=== PATIENT | male | born 1975 | race Caucasian/White ===

== ENCOUNTER → 2016-11-15 | Outpatient (CLI) | payer OTHER ==
--- NOTE | 2016-11-13 13:37 | DIAGNOSTIC IMAGING REPORT ---
CERVICAL SPINE 3 VIEWS CLINICAL HISTORY: Neck pain. FINDINGS: AP, lateral, and odontoid views of the cervical spine are correlated with MRI of the cervical spine dated 03/12/2016. The skeletal structures are well mineralized. There is no radiographic evidence of fracture or subluxation. The odontoid process and lateral masses appear intact on the open mouth view. The spinolaminar line is preserved. Vertebral body height and alignment are maintained. The spinous processes appear intact. The intervertebral disc spaces are normal. The prevertebral soft tissues are within normal limits. Visualized apical lung parenchyma appears clear. IMPRESSION: Unremarkable 3 view radiographic assessment of the cervical spine. Electronically signed by: John Sanchez M.D. 11/13/2016 1:36 PM Dictated Date/Time: 11/13/2016 1:35 PM
--- NOTE | 2016-11-13 13:38 | DIAGNOSTIC IMAGING REPORT ---
LUMBAR SPINE 2 OR 3 VIEWS CLINICAL HISTORY: Low back pain. Trauma COMPARISON STUDY: No previous studies for comparison. FINDINGS: There is a lumbar dextroscoliosis. There is no pathologic bowel dilatation. There are surgical clips in the right upper quadrant suggesting a prior cholecystectomy. There are no acute fractures or subluxations identified. There are degenerative changes most pronounced the L4-5 and L5-S1 levels. IMPRESSION: Scoliosis and mild degenerative change. No fractures or traumatic subluxations are visualized Electronically signed by: Pedro Casas M.D. 11/13/2016 1:37 PM Dictated Date/Time: 11/13/2016 1:36 PM
[~2016-11-15] MED LIST: CYCL10TA6 PO; DICY10CA12 PO; FLUT0.15; HYZ/50125 PO; KETO10TA PO; LPT40 PO; NRN600 PO; OXYC-164 PO; PRLSR20 PO; TPRSR/25 PO
== END | disposition home or self-care (01) ==
LOC: C.RDSM 15:33
PROVIDERS: ATTEND Orthopaedic Surgery
DX: M54.2 Cervicalgia (principal); M54.5 Low back pain; M41.9 Scoliosis, unspecified

== ENCOUNTER 2016-11-25 08:51 | Emergency (ER) | payer OTHER ==
[~2016-11-25] VITALS: Ht 190.5 cm; Wt 125.0 kg
[~2016-11-25 08:51] MED LIST changes: -DICY10CA12 PO; -KETO10TA PO; -TPRSR/25 PO
[2016-11-25 08:57] VITALS: TEMP 36.5; Ht 190.5 cm; Wt 125.0 kg
[2016-11-25] MEDS ORDERED: DICY10CA12 PO (09:12)
[2016-11-25] MEDS ORDERED: TPRSR/25 PO (09:12)
[2016-11-25] MEDS ORDERED: KETOROLAC TROMETHAMINE 60 MG/2 ML VIAL IM STA (09:47)
--- NOTE | 2016-11-25 10:43 | DIAGNOSTIC IMAGING REPORT ---
CERVICAL SPINE CT CT DOSE: 430.26 mGycm HISTORY: neck pain TECHNIQUE: Multiaxial CT images of the cervical spine were performed and reformatted in the sagittal and coronal plane without the use of contrast. COMPARISON: None. FINDINGS: No fractures. No subluxation. Prevertebral soft tissues and the C1-C2 interval are intact. No pneumothorax. A 1.2 cm right thyroid nodule/cyst. The visualized brain parenchyma is unremarkable. Straightening of the cervical spine. Mild disc space narrowing at C5-C6. No significant central canal narrowing by CT technique. IMPRESSION: No fractures within the cervical spine. A 1.2 cm right thyroid nodule/cyst. Electronically signed by: Cash Menendez M.D. 11/25/2016 10:42 AM Dictated Date/Time: 11/25/2016 10:38 AM
--- NOTE | 2016-11-25 10:48 | DIAGNOSTIC IMAGING REPORT ---
CT LUMBAR SPINE WITHOUT CLINICAL HISTORY: Low back pain. TECHNIQUE: Axial images of the lumbar spine were obtained without IV contrast. Sagittal and coronal reconstructions were viewed. COMPARISON STUDY: MRI of the lumbar spine February 29, 2016 and lumbar spine radiographs November 13, 2016. FINDINGS: Mild rightward curvature of the lumbar spine is noted. There are findings consistent with an L2-L3 laminectomy. The central canal and neural foramen are suboptimally assessed by CT. Mild multilevel disc bulges are noted. There is no evidence of severe central canal stenosis. There is a Schmorl's node along the inferior endplate of L4. There is no acute lumbar spine fracture. Paravertebral soft tissues are unremarkable. IMPRESSION: 1. No acute lumbar spine fracture or subluxation. 2. Status post L2-L3 laminectomy. 3. Mild rightward curvature of the lumbar spine with mild multilevel degenerative disc disease and facet arthrosis. Electronically signed by: Jose Esquivel M.D. 11/25/2016 10:47 AM Dictated Date/Time: 11/25/2016 10:39 AM
--- NOTE | 2016-11-25 10:55 | DIAGNOSTIC IMAGING REPORT ---
CT THORACIC SPINE WITHOUT CT DOSE: 4930.69 mGy.cm CLINICAL HISTORY: Back pain. TECHNIQUE: Axial images of the thoracic spine were obtained without IV contrast. Sagittal and coronal reconstructions were viewed. COMPARISON STUDY: Thoracic spine MRI February 29, 2016. FINDINGS: Alignment of the thoracic spine is anatomic. There is no acute fracture. Several Schmorl's nodes are noted. No suspicious lesions are identified by CT. Central canal and neural foramen are suboptimally assessed by CT but appear patent. Paravertebral soft tissues are unremarkable. Disc spaces are preserved. IMPRESSION: 1. No acute thoracic spine fracture or subluxation. 2. No significant abnormality of the thoracic spine by CT. Electronically signed by: Jose Esquivel M.D. 11/25/2016 10:53 AM Dictated Date/Time: 11/25/2016 10:47 AM
[2016-11-25] MEDS ORDERED: KETO10TA PO (11:45)
--- NOTE | 2016-11-25 11:46 | EMERGENCY ROOM VISIT NOTE ---
History Report prepared by Ryne: Connor Perez Under the Supervision of: Dr. Ivan Terry D.O. First contact with patient: 09:39 Chief Complaint: BACK PAIN Stated Complaint: NECK, BACK, SHOULDER PAIN History of Present Illness The patient is a 41 year old male who presents to the Emergency Room with complaints of constant back pain that worsened yesterday. He reports the pain as an 8/10 in severity. 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 He states he was putting a cable back up on the pole and when he was pulling the cable he started to feel a pain in his neck and both shoulders. 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 The patient states that the pain radiated to his arms and he felt a numbness in his hands. The patient reports the pain improved a little bit since the incident but worsened yesterday when he felt a pop in his lower back while working. He states that the pain feels like it is a grind and a pop. The patient reports he was sent on workers comp to [facility] where he had xrays done of his neck and back. The patient reports that he had no physical therapy or medication administered. He reports that the pain is currently a tenderness in his neck and back, which has somewhat decreased, and a pain shooting down his leg. The patient states that he has never felt pain like this before. Source of History: patient Onset: November 03 Position: back Symptom Intensity: 8/10 Quality: other (pop and grind) Timing: worsening Modifying Factors (Worsening): exertion Associated Symptoms: + neck pain Note: Associated Symptoms include: Shoulder pain, arm pain Review of Systems See HPI for pertinent positives & negatives. A total of 10 systems reviewed and were otherwise negative. Past Medical & Surgical Medical Problems: (1) Bronchitis (2) Heart disease (3) Hypertension (4) Pneumonia (5) Stomach problems Surgical Problems: (1) History of appendectomy (2) History of back surgery (3) History of back surgery (4) History of right knee surgery (5) History of right knee surgery (6) History of shoulder surgery (7) History of shoulder surgery Family History Cancer Gallbladder disease Hypertension No significant family history Social History Smoking Status: Never Smoker Drug Use: none Marital Status: Housing Status: lives with family Occupation Status: employed Current/Historical Medications Scheduled Dicyclomine Hcl (Dicyclomine Hcl), 1 CAP PO BID Hctz/Losartan (Hyzaar 12.5MG/50MG), 1 TAB PO BID Metoprolol Succinate (Metoprolol Succinate ER), 0.5 TAB PO DAILY Omeprazole (Prilosec), 20 MG PO QAM Oxycodone Hcl (Oxycodone Hcl), 10 MG PO TID Scheduled PRN Fluticasone Propionate (Nasal) (Flonase Allergy Relief), 2 SPRAY N/A DAILY PRN for CONGESTION Allergies Coded Allergies: No Known Allergies (Unverified , 11/25/16) Physical Exam Vital Signs Date Time Temp Pulse Resp B/P Pulse Ox O2 Delivery O2 Flow Rate FiO2 11/25/16 10:53 65 16 140/89 95 11/25/16 08:57 36.5 81 18 176/106 96 Room Air Physical Exam CONSTITUTIONAL/VITAL SIGNS: Reviewed / noted above. GENERAL: Non-toxic in appearance. INTEGUMENTARY: Warm, dry, and [place]. HEAD: Normocephalic. EYES: without scleral icterus or trauma. ENT/OROPHARYNX: clear and moist. LYMPHADENOPATHY/NECK: Is supple without lymphadenopathy or meningismus. RESPIRATORY: Lungs clear and equal. CARDIOVASCULAR: Regular rate and rhythm. GI/ABDOMEN: Soft and nontender. No organomegaly or pulsatile mass. No rebound or guarding. Normal bowel sounds. EXTREMITIES: Warm and well perfused. Normal lower extremity reflexes. Normal sensory and motor exam. BACK: No CVA tenderness. NEUROLOGICAL: Intact without focal deficits. PSYCHIATRIC: normal affect. MUSCULOSKELETAL: Normally developed with good muscle tone. Medical Decision & Procedures ER Provider Diagnostic Interpretation: CT results as stated below per my review and radiologist interpretation: CT LUMBAR SPINE WITHOUT CLINICAL HISTORY: Low back pain. TECHNIQUE: Axial images of the lumbar spine were obtained without IV contrast. Sagittal and coronal reconstructions were viewed. COMPARISON STUDY: MRI of the lumbar spine February 29, 2016 and lumbar spine radiographs November 13, 2016. FINDINGS: Mild rightward curvature of the lumbar spine is noted. There are findings consistent with an L2-L3 laminectomy. The central canal and neural foramen are suboptimally assessed by CT. Mild multilevel disc bulges are noted. There is no evidence of severe central canal stenosis. There is a Schmorl's node along the inferior endplate of L4. There is no acute lumbar spine fracture. Paravertebral soft tissues are unremarkable. IMPRESSION: 1. No acute lumbar spine fracture or subluxation. 2. Status post L2-L3 laminectomy. 3. Mild rightward curvature of the lumbar spine with mild multilevel degenerative disc disease and facet arthrosis. Electronically signed by: Jose Esquivel M.D. 11/25/2016 10:47 AM Dictated Date/Time: 11/25/2016 10:[address] DOSE: 430.26 mGycm HISTORY: neck pain TECHNIQUE: Multiaxial CT images of the cervical spine were performed and reformatted in the sagittal and coronal plane without the use of contrast. COMPARISON: None. FINDINGS: No fractures. No subluxation. Prevertebral soft tissues and the C1-C2 interval are intact. No pneumothorax. A 1.2 cm right thyroid nodule/cyst. The visualized brain parenchyma is unremarkable. Straightening of the cervical spine. Mild disc space narrowing at C5-C6. No significant central canal narrowing by CT technique. IMPRESSION: No fractures within the cervical spine. A 1.2 cm right thyroid nodule/cyst. Electronically signed by: Cash Menendez M.D. 11/25/2016 10:42 AM Dictated Date/Time: 11/25/2016 10:[address] THOR[address]IC SP[address] WITHOUT CT DOSE: 4930.69 mGy.cm CLINICAL HISTORY: Back pain. TECHNIQUE: Axial images of the thoracic spine were obtained without IV contrast. Sagittal and coronal reconstructions were viewed. COMPARISON STUDY: Thoracic spine MRI February 29, 2016. FINDINGS: Alignment of the thoracic spine is anatomic. There is no acute fracture. Several Schmorl's nodes are noted. No suspicious lesions are identified by CT. Central canal and neural foramen are suboptimally assessed by CT but appear patent. Paravertebral soft tissues are unremarkable. Disc spaces are preserved. IMPRESSION: 1. No acute thoracic spine fracture or subluxation. 2. No significant abnormality of the thoracic spine by CT. Electronically signed by: Jose Esquivel M.D. 11/25/2016 10:53 AM Dictated Date/Time: 11/25/2016 10:47 AM Medications Administered Medications (Trade) Dose Ordered Sig/Alex Route Start Time Stop Time Status Last Admin Dose Admin Ketorolac Tromethamine (Toradol Inj) 60 mg NOW STAT IM 11/25/16 09:47 11/25/16 09:49 DC 11/25/16 09:47 60 MG ED Course 944: Previous medical records were reviewed. The patient was evaluated in room B05. A complete history and physical examination was performed. 48: Ordered Toradol Injection 60 mg IM. Medical Decision Blood pressure Screening: Patient was found to have an elevated blood pressure and was referred to their primary doctor for recheck and further treatment. Medication Reconciliation: I attest that I have personally reviewed the patient' s current medication list. Differential considered includes cauda equina syndrome, conus medullaris, spinal cord compression syndrome, peripheral nerve compression, fractures or subluxations, intra-abdominal pathology such as abdominal aortic aneurysm or kidney stones, muscle strain, transverse myelitis, spinal cord injury. This is a 41-year-old male who presents to the ED with a chief complaint of neck pain and back pain. The patient states that he injured himself at work on November 03 when he was grabbing a cable and pulling it. Later that day he was lifting a piece of telephone pole and had some pain in his low back and neck. The patient was seen by [facility]. He was not happy with the x- rays that they performed and has an appointment to see [facility] on Wednesday. He came in here for evaluation. His exam was unremarkable. There is a history of laminectomy in the past in the lumbar spine. His neuro and motor exam were normal in the lower extremities. Reflexes were normal. CT scan of the cervical, thoracic and lumbar spine were performed. It was some mild disc space narrowing in the cervical region, mild disc bulging in the lumbar region, thoracic was unremarkable. The patient was treated with Toradol IM. He was discharged on Toradol. He was given 3 days off in order to rest and see the orthopedist on Wednesday. Impression Primary Impression: Neck pain Additional Impression: Back pain Scribe Attestation The scribe's documentation has been prepared under my direction and personally reviewed by me in its entirety. I confirm that the note above accurately reflects all work, treatment, procedures, and medical decision making performed by me. Departure Information Dispostion Home / Self-Care Prescriptions Ketorolac (Toradol) 10 Mg Tab 10 MG PO Q6H Y for Pain, #20 TAB Prov: Mishock,Ivan, D.O. 11/25/16 Referrals Estuardo Kamara M.D.([facility]) (PCP) Forms HOME CARE DOCUMENTATION FORM, IMPORTANT VISIT INFORMATION, Work Instructions Return To Work: 3 days Specific Date: 11/28/16 Patient Instructions My [facility] Additional Instructions Toradol as prescribed for discomfort. Rest for the next 3 days. Talk to the orthopedist about your symptoms on Wednesday as scheduled. Problem Qualifiers
[2016-11-25 12:05] VITALS: BP 138/74; PULSE 70; O2SAT 96
== END 2016-11-25 12:08 | disposition home or self-care (01) ==
LOC: C.EDB 08:52
DX: M54.2 Cervicalgia (principal); M54.5 Low back pain; Y99.0 Civilian activity done for income or pay; X50.0XXD Overexertion from strenuous movement or load, subsequent encounter; I10 Essential (primary) hypertension; Z87.01 Personal history of pneumonia (recurrent); Z80.9 Family history of malignant neoplasm, unspecified; Z82.49 Family history of ischemic heart disease and other diseases of the circulatory system; Z79.899 Other long term (current) drug therapy

== ENCOUNTER → 2016-12-25 | Outpatient (CLI) | payer OTHER ==
[~2016-12-25] MED LIST changes: -CYCL10TA6 PO; +DICY10CA12 PO; +KETO10TA PO; -LPT40 PO; -NRN600 PO; +TPRSR/25 PO
--- NOTE | 2016-12-25 10:17 | DIAGNOSTIC IMAGING REPORT ---
THYROID ULTRASOUND CLINICAL HISTORY: Abnormal imaging of the thyroid. COMPARISON STUDY: CT of the cervical spine November 25, 2016. TECHNIQUE: Sonography of the thyroid gland was performed. FINDINGS: The right thyroid lobe measures 5.7 x 2.1 x 2.2 cm and the left lobe measures 5.9 x 1.9 x 1.8 cm. A 1.6 x 1.6 x 1 cm slightly hypoechoic nodule within hypoechoic rim within the lower pole of the right lobe corresponds to the lesion shown on CT of November 25, 2016. This contains color flow. A few additional tiny subcentimeter nodules are noted and likely reflect colloid cysts. IMPRESSION: 1.6 cm nodule within the lower pole of the right thyroid lobe which corresponds to the lesion shown on CT of November 25, 2016. This does not have suspicious imaging characteristics but is indeterminate and ultrasound-guided fine needle aspiration could be performed. Electronically signed by: Jose Esquivel M.D. 12/25/2016 10:15 AM Dictated Date/Time: 12/25/2016 10:13 AM
== END | disposition home or self-care (01) ==
LOC: C.ULTRBC 09:12
PROVIDERS: ATTEND Orthopaedic Surgery Orthopaedic Surgery of the Spine
DX: R94.6 Abnormal results of thyroid function studies (principal); E04.1 Nontoxic single thyroid nodule

== ENCOUNTER → 2017-09-16 | Day surgery (SDC) | payer OTHER ==
[2017-08-26 09:24] VITALS: Ht 190.5 cm; Wt 130.0 kg
[~2017-09-16] VITALS: Ht 190.5 cm; Wt 130.0 kg
[~2017-09-16] MED LIST changes: +BACL10TA PO; +BUPIVACAINE 0.25% 2.5MG/ML PF 10 ML VIAL ONE; +CARV3.122 PO; -HYZ/50125 PO; -KETO10TA PO; +LIDOCAINE HCL 1% MPF 5 ML VIAL ONE; -OXYC-164 PO; +OXYC-57 PO; -TPRSR/25 PO
--- NOTE | 2017-09-16 14:19 | History & Physical Bridge - SC ---
H&P Re-Evaluation Bridge Note: I have examined the patient, reviewed the History & Physical and in the interval since the performance of the History & Physical I have noted the following changes of clinical significance: No changes noted
--- NOTE | 2017-09-16 14:41 | [facility] Post Operative Brief Note ---
Immediate Operative Summary Operative Date Sep 16, 2017. Pre-Operative Diagnosis Lumbar spondylosis with facet arthropathy L5-S1 Post-Operative Diagnosis Same Procedure(s) Performed Bilateral L5-S1 Medial Branch Blocks Surgeon Dr Larry Ku Disk Sander Surgeon(s) None Estimated Blood Loss 0 Findings Consistent with Post-Op Diagnosis Specimens NA Drains None Anesthesia Type Local Complication(s) none Disposition Disposition:
--- NOTE | 2017-09-16 14:42 | Discharge Instructions ---
Discharge Instructions Date of Service Sep 16, 2017. Visit Reason for Visit: Low Back Pain Discharge Discharge Diagnosis / Problem: low back pain Discharge Goals Goal(s): Decrease discomfort, Improve function Activity Recommendations Activity Limitations: resume your previous activity Anesthesia . Post Anesthesia Instructions: If you have had General Anesthesia or IV Sedation: * Do not drive today. * Resume driving when surgeon permits. * Do not make important decisions or sign legal documents today. * Call surgeon for: 1. Temperature elevations greater than 101 degrees F. 2. Uncontrollable pain. 3. Excessive bleeding. 4. Persistent nausea and vomiting. 5. Medication intolerance (nausea, vomiting or rash). * For nausea and vomiting use only clear liquids such as: tea, soda, bouillon until nausea subsides, then gradually increase diet as tolerated. * If you have any concerns or questions, call your surgeon's office. If physician is unavailable and it is an emergency, call 911 or go to the nearest emergency room. . Diet Recommendations Recommended Home Diet: resume previous diet Procedures Procedures Performed: Bilateral L5-S1 Medial Branch Blocks Pending Studies Studies pending at discharge: no Medical Emergencies . Who to Call and When: Medical Emergencies: If at any time you feel your situation is an emergency, please call 911 immediately. . Non-Emergent Contact Non-Emergency issues call your: Specialist . . "Provider Documentation" section prepared by Larry Ku. .
[2017-09-16 15:05] VITALS: BP 160/107; PULSE 73; TEMP 36.6; O2SAT 96
--- NOTE | 2017-09-16 19:27 | OPERATIVE REPORT ---
DATE OF OPERATION: 09/16/2017 PREOPERATIVE DIAGNOSES: Lumbar spondylosis with facet arthropathy L5-S1. Chronic low back pain. POSTOPERATIVE DIAGNOSES: Same. PROCEDURE: Bilateral L5-S1 medial branch blocks. INDICATIONS: The patient is a 42-year-old white male who has a significant low back pain that originates at the top of the buttocks. He denies any pain that radiates down the leg. He describes that he gets a lot of pain when he is doing twisting and turning in the low back. He presents today for diagnostic studies to confirm that the facet arthropathy is the cause of his pain. PHYSICAL EXAMINATION: Pleasant male seated comfortably. Well-healed lumbar incision. He has point tenderness to palpation of the L5-S1 regions. These get worse with extension, extension rotation. There is no sciatic notch sensitivity. Negative seated straight leg raises. CONSENT: Verbal and written consent was obtained from patient. Risks and benefits were reviewed. Risks include but are not limited to abscess and allergic reaction. The patient wishes to proceed. DESCRIPTION OF PROCEDURE: The patient was taken back to the special procedures room of the [facility]. He was maintained in prone position. Backside was cleansed with Betadine x3 and a dry sterile dressing was applied. Fluoroscope was used to identify the L5 transverse process and the sacral ala on the left. The overlying skin was anesthetized with 1.25 mL of lidocaine 1% with a 25 gauge 1.5-inch needle. A 25 gauge 3.5-inch spinal needle was then directed into the bony target of the L5 transverse process junction with vertebral body and the sacral ala on the left side, contacting bone on each point that was injected then with 1 mL of bupivacaine 0.25% at each side. The right L5 transverse process junction and right sacral ala were then fluoroscopically identified. Overlying skin anesthetized with 1.25 mL of lidocaine 1% with a 25 gauge 1.5-inch needle. A 25 gauge 3.5-inch spinal needle then targeted at each site, L5 transverse process junction on the right and the right sacral ala. After contacting these targets, patient was injected with 1 mL of bupivacaine 0.25% at each site. Injection was well tolerated. DISPOSITION: 1. The patient is taken out into the discharge recovery area where he will be discharged home once discharge criteria have been met. 2. Follow up in the [facility] office in 4 weeks' time. I attest to the content of the Intraoperative Record and any orders documented therein. Any exception s are noted below.
== END | disposition home or self-care (01) ==
LOC: X.SURG 13:34
PROVIDERS: ATTEND Physical Medicine & Rehabilitation
DX: M47.817 Spondylosis without myelopathy or radiculopathy, lumbosacral region (principal); M54.5 Low back pain; Z79.899 Other long term (current) drug therapy

== ENCOUNTER 2017-09-17 05:07 | Day surgery (SDC) | payer OTHER ==
[2017-08-26 09:08] VITALS: Ht 190.5 cm; Wt 130.0 kg
--- NOTE | 2017-09-13 09:28 | History and Physical ---
History & Physical Date Sep 13, 2017. Chief Complaint Left shoulder pain History of Present Illness The patient is a 42 year old male with complaints of left shoulder pain for several months. He has tried conservative therapy for with minimal relief. He would like to proceed with scheduled surgery. Past Medical/Surgical History Medical Problems: (1) Bronchitis (2) Heart disease (3) Hypertension (4) Pneumonia (5) Stomach problems Surgical Problems: (1) History of appendectomy (2) History of back surgery (3) History of back surgery (4) History of right knee surgery (5) History of right knee surgery (6) History of shoulder surgery (7) History of shoulder surgery Additional History Hepatic Disease: No Endocrine Disorder: No Kidney Disease: No Hypertension: Yes Heart Disease: No Bleeding Tendencies: No Infectious Diseases: No Allergies Coded Allergies: No Known Allergies (Unverified , 08/26/17) Home Medications Scheduled Carvedilol (Coreg), 3.125 MG PO BID Dicyclomine Hcl (Dicyclomine Hcl), 1 CAP PO BID Omeprazole (Prilosec), 20 MG PO QAM Scheduled PRN Baclofen (Lioresal), 10 MG PO TID PRN for Muscle Spasms Fluticasone Propionate (Nasal) (Flonase Allergy Relief), 2 SPRAY N/A DAILY PRN for CONGESTION Physical Examination Skin: warm/dry, no rash Eyes: normal inspection, EOMI ENT: normal ENT inspection Head: normocephalic, atraumatic Neck: supple, no adenopathy Respiratory/Chest: lungs clear, normal breath sounds Cardiovascular: regular rate, rhythm, no murmur Abdomen / GI: normal bowel sounds, non tender Extremities: normal inspection, + pertinent finding (Positive impingment sign. decreased ROM and decreased Strength) Neurologic/Psych: no motor/sensory deficits, alert, oriented x 3 Diagnosis Left shoulder impingement syndrome Plan of Treatment Patient is scheduled for a left shoulder subacromial decompression. He has failed conservative therapy and would like to proceed with scheduled surgery. Risks and benefits to surgery were discussed with the patient. He understands these risks and wishes to proceed. All questions were answered to his satisfaction. This is an outpatient procedure and he will go home with self- care for Outpatient PT.
[~2017-09-17] VITALS: Ht 190.5 cm; Wt 130.0 kg
[~2017-09-17 05:07] MED LIST changes: -BUPIVACAINE 0.25% 2.5MG/ML PF 10 ML VIAL ONE; -LIDOCAINE HCL 1% MPF 5 ML VIAL ONE; -OXYC-57 PO
[2017-09-17 05:59] VITALS: BP 142/84; PULSE 65; TEMP 36.7; O2SAT 95
[2017-09-17] MEDS ORDERED: LACTATED RINGER'S 1000ML 1,000 ML IV SCH (06:00)
[2017-09-17] MEDS ORDERED: CEFAZOLIN 3000MG IV PUSH 22.5 ML IV SCH (06:00)
[2017-09-17] MEDS ORDERED: ROPIVACAINE 0.5% 5 MG/ML 30 ML VIAL ONE (06:30)
[2017-09-17] MEDS ORDERED: LIDOCAINE/EPINEPHRINE 1% 20 ML VIAL ONE (06:39)
[2017-09-17] MEDS ORDERED: BUPIVACAINE 0.5 % 5 MG/1 ML MPF 30ML VIAL ONE (06:39)
[2017-09-17] MEDS ORDERED: EpINEphrine HCL INJ 1 MG/ML 1ML SYRINGE ONE ×2 (06:39)
[2017-09-17] MEDS ORDERED: NEOSTIGMINE METHYLSULFATE 5 MG/5 ML SYR ONE (06:48)
[2017-09-17] MEDS ORDERED: LIDOCAINE HCL 2% 2 ML VIAL (20MG/ML) ONE (06:48)
[2017-09-17] MEDS ORDERED: PROPOFOL IV EMULSION 10 MG/ML 20 ML VIAL IV ONE (06:48)
[2017-09-17] MEDS ORDERED: DEXAMETHASONE SOD INJ 4 MG/ML VIAL ONE (06:48)
[2017-09-17] MEDS ORDERED: FENTANYL CITRATE INJ 50 MCG/1 ML 2 ML VIAL ONE (06:48)
[2017-09-17] MEDS ORDERED: GLYCOPYRROLATE INJ 0.2 MG/ML VIAL ONE ×2 (06:48→07:58)
[2017-09-17] MEDS ORDERED: ONDANSETRON INJ 2 MG/ML 2 ML VIAL ONE (06:48)
[2017-09-17] MEDS ORDERED: MIDAZOLAM HCL 1 MG/ML 2ML VIAL ONE (06:48)
[2017-09-17] MEDS ORDERED: ROCURONIUM BROMIDE 10 MG/ML 5 ML VIAL IV ONE (06:49)
[2017-09-17] MEDS ORDERED: SUCCINYLCHOLINE CHLORIDE 20 MG/ML 10 ML VIAL IV ONE (06:49)
[2017-09-17] MEDS ORDERED: ATROPINE SULFATE 0.1 MG/ML 5ML SYR IV PRN (07:15)
[2017-09-17] MEDS ORDERED: EpHEDrine SULFATE INJ 50 MG/ML AMP IV PRN (07:15)
[2017-09-17] MEDS ORDERED: ONDANSETRON INJ 2 MG/ML 2 ML VIAL IV PRN ×2 (07:15→08:15)
[2017-09-17] MEDS ORDERED: HYDROmorphone INJ 1 MG/ML SYR IV PRN (07:15)
[2017-09-17] MEDS ORDERED: FENTANYL CITRATE INJ 50 MCG/1 ML 2 ML VIAL IV PRN (07:15)
--- NOTE | 2017-09-17 08:09 | [facility] Operative Report ---
Operative Report Operative Date Sep 17, 2017. Pre-Operative Diagnosis Left Shoulder Impingement Syndrome Post-Operative Diagnosis Left Shoulder Impingement Syndrome, labral tear, partial thickness subscapularis tear Procedure(s) Performed Left Shoulder: Arthroscopy, Subacromial Decompression and Debridement Surgeon Dr. Wolff Ibm Websphere Commerce Developer Surgeon(s) MISHA Segura Estimated Blood Loss 1 ml Specimens none per surgeon Drains None Anesthesia Type General Regional Complication(s) none Disposition Recovery Room / PACU Indications The patient is a 42-year-old male long-standing left shoulder. He has failed conservative measures including cortisone injection physical therapy and anti- inflammatory medications. He wishes to proceed with arthroscopy. Description of Procedure Risks, benefits and alternatives to surgery including, but not limited to, infection DVT, pain, stiffness, need for revision surgery, failure to relieve all symptoms, damage to blood vessels, damage to nerves, risk of anesthesia were discussed with the patient and they wished to proceed. The patient was identified. Laterality was confirmed and marked. The patient received a preoperative antibiotic as well as an interscalene block. They were transferred to the operating room and placed in the supine position and induced into general endotracheal anesthesia per the anesthesia staff. The patient was then safely transferred to the lateral decubitus position, secured by a beanbag. An axillary roll was placed. All pressure points were well-padded. The limb was placed in 10 pounds of lateral traction and then prepped and draped in the usual standard manner with ChloraPrep. The portal sites were anesthetized with 2% lidocaine with epinephrine. I made a standard posterior viewing portal made through a stab incision and then bluntly entered the glenohumeral joint. Then under spinal needle localization, I establish an anterior superolateral portal. The cartilage of the humeral head was normal. The cartilage of the glenoid was normal. The glenoid labrum had some degenerative tearing of the anterior labrum. This was debrided back to stable base utilizing a shaver. The long head of the biceps tendon was normal. The subscapularis had some minor fraying on the upper insertional border. This is debrided back to stable base using a shaver. The remaining portion of the tendon is normal.. The undersurface of the rotator cuff was intact. I then removed the instrumentation from the joint and entered the subacromial space. I establish a lateral portal under spinal needle localization. There was fairly thickened bursa that was debrided utilizing a shaver. The rotator cuff was normal. I then released the CA ligament with cautery and performed a subacromial decompression, first removing the anterior inferior spur from laterally and then completing with a cutting block technique. Portal sites were closed with nylon. A sterile dressing was applied and a sling placed. All needle and sponge counts were correct at the end of the procedure. The patient was transferred to the PACU in stable condition without apparent complication. I attest to the content of the Intraoperative Record and any orders documented therein. Any exceptions are noted below.
[2017-09-17] MEDS ORDERED: SODIUM CHLORIDE 0.9% 1000ML 1,000 ML IV SCH (08:13)
[2017-09-17] MEDS ORDERED: OXYC-57 PO ×2 (08:14)
[2017-09-17] MEDS ORDERED: OXYCODONE/ACETAMINOPHEN 5-325 TAB PO PRN ×2 (08:15)
--- NOTE | 2017-09-17 08:17 | Discharge Instructions ---
Discharge Instructions Date of Service Sep 17, 2017. Admission Reason for Admission: Left Shoulder Impingement Syndrome Discharge Discharge Diagnosis / Problem: S/P Left shoulder Subacromial decompression Discharge Goals Goal(s): Decrease discomfort, Improve function Activity Recommendations Activity Limitations: per Instructions/Follow-up section . Instructions / Follow-Up Instructions / Follow-Up U DISCHARGE INSTRUCTIONS: SHOULDER ARTHROSCOPY subacromial decompression SELF CARE INSTRUCTIONS AFTER: A. You are allowed to use your arm actively as comfort allows. Recommend NOT doing repetitive overhead activity or heavy lifting. B. You should start Physical Therapy within 1-3 days from your surgery. You will be provided a prescription with specific restrictions, if needed, at time of discharge. C. You can discontinue the sling as comfort allows within one to two days after surgery. A. At 48 hours post-operatively, you may change your dressing. Use band-aids and change daily. You are allowed to shower at this time and get the incision area wet, but DO NOT soak or submerge incision area in water. (No baths, swimming pools, hot tubs) B. Do NOT apply soap or any ointment/lotions directly over incision. C. You may use ice as needed to operative shoulder SPECIAL CARE INSTRUCTIONS: VERY IMPORTANT TO READ AND REVIEW A. There are a few signs you need to watch for after you are home. Call [facility] at [phone] if you experience any of the following: a. Increased severe shoulder pain. Some pain is expected especially when you exercise b. Increased swelling in your shoulder or arm; pain or swelling in either upper extremity. (Note: swelling and stiffness is normal and expected for several weeks post op, depending on type of shoulder surgery you had). c. Any fluid or drainage from the incision; redness of the incision. d. Shortness of breath or chest pain. B. Please call [facility] at [phone] if you have any questions or concerns about your operation or recovery. C. Call your physician if: a. Temperature is greater than 101 degrees (F). b. Pain is not relieved by prescribed pain medications. c. Increase drainage or redness from incision. d. Unanswered questions or concerns. D. Pain Medication: a. You will be prescribed pain medication upon discharge that should last till your first post-operative appointment. b. You may also take Advil or Ibuprofen between medication doses if you do not have any contraindication to taking them. c. You may also take Advil or Ibuprofen in place of your pain medication if the pain is tolerable. d. If you experience nausea and/or skin rash, discontinue this medication and contact our office for an alternative medication. e. Caution- narcotic pain medication can cause constipation. FOLLOW UP VISIT: Please call [facility] at [phone] to schedule a follow up appointment 10-14 days from your surgery date. Current Hospital Diet Patient's current hospital diet: Discharge Diet Recommended Diet: Regular Diet Procedures Procedures Performed: Left Shoulder: Arthroscopy, Subacromial Decompression and Debridement Pending Studies Studies pending at discharge: no Medical Emergencies . Who to Call and When: Medical Emergencies: If at any time you feel your situation is an emergency, please call 911 immediately. . Non-Emergent Contact Non-Emergency issues call your: Surgeon Call Non-Emergent contact if: temperature is above 101.5, your pain is worsening, wound has increased drainage, wound has increased redness . "Provider Documentation" section prepared by Kobi Harding. . [place] Drug Monitoring Program Search Results: patient reviewed within database, no issues identified
--- NOTE | 2017-09-17 08:44 | Anesthesiology Progress Note ---
Anesthesia Post Op Note Date & Time Sep 17, 2017 at 08:44 Vital Signs Pain Intensity: 4 Vital Signs Past 12 Hours Date Time Temp Pulse Resp B/P (MAP) Pulse Ox O2 Delivery O2 Flow Rate FiO2 09/17/17 08:40 67 16 140/99 95 Room Air 09/17/17 08:30 61 16 143/96 97 Oxymask 15 09/17/17 08:20 67 16 147/97 96 Oxymask 15 09/17/17 08:12 36.7 79 16 165/106 93 Oxymask 15 09/17/17 05:59 36.7 65 18 142/84 (103) 95 Room Air Notes Mental Status: alert / awake / arousable, participated in evaluation Pt Amnestic to Procedure: Yes Nausea / Vomiting: adequately controlled Pain: adequately controlled Airway Patency, RR, SpO2: stable & adequate BP & HR: stable & adequate Hydration State: stable & adequate Anesthetic Complications: no major complications apparent Anesthetic Complications: block working appropriately
[2017-09-17 08:55] VITALS: BP 139/93; PULSE 62; TEMP 36.6; O2SAT 95
[2017-09-17 09:25] VITALS: BP 131/70; PULSE 66; TEMP 36.6; O2SAT 95
== END 2017-09-17 10:08 | disposition home or self-care (01) ==
LOC: C.ACU 05:07
PROVIDERS: ATTEND Orthopaedic Surgery
DX: M75.42 Impingement syndrome of left shoulder (principal); I51.9 Heart disease, unspecified; I10 Essential (primary) hypertension; Z79.899 Other long term (current) drug therapy

== ENCOUNTER → 2017-10-08 | Day surgery (SDC) | payer OTHER ==
[2017-10-07 08:20] VITALS: BMI 36.0
[~2017-10-08] VITALS: Ht 190.5 cm; Wt 130.0 kg
[~2017-10-08] MED LIST changes: +ATROPINE SULFATE 0.1 MG/ML 5ML SYR IV PRN; -BACL10TA PO; +BUPIVACAINE 0.5 % 5 MG/1 ML MPF 30ML VIAL ONE; -CARV3.122 PO; +CEFAZOLIN 3000MG IV PUSH 22.5 ML IV SCH; +CRG625 PO; -DICY10CA12 PO; +EpINEphrine HCL INJ 1 MG/ML 1ML SYRINGE ONE; +FENTANYL CITRATE INJ 50 MCG/1 ML 2 ML VIAL IV PRN; +FENTANYL CITRATE INJ 50 MCG/1 ML 2 ML VIAL ONE; +GLYCOPYRROLATE INJ 0.2 MG/ML VIAL ONE; +HYDROCODONE/ACETAMIN 5/325MG TAB PO PRN; +KETOROLAC TROMETHAMINE 30 MG/ML VIAL IV. PRN; +LABETALOL HCL IV 5 MG/ML 20ML IV PRN; +LACTATED RINGER'S 1000ML 1,000 ML IV SCH; +LIDOCAINE HCL 2% 2 ML VIAL (20MG/ML) ONE; +LIDOCAINE/EPINEPHRINE 1% 20 ML VIAL ONE; +MIDAZOLAM HCL 1 MG/ML 2ML VIAL ONE; +NEOSTIGMINE METHYLSULFATE 5 MG/5 ML SYR ONE; +ONDANSETRON INJ 2 MG/ML 2 ML VIAL IV PRN; -PRLSR20 PO; +PROPOFOL IV EMULSION 10 MG/ML 20 ML VIAL IV ONE; +ROCURONIUM BROMIDE 10 MG/ML 5 ML VIAL IV ONE; +ROPIVACAINE 0.5% 5 MG/ML 30 ML VIAL ONE; +SODIUM CHLORIDE 0.9% 1000ML 1,000 ML IV SCH
[2017-10-08 10:50] VITALS: BP 149/104; PULSE 76; TEMP 36.9; O2SAT 94; Ht 190.5 cm; Wt 130.0 kg
--- NOTE | 2017-10-08 11:47 | History and Physical ---
History & Physical Date Oct 08, 2017. Chief Complaint Right shoulder pain History of Present Illness The patient is a 42 year old male with complaints of right shoulder pain that has failed injection, PT and NSAIDs Past Medical/Surgical History Medical Problems: (1) Bronchitis (2) Heart disease (3) Hypertension (4) Pneumonia (5) Stomach problems Surgical Problems: (1) History of appendectomy (2) History of back surgery (3) History of back surgery (4) History of right knee surgery (5) History of right knee surgery (6) History of shoulder surgery (7) History of shoulder surgery Allergies Coded Allergies: No Known Allergies (Unverified , 10/08/17) Home Medications Scheduled Carvedilol (Carvedilol), 1 TAB PO BID Scheduled PRN Fluticasone Propionate (Nasal) (Flonase Allergy Relief), 2 SPRAY N/A DAILY PRN for CONGESTION Physical Examination Skin: warm/dry Eyes: normal inspection ENT: normal ENT inspection Head: normocephalic Neck: supple Respiratory/Chest: lungs clear Cardiovascular: regular rate, rhythm Extremities: + pertinent finding (R shoulder impingement signs, nl ROM, nl strength to RTC) Diagnosis Right shoulder impingement Plan of Treatment Right shoulder arthroscopic decompression r/b/a discussed he wishes to proceed
--- NOTE | 2017-10-08 15:17 | [facility] Operative Report ---
Operative Report Operative Date Oct 08, 2017. Pre-Operative Diagnosis right shoulder impingement Post-Operative Diagnosis same plus labral tear, synovitis Procedure(s) Performed right shoulder arthroscopic subacromial decompression, limited debridement Surgeon Dr. Rene Wolff Tobacco Baler Surgeon(s) Linda Harding PA-C Estimated Blood Loss 1ml Findings As above Specimens no specimen per surgeon Drains None Anesthesia Type General Complication(s) none Disposition Recovery Room / PACU Indications The patient is a 42-year-old male with long-standing pain in the right shoulder. He is failed conservative measures including cortisone injection, physical therapy, anti-inflammatories. He wishes to proceed with arthroscopy. Description of Procedure Risks, benefits and alternatives to surgery including, but not limited to, infection DVT, pain, stiffness, need for revision surgery, failure to relieve all symptoms, damage to blood vessels, damage to nerves, risk of anesthesia were discussed with the patient and they wished to proceed. The patient was identified. Laterality was confirmed and marked. The patient received a preoperative antibiotic as well as an interscalene block. They were transferred to the operating room and placed in the supine position and induced into general endotracheal anesthesia per the anesthesia staff. The patient was then safely transferred to the lateral decubitus position, secured by a beanbag. An axillary roll was placed. All pressure points were well-padded. The limb was placed in 10 pounds of lateral traction and then prepped and draped in the usual standard manner with ChloraPrep. The portal sites were anesthetized with 2% lidocaine with epinephrine. I made a standard posterior viewing portal made through a stab incision and then bluntly entered the glenohumeral joint. Then under spinal needle localization, I establish an anterior superolateral portal. The cartilage of the humeral head was normal. The cartilage of the glenoid was normal. The glenoid labrum had some degenerative tearing of the anterior and superior labrum. This was debrided back to stable base utilizing a shaver. The long head of the biceps tendon was normal. The subscapularis was normal. The undersurface of the rotator cuff was intact. I then removed the instrumentation from the joint and entered the subacromial space. I establish a lateral portal under spinal needle localization. There was fairly thickened bursa that was debrided utilizing a shaver. The rotator cuff was normal. I then released the CA ligament with cautery and performed a subacromial decompression, first removing the anterior inferior spur from laterally and then completing with a cutting block technique. Portal sites were closed with nylon. A sterile dressing was applied and a sling placed. All needle and sponge counts were correct at the end of the procedure. The patient was transferred to the PACU in stable condition without apparent complication. I attest to the content of the Intraoperative Record and any orders documented therein. Any exceptions are noted below.
--- NOTE | 2017-10-08 15:33 | Discharge Instructions ---
Discharge Instructions Date of Service Oct 08, 2017. Visit Reason for Visit: Right Shoulder Impingement Syndrome Discharge Discharge Diagnosis / Problem: S/P Right shoulder SAD Discharge Goals Goal(s): Decrease discomfort, Improve function Activity Recommendations Activity Limitations: per Instructions/Follow-up section Anesthesia . Post Anesthesia Instructions: If you have had General Anesthesia or IV Sedation: * Do not drive today. * Resume driving when surgeon permits. * Do not make important decisions or sign legal documents today. * Call surgeon for: 1. Temperature elevations greater than 101 degrees F. 2. Uncontrollable pain. 3. Excessive bleeding. 4. Persistent nausea and vomiting. 5. Medication intolerance (nausea, vomiting or rash). * For nausea and vomiting use only clear liquids such as: tea, soda, bouillon until nausea subsides, then gradually increase diet as tolerated. * If you have any concerns or questions, call your surgeon's office. If physician is unavailable and it is an emergency, call 911 or go to the nearest emergency room. . Instructions / Follow-Up Instructions / Follow-Up [facility] [place]GE INSTRUCTIONS: SHOULDER ARTHROSCOPY SELF CARE INSTRUCTIONS AFTER: A. You are allowed to use your arm actively as comfort allows. Recommend NOT doing repetitive overhead activity or heavy lifting. B. You should start Physical Therapy within 1-3 days from your surgery. You will be provided a prescription with specific restrictions, if needed, at time of discharge. C. You can discontinue the sling as comfort allows within one to two days after surgery. A. At 48 hours post-operatively, you may change your dressing. Use band-aids and change daily. You are allowed to shower at this time and get the incision area wet, but DO NOT soak or submerge incision area in water. (No baths, swimming pools, hot tubs) B. Do NOT apply soap or any ointment/lotions directly over incision. C. You may use ice as needed to operative shoulder SPECIAL CARE INSTRUCTIONS: VERY IMPORTANT TO READ AND REVIEW A. There are a few signs you need to watch for after you are home. Call [facility] at [phone] if you experience any of the following: a. Increased severe shoulder pain. Some pain is expected especially when you exercise b. Increased swelling in your shoulder or arm; pain or swelling in either upper extremity. (Note: swelling and stiffness is normal and expected for several weeks post op, depending on type of shoulder surgery you had). c. Any fluid or drainage from the incision; redness of the incision. d. Shortness of breath or chest pain. B. Please call [facility] at [phone] if you have any questions or concerns about your operation or recovery. C. Call your physician if: a. Temperature is greater than 101 degrees (F). b. Pain is not relieved by prescribed pain medications. c. Increase drainage or redness from incision. d. Unanswered questions or concerns. D. Pain Medication: a. You may also take Advil or Ibuprofen between medication doses if you do not have any contraindication to taking them. b. You may also take Advil or Ibuprofen in place of your pain medication if the pain is tolerable. c. If you experience nausea and/or skin rash, discontinue this medication and contact our office for an alternative medication. d. Caution- narcotic pain medication can cause constipation. FOLLOW UP VISIT: Please call [facility] at [phone] to schedule a follow up appointment 10-14 days from your surgery date. Diet Recommendations Recommended Home Diet: resume previous diet Procedures Procedures Performed: right shoulder arthroscopic subacromial decompression, limited debridement Pending Studies Studies pending at discharge: no Medical Emergencies . Who to Call and When: Medical Emergencies: If at any time you feel your situation is an emergency, please call 911 immediately. . Non-Emergent Contact Non-Emergency issues call your: Surgeon Call Non-Emergent contact if: temperature is above 101.5, your pain is worsening, wound has increased drainage, wound has increased redness . . "Provider Documentation" section prepared by Kobi Harding. . [place] Drug Monitoring Program Search Results: patient reviewed within database, no issues identified
[2017-10-08 16:10] VITALS: BP 141/84; PULSE 58; TEMP 36.7; O2SAT 94
[2017-10-08 16:40] VITALS: BP 148/85; PULSE 62; TEMP 36.6; O2SAT 93
--- NOTE | 2017-10-08 16:40 | Anesthesiology Progress Note ---
Anesthesia Post Op Note Date & Time Oct 08, 2017 at 16:40 Vital Signs Pain Intensity: 5 Vital Signs Past 12 Hours Date Time Temp Pulse Resp B/P (MAP) Pulse Ox O2 Delivery O2 Flow Rate FiO2 10/08/17 16:10 36.7 58 18 141/84 94 Room Air 10/08/17 16:05 36.4 68 22 145/86 92 Room Air 10/08/17 15:55 57 13 147/88 93 Room Air 10/08/17 15:45 65 22 151/90 97 Oxymask 10 10/08/17 15:35 60 20 148/99 94 Oxymask 10 10/08/17 15:27 36.4 67 23 158/87 91 Oxymask 10 10/08/17 10:50 36.9 76 18 149/104 (119) 94 Room Air Notes Mental Status: alert / awake / arousable, participated in evaluation Pt Amnestic to Procedure: Yes Nausea / Vomiting: adequately controlled Pain: adequately controlled Airway Patency, RR, SpO2: stable & adequate BP & HR: stable & adequate Hydration State: stable & adequate Anesthetic Complications: no major complications apparent
== END | disposition home or self-care (01) ==
LOC: C.ACU 10:27
PROVIDERS: ATTEND Orthopaedic Surgery
DX: M75.41 Impingement syndrome of right shoulder (principal); G47.33 Obstructive sleep apnea (adult) (pediatric); I10 Essential (primary) hypertension; K58.9 Irritable bowel syndrome, unspecified; K76.0 Fatty (change of) liver, not elsewhere classified; Z99.89 Dependence on other enabling machines and devices; Z87.01 Personal history of pneumonia (recurrent)

== ENCOUNTER → 2017-11-11 | Day surgery (SDC) | payer OTHER ==
[2017-10-19 10:38] VITALS: Ht 190.5 cm; Wt 127.3 kg
[~2017-11-11] VITALS: Ht 190.5 cm; Wt 127.3 kg
[~2017-11-11] MED LIST changes: -ATROPINE SULFATE 0.1 MG/ML 5ML SYR IV PRN; +BUPIVACAINE 0.25% 2.5MG/ML PF 10 ML VIAL ONE; -BUPIVACAINE 0.5 % 5 MG/1 ML MPF 30ML VIAL ONE; -CEFAZOLIN 3000MG IV PUSH 22.5 ML IV SCH; -EpINEphrine HCL INJ 1 MG/ML 1ML SYRINGE ONE; -FENTANYL CITRATE INJ 50 MCG/1 ML 2 ML VIAL IV PRN; -FENTANYL CITRATE INJ 50 MCG/1 ML 2 ML VIAL ONE; -GLYCOPYRROLATE INJ 0.2 MG/ML VIAL ONE; -HYDROCODONE/ACETAMIN 5/325MG TAB PO PRN; -KETOROLAC TROMETHAMINE 30 MG/ML VIAL IV. PRN; -LABETALOL HCL IV 5 MG/ML 20ML IV PRN; -LACTATED RINGER'S 1000ML 1,000 ML IV SCH; +LIDOCAINE HCL 1% 20 ML VIAL ONE; -LIDOCAINE HCL 2% 2 ML VIAL (20MG/ML) ONE; -LIDOCAINE/EPINEPHRINE 1% 20 ML VIAL ONE; -MIDAZOLAM HCL 1 MG/ML 2ML VIAL ONE; -NEOSTIGMINE METHYLSULFATE 5 MG/5 ML SYR ONE; -ONDANSETRON INJ 2 MG/ML 2 ML VIAL IV PRN; -PROPOFOL IV EMULSION 10 MG/ML 20 ML VIAL IV ONE; -ROCURONIUM BROMIDE 10 MG/ML 5 ML VIAL IV ONE; -ROPIVACAINE 0.5% 5 MG/ML 30 ML VIAL ONE; -SODIUM CHLORIDE 0.9% 1000ML 1,000 ML IV SCH
--- NOTE | 2017-11-11 14:16 | [facility] Post Operative Brief Note ---
Immediate Operative Summary Operative Date November 11, 2017. Pre-Operative Diagnosis Lumbar spondylosis, lumbar facet arthropathy Post-Operative Diagnosis Same Procedure(s) Performed Bilateral L5-S1 Radio Frequency Denervation Surgeon Dr. Marques Ku Marketing Manager Health Communications Surgeon(s) None Estimated Blood Loss 0 Findings Consistent with Post-Op Diagnosis Specimens NA Drains None Anesthesia Type Local Disposition Disposition:
[2017-11-11 14:18] VITALS: TEMP 37.2
--- NOTE | 2017-11-11 14:18 | Discharge Instructions ---
Discharge Instructions Date of Service November 11, 2017. Visit Reason for Visit: Low Back Pain, Lumbar Spondylosis Discharge Discharge Diagnosis / Problem: low back pain Discharge Goals Goal(s): Decrease discomfort, Improve function Activity Recommendations Activity Limitations: resume your previous activity Anesthesia . Post Anesthesia Instructions: If you have had General Anesthesia or IV Sedation: * Do not drive today. * Resume driving when surgeon permits. * Do not make important decisions or sign legal documents today. * Call surgeon for: 1. Temperature elevations greater than 101 degrees F. 2. Uncontrollable pain. 3. Excessive bleeding. 4. Persistent nausea and vomiting. 5. Medication intolerance (nausea, vomiting or rash). * For nausea and vomiting use only clear liquids such as: tea, soda, bouillon until nausea subsides, then gradually increase diet as tolerated. * If you have any concerns or questions, call your surgeon's office. If physician is unavailable and it is an emergency, call 911 or go to the nearest emergency room. . Diet Recommendations Recommended Home Diet: resume previous diet Procedures Procedures Performed: Bilateral L5-S1 Radio Frequency Denervation Pending Studies Studies pending at discharge: no Medical Emergencies . Who to Call and When: Medical Emergencies: If at any time you feel your situation is an emergency, please call 911 immediately. . Non-Emergent Contact Non-Emergency issues call your: Specialist . . "Provider Documentation" section prepared by Larry Ku. .
[2017-11-11 14:37] VITALS: BP 146/92; PULSE 64; O2SAT 95
--- NOTE | 2017-11-11 16:58 | OPERATIVE REPORT ---
DATE OF OPERATION: 11/11/2017 PREOPERATIVE DIAGNOSES: Chronic low back pain, lumbar facet arthropathy. POSTOPERATIVE DIAGNOSES: Chronic low back pain, lumbar facet arthropathy. PROCEDURE: Bilateral L5-S1 radiofrequency denervation. INDICATIONS: Patient is a 42-year-old male who underwent bilateral L5-S1 medial branch blocks with significant relief on the left side and about 50% improvement on the right side. He presents today for a denervation procedure to provide him with more long-lasting relief of the low back pain. PHYSICAL EXAMINATION: GENERAL: Pleasant male seated comfortably. MUSCULOSKELETAL: Lumbar paraspinal muscles were palpated and noted to be nontender. Mild reproduction of pain with extension, extension rotation, normal lower extremity strength sensation and subjectively decrease in the L5-S1 dermatomes. CONSENT: Verbal and written consent was obtained from the patient. Risks and benefits were reviewed. Risks include but are not limited to abscess and allergic reaction, denervation. He wishes to proceed. PROCEDURE: Patient was taken back to the special procedures room of the [facility] where he was maintained in a prone position. Backside was cleansed with Betadine x3 and a dry sterile dressing was applied. Fluoroscope was used to identify the L5 transverse process on the left and the sacral ala on the left. Overlying skin was anesthetized with 1.25 mL of lidocaine 1% with a 25 gauge 1.5-inch needle and a 22 gauge 10 cm Augustin needle contacted the bony targets at each site. He underwent sensory stimulation at each site to a sensitivity of 0.2 volts. Motor stimulation did not provoke any movement down the leg. He underwent anesthetization with additional 1 mL lidocaine 1% at each site denervation 80 degrees 100 seconds x2 at each site. He did notice some right leg pain at the L4 site on the second set of gupta and this was stopped. The right L5 transverse process and right sacral ala were then fluoroscopically identified. Overlying skin anesthetized with additional 1.25 mL of lidocaine 1%, 25 gauge 1.5-inch needle. A 22 gauge 10 cm [place] needle contacted bone at each site and he underwent denervation 100 seconds, 80 degrees x2 after sensory stimulation to 0.2 volts at each site and motor stimulation did not provoke any leg movements. Denervations were well tolerated. All denervations were then followed by 1 mL of bupivacaine 0.25% injection. DISPOSITION: 1. Patient is taken out into the discharge recovery area where he will be discharged home once discharge criteria are met. 2. Follow up in the [facility] office in 4 weeks' time. I attest to the content of the Intraoperative Record and any orders documented therein. Any exception s are noted below.
== END | disposition home or self-care (01) ==
LOC: X.SURG 12:45
PROVIDERS: ATTEND Physical Medicine & Rehabilitation
DX: M46.96 Unspecified inflammatory spondylopathy, lumbar region (principal); M54.5 Low back pain; G89.29 Other chronic pain; Z79.899 Other long term (current) drug therapy

== ENCOUNTER 2019-12-12 18:46 | Inpatient (IN) ==
[2019-12-12] MEDS ORDERED: MoRPHine SULFATE 10 MG/ML CARP/VIAL IV STA (19:19)
[2019-12-12] MEDS ORDERED: FAMOTIDINE 20MG IV PUSH 20 MG/5 ML SYR IV STA (19:19)
[2019-12-12] MEDS ORDERED: ACETAMINOPHEN 1,000 MG/100 ML VIAL IV STA (19:19)
[2019-12-12] MEDS ORDERED: SODIUM CHLORIDE 0.9% 1000ML 1,000 ML IV ONE (19:19)
[2019-12-12] MEDS ORDERED: PROCHLORPERAZINE 2 ML IV ONE (19:19)
--- NOTE | 2019-12-12 19:28 | Emergency Department Note ---
Impression & Plan Post-ERCP acute pancreatitis, Abdominal pain, epigastric, Transaminitis ED Provider Note NAME: JOSE MANUEL SR AGE: 44 SEX: M ARRIVES VIA: Walk-In INFORMANT: Patient, ED PROVIDER(S): Manny Gómez MD CHIEF COMPLAINT: Abdominal pain PLAN: Disposition: Admit MEDICAL DECISION MAKING: The patient is a pleasant 44-year-old gentleman who presents emerged department for evaluation of worsening abdominal pain in setting of having ERCP for choledo cholithiasis today which was initially identified on endoscopy yesterday for biopsies. He reports nausea and vomiting prior to arrival. He denies any fevers, chills, cough congestion, diarrhea, urinary symptoms. On arrival the patient is uncomfortable no acute distress, afebrile stable vital signs. The patient appears clinically dry. He has generalized abdominal tenderness without guarding or rebound. EKG without overt acute ischemia. Chest x-ray negative for acute process. WBC, H/H and platelets within normal limits. Chemistry without acidosis. Phosphorus 2.2 and otherwise electrolytes unremarkable. Total bilirubin 2.5 increased from 1.3 in 2018. AST and ALT elevated at 544 a nd 394, respectively increased from 2018 as well. Troponin negative/undetectable. Lipase is acutely elevated at 2400 consistent with post ERCP pancreatitis. CT abdomen pelvis was performed and demonstrates evidence of pancreatitis per preliminary stat read report. Case was discussed with Dr. Kaleigh morton, [facility] hospitalist, who will evaluate the patient for admission. Triage Nursing notes reviewed and agree them. Additional history obtained from [facility] records Prior medical records reviewed Vital Signs: reviewed and remarkable for no significant abnormalities Differential diagnosis: Appendicitis, testicular torsion, infections, diverticulitis, UTI, obstruction, mesenteric ischemia, aortic pathology, inflammatory bowel disease, renal colic, PUD, pancreatitis, biliary pathology, hernia, volvulus, constipation, as well as other pathologies. ER treatment provided: See below. Diagnostics interpreted by me: Cardiac Monitoring: An order for continuous cardiac monitoring was placed and demonstrated NSR, 64 bpm, no ectopy. Laboratory studies: See below Imaging studies: Preliminary Findings Only See Final Report For Complete Findings CT ABDOMEN & PELVIS With Contrast: Comparison is made to CT abdomen/pelvis on 01/24/2016. Peripancreatic fluid with enlargement of the pancreatic head, concerning for acute pancreatitis. Fluid tracks along the right retroperitoneum with small amount of fluid in the pelvis. No fluid collection or pseudocyst. Mild dependent atelectasis bilaterally. Hepatic steatosis. Hepatomegaly. Prior cholecystectomy. Mild splenomegaly. No hydronephrosis or obstructing. Appendix is not visualized, but no CT evidence of acute appendicitis. No bowel obstruction. Mildly prominent peripancreatic lymph nodes are nonspecific but maybe reactive. Radiologist: Maru Lim M.D. Study ready at 22:06 and initial results transmitted at 22:34 Consultation(s): Case was discussed with Dr. Saunders, [facility] hospitalist, who will evaluate the patient for admission. HPI: The patient is a pleasant 44-year-old gentleman who presents emerged department for evaluation of worsening abdominal pain in setting of having ERCP for choledocholithiasis today which was initially identified on endoscopy yesterday for biopsies. He reports nausea and vomiting prior to arrival. He denies any fevers, chills, cough congestion, diarrhea, urinary symptoms. ROS: See above HPI for pertinent positives & negatives. A total of 10 systems reviewed and were otherwise negative. PAST MEDICAL HISTORY:See Below PAST SURGICAL HISTORY:See Below FAMILY HISTORY:See Below SOCIAL HISTORY:See Below HOME MEDICATIONS:See Below ALLERGIES:See Below VITALS:See Below PHYSICAL EXAMINATION: GENERAL: Awake, alert, fatigued-appearing, in no distress HENT: Normocephalic, atraumatic. Oropharynx with dry mucous membranes and otherwise unremarkable. EYES: Normal conjunctiva. Sclera non-icteric. NECK: Supple. No nuchal rigidity. FROM. No JVD. RESPIRATORY: Clear to auscultation. CARDIAC: Regular rate, normal rhythm. Extremities warm and well perfused. Pulses equal. ABDOMEN: Soft, non-distended. Generalized abdominal tenderness to palpation. No rebound or guarding. No masses. RECTAL: Deferred. MUSCULOSKELETAL: Chest examination reveals no tenderness. The back is symmetrical on inspection without obvious abnormality. There is no CVA tenderness to palpation. No joint edema. LOWER EXTREMITIES: Calves are equal size bilaterally and non-tender. No edema. No discoloration. NEURO: Normal sensorium. No sensory or motor deficits noted. SKIN: No rash or jaundice noted. Manny Gómez MD Past Med/Surg History Medical History Anxiety Aortic root enlargement F/U DR HEATHER Q6-12 MONTHS Bulging of cervical intervertebral disc ROM WNL Celiac disease Chronic back pain Degenerative disc disease NECK AND LUMBAR Depression Fatty liver Hx of thyroid nodule UNDER OBSERVATION Hyperlipidemia Hypertension Lumbar facet arthropathy Migraine HX Osteoarthritis Sleep apnea MILD-MODERATE APNEA-CAN'T TOLERATE CPAP Surgical History H/O arthroscopy of shoulder R X3 AND L X 3. Left shoulder 04/08/2018. Glidescope #4, grade 1 view (elective). Interscalene block. no issues. History of anesthesia reaction SLOW TO WAKE History of appendectomy History of arthroscopy RIGHT KNEE History of cholecystectomy History of colonoscopy History of esophagogastroduodenoscopy (EGD) History of laminectomy L2-L3 WITH REMOVAL BENIGN TUMOR History of open reduction and internal fixation (ORIF) procedure LEFT ANKLE History of tooth extraction WISDOM TEETH Personal history of prior ablation treatment LUMBAR - OCTOBER 2017 Family History Sister Family history of reaction to anesthesia SLOW TO WAKE UP Sister No problems noted. Social History Preferred Language: Kazakh Communication Ability: Effective Fund Controller Required: No Beliefs That Will Affect Care: None Current Living Situation: Spouse Other Information That Helps Us Care for You: No Feels Safe at Home: Yes Safety Concerns: Feels Safe At This Time Smoking Status: Never smoker Second Hand Exposure: No ; Hx Alcohol Use: No Hx Substance Use: No Allergies Allergies Allergy/AdvReac Type Severity Reaction Status Date / Time No Known Allergies Allergy Verified 12/12/19 19:54 Home Meds Home Medications Medication Instructions Recorded Confirmed Excedrin Migraine 1 tab PO Q6H PRN 05/29/19 12/12/19 carvedilol 12.5 mg PO BID 05/29/19 12/12/19 fluticasone propionate [Flonase 2 spray INTRANASAL DAILY PRN 05/29/19 12/12/19 Allergy Relief] losartan 25 mg PO QAM 05/29/19 12/12/19 methocarbamol 500 mg PO Q8H PRN 05/29/19 12/12/19 naproxen sodium [Aleve] 220 mg PO BID PRN 05/29/19 12/12/19 trazodone 100 - 200 mg PO HS 05/29/19 12/12/19 mirtazapine 45 mg PO HS 12/12/19 12/12/19 Results & Data (ED) Vital Signs Vital Signs - 24 hr 12/12/19 18:47 12/12/19 18:49 12/12/19 19:20 Temperature 36.5 C Temperature Source Oral Pulse Rate 72 64 Respiratory Rate 18 Blood Pressure 158/84 H Blood Pressure [Right Arm] 159/89 H Blood Pressure Mean 108 Blood Pressure Mean [Right Arm] 112 Pulse Oximetry 94 96 Oxygen Delivery Method Room Air Room Air Sepsis Recent Fever Within 48 Hours No Sepsis New/Unexplained Change in Mental Status No Sepsis Action Taken by Nursing No Action Required 12/12/19 20:47 12/12/19 22:00 Temperature Temperature Source Pulse Rate Respiratory Rate 16 Blood Pressure Blood Pressure [Right Arm] 135/86 162/101 H Blood Pressure Mean Blood Pressure Mean [Right Arm] 102 121 Pulse Oximetry 96 Oxygen Delivery Method Room Air Sepsis Recent Fever Within 48 Hours Sepsis New/Unexplained Change in Mental Status Sepsis Action Taken by Nursing Laboratory Data Attestation: I reviewed the patient's lab results. Result diagrams: 12/12/19 20:10 12/12/19 19:38 Lab Results 12/12/19 12/12/19 Range/Units 19:38 20:10 WBC 7.83 (4.8-10.8) K/uL RBC 5.13 (4.7-6.1) M/uL Hgb 16.0 (14.0-18.0) g/dL Hct 45.1 (42-52) % MCV 87.9 (80-100) fL MCH 31.2 (25-34) pg MCHC 35.5 (32-36) g/dL RDW Std Deviation 40.8 (36.4-46.3) fL RDW Coeff of Balwinder 12.7 (11.5-14.5) % Plt Count 185 (130-400) K/uL MPV 11.3 H (7.4-10.4) fL Immature Gran % (Auto) 0.4 % Neut % (Auto) 73.9 % Lymph % (Auto) 17.2 % [place] % (Auto) 7.7 % Eos % (Auto) 0.5 % Baso % (Auto) 0.3 % Immature Gran # (Auto) 0.03 H (0.00-0.02) K/uL Neut # (Auto) 5.79 (1.4-6.5) K/uL Lymph # (Auto) 1.35 (1.2-3.4) K/uL [place] # (Auto) 0.60 H (0.11-0.59) K/uL Eos # (Auto) 0.04 (0-0.5) K/uL Baso # (Auto) 0.02 (0-0.2) K/uL Platelet Estimate Normal (Normal) Sodium 139 (136-145) mmol/L Potassium 3.7 (3.5-5.1) mmol/L Chloride 104 (98-107) mmol/L Carbon Dioxide 28 (21-32) mmol/L Anion Gap 6.0 (3-11) BUN 13 (7-18) mg/dl Creatinine 0.88 (0.6-1.4) mg/dl Est Cr Clr Drug Dosing 163.4 ml/min Est GFR ( Amer) 121.1 Est GFR (Non-Af Amer) 104.5 BUN/Creatinine Ratio 14.9 (10-20) Glucose 130 H (70-99) mg/dl Calcium 8.5 (8.5-10.1) mg/dl Phosphorus 2.2 L (2.5-4.9) mg/dl Magnesium 2.2 (1.8-2.4) mg/dl Total Bilirubin 2.5 H (0.2-1) mg/dl Direct Bilirubin (0-0.2) mg/dl AST 544 H (15-37) U/L ALT 394 H (12-78) U/L Alkaline Phosphatase 88 (45-117) U/L Troponin I < 0.015 (0-0.045) ng/ml Total Protein 7.1 (6.4-8.2) gm/dl Albumin 3.9 (3.4-5.0) gm/dl Globulin 3.2 (2.5-4.0) gm/dl Albumin/Globulin Ratio 1.2 (0.9-2) Lipase 2422 H (73-393) U/L Specimen Hemolysis Administered Medications Lactated Ringer's (Lr) 1,000 mls @ 200 mls/hr IV .Q5H CATARINA Stop: 01/12/20 01:15 Last Admin: 12/13/19 02:05 Dose: 200 mls/hr Documented by: [id number] Discontinued Medications Hydromorphone HCl (Dilaudid) Confirm Administered Dose 0.5 mg .ROUTE .STK-MED ONE Stop: 12/13/19 01:25 Last Admin: 12/13/19 01:26 Dose: 0.5 mg Documented by: [id number] Sodium Chloride (Nss 1000ml) 1,000 mls @ 999 mls/hr IV .Q1H1M ONE Stop: 12/12/19 20:19 Last Infusion: 12/12/19 21:40 Dose: 0 mls/hr Documented by: [id number] Admin: 12/12/19 20:07 Dose: 999 mls/hr Documented by: [id number] Acetaminophen (Ofirmev) 1,000 mg in 100 mls @ 400 mls/hr IV NOW STA Stop: 12/12/19 19:33 Last Infusion: 12/12/19 20:30 Dose: 0 mls/hr Documented by: [id number] Admin: 12/12/19 20:10 Dose: 400 mls/hr Documented by: [id number] Famotidine (Pepcid 20mg Iv Push) 20 mg in 5 mls @ 2.5 mls/min IV NOW STA Stop: 12/12/19 19:20 Last Admin: 12/12/19 20:10 Dose: 2.5 mls/min Documented by: [id number] Prochlorperazine (Compazine) 2 mls @ 1 mls/min IV ONE ONE Stop: 12/12/19 19:20 Last Admin: 12/12/19 20:11 Dose: 1 mls/min Documented by: [id number] Ioversol (Optiray 320 100ml) 90 ml IV ONCE PRN PRN Reason: Interaction Checking Stop: 12/16/19 21:42 Last Admin: 12/12/19 21:43 Dose: 90 ml Documented by: [id number] Ioversol (Optiray 320 125ml) 120 ml IV ONCE PRN PRN Reason: Interaction Checking Stop: 12/16/19 21:49 Last Admin: 12/12/19 21:50 Dose: 120 ml Documented by: [id number] Morphine Sulfate (Morphine Sulfate) 8 mg IV NOW STA Stop: 12/12/19 19:20 Last Admin: 12/12/19 20:11 Dose: 8 mg Documented by: [id number] Blood Pressure Blood Pressure Findings: Elevated blood pressure Blood Pressure Disposition: elevated BP felt to be situational Discharge Plan Visit Data *Final* Discharge Date/Time: 12/13/19 00:45 Chief Complaint: Abdominal Pain Stated Complaint: EXTREME PAIN, WORSENING, POST SURGERY ED Provider: Manny Gómez Discharge Problem: Post-ERCP acute pancreatitis, Abdominal pain, epigastric, Transaminitis Patient Disposition: Admitted As Inpatient Discharge Instructions Interventions: ED Discharge Assessment Last Done: 12/13/19 00:45
[2019-12-12 20:54] LABS: Hematocrit (blood only) 45.1 % (42-52); Mean Corpuscular Hemoglobin 31.2 pg (25-34); Mean Corpuscular Hgb Conc 35.5 g/dL (32-36); Mean Corpuscular Volume 87.9 fL (80-100); Mean Platelet Volume 11.3 fL (7.4-10.4); Platelet Count 185 K/uL (130-400); RDW Coefficient of Variation 12.7 % (11.5-14.5); RDW Standard Deviation 40.8 fL (36.4-46.3); Red Blood Count 5.13 M/uL (4.7-6.1); White Blood Count 7.83 K/uL (4.8-10.8)
[2019-12-12 20:55] LABS: Basophils # (auto) 0.02 K/uL (0-0.2); Basophils % (auto) 0.3 %; Eosinophils # (auto) 0.04 K/uL (0-0.5); Eosinophils % (auto) 0.5 %; Immature Granulocytes # (auto) 0.03 K/uL (0.00-0.02); Immature Granulocytes % (auto) 0.4 %; Lymphocytes # (auto) 1.35 K/uL (1.2-3.4); Lymphocytes % (auto) 17.2 %; Monocytes % (auto) 7.7 %; Neutrophils # (auto) 5.79 K/uL (1.4-6.5); Neutrophils % (auto) 73.9 %; Platelet Estimate Normal (Normal)
[2019-12-12 21:03] LABS: Alanine Aminotransferase 394 U/L (12-78); Albumin Globulin Ratio 1.2 (0.9-2); Albumin Level 3.9 gm/dl (3.4-5.0); Alkaline Phosphatase 88 U/L (45-117); Aspartate Aminotransferase 544 U/L (15-37); BUN Creatinine Ratio 14.9 (10-20); Bilirubin,Total 2.5 mg/dl (0.2-1); Blood Urea Nitrogen 13 mg/dl (7-18); Calcium 8.5 mg/dl (8.5-10.1); Carbon Dioxide 28 mmol/L (21-32); Chloride 104 mmol/L (98-107); Creatinine Clr Calc Pharmacy 163.4 ml/min; Est GFR (African American) 121.1; Est GFR (Non-African American) 104.5; Globulin 3.2 gm/dl (2.5-4.0); Glucose 130 mg/dl (70-99); Lipase 2422 U/L (73-393); Magnesium 2.2 mg/dl (1.8-2.4); Phosphorus 2.2 mg/dl (2.5-4.9); Potassium 3.7 mmol/L (3.5-5.1); Sodium 139 mmol/L (136-145); Total Protein 7.1 gm/dl (6.4-8.2); Troponin I < 0.015 ng/ml (0-0.045)
[2019-12-12] MEDS ORDERED: IOVERSOL 100ml IV PRN (21:43)
[2019-12-12] MEDS ORDERED: OPTIRAY 320 125ml IV PRN (21:50)
[2019-12-13] MEDS ORDERED: ACETAMINOPHEN 325 MG TAB PO PRN (01:16)
[2019-12-13] MEDS ORDERED: FLUTICASONE PROPIONATE NA SPR 16 GM BTL PRN (01:16)
[2019-12-13] MEDS ORDERED: METHOCARBAMOL 500 MG TABLET PO PRN (01:16)
[2019-12-13] MEDS ORDERED: HYDROmorphone INJ 0.5 MG/0.5 ML SYR ONE (01:24)
--- NOTE | 2019-12-13 01:51 | History and Physical Report ---
DATE OF ADMISSION: 12/12/2019 CHIEF COMPLAINT: Abdominal pain. HISTORY OF PRESENT ILLNESS: This is a 44-year-old male with past medical history significant for hyperlipidemia, prediabetes, right thyroid nodule, aortic root enlargement, essential hypertension, fatty liver, celiac disease, chronic pain syndrome, myxopapillary ependymoma, major depression, presents with abdominal pain. The patient had an endoscopic ultrasound yesterday for his fatty liver and biopsies were taken at that time, common CBD stones were found, so he was brought in today for ERCP, status post ERCP and extraction of stones and complete removal was accomplished by biliary sphincterotomy and balloon extraction. The patient says after the procedure, he had abdominal pain, 5/10 in severity and but he was discharged on going home, the pain got progressively worse. He tried to lie down on his back and he rolled over and felt nauseous and vomited. He just had some ice chips and Gatorade after going home, which he vomited, felt cold, and sweaty and as the patient is not getting better, came to the ER and found to have his lipase elevated. His AST, ALT and bilirubin elevated. Currently resting comfortably. Hemodynamically stable. With IV pain medication, pain is improved to 3/10 in severity.Currently no nausea, no chest pain, no shortness of breath, no cough, no headache, no blurred vision, no earache, no runny nose, no sore throat, no dysphagia. No rash. He has alternating bowel movements with constipation and diarrhea. No blood in the stools. No burning micturition. Ambulates. ALLERGIES: No known drug allergies. PAST MEDICAL HISTORY: As mentioned above. PAST SURGICAL HISTORY: Status post endoscopic ultrasound, status post ERCP, multiple EGDs, colonoscopy, bilateral L5, S2, S1 denervation, injection of lumbar spine, laparoscopic cholecystectomy, appendectomy, laminectomy, open reduction internal fixation of left ankle with plates and screws, left shoulder surgery, right shoulder arthroscopy and distal clavicle excision. MEDICATIONS: The patient is on Coreg 12.5 mg p.o. b.i.d., Excedrin 1 tablet p.o. q. 6 hours p.r.n., Flonase 2 sprays intranasal daily p.r.n., losartan 25 mg p.o. a.m., methocarbamol 500 mg p.o. q. 8 hours p.r.n., mirtazapine 45 mg p.o. at bedtime, naproxen 220 mg p.o. b.i.d. p.r.n., trazodone 100 mg p.o. at bedtime. FAMILY HISTORY: Significant for sister has Crohn's disease. Mother has hypertension and thyroid disorder. Father has ulcerative colitis status post colectomy and melanoma. SOCIAL HISTORY: . No smoking, no alcohol, no drug use. REVIEW OF SYMPTOMS: As per HPI. Rest of the review of symptoms negative. PHYSICAL EXAMINATION: GENERAL: The patient is obese, not in acute distress. VITAL SIGNS: Temperature 36.5, pulse 64, respirations 16, blood pressure 162/101, oxygen 96% room air. HEENT: No pallor, no icterus. Pupils equal, round, reactive to light. NECK: No JVD, no neck masses. CARDIOVASCULAR: S1, S2 heard, regular rate and rhythm, no murmur, no gallop. RESPIRATORY SYSTEM: Normal AP diameter. No accessory muscle use. No wheezing, no crackles. ABDOMEN: Soft, bowel sounds sluggish, diffuse tenderness, more in the epigastric and right lower quadrant region, mild guarding. No distention. CENTRAL NERVOUS SYSTEM: Cranial nerves II-XII grossly intact. Nonfocal. EXTREMITIES: No edema, no erythema. LABORATORY DATA: WBC 7.8, hemoglobin 16, hematocrit 45.1, platelets 185. Sodium 139, potassium 3.7, chloride 104, bicarbonate 28, BUN 13, creatinine 0.8, serum glucose 130, calcium 8.5, phosphorus 2.2, magnesium 2.2, total bilirubin 2.5, AST 544, ALT 394, alkaline phosphatase 88, troponin I less than 0.015. Lipase 2422. Chest x-ray shows poor penetration and there were no acute findings. CT abdomen and pelvis preliminary report, peripancreatic fluid with enlargement of the pancreatic head concerning for acute pancreatitis, fluid tracts in the retroperitoneum with small amount of fluid in the pelvis. No fluid collection or pseudocyst. Mild dependent atelectasis bilaterally. Hepatic steatosis, hepatomegaly, prior cholecystectomy, mild splenomegaly. No hydronephrosis or obstructing . appendix is not visualized, but no CT evidence of acute appendicitis, no bowel obstruction. Mildly prominent peripancreatic lymph nodes are nonspecific but may be reactive. ASSESSMENT AND PLAN: This 44-year-old male who was status post ERCP today presents with abdominal pain, found to have pancreatitis. 1. Post-ERCP pancreatitis: Preliminary report also showed some fluid tracts in right upper quadrant abdominal region going to the right pelvis. The patient has some also right lower quadrant abdominal pain too along with epigastric pain and tenderness. The patient is status post appendectomy. The Patient is hemodynamically stable, afebrile and no leukocytosis. We will treat his pancreatitis with IV Ringer Lactate at 200 mL per hour, IV Dilaudid p.r.n., IV Zofran p.r.n., n.p.o. and close monitor in medical floor. Consult GI in a.m. for further recommendations. 2. Elevated bilirubin: The patient has Gilbert syndrome. Follow repeat labs in a.m. 3. History of elevated AST and ALT: Post-procedure ERCP, alkaline phosphatase is okay. We will follow repeat labs in a.m. Consult GI. Avoid any liver toxic agents. 4. Morbid obesity: Needs counseling. 5. Major depression, chronic pain from work related injuries: On Zoloft, trazodone, and Remeron. Follows with Psychiatry. 6. History of moderate aortic dilatation: Stable on CAT scan of 2017 and 2018 and also in echocardiogram in August 2019 are stable. Follows with cardiology. 7. History of hypertension: On losartan and Coreg. 8. History of hyperlipidemia: Currently not taking his Crestor. 9. Deep venous thrombosis prophylaxis, sequential compression devices. DISPOSITION: Admit to medical floor. Expect to discharge home and follow with family doctor. Level 1 full code. MTDD
[2019-12-13] MEDS: LACTATED RINGER'S 1,000 ML IV SCH ×6 (02:05→22:16)
[2019-12-13 05:13] LABS: Basophils # (auto) 0.01 K/uL (0-0.2); Basophils % (auto) 0.1 %; Eosinophils # (auto) 0.05 K/uL (0-0.5); Eosinophils % (auto) 0.6 %; Hematocrit (blood only) 48.4 % (42-52); Hemoglobin 16.6 g/dL (14.0-18.0); Immature Granulocytes # (auto) 0.02 K/uL (0.00-0.02); Immature Granulocytes % (auto) 0.3 %; Lymphocytes # (auto) 1.18 K/uL (1.2-3.4); Lymphocytes % (auto) 15.1 %; Mean Corpuscular Hemoglobin 30.8 pg (25-34); Mean Corpuscular Hgb Conc 34.3 g/dL (32-36); Mean Corpuscular Volume 89.8 fL (80-100); Mean Platelet Volume 10.5 fL (7.4-10.4); Monocytes % (auto) 10.3 %; Neutrophils # (auto) 5.74 K/uL (1.4-6.5); Neutrophils % (auto) 73.6 %; Platelet Count 203 K/uL (130-400); RDW Coefficient of Variation 13.1 % (11.5-14.5); RDW Standard Deviation 42.7 fL (36.4-46.3); Red Blood Count 5.39 M/uL (4.7-6.1)
[2019-12-13] MEDS: HYDROmorphone INJ 0.5 MG/0.5 ML SYR IV PRN ×2 (05:15→08:17)
[2019-12-13 06:14] LABS: Bilirubin Direct 2.3 mg/dl (0-0.2); Est GFR (African American) 118.4; Potassium 4.3 mmol/L (3.5-5.1)
[2019-12-13 06:15] LABS: Albumin Level 3.6 gm/dl (3.4-5.0); BUN Creatinine Ratio 13.9 (10-20); Bilirubin,Total 4.2 mg/dl (0.2-1); Calcium 7.7 mg/dl (8.5-10.1); Creatinine Clr Calc Pharmacy 158.6 ml/min; Est GFR (Non-African American) 102.1; Magnesium 2.1 mg/dl (1.8-2.4); Total Protein 6.6 gm/dl (6.4-8.2)
--- NOTE | 2019-12-13 07:15 | XRay Report ---
SINGLE VIEW CHEST CLINICAL HISTORY: Atypical chest pain. FINDINGS: An AP, portable, upright chest radiograph is compared to study dated 05/15/2018. The examin ation is degraded by portable technique and patient rotation. Apparent widening mediastinum is of christian btful significance. This cannot be corroborated on today's abdominal CT scan. The heart is top normal for projection. There is bibasilar atelectasis. No airspace consolidation or large pleural effusion is identified. No pneumothorax is seen. The bony thorax is grossly intact. IMPRESSION: No acute cardiopulmonary abnormality. ACT 112: Negative or not required by law. Electronically signed by: John Sanchez M.D. 12/13/2019 7:13 AM
--- NOTE | 2019-12-13 07:28 | CT Scan Report ---
CT abd pelvis IV con only CT DOSE: 1706.99 mGy.cm HISTORY: Pain abd pain s/p ERCP TECHNIQUE: Multiaxial CT images of the abdomen and pelvis were performed following the use of intrave nous contrast. A dose lowering technique was utilized adhering to the principles of ALARA. COMPARISON STUDY: 01/24/2016 FINDINGS: Minimal bibasilar atelectasis. Fatty replacement of the liver. Prior cholecystectomy. Mild to moderate peripancreatic infiltrative changes trace amount of fluid in the region of the pancr eatic head and uncinate process. No evidence for drainable abscess or collection. No evidence for dil atation of the biliary or pancreatic ductal systems. Trace amount of fluid within the right paracolic gutter. Nonobstructive bowel pattern. Kidneys enhance uniformly. No evidence for hydronephrosis. Bladder is midline. Trace amount of free fluid within the pelvic cul-de-sac. IMPRESSION: 1. Findings consistent with acute pancreatitis of the pancreatic head and uncinate process. 2. Moderate peripancreatic infiltrative change with trace amount of scattered fluid. 3. No evidence for drainable abscess or collection. ACT 112: Negative or not required by law. The above report was generated using voice recognition software. It may contain grammatical, syntax or spelling errors. Electronically signed by: Isra Briseno M.D. 12/13/2019 7:27 AM
[2019-12-13] MEDS: ONDANSETRON INJ 2 MG/ML 2 ML VIAL IV PRN ×2 (08:17→14:19)
[2019-12-13] MEDS: carvediloL 12.5 MG TAB PO SCH ×2 (08:20→20:40)
[2019-12-13] MEDS ORDERED: LOSARTAN POTASSIUM 25 MG TAB PO SCH (09:00)
--- NOTE | 2019-12-13 09:40 | Gastrointestinal Consultation ---
Date of Consultation December 13, 2019 Assessment & Plan (1) Post-ERCP acute pancreatitis: 44 year old male admitted w/ post ERCP pancreatitis, CT w/ acute pancreatitis of the pancreatic head and uncinate process w/ moderate peripancreatic infiltrative change with trace amount of scattered fluid without evidence of abscess or fluid collection. His LFTs this AM are increased NPO LR 250 mL/hr antiemetics PRN analgesia PRN Trend LFTs, if increase discuss repeat ERCP for decompression/stenting DVT prophylaxis Encouraged OOB w/ ambulation Will follow. Thank you for allowing us to participate in the care of this patient. Please call with any acute changes, questions or concerns. Please see a ddendum below with additional recommendation from my supervising physician. Supervising Physician Co-Signing Physician Notes Attg add: I interviewed and examined pt, reviewed chart and labs. Pt s/p recent ERCP, now with post-ERCP pancreatitis. On exam, PO2 sat is 88-90 on RA. Pt is walking around room, looks mildly uncomfortable. PE shows mild abdominal tenderness. Labs show marked LFT elevation, including increased bili. CT reviewed - inflammation at HOP, no felicita dil, no pneumobilia. Will follow for now - cont hydration, bowel rest, analgesia. Follow up LFT's - if persistently increased, may consider repeat ERCP. Mild decreased RA O2 sat --> suspect due to splinting, consider PE study if persistent. History of Present Illness Reason for Consultation: post-ERCP panc Requesting Physician: Mack Attending Physician: Philip Giron MD History of Present Illness 44-year-old male with past medical history significant for dyslipidemia, prediabetes, HTN, chronic pain, depression, celiac, fatty liver undergoing recent evaluation with EGD/EUS for liver biopsy for abnormal liver serology. On EUS, CBD stone was found and planned for ERCP. Patient underwent ERCP and tolerated procedure for stone extraction but later developed abdominal pain, presented to the ED. Notes persistent pain, nausea and emesis x 1 since ERCP. In the ED he was admitted with acute pancreatitis on CT And significant elevated lipase, transaminases. This AM, persistent symptoms. No vomiting but unchanged nausea, abdominal pain. Is passing gas but no BM. No fever, chills, CP, SOB. Allergies Allergy/AdvReac Type Severity Reaction Status Date / Time No Known Allergies Allergy Verified 12/12/19 19:54 Home Medications Home Medications Medication Instructions Recorded Confirmed Type Excedrin Migraine 1 tab PO Q6H PRN 05/29/19 12/12/19 History carvedilol 12.5 mg PO BID 05/29/19 12/12/19 History fluticasone propionate [Flonase 2 spray INTRANASAL DAILY PRN 05/29/19 12/12/19 History Allergy Relief] losartan 25 mg PO QAM 05/29/19 12/12/19 History methocarbamol 500 mg PO Q8H PRN 05/29/19 12/12/19 History naproxen sodium [Aleve] 220 mg PO BID PRN 05/29/19 12/12/19 History trazodone 100 - 200 mg PO HS 05/29/19 12/12/19 History mirtazapine 45 mg PO HS 12/12/19 12/12/19 History Patient History Medical History Anxiety Aortic root enlargement F/U DR ROMERO Q6-12 MONTHS Bulging of cervical intervertebral disc ROM WNL Celiac disease Chronic back pain Degenerative disc disease NECK AND LUMBAR Depression Fatty liver Hx of thyroid nodule UNDER OBSERVATION Hyperlipidemia Hypertension Lumbar facet arthropathy Migraine HX Osteoarthritis Sleep apnea MILD-MODERATE APNEA-CAN'T TOLERATE CPAP Surgical History H/O arthroscopy of shoulder R X3 AND L X 3. Left shoulder 04/08/2018. Glidescope #4, grade 1 view (elective). Interscalene block. no issues. History of anesthesia reaction SLOW TO WAKE History of appendectomy History of arthroscopy RIGHT KNEE History of cholecystectomy History of colonoscopy History of esophagogastroduodenoscopy (EGD) History of laminectomy L2-L3 WITH REMOVAL BENIGN TUMOR History of open reduction and internal fixation (ORIF) procedure LEFT ANKLE History of tooth extraction WISDOM TEETH Personal history of prior ablation treatment LUMBAR - OCTOBER 2017 Family History Sister Family history of reaction to anesthesia SLOW TO WAKE UP Sister No problems noted. Social History Preferred Language: Yoruba Communication Ability: Effective Punch Finisher Required: No Beliefs That Will Affect Care: None Current Living Situation: Spouse Other Information That Helps Us Care for You: No Feels Safe at Home: Yes Safety Concerns: Feels Safe At This Time Smoking Status: Never smoker Second Hand Exposure: No ; Hx Alcohol Use: No Hx Substance Use: No Review of Systems Constitutional: no fever, no chills and no fatigue Respiratory: no cough and no dyspnea Cardiovascular: no chest pain and no dyspnea Gastrointestinal: + abdominal pain and + nausea; no vomiting, no blood in stools and no melena Physical Exam Constitutional: well developed and well nourished; no acute distress Neck: trachea midline Respiratory: normal respiratory effort; no respiratory distress Cardiovascular: Rate/Rhythm: regular rate and regular rhythm Gastrointestinal (Abdomen): Inspection/Auscultation: abdomen normal to inspection and normal bowel sounds Percussion/Palpation: + abdomen tender and abdomen soft; no guarding and abdomen not rigid Skin: no rashes, warm and dry Results & Data ([facility]) Vital Signs (Past 12 Hours) Vital Signs Temp Resp BP BP BP Pulse Ox 12/13/19 07:36 36.5 C 18 148/95 H 95 12/13/19 01:00 36.5 C 16 154/97 H 93 12/13/19 00:45 143/94 H 12/12/19 22:00 16 162/101 H 96 Laboratory Results 12/13/19 12/13/19 12/12/19 Range/Units 04:59 04:59 20:10 WBC 7.80 7.83 (4.8-10.8) K/uL RBC 5.39 5.13 (4.7-6.1) M/uL Hgb 16.6 16.0 (14.0-18.0) g/dL Hct 48.4 45.1 (42-52) % MCV 89.8 87.9 (80-100) fL MCH 30.8 31.2 (25-34) pg MCHC 34.3 35.5 (32-36) g/dL RDW Std Deviation 42.7 40.8 (36.4-46.3) fL RDW Coeff of Balwinder 13.1 12.7 (11.5-14.5) % Plt Count 203 185 (130-400) K/uL MPV 10.5 H 11.3 H (7.4-10.4) fL Immature Gran % (Auto) 0.3 0.4 % Neut % (Auto) 73.6 73.9 % Lymph % (Auto) 15.1 17.2 % [place] % (Auto) 10.3 7.7 % Eos % (Auto) 0.6 0.5 % Baso % (Auto) 0.1 0.3 % Immature Gran # (Auto) 0.02 0.03 H (0.00-0.02) K/uL Neut # (Auto) 5.74 5.79 (1.4-6.5) K/uL Lymph # (Auto) 1.18 L 1.35 (1.2-3.4) K/uL [place] # (Auto) 0.80 H 0.60 H (0.11-0.59) K/uL Eos # (Auto) 0.05 0.04 (0-0.5) K/uL Baso # (Auto) 0.01 0.02 (0-0.2) K/uL Platelet Estimate Normal (Normal) Sodium 139 (136-145) mmol/L Potassium 4.3 D (3.5-5.1) mmol/L Chloride 105 (98-107) mmol/L Carbon Dioxide 30 (21-32) mmol/L Anion Gap 4.0 (3-11) BUN 13 (7-18) mg/dl Creatinine 0.91 (0.6-1.4) mg/dl Est Cr Clr Drug Dosing 158.6 ml/min Est GFR ( Amer) 118.4 Est GFR (Non-Af Amer) 102.1 BUN/Creatinine Ratio 13.9 (10-20) Glucose 138 H (70-99) mg/dl Calcium 7.7 L (8.5-10.1) mg/dl Phosphorus (2.5-4.9) mg/dl Magnesium 2.1 (1.8-2.4) mg/dl Total Bilirubin 4.2 H D (0.2-1) mg/dl Direct Bilirubin 2.3 H (0-0.2) mg/dl AST 737 H (15-37) U/L ALT 641 H (12-78) U/L Alkaline Phosphatase 98 (45-117) U/L Troponin I (0-0.045) ng/ml Total Protein 6.6 (6.4-8.2) gm/dl Albumin 3.6 (3.4-5.0) gm/dl Globulin (2.5-4.0) gm/dl Albumin/Globulin Ratio (0.9-2) Lipase 69300 H (73-393) U/L Specimen Hemolysis 12/12/19 Range/Units 19:38 WBC (4.8-10.8) K/uL RBC (4.7-6.1) M/uL Hgb (14.0-18.0) g/dL Hct (42-52) % MCV (80-100) fL MCH (25-34) pg MCHC (32-36) g/dL RDW Std Deviation (36.4-46.3) fL RDW Coeff of Balwinder (11.5-14.5) % Plt Count (130-400) K/uL MPV (7.4-10.4) fL Immature Gran % (Auto) % Neut % (Auto) % Lymph % (Auto) % [place] % (Auto) % Eos % (Auto) % Baso % (Auto) % Immature Gran # (Auto) (0.00-0.02) K/uL Neut # (Auto) (1.4-6.5) K/uL Lymph # (Auto) (1.2-3.4) K/uL [place] # (Auto) (0.11-0.59) K/uL Eos # (Auto) (0-0.5) K/uL Baso # (Auto) (0-0.2) K/uL Platelet Estimate (Normal) Sodium 139 (136-145) mmol/L Potassium 3.7 (3.5-5.1) mmol/L Chloride 104 (98-107) mmol/L Carbon Dioxide 28 (21-32) mmol/L Anion Gap 6.0 (3-11) BUN 13 (7-18) mg/dl Creatinine 0.88 (0.6-1.4) mg/dl Est Cr Clr Drug Dosing 163.4 ml/min Est GFR ( Amer) 121.1 Est GFR (Non-Af Amer) 104.5 BUN/Creatinine Ratio 14.9 (10-20) Glucose 130 H (70-99) mg/dl Calcium 8.5 (8.5-10.1) mg/dl Phosphorus 2.2 L (2.5-4.9) mg/dl Magnesium 2.2 (1.8-2.4) mg/dl Total Bilirubin 2.5 H (0.2-1) mg/dl Direct Bilirubin (0-0.2) mg/dl AST 544 H (15-37) U/L ALT 394 H (12-78) U/L Alkaline Phosphatase 88 (45-117) U/L Troponin I < 0.015 (0-0.045) ng/ml Total Protein 7.1 (6.4-8.2) gm/dl Albumin 3.9 (3.4-5.0) gm/dl Globulin 3.2 (2.5-4.0) gm/dl Albumin/Globulin Ratio 1.2 (0.9-2) Lipase 2422 H (73-393) U/L Specimen Hemolysis
[2019-12-13] MEDS ORDERED: HYDROmorphone INJ 1 MG/ML SYRINGE ONE (12:04)
--- NOTE | 2019-12-13 12:14 | XRay Report ---
XR chest 1V portable CLINICAL HISTORY: acute panc, low o2 sat 88 COMPARISON STUDY: Chest radiograph March 13, 2020. FINDINGS: No pneumothorax or pleural effusion is noted. There is no consolidation. Linear left basila r opacity favors atelectasis. Lung volumes are diminished. Cardiac size is accentuated on this hypove ntilatory study. No evidence for pulmonary edema. IMPRESSION: 1. No acute findings. 2. Low lung volumes with suspected left basilar atelectasis. ACT 112: Negative or not required by law. Electronically signed by: Jose Esquivel M.D. 12/13/2019 12:12 PM
[2019-12-13] MEDS: HYDROmorphone INJ 1 MG/ML SYRINGE IV PRN ×2 (15:06→20:47)
--- NOTE | 2019-12-13 15:08 | Hospitalist Progress Note ---
Date of Service December 13, 2019 Assessment & Plan (1) Post-ERCP acute pancreatitis: 44-year-old male with history of hypertension and prediabetes, dyslipidemia, aortic root enlargement, depression, presenting with abdominal pain after an ERCP procedure. Post ERCP pancreatitis Patient recently underwent endoscopic ultrasound/EGD for abnormal liver serologies, subsequently underwent ERCP for cholelithiasis that were discovered, then developed abdominal pain afterwards CT abdomen pelvis: 1. Findings consistent with acute pancreatitis of the pancreatic head and uncinate process. 2. Moderate peripancreatic infiltrative change with trace amount of scattered fluid. 3. No evidence for drainable abscess or collection. Lipase 2422 Total bili 2.5 AST/ALT/alk phos 544/394/88 Today patient still having similar epigastric pain Lipase increased to 19,430 Total bili also increased to 4.2 AST ALT also increasing Discussed with GI Continue vigorous IV fluids, bowel rest, pain control, monitor closely Dilaudid increased to 1 mg IV every 3 hours Hypoxia Patient noted to have saturation of 88% on room air today Denies shortness of breath Chest x-ray: No pulmonary edema, effusion, infiltrates Likely secondary hypoventilation secondary to epigastric pain Continue pain control, incentive spirometry, monitor in telemetry unit Hypertension Continue losartan and Coreg Prediabetes Monitor Morbid obesity Counseling Depression Stable, continue Zoloft, trazodone, Remeron DVT prophylaxis SCDs for now light of recent EUS, ERCP CODE STATUS Full code Disposition pending lives with family at home Admission and Anticipated Discharge Date Admission Date: December 12, 2019 Subjective Follow-up for post ERCP pancreatitis Patient seen at bedside, comfortable, not in distress States pain in the epigastric region is about the same as yesterday, no nausea or vomiting, No chest pain, shortness of breath, palpitations, dizziness Oxygen saturation recorded to be 88% on room air Denies cough, fevers or chills No other symptoms Review of Systems Review of Systems: All systems reviewed & are unremarkable except as noted in HPI & below Physical Exam Physical Exam: General- oriented x 3, not in distress, speaks in sentences with no effort or accessory muscle use Head- atraumatic Eyes- PERRL, EOMI, anicteric ENT- oropharynx clear Neck- supple, no JVD, no adenopathy, no thyromegaly; carotids +2/2, no bruits appreciated Lungs- clear to auscultation bilaterally, no rales/wheezes Heart- normal rate, regular rhythm; no murmur, no gallop, no rub appreciated Abdomen- normal bowel sounds, nondistended, soft, epigastric tenderness, no masses or hepatosplenomegaly Extremities- no pretibial edema, no calf tenderness; peripheral pulses intact Neuro- alert, oriented x 3; CN 2-12 grossly intact; motor 5/5 bilaterally;sensation 100% on all extremities; no other gross focal neurologic deficits Skin- warm & dry Results & Data Results & Data ([facility]) Vital Signs (Past 12 Hours) Vital Signs Temp Pulse Pulse Resp BP Pulse Ox 12/13/19 13:08 95 H 12/13/19 11:49 36.4 C L 95 H 16 123/79 91 12/13/19 07:36 36.5 C 18 148/95 H 95 Laboratory Results Laboratory Results - last 24 hr 12/12/19 12/12/19 12/13/19 19:38 20:10 04:59 WBC 7.83 7.80 RBC 5.13 5.39 Hgb 16.0 16.6 Hct 45.1 48.4 MCV 87.9 89.8 MCH 31.2 30.8 MCHC 35.5 34.3 RDW Std Deviation 40.8 42.7 RDW Coeff of Balwinder 12.7 13.1 Plt Count 185 203 MPV 11.3 H 10.5 H Immature Gran % (Auto) 0.4 0.3 Neut % (Auto) 73.9 73.6 Lymph % (Auto) 17.2 15.1 [place] % (Auto) 7.7 10.3 Eos % (Auto) 0.5 0.6 Baso % (Auto) 0.3 0.1 Immature Gran # (Auto) 0.03 H 0.02 Neut # (Auto) 5.79 5.74 Lymph # (Auto) 1.35 1.18 L [place] # (Auto) 0.60 H 0.80 H Eos # (Auto) 0.04 0.05 Baso # (Auto) 0.02 0.01 Platelet Estimate Normal Sodium 139 Potassium 3.7 Chloride 104 Carbon Dioxide 28 Anion Gap 6.0 BUN 13 Creatinine 0.88 Est Cr Clr Drug Dosing 163.4 Est GFR ( Amer) 121.1 Est GFR (Non-Af Amer) 104.5 BUN/Creatinine Ratio 14.9 Glucose 130 H Calcium 8.5 Phosphorus 2.2 L Magnesium 2.2 Total Bilirubin 2.5 H Direct Bilirubin AST 544 H ALT 394 H Alkaline Phosphatase 88 Troponin I < 0.015 Total Protein 7.1 Albumin 3.9 Globulin 3.2 Albumin/Globulin Ratio 1.2 Lipase 2422 H Specimen Hemolysis 12/13/19 04:59 WBC RBC Hgb Hct MCV MCH MCHC RDW Std Deviation RDW Coeff of Balwinder Plt Count MPV Immature Gran % (Auto) Neut % (Auto) Lymph % (Auto) [place] % (Auto) Eos % (Auto) Baso % (Auto) Immature Gran # (Auto) Neut # (Auto) Lymph # (Auto) [place] # (Auto) Eos # (Auto) Baso # (Auto) Platelet Estimate Sodium 139 Potassium 4.3 D Chloride 105 Carbon Dioxide 30 Anion Gap 4.0 BUN 13 Creatinine 0.91 Est Cr Clr Drug Dosing 158.6 Est GFR ( Amer) 118.4 Est GFR (Non-Af Amer) 102.1 BUN/Creatinine Ratio 13.9 Glucose 138 H Calcium 7.7 L Phosphorus Magnesium 2.1 Total Bilirubin 4.2 H D Direct Bilirubin 2.3 H AST 737 H ALT 641 H Alkaline Phosphatase 98 Troponin I Total Protein 6.6 Albumin 3.6 Globulin Albumin/Globulin Ratio Lipase 97266 H Specimen Hemolysis
--- NOTE | 2019-12-13 15:20 | Electrocardiogram Report ---
Test Reason : Blood Pressure : / mmHG Vent. Rate : 063 BPM Atrial Rate : 063 BPM P-R Int : 196 ms QRS Dur : 100 ms QT Int : 422 ms P-R-T Axes : 017 022 048 degrees QTc Int : 431 ms Normal sinus rhythm Incomplete right bundle branch block When compared with ECG of 24-JAN-2016 19:09, No significant change was found Confirmed by Cristian Lea ([id number]) on 12/13/2019 3:20:12 PM Referred By: REFERRED SELF Confirmed By:Lalito Lea
[2019-12-13] MEDS ORDERED: TRAZODONE HCL 100 MG TAB PO SCH (21:00)
[2019-12-13] MEDS ORDERED: MIRTAZAPINE TAB 15 MG TAB PO SCH (21:00)
[2019-12-13] MEDS ORDERED: METOCLOPRAMIDE HCL INJ 5 MG/ML 2 ML VIAL IV SCH (21:00)
[2019-12-13] MEDS ORDERED: SODIUM CHLORIDE 0.9% 1000ML 1,000 ML IV ONE (23:37)
[2019-12-13] MEDS ORDERED: NALOXONE HCL 0.4 MG/1 ML VIAL/CARP IV STA (23:38)
[2019-12-13] MEDS ORDERED: NALOXONE HCL 0.4 MG/1 ML VIAL/CARP ONE (23:43)
--- NOTE | 2019-12-13 23:50 | Communication Note ---
Date of Service: December 13, 2019 Made aware by RN of around 11:35 PM of patient decreased responsiveness. SBP 60 to 70s as per RN. Coreg, trazodone, Remeron, Reglan, hydromorphone given altogether about the same time around 8:40 PM on review of medication administration record. RN requested to carry out stat IVF bolus and Narcan orders entered. Code tarsha subsequently called by floor. Upon arrival at bedside, patient mentation better after IVF bolus and Narcan administration but not yet at baseline as per RN. SBP 80s. Patient complaining of chest pain, S OB. " Some abdominal pain." Unable to qualify symptoms due to lethargy at time of exam. O2 sats 90s on 10 L PPE : Obese, lethargic, uncomfortable, some abdominal breathing Decreased breath sounds Some abdominal distention, epigastric tenderness Minimal LE swelling, no LE tenderness CXR as per my interpretation atelectasis EKG as per my interpretation rate 85, rate 85, NSR, normal axis, T wave abnormalities lateral leads serum crea 2.4 from normal baseline troponin 0.036 Serum calcium 5.9 AP Encephalopathy Multifactorial : Opioid Rx and home medications Hypotension, hypovolemia, ARF rule out cardiac dysfunction Hypoxemic respiratory failure rule out pulmonary embolism Worsening abdominal pain Rule out complications of pancreatitis Hypocalcemia secondary to pancreatitis PCU transfer Decrease PRN Dilaudid dose (hold for SBP less than 100/confusion) Hold parameters for sedation/confusion for home neuropsychotropic meds Baseline UA, monitor creatinine response to IVF follow renal function, Nephrology consult if without improvement appropriate to hold home BP meds for now Follow troponin, TTE RE hypotension Supplemental O2, baseline ABG, IV heparin until PE ruled out (VQ scan given kidney dysfunction, LE Dopplers) CT abdomen pelvis RE worsening abdominal pain once hemodynamically stable Replace electrolytes Dr. Clark (GI specialist [employer] consultant) updated of developments. Okay with IV heparin until PE ruled out. ADDENDUM : Made aware by TEARER of muddy urine on Mixon catheter insertion. UA WBC esterase, nitrite positive IV Cefepime for complicated UTI.
[2019-12-13] MEDS ORDERED: OXYCODONE HCL IR 5 MG TAB (IMMEDIATE RELEASE) PO PRN (23:53)
[2019-12-14 00:29] LABS: Basophils # (auto) 0.02 K/uL (0-0.2); Basophils % (auto) 0.1 %; Eosinophils # (auto) 0.02 K/uL (0-0.5); Eosinophils % (auto) 0.1 %; Hematocrit (blood only) 49.4 % (42-52); Hemoglobin 16.1 g/dL (14.0-18.0); Immature Granulocytes # (auto) 0.06 K/uL (0.00-0.02); Immature Granulocytes % (auto) 0.4 %; Lymphocytes % (auto) 10.4 %; Mean Corpuscular Hemoglobin 30.4 pg (25-34); Mean Corpuscular Hgb Conc 32.6 g/dL (32-36); Mean Corpuscular Volume 93.4 fL (80-100); Mean Platelet Volume 11.2 fL (7.4-10.4); Monocytes # (auto) 1.51 K/uL (0.11-0.59); Monocytes % (auto) 9.2 %; Neutrophils % (auto) 79.8 %; Platelet Count 231 K/uL (130-400); RDW Coefficient of Variation 13.6 % (11.5-14.5); RDW Standard Deviation 46.2 fL (36.4-46.3); Red Blood Count 5.29 M/uL (4.7-6.1); White Blood Count 16.41 K/uL (4.8-10.8)
[2019-12-14 00:32] LABS: Base Excess ABG -3.4 mEq/L (-9-1.8); HCO3 ABG 23 mmol/L (19-24); Oxygen Saturation ABG 96.3 % (90-95); PCO2 ABG 46 mmHg (35-46); PO2 ABG 87 mmHg (80-95); pH ABG 7.32 (7.35-7.45)
[2019-12-14 00:33] LABS: Allen Test Pos (Pos)
[2019-12-14 00:39] LABS: Partial Thromboplastin Ratio 0.9; Partial Thromboplastin Time 25.3 Seconds (21.0-31.0)
[2019-12-14] MEDS ORDERED: SODIUM CHLORIDE 0.9% 1000ML 1,000 ML IV ONE (00:41)
[2019-12-14 01:00] LABS: Albumin Globulin Ratio 1.1 (0.9-2); Albumin Level 3.1 gm/dl (3.4-5.0); Calcium 5.9 mg/dl (8.5-10.1); Creatinine Clr Calc Pharmacy 60.1 ml/min; Est GFR (African American) 36.7; Est GFR (Non-African American) 31.6; Globulin 2.9 gm/dl (2.5-4.0); Magnesium 1.6 mg/dl (1.8-2.4); Potassium 4.4 mmol/L (3.5-5.1); Thyroid Stimulating Hormone 0.936 uIu/ml (0.300-4.500); Troponin I 0.036 ng/ml (0-0.045)
[2019-12-14 01:27] LABS: INR 1.1 (0.9-1.1)
[2019-12-14] MEDS ORDERED: NORMOSOL-R 1,000 ML IV ONE (01:49)
[2019-12-14] MEDS ORDERED: MAGNESIUM SULFATE / D5W 1 GM/100 ML BAG IV ONE (01:49)
[2019-12-14] MEDS ORDERED: SODIUM CHLORIDE 0.9% IV STA ×2 (01:49→10:44)
[2019-12-14] MEDS ORDERED: CALCIUM GLUCONATE IV STA ×2 (01:49→10:44)
[2019-12-14] MEDS: HYDROmorphone INJ 0.5 MG/0.5 ML SYR IV PRN ×2 (02:43→07:46)
[2019-12-14] MEDS: LACTATED RINGER'S 1,000 ML IV SCH ×5 (02:44→14:39)
[2019-12-14] MEDS ORDERED: Heparin IV Standard *NO* Bolus STA (03:14)
[2019-12-14] MEDS ORDERED: HEPARIN SODIUM/DEXTROSE 25,000 UNITS/500 ML BAG IV SCH (03:15)
[2019-12-14] MEDS ORDERED: HEPARIN 25000 UNIT/500 ML D5W IV ONE (03:27)
[2019-12-14] MEDS ORDERED: Heparin IV Standard *NO* Bolus IV STA (03:38)
[2019-12-14 05:15] LABS: Appearance Urine Turbid (Clear); Blood Urine Trace (Negative); Color Urine Orange; Epithelial Cell Urine Auto >30 /lpf (0-5); Glucose Urine UA 1+ (Negative); Ketones Urine Negative (Negative); Leukocyte Esterase Urine 1+ (Negative); Nitrite Urine Positive (Negative); Protein Urine 3+ (Negative); RBC Urine Automated 0-4 /hpf (0-4); Specific Gravity Urine 1.034 (1.000-1.030); Urobilinogen Urine Negative (Negative)
[2019-12-14 05:18] LABS: Bilirubin Urine 3+ (Negative)
[2019-12-14 05:20] LABS: Ictotest Urine Positive (Negative)
[2019-12-14 05:29] LABS: Bacteria Urine Automated 1+ (Negative)
[2019-12-14] MEDS ORDERED: CEFEPIME 2,000 MG/20 ML VIAL IV STA (05:38)
[2019-12-14 05:45] LABS: Basophils # (auto) 0.01 K/uL (0-0.2); Basophils % (auto) 0.1 %; Eosinophils # (auto) 0.02 K/uL (0-0.5); Eosinophils % (auto) 0.1 %; Hematocrit (blood only) 47.5 % (42-52); Hemoglobin 15.4 g/dL (14.0-18.0); Immature Granulocytes # (auto) 0.08 K/uL (0.00-0.02); Immature Granulocytes % (auto) 0.5 %; Lymphocytes # (auto) 1.53 K/uL (1.2-3.4); Lymphocytes % (auto) 9.3 %; Mean Corpuscular Hemoglobin 30.6 pg (25-34); Mean Corpuscular Hgb Conc 32.4 g/dL (32-36); Mean Corpuscular Volume 94.2 fL (80-100); Mean Platelet Volume 10.9 fL (7.4-10.4); Monocytes # (auto) 1.32 K/uL (0.11-0.59); Monocytes % (auto) 8.1 %; Neutrophils # (auto) 13.43 K/uL (1.4-6.5); Neutrophils % (auto) 81.9 %; Platelet Count 202 K/uL (130-400); RDW Coefficient of Variation 13.7 % (11.5-14.5); RDW Standard Deviation 47.3 fL (36.4-46.3); Red Blood Count 5.04 M/uL (4.7-6.1); White Blood Count 16.39 K/uL (4.8-10.8)
[2019-12-14] MEDS ORDERED: CEFEPIME CONSULT ACTIVE PRN (05:45)
[2019-12-14] MEDS ORDERED: HEPARIN SOD 5,000 UNIT/0.5 ML VIAL SQ SCH (06:00)
[2019-12-14 06:11] LABS: Albumin Level 2.9 gm/dl (3.4-5.0); BUN Creatinine Ratio 9.9 (10-20); Calcium 6.1 mg/dl (8.5-10.1); Creatinine Clr Calc Pharmacy 54.9 ml/min; Est GFR (African American) 32.8; Est GFR (Non-African American) 28.3; Magnesium 1.9 mg/dl (1.8-2.4)
[2019-12-14 06:19] LABS: Albumin Globulin Ratio 0.9 (0.9-2); Bilirubin,Total 2.5 mg/dl (0.2-1); Globulin 3.1 gm/dl (2.5-4.0); Troponin I 0.13 ng/ml (0-0.045)
[2019-12-14] MEDS ORDERED: CALCIUM GLUCONATE 10% 3,000 MG in SODIUM CHLORIDE 0.9% 50 ML IV STA (06:24)
--- NOTE | 2019-12-14 06:46 | CT Scan Report ---
CT OF THE ABDOMEN AND PELVIS WITHOUT CONTRAST CLINICAL HISTORY: Worsening abdominal pain. COMPARISON STUDY: CT of the abdomen and pelvis December 12, 2019. TECHNIQUE: Axial images of the abdomen and pelvis were obtained without IV contrast. Images were revi ewed in the axial, sagittal, and coronal planes. Automated exposure control was utilized for the rosendo dy. A dose lowering technique was utilized adhering to the principles of ALARA. FINDINGS: Imaged portions of the lower chest demonstrate interval development atelectasis. Evaluation of the abdomen and pelvis is suboptimal on this unenhanced examination. No pneumatosis, free air or portal venous gas is present. There is marked fatty infiltration of the liver. There is no biliary du ctal dilatation status post cholecystectomy. The spleen, adrenal glands and kidneys are unremarkable on this unenhanced exam. There is no hydronephrosis. Moderate peripancreatic fluid and infiltration e xtending into the bilateral anterior pararenal spaces/retroperitoneum including the pelvis is noted. The amount of fluid has increased since exam of December 12, 2019. No peripancreatic fluid collection is present. Pancreatic necrosis is difficult to assess for on this unenhanced examination. There is no e vidence for a bowel obstruction. Full balloon is present within the bladder which is collapsed. No adriana wel wall thickening is identified. No suspicious osseous lesions are present. Prominent upper abdomin al lymph nodes remain unchanged. IMPRESSION: 1. Moderate peripancreatic fluid and infiltration extending into the retroperitoneum, increased since prior CT of December 12, 2019. This is consistent with acute pancreatitis. No peripancreatic fluid colle ction. 2. No biliary ductal dilatation status post cholecystectomy. 3. Marked fatty infiltration of the liver. 4. Bibasilar atelectasis within the lower lungs. Trace right pleural fluid. ACT 112: Negative or not required by law. Electronically signed by: Jose Esquivel M.D. 12/14/2019 6:45 AM
--- NOTE | 2019-12-14 07:10 | Ultrasound Report ---
BILATERAL LOWER EXTREMITY VENOUS DOPPLER CLINICAL HISTORY: PE garcia COMPARISON STUDY: No previous studies for comparison. TECHNIQUE: Sonography of the deep venous system of the bilateral lower extremities was performed. Co mpression and augmentation were evaluated. FINDINGS: The bilateral common femoral, superficial femoral and popliteal veins were compressible. A ugmentation was normal. Flow was shown within the deep calf vessels. IMPRESSION: No evidence of deep venous thrombus within the bilateral lower extremities. ACT 112: Negative or not required by law. Electronically signed by: Jose Esquivel M.D. 12/14/2019 7:09 AM
--- NOTE | 2019-12-14 07:19 | XRay Report ---
SINGLE VIEW CHEST CLINICAL HISTORY: Dyspnea. FINDINGS: An AP, portable, upright chest radiograph is compared to study performed earlier the same d ay 12/13/2019. The examination is degraded by portable technique and patient rotation. The heart is mi ldly enlarged. The pulmonary vasculature is noncongested. Atelectasis is noted at both lung bases. Th ere is no airspace consolidation typical for pneumonia or large pleural effusion identified. No pneum othorax is seen. The skeletal structures are osteopenic. The bony thorax is grossly intact. IMPRESSION: Bibasilar atelectasis with no acute cardiopulmonary abnormality. ACT 112: Negative or not required by law. Electronically signed by: John Sanchez M.D. 12/14/2019 7:18 AM
[2019-12-14] MEDS ORDERED: PERFLUTREN LIPID MICROSPHERE (DEFINITY) IV ONE (08:02)
[2019-12-14] MEDS ORDERED: PIPERACILL/TAZOBAC CONSULT ACTIVE PRN (08:55)
--- NOTE | 2019-12-14 08:58 | Hospitalist Progress Note ---
Date of Service December 14, 2019 Assessment & Plan (1) Post-ERCP acute pancreatitis: 44-year-old male with history of hypertension and prediabetes, dyslipidemia, aortic root enlargement, depression, presenting with abdominal pain after an ERCP procedure. Post ERCP pancreatitis Patient recently underwent endoscopic ultrasound/EGD for abnormal liver serologies, subsequently underwent ERCP for cholelithiasis that were discovered, then developed abdominal pain afterwards CT abdomen pelvis: 1. Findings consistent with acute pancreatitis of the pancreatic head and uncinate process. 2. Moderate peripancreatic infiltrative change with trace amount of scattered fluid. 3. No evidence for drainable abscess or collection. Lipase 2422 Total bili 2.5 AST/ALT/alk phos 544/394/88 Still having epigastric pain LFTs improving Management of hypotension, hypoxia, acute renal failure, hypercalcemia per below Discussed with GI Continue vigorous IV fluids, bowel rest, pain control, monitor closely We will decrease Dilaudid in light of acute renal failure and hypoxia Hypotension Likely multifactorial, from Dilaudid?, Dehydration Continue IV fluids Management of possible sepsis noted below Lethargy Likely secondary to hypercapnic respiratory failure, in the setting of Dilaudid use with acute renal failure Resolved Will reduce Dilaudid dose Patient apparently has been diagnosed with obstructive sleep apnea in the past, not able to tolerate BiPAP mask Declines trial of BiPAP mask again while admitted Monitor closely Acute renal failure Possible prerenal etiology in the setting of acute renal failure, possible contrast-induced nephropathy [employer] Worker consulted, discussed with Dr. Whitten Hypocalcemia in the setting of pancreatitis Patient has received total of 7 g of IV calcium gluconate Repeat ionized calcium ordered Discussed with Dr. Whitten Rule out UTI versus cholangitis Positive leukocytosis Urine culture ending Blood cultures pending Cover with IV Zosyn Hypoxia Patient noted to be hypoxic overnight in the setting of unresponsiveness and hypotension Chest x-ray: Positive atelectasis Likely secondary hypoventilation secondary to epigastric pain, rule out PE Bilateral lower extremity Doppler ultrasound negative for PE VQ scan pending Only on heparin drip, DC once VQ scan is negative Continue pain control, incentive spirometry, monitor in telemetry unit Hypertension Hypotensive overnight, hold losartan and Coreg Prediabetes Monitor Morbid obesity Counseling Depression Stable, continue Zoloft, trazodone, Remeron DVT prophylaxis On heparin drip CODE STATUS Full code Disposition pending lives with family at home Admission and Anticipated Discharge Date Admission Date: December 12, 2019 Subjective Follow-up for post ERCP acute pancreatitis Events of overnight noted In summary, patient was found to be unresponsive, hypotensive systolic 60s Narcan IV fluids with improvement of mental status and blood pressure Found to be in acute renal failure, with hypocalcemia Repeat CT abdomen pelvis showing fluid in the peripancreatic region Chest x-ray showing atelectasis Transfer to PCU Patient seen resting in bed, sleeping but easily awakened On 6 L of oxygen via nasal cannula, blood pressure normal Denies shortness of breath, chest pain, nausea, dizziness, headache Abdominal pain still about the same as yesterday, feels pressure around his abdomen No other symptoms Review of Systems Review of Systems: All systems reviewed & are unremarkable except as noted in HPI & below Physical Exam Physical Exam: General- oriented x 3, not in distress, speaks in sentences with no effort or accessory muscle use Eyes- anicteric Neck- no JVD Lungs- clear breath sounds bilaterally, no rales/wheezes Heart- normal rate, regular rhythm; no murmurs Abdomen- normal bowel sounds, mildly distended, soft, nontender Extremities- no pretibial edema, no calf tenderness Neuro- alert, oriented x 3; no gross focal neurologic deficits Skin- warm & dry Results & Data Results & Data ([facility]) Vital Signs (Past 12 Hours) Vital Signs Temp Pulse Pulse Resp BP Pulse Ox 12/14/19 07:38 36.4 C L 91 H 20 133/76 92 12/14/19 04:46 36.7 C 79 16 116/70 94 12/14/19 01:49 36.8 C 91 H 22 124/89 92 12/14/19 01:11 82 12/13/19 23:22 36.4 C L 60 20 81/52 L 93 Laboratory Results Laboratory Results - last 24 hr 12/13/19 12/13/19 12/13/19 23:39 23:54 23:54 WBC 16.41 H RBC 5.29 Hgb 16.1 Hct 49.4 MCV 93.4 MCH 30.4 MCHC 32.6 RDW Std Deviation 46.2 RDW Coeff of Balwinder 13.6 Plt Count 231 MPV 11.2 H Immature Gran % (Auto) 0.4 Neut % (Auto) 79.8 Lymph % (Auto) 10.4 Lamar % (Auto) 9.2 Eos % (Auto) 0.1 Baso % (Auto) 0.1 Immature Gran # (Auto) 0.06 H Neut # (Auto) 13.10 H Lymph # (Auto) 1.70 Lamar # (Auto) 1.51 H Eos # (Auto) 0.02 Baso # (Auto) 0.02 PT INR APTT PTT Ratio ABG pH ABG pCO2 ABG pO2 ABG HCO3 ABG O2 Saturation ABG Base Excess Osiel Test Barometric Pressure Oxygen Given Sodium 138 Potassium 4.4 Chloride 102 Carbon Dioxide 27 Anion Gap 9.0 BUN 22 H D Creatinine 2.40 H D Est Cr Clr Drug Dosing 60.1 Est GFR ( Amer) 36.7 Est GFR (Non-Af Amer) 31.6 BUN/Creatinine Ratio 9.0 L Glucose 116 H POC Glucose 141 H Lactate Calcium 5.9 L* D Magnesium 1.6 L Total Bilirubin 3.0 H AST 230 H ALT 421 H Alkaline Phosphatase 96 Ammonia Total Creatine Kinase Troponin I 0.036 Total Protein 6.0 L Albumin 3.1 L Globulin 2.9 Albumin/Globulin Ratio 1.1 TSH 0.936 Urine Color Urine Appearance Urine pH Ur Specific [place] Urine Protein Urine Glucose (UA) Urine Ketones Urine Blood Urine Nitrite Urine Bilirubin Urine Urobilinogen Ur Leukocyte Esterase Urine WBC (Auto) Urine RBC (Auto) U Hyaline Cast (Auto) U Epithel Cells (Auto) Urine Bacteria (Auto) Ur Renal Epithelial Cell Granular Casts Urine Yeast 12/13/19 12/13/19 12/14/19 23:54 23:54 00:20 WBC RBC Hgb Hct MCV MCH MCHC RDW Std Deviation RDW Coeff of Balwinder Plt Count MPV Immature Gran % (Auto) Neut % (Auto) Lymph % (Auto) Lamar % (Auto) Eos % (Auto) Baso % (Auto) Immature Gran # (Auto) Neut # (Auto) Lymph # (Auto) Lamar # (Auto) Eos # (Auto) Baso # (Auto) PT 12.0 INR 1.1 APTT 25.3 PTT Ratio 0.9 ABG pH ABG pCO2 ABG pO2 ABG HCO3 ABG O2 Saturation ABG Base Excess [place]iel Test Barometric Pressure Oxygen Given Sodium Potassium Chloride Carbon Dioxide Anion Gap BUN Creatinine Est Cr Clr Drug Dosing Est GFR ( Amer) Est GFR (Non-Af Amer) BUN/Creatinine Ratio Glucose POC Glucose Lactate 1.3 Calcium Magnesium Total Bilirubin AST ALT Alkaline Phosphatase Ammonia Total Creatine Kinase Troponin I Total Protein Albumin Globulin Albumin/Globulin Ratio TSH Urine Color Urine Appearance Urine pH Ur Specific [place] Urine Protein Urine Glucose (UA) Urine Ketones Urine Blood Urine Nitrite Urine Bilirubin Urine Urobilinogen Ur Leukocyte Esterase Urine WBC (Auto) Urine RBC (Auto) U Hyaline Cast (Auto) U Epithel Cells (Auto) Urine Bacteria (Auto) Ur Renal Epithelial Cell Granular Casts Urine Yeast 12/14/19 12/14/19 12/14/19 00:20 04:18 05:27 WBC 16.39 H RBC 5.04 Hgb 15.4 Hct 47.5 MCV 94.2 MCH 30.6 MCHC 32.4 RDW Std Deviation 47.3 H RDW Coeff of Balwinder 13.7 Plt Count 202 MPV 10.9 H Immature Gran % (Auto) 0.5 Neut % (Auto) 81.9 Lymph % (Auto) 9.3 Lamar % (Auto) 8.1 Eos % (Auto) 0.1 Baso % (Auto) 0.1 Immature Gran # (Auto) 0.08 H Neut # (Auto) 13.43 H Lymph # (Auto) 1.53 Lamar # (Auto) 1.32 H Eos # (Auto) 0.02 Baso # (Auto) 0.01 PT INR APTT PTT Ratio ABG pH 7.32 L ABG pCO2 46 ABG pO2 87 ABG HCO3 23 ABG O2 Saturation 96.3 H ABG Base Excess -3.4 Osiel Test Pos Barometric Pressure 735.6 Oxygen Given 10L O2 Sodium Potassium Chloride Carbon Dioxide Anion Gap BUN Creatinine Est Cr Clr Drug Dosing Est GFR ( Amer) Est GFR (Non-Af Amer) BUN/Creatinine Ratio Glucose POC Glucose Lactate Calcium Magnesium Total Bilirubin AST ALT Alkaline Phosphatase Ammonia Total Creatine Kinase Troponin I Total Protein Albumin Globulin Albumin/Globulin Ratio TSH Urine Color [place] Urine Appearance Turbid A Urine pH 5.0 Ur Specific [place] 1.034 H Urine Protein 3+ H Urine Glucose (UA) 1+ H Urine Ketones Negative Urine Blood Trace H Urine Nitrite Positive A Urine Bilirubin 3+ H Urine Urobilinogen Negative Ur Leukocyte Esterase 1+ H Urine WBC (Auto) 10-30 H Urine RBC (Auto) 0-4 U Hyaline Cast (Auto) 10-30 H U Epithel Cells (Auto) >30 H Urine Bacteria (Auto) 1+ H Ur Renal Epithelial Cell Not Reportable Granular Casts 5-10 H Urine Yeast Not Reportable 12/14/19 12/14/19 12/14/19 05:27 05:27 07:09 WBC RBC Hgb Hct MCV MCH MCHC RDW Std Deviation RDW Coeff of Balwinder Plt Count MPV Immature Gran % (Auto) Neut % (Auto) Lymph % (Auto) Lamar % (Auto) Eos % (Auto) Baso % (Auto) Immature Gran # (Auto) Neut # (Auto) Lymph # (Auto) Lamar # (Auto) Eos # (Auto) Baso # (Auto) PT INR APTT PTT Ratio ABG pH ABG pCO2 ABG pO2 ABG HCO3 ABG O2 Saturation ABG Base Excess Osiel Test Barometric Pressure Oxygen Given Sodium 138 Potassium 4.0 Chloride 103 Carbon Dioxide 27 Anion Gap 8.0 BUN 26 H Creatinine 2.63 H Est Cr Clr Drug Dosing 54.9 Est GFR ( Amer) 32.8 Est GFR (Non-Af Amer) 28.3 BUN/Creatinine Ratio 9.9 L Glucose 130 H POC Glucose Lactate Calcium 6.1 L Magnesium 1.9 Total Bilirubin 2.5 H AST 164 H ALT 351 H Alkaline Phosphatase 93 Ammonia 30.1 Total Creatine Kinase 210 Troponin I 0.130 H* Total Protein 6.0 L Albumin 2.9 L Globulin 3.1 Albumin/Globulin Ratio 0.9 TSH Urine Color Urine Appearance Urine pH Ur Specific [place] Urine Protein Urine Glucose (UA) Urine Ketones Urine Blood Urine Nitrite Urine Bilirubin Urine Urobilinogen Ur Leukocyte Esterase Urine WBC (Auto) Urine RBC (Auto) U Hyaline Cast (Auto) U Epithel Cells (Auto) Urine Bacteria (Auto) Ur Renal Epithelial Cell Granular Casts Urine Yeast
[2019-12-14] MEDS ORDERED: carvediloL 3.125 MG TAB PO SCH (09:00)
[2019-12-14] MEDS ORDERED: PIPERACILLIN/TAZOBACTAM 4.5 GM in DEXTROSE 5% 100 ML IV ONE (09:00)
--- NOTE | 2019-12-14 09:15 | Gastroenterology Progress Note ---
Date of Service December 14, 2019 Assessment & Plan (1) Post-ERCP acute pancreatitis: 44 year old male admitted w/ post ERCP pancreatitis, CT w/ acute pancreatitis of the pancreatic head and uncinate process w/ moderate peripancreatic infiltrative change with trace amount of scattered fluid without evidence of abscess or fluid collection. His LFTs this AM are increased Overnight became hypotensive, hypoxic. WBC rising, started on broad spectrum ABX with biliary coverage. LFTs downtrending, [employer] bumped NPO but ok for ice chips and sips LR 150 mL/hr antiemetics PRN analgesia PRN Continue to Trend LFTs DVT prophylaxis Encouraged OOB w/ ambulation Continue broad spectrum ABX Nephrology consultation Renal US ordered Urine NA ordered Consider a perfusion scan Will follow. Thank you for allowing us to participate in the care of this patient. Please call with any acute changes, questions or concerns. Please see addendum below with additional recommendation from my supervising physician. Admission and Anticipated Discharge Date Admission Date: December 12, 2019 Supervising Physician Co-Signing Physician Notes Attg add: I interviewed and examined pt, reviewed chart and labs. Events o/n noted - episode of unexplained hypotension and subsequent ICU transfer; Confusion thought to be related to med use; Increase creat with low urine NA wi th vigorous uop throughout today; decreased O2 sat wit imaging showing bibaslilar atelectasis and w/u neg PE. On my interviewe, he reports continued pressure and pain in his abdomen, little flatus, and poor PO. On exam, he appears mildly short of breath on supplemental O2, but appears comfortable and is sitting in chair/walking around room. His abdomen is mildly distended and tympanic. Labs show marked hypocalcemia, improved LFTs. A/P: Pancreatits - Diet as tolerated. Biliary obstruction likely post sphincterotomy edema, blood clot -- appears resolved, cont to follow LFT's. Cnsider empiric 3-5 days of abx to cover possibility of cholangitis. Renal failure - ATN, related to HTN vs post renal, due to narcs and anticholinergics -- appears resolving, cont to follow Hypoxia - Presumably due to atelectasis from splinting. Encourage IS, DVT prophy. Subjective Transferred to tele overnight Started on IV heparin concerned about a PO as persistently hypoxic. Also noted to be hypotensive WBC trending up Repeat CTAP without acute changes Started on ABX with biliary coverage [employer] bumped Passing gas but no BM Review of Systems Constitutional: no fever, no chills and no fatigue Respiratory: + dyspnea Cardiovascular: no chest pain Gastrointestinal: + abdominal pain and + bloating; no blood in stools and no melena Genitourinary: + difficulty urinating (catherter placed) Physical Exam Constitutional: + acute distress (appears uncomfortable), + ill appearing and + obese Neck: trachea midline Respiratory: + labored breathing; does not use accessory muscles Auscultation: no crackles and no wheezes Cardiovascular: Rate/Rhythm: regular rate and regular rhythm Gastrointestinal (Abdomen): Inspection/Auscultation: + abdomen distended and normal bowel sounds Percussion/Palpation: + abdomen tender and abdomen soft; no guarding and abdomen not rigid Skin: no rashes, warm and dry Results & Data ([facility]) Vital Signs (Past 12 Hours) Vital Signs Temp Pulse Pulse Resp BP Pulse Ox 12/14/19 07:38 36.4 C L 91 H 20 133/76 92 12/14/19 04:46 36.7 C 79 16 116/70 94 12/14/19 01:49 36.8 C 91 H 22 124/89 92 12/14/19 01:11 82 12/13/19 23:22 36.4 C L 60 20 81/52 L 93 Laboratory Results 12/14/19 12/14/19 12/14/19 Range/Units 08:55 07:09 05:27 WBC (4.8-10.8) K/uL RBC (4.7-6.1) M/uL Hgb (14.0-18.0) g/dL Hct (42-52) % MCV (80-100) fL MCH (25-34) pg MCHC (32-36) g/dL RDW Std Deviation (36.4-46.3) fL RDW Coeff of Balwinder (11.5-14.5) % Plt Count (130-400) K/uL MPV (7.4-10.4) fL Immature Gran % (Auto) % Neut % (Auto) % Lymph % (Auto) % Chambers % (Auto) % Eos % (Auto) % Baso % (Auto) % Immature Gran # (Auto) (0.00-0.02) K/uL Neut # (Auto) (1.4-6.5) K/uL Lymph # (Auto) (1.2-3.4) K/uL Chambers # (Auto) (0.11-0.59) K/uL Eos # (Auto) (0-0.5) K/uL Baso # (Auto) (0-0.2) K/uL PT (9.0-12.0) Seconds INR (0.9-1.1) APTT (21.0-31.0) Seconds PTT Ratio ABG pH (7.35-7.45) ABG pCO2 (35-46) mmHg ABG pO2 (80-95) mmHg ABG HCO3 (19-24) mmol/L ABG O2 Saturation (90-95) % ABG Base Excess (-9-1.8) mEq/L Osiel Test (Pos) Barometric Pressure mm/Hg Oxygen Given Sodium (136-145) mmol/L Potassium (3.5-5.1) mmol/L Chloride (98-107) mmol/L Carbon Dioxide (21-32) mmol/L Anion Gap (3-11) BUN (7-18) mg/dl Creatinine (0.6-1.4) mg/dl Est Cr Clr Drug Dosing ml/min Est GFR ( Amer) Est GFR (Non-Af Amer) BUN/Creatinine Ratio (10-20) Glucose (70-99) mg/dl POC Glucose (70-99) mg/dl Lactate (0.4-2.0) mmol/L Calcium (8.5-10.1) mg/dl Magnesium (1.8-2.4) mg/dl Total Bilirubin (0.2-1) mg/dl AST (15-37) U/L ALT (12-78) U/L Alkaline Phosphatase (45-117) U/L Ammonia 30.1 (11-32) umol/L Total Creatine Kinase (39-308) U/L Troponin I (0-0.045) ng/ml Total Protein (6.4-8.2) gm/dl Albumin (3.4-5.0) gm/dl Globulin (2.5-4.0) gm/dl Albumin/Globulin Ratio (0.9-2) TSH (0.300-4.500) uIu/ml Urine Color Urine Appearance (Clear) Urine pH (4.5-7.5) Ur Specific [place] (1.000-1.030) Urine Protein (Negative) Urine Glucose (UA) (Negative) Urine Ketones (Negative) Urine Blood (Negative) Urine Nitrite (Negative) Urine Bilirubin (Negative) Urine Urobilinogen (Negative) Ur Leukocyte Esterase (Negative) Urine WBC (Auto) (0-5) /hpf Urine RBC (Auto) (0-4) /hpf U Hyaline Cast (Auto) (0-5) /lpf U Epithel Cells (Auto) (0-5) /lpf Urine Bacteria (Auto) (Negative) Ur Renal Epithelial Cell Granular Casts (0) /lpf Urine Yeast Nasal Screen MRSA (PCR) Pending 12/14/19 12/14/19 12/14/19 Range/Units 05:27 05:27 04:18 WBC 16.39 H (4.8-10.8) K/uL RBC 5.04 (4.7-6.1) M/uL Hgb 15.4 (14.0-18.0) g/dL Hct 47.5 (42-52) % MCV 94.2 (80-100) fL MCH 30.6 (25-34) pg MCHC 32.4 (32-36) g/dL RDW Std Deviation 47.3 H (36.4-46.3) fL RDW Coeff of Balwinder 13.7 (11.5-14.5) % Plt Count 202 (130-400) K/uL MPV 10.9 H (7.4-10.4) fL Immature Gran % (Auto) 0.5 % Neut % (Auto) 81.9 % Lymph % (Auto) 9.3 % Chambers % (Auto) 8.1 % Eos % (Auto) 0.1 % Baso % (Auto) 0.1 % Immature Gran # (Auto) 0.08 H (0.00-0.02) K/uL Neut # (Auto) 13.43 H (1.4-6.5) K/uL Lymph # (Auto) 1.53 (1.2-3.4) K/uL Chambers # (Auto) 1.32 H (0.11-0.59) K/uL Eos # (Auto) 0.02 (0-0.5) K/uL Baso # (Auto) 0.01 (0-0.2) K/uL PT (9.0-12.0) Seconds INR (0.9-1.1) APTT (21.0-31.0) Seconds PTT Ratio ABG pH (7.35-7.45) ABG pCO2 (35-46) mmHg ABG pO2 (80-95) mmHg ABG HCO3 (19-24) mmol/L ABG O2 Saturation (90-95) % ABG Base Excess (-9-1.8) mEq/L Osiel Test (Pos) Barometric Pressure mm/Hg Oxygen Given Sodium 138 (136-145) mmol/L Potassium 4.0 (3.5-5.1) mmol/L Chloride 103 (98-107) mmol/L Carbon Dioxide 27 (21-32) mmol/L Anion Gap 8.0 (3-11) BUN 26 H (7-18) mg/dl Creatinine 2.63 H (0.6-1.4) mg/dl Est Cr Clr Drug Dosing 54.9 ml/min Est GFR ( Amer) 32.8 Est GFR (Non-Af Amer) 28.3 BUN/Creatinine Ratio 9.9 L (10-20) Glucose 130 H (70-99) mg/dl POC Glucose (70-99) mg/dl Lactate (0.4-2.0) mmol/L Calcium 6.1 L (8.5-10.1) mg/dl Magnesium 1.9 (1.8-2.4) mg/dl Total Bilirubin 2.5 H (0.2-1) mg/dl AST 164 H (15-37) U/L ALT 351 H (12-78) U/L Alkaline Phosphatase 93 (45-117) U/L Ammonia (11-32) umol/L Total Creatine Kinase 210 (39-308) U/L Troponin I 0.130 H* (0-0.045) ng/ml Total Protein 6.0 L (6.4-8.2) gm/dl Albumin 2.9 L (3.4-5.0) gm/dl Globulin 3.1 (2.5-4.0) gm/dl Albumin/Globulin Ratio 0.9 (0.9-2) TSH (0.300-4.500) uIu/ml Urine Color Odum Urine Appearance Turbid A (Clear) Urine pH 5.0 (4.5-7.5) Ur Specific [place] 1.034 H (1.000-1.030) Urine Protein 3+ H (Negative) Urine Glucose (UA) 1+ H (Negative) Urine Ketones Negative (Negative) Urine Blood Trace H (Negative) Urine Nitrite Positive A (Negative) Urine Bilirubin 3+ H (Negative) Urine Urobilinogen Negative (Negative) Ur Leukocyte Esterase 1+ H (Negative) Urine WBC (Auto) 10-30 H (0-5) /hpf Urine RBC (Auto) 0-4 (0-4) /hpf U Hyaline Cast (Auto) 10-30 H (0-5) /lpf U Epithel Cells (Auto) >30 H (0-5) /lpf Urine Bacteria (Auto) 1+ H (Negative) Ur Renal Epithelial Cell Not Reportable Granular Casts 5-10 H (0) /lpf Urine Yeast Not Reportable Nasal Screen MRSA (PCR) 12/14/19 12/14/19 12/13/19 Range/Units 00:20 00:20 23:54 WBC (4.8-10.8) K/uL RBC (4.7-6.1) M/uL Hgb (14.0-18.0) g/dL Hct (42-52) % MCV (80-100) fL MCH (25-34) pg MCHC (32-36) g/dL RDW Std Deviation (36.4-46.3) fL RDW Coeff of Balwinder (11.5-14.5) % Plt Count (130-400) K/uL MPV (7.4-10.4) fL Immature Gran % (Auto) % Neut % (Auto) % Lymph % (Auto) % Chambers % (Auto) % Eos % (Auto) % Baso % (Auto) % Immature Gran # (Auto) (0.00-0.02) K/uL Neut # (Auto) (1.4-6.5) K/uL Lymph # (Auto) (1.2-3.4) K/uL Chambers # (Auto) (0.11-0.59) K/uL Eos # (Auto) (0-0.5) K/uL Baso # (Auto) (0-0.2) K/uL PT 12.0 (9.0-12.0) Seconds INR 1.1 (0.9-1.1) APTT (21.0-31.0) Seconds PTT Ratio ABG pH 7.32 L (7.35-7.45) ABG pCO2 46 (35-46) mmHg ABG pO2 87 (80-95) mmHg ABG HCO3 23 (19-24) mmol/L ABG O2 Saturation 96.3 H (90-95) % ABG Base Excess -3.4 (-9-1.8) mEq/L Osiel Test Pos (Pos) Barometric Pressure 735.6 mm/Hg Oxygen Given 10L O2 Sodium (136-145) mmol/L Potassium (3.5-5.1) mmol/L Chloride (98-107) mmol/L Carbon Dioxide (21-32) mmol/L Anion Gap (3-11) BUN (7-18) mg/dl Creatinine (0.6-1.4) mg/dl Est Cr Clr Drug Dosing ml/min Est GFR ( Amer) Est GFR (Non-Af Amer) BUN/Creatinine Ratio (10-20) Glucose (70-99) mg/dl POC Glucose (70-99) mg/dl Lactate 1.3 (0.4-2.0) mmol/L Calcium (8.5-10.1) mg/dl Magnesium (1.8-2.4) mg/dl Total Bilirubin (0.2-1) mg/dl AST (15-37) U/L ALT (12-78) U/L Alkaline Phosphatase (45-117) U/L Ammonia (11-32) umol/L Total Creatine Kinase (39-308) U/L Troponin I (0-0.045) ng/ml Total Protein (6.4-8.2) gm/dl Albumin (3.4-5.0) gm/dl Globulin (2.5-4.0) gm/dl Albumin/Globulin Ratio (0.9-2) TSH (0.300-4.500) uIu/ml Urine Color Urine Appearance (Clear) Urine pH (4.5-7.5) Ur Specific [place] (1.000-1.030) Urine Protein (Negative) Urine Glucose (UA) (Negative) Urine Ketones (Negative) Urine Blood (Negative) Urine Nitrite (Negative) Urine Bilirubin (Negative) Urine Urobilinogen (Negative) Ur Leukocyte Esterase (Negative) Urine WBC (Auto) (0-5) /hpf Urine RBC (Auto) (0-4) /hpf U Hyaline Cast (Auto) (0-5) /lpf U Epithel Cells (Auto) (0-5) /lpf Urine Bacteria (Auto) (Negative) Ur Renal Epithelial Cell Granular Casts (0) /lpf Urine Yeast Nasal Screen MRSA (PCR) 12/13/19 12/13/19 12/13/19 Range/Units 23:54 23:54 23:54 WBC 16.41 H (4.8-10.8) K/uL RBC 5.29 (4.7-6.1) M/uL Hgb 16.1 (14.0-18.0) g/dL Hct 49.4 (42-52) % MCV 93.4 (80-100) fL MCH 30.4 (25-34) pg MCHC 32.6 (32-36) g/dL RDW Std Deviation 46.2 (36.4-46.3) fL RDW Coeff of Balwinder 13.6 (11.5-14.5) % Plt Count 231 (130-400) K/uL MPV 11.2 H (7.4-10.4) fL Immature Gran % (Auto) 0.4 % Neut % (Auto) 79.8 % Lymph % (Auto) 10.4 % Chambers % (Auto) 9.2 % Eos % (Auto) 0.1 % Baso % (Auto) 0.1 % Immature Gran # (Auto) 0.06 H (0.00-0.02) K/uL Neut # (Auto) 13.10 H (1.4-6.5) K/uL Lymph # (Auto) 1.70 (1.2-3.4) K/uL Chambers # (Auto) 1.51 H (0.11-0.59) K/uL Eos # (Auto) 0.02 (0-0.5) K/uL Baso # (Auto) 0.02 (0-0.2) K/uL PT (9.0-12.0) Seconds INR (0.9-1.1) APTT 25.3 (21.0-31.0) Seconds PTT Ratio 0.9 ABG pH (7.35-7.45) ABG pCO2 (35-46) mmHg ABG pO2 (80-95) mmHg ABG HCO3 (19-24) mmol/L ABG O2 Saturation (90-95) % ABG Base Excess (-9-1.8) mEq/L Osiel Test (Pos) Barometric Pressure mm/Hg Oxygen Given Sodium 138 (136-145) mmol/L Potassium 4.4 (3.5-5.1) mmol/L Chloride 102 (98-107) mmol/L Carbon Dioxide 27 (21-32) mmol/L Anion Gap 9.0 (3-11) BUN 22 H D (7-18) mg/dl Creatinine 2.40 H D (0.6-1.4) mg/dl Est Cr Clr Drug Dosing 60.1 ml/min Est GFR ( Amer) 36.7 Est GFR (Non-Af Amer) 31.6 BUN/Creatinine Ratio 9.0 L (10-20) Glucose 116 H (70-99) mg/dl POC Glucose (70-99) mg/dl Lactate (0.4-2.0) mmol/L Calcium 5.9 L* D (8.5-10.1) mg/dl Magnesium 1.6 L (1.8-2.4) mg/dl Total Bilirubin 3.0 H (0.2-1) mg/dl AST 230 H (15-37) U/L ALT 421 H (12-78) U/L Alkaline Phosphatase 96 (45-117) U/L Ammonia (11-32) umol/L Total Creatine Kinase (39-308) U/L Troponin I 0.036 (0-0.045) ng/ml Total Protein 6.0 L (6.4-8.2) gm/dl Albumin 3.1 L (3.4-5.0) gm/dl Globulin 2.9 (2.5-4.0) gm/dl Albumin/Globulin Ratio 1.1 (0.9-2) TSH 0.936 (0.300-4.500) uIu/ml Urine Color Urine Appearance (Clear) Urine pH (4.5-7.5) Ur Specific [place] (1.000-1.030) Urine Protein (Negative) Urine Glucose (UA) (Negative) Urine Ketones (Negative) Urine Blood (Negative) Urine Nitrite (Negative) Urine Bilirubin (Negative) Urine Urobilinogen (Negative) Ur Leukocyte Esterase (Negative) Urine WBC (Auto) (0-5) /hpf Urine RBC (Auto) (0-4) /hpf U Hyaline Cast (Auto) (0-5) /lpf U Epithel Cells (Auto) (0-5) /lpf Urine Bacteria (Auto) (Negative) Ur Renal Epithelial Cell Granular Casts (0) /lpf Urine Yeast Nasal Screen MRSA (PCR) 12/13/19 Range/Units 23:39 WBC (4.8-10.8) K/uL RBC (4.7-6.1) M/uL Hgb (14.0-18.0) g/dL Hct (42-52) % MCV (80-100) fL MCH (25-34) pg MCHC (32-36) g/dL RDW Std Deviation (36.4-46.3) fL RDW Coeff of Balwinder (11.5-14.5) % Plt Count (130-400) K/uL MPV (7.4-10.4) fL Immature Gran % (Auto) % Neut % (Auto) % Lymph % (Auto) % Chambers % (Auto) % Eos % (Auto) % Baso % (Auto) % Immature Gran # (Auto) (0.00-0.02) K/uL Neut # (Auto) (1.4-6.5) K/uL Lymph # (Auto) (1.2-3.4) K/uL Chambers # (Auto) (0.11-0.59) K/uL Eos # (Auto) (0-0.5) K/uL Baso # (Auto) (0-0.2) K/uL PT (9.0-12.0) Seconds INR (0.9-1.1) APTT (21.0-31.0) Seconds PTT Ratio ABG pH (7.35-7.45) ABG pCO2 (35-46) mmHg ABG pO2 (80-95) mmHg ABG HCO3 (19-24) mmol/L ABG O2 Saturation (90-95) % ABG Base Excess (-9-1.8) mEq/L Osiel Test (Pos) Barometric Pressure mm/Hg Oxygen Given Sodium (136-145) mmol/L Potassium (3.5-5.1) mmol/L Chloride (98-107) mmol/L Carbon Dioxide (21-32) mmol/L Anion Gap (3-11) BUN (7-18) mg/dl Creatinine (0.6-1.4) mg/dl Est Cr Clr Drug Dosing ml/min Est GFR ( Amer) Est GFR (Non-Af Amer) BUN/Creatinine Ratio (10-20) Glucose (70-99) mg/dl POC Glucose 141 H (70-99) mg/dl Lactate (0.4-2.0) mmol/L Calcium (8.5-10.1) mg/dl Magnesium (1.8-2.4) mg/dl Total Bilirubin (0.2-1) mg/dl AST (15-37) U/L ALT (12-78) U/L Alkaline Phosphatase (45-117) U/L Ammonia (11-32) umol/L Total Creatine Kinase (39-308) U/L Troponin I (0-0.045) ng/ml Total Protein (6.4-8.2) gm/dl Albumin (3.4-5.0) gm/dl Globulin (2.5-4.0) gm/dl Albumin/Globulin Ratio (0.9-2) TSH (0.300-4.500) uIu/ml Urine Color Urine Appearance (Clear) Urine pH (4.5-7.5) Ur Specific [place] (1.000-1.030) Urine Protein (Negative) Urine Glucose (UA) (Negative) Urine Ketones (Negative) Urine Blood (Negative) Urine Nitrite (Negative) Urine Bilirubin (Negative) Urine Urobilinogen (Negative) Ur Leukocyte Esterase (Negative) Urine WBC (Auto) (0-5) /hpf Urine RBC (Auto) (0-4) /hpf U Hyaline Cast (Auto) (0-5) /lpf U Epithel Cells (Auto) (0-5) /lpf Urine Bacteria (Auto) (Negative) Ur Renal Epithelial Cell Granular Casts (0) /lpf Urine Yeast Nasal Screen MRSA (PCR)
[2019-12-14 09:30] LABS: Partial Thromboplastin Ratio 1.6; Partial Thromboplastin Time 44.7 Seconds (21.0-31.0)
[2019-12-14 09:54] LABS: Albumin Level 2.7 gm/dl (3.4-5.0); BUN Creatinine Ratio 12.4 (10-20); Calcium 6.2 mg/dl (8.5-10.1); Creatinine Clr Calc Pharmacy 61.9 ml/min; Est GFR (Non-African American) 32.8; Potassium 3.9 mmol/L (3.5-5.1)
[2019-12-14 10:07] LABS: Troponin I 0.227 ng/ml (0-0.045)
[2019-12-14] MEDS ORDERED: HEPARIN IV BOLUS 4,000 UNITS in SYRINGE 0 ML IV ONE (10:15)
[2019-12-14] MEDS ORDERED: CALCIUM GLUCONATE 10% 10 ML VIAL IV STA (10:40)
--- NOTE | 2019-12-14 10:40 | Nephrology Consultation ---
Date of Consultation December 14, 2019 Assessment & Plan (1) Hypocalcemia: he has had 7 gm IV calcium so far today. recheck calcium ionized is still only 0.8 w/ longer QTc on ECG this am: ordered another 4 gm IV calcium, for 11 gm totalin 12 hr. -ordered another 4 gm Ca gluconate IV stat to be given over 22 minutes -at 1330, have ordered repeat iCa and obtain other hypocalcemia labs including phos, PTH, 25 OHD -have worked w/ pharmacy to formulate calcium drip >> start with 550 mg/hr calcium gluconate in D5W at 50 mL/hr to start (0.5 mg/kg/hr elemental Ca to start w/ adjusted body weight) -Move to ICU for closer monitoring while on calcium drip -check ionized calcium q2 hrs to start and will have nurse call me to titrate gtt; per pharmacy no central line needed -ordered repeat ECG to monitor QTc; keep him on athletic monitor pls -pls continue to check mag daily Present on Admission?: No (2) Acute renal failure: baseline creatinine 0.9 which is where he was on admission on 12/11 evening. on 12/12 evening, he had an unresponsive episode with sbp dropping to 60s and hypoxia. creatinine noted at that time to be 2.4; peaked at 2.6 12/13 AM, slightly better at 2.3 a few hours later. UA c/w ATN. large oxygen requirement noted but coming down from 6 > 4L and has negative dopplers/VQ. I's and O's have been inconsistent but he now has a Valdez catheter. volume depleted on eval and based on response to fluids; besides Ca, other chemistries acceptable. marked hypoxia however and will follow. -No indication for emergent dialysis. Repeat creatinine late this morning is trending down which is promising -continue LR at 150-250 ML hourly for now -needs I/O please -daily bmp Present on Admission?: No (3) Acute respiratory failure with hypoxia: low treshold for non con chest CT; VQ and CXR negative. Care coordinated w/ Dr Giron Present on Admission?: Yes History of Present Illness Reason for Consultation: SARAH, hypocalcemia Attending Physician: Philip Giron MD History of Present Illness 45-year-old male whom I am asked to see for acute renal injury and hypocalcemia was admitted yesterday morning for acute pancreatitis after an ERCP 3 days back. Presented with severe abdominal pain. Creatinine was within normal limits on presentation as well as calcium. Late last evening, the patient had unresponsive episode with systolic blood pressures dropping to the 60s and 70s and hypoxia. He received a fluid bolus, was given Narcan and was transferred to the PCU. Notably, his creatinine went to 2.4 and calcium dropped to 5.9. He received 7 g of elemental calcium between midnight and 6 AM today. Despite this therapy, follow-up labs show a calcium of 6.2. VQ and Doppler are negative. He did receive IV contrast for CT abdomen pelvis on admission. He is also receiving lactated Ringer's at 250 mL hourly. He was on room air initially but has since events of last evening been requiring usually 6 L and now 4 L of oxygen nasal cannula. Allergies Allergy/AdvReac Type Severity Reaction Status Date / Time No Known Allergies Allergy Verified 12/12/19 19:54 Home Medications Home Medications Medication Instructions Recorded Confirmed Type Excedrin Migraine 1 tab PO Q6H PRN 05/29/19 12/12/19 History carvedilol 12.5 mg PO BID 05/29/19 12/12/19 History fluticasone propionate [Flonase 2 spray INTRANASAL DAILY PRN 05/29/19 12/12/19 History Allergy Relief] losartan 25 mg PO QAM 05/29/19 12/12/19 History methocarbamol 500 mg PO Q8H PRN 05/29/19 12/12/19 History naproxen sodium [Aleve] 220 mg PO BID PRN 05/29/19 12/12/19 History trazodone 100 - 200 mg PO HS 05/29/19 12/12/19 History mirtazapine 45 mg PO HS 12/12/19 12/12/19 History Patient History Medical History Anxiety Aortic root enlargement F/U DR ROMERO Q6-12 MONTHS Bulging of cervical intervertebral disc ROM WNL Celiac disease Chronic back pain Degenerative disc disease NECK AND LUMBAR Depression Fatty liver Hx of thyroid nodule UNDER OBSERVATION Hyperlipidemia Hypertension Lumbar facet arthropathy Migraine HX Osteoarthritis Sleep apnea MILD-MODERATE APNEA-CAN'T TOLERATE CPAP Surgical History H/O arthroscopy of shoulder R X3 AND L X 3. Left shoulder 04/08/2018. Glidescope #4, grade 1 view (elective). Interscalene block. no issues. History of anesthesia reaction SLOW TO WAKE History of appendectomy History of arthroscopy RIGHT KNEE History of cholecystectomy History of colonoscopy History of esophagogastroduodenoscopy (EGD) History of laminectomy L2-L3 WITH REMOVAL BENIGN TUMOR History of open reduction and internal fixation (ORIF) procedure LEFT ANKLE History of tooth extraction WISDOM TEETH Personal history of prior ablation treatment LUMBAR - OCTOBER 2017 Family History Sister Family history of reaction to anesthesia SLOW TO WAKE UP Sister No problems noted. Social History Preferred Language: [place] Communication Ability: Effective Rn Clinical Resource Required: No Beliefs That Will Affect Care: None Current Living Situation: Spouse Other Information That Helps Us Care for You: No Feels Safe at Home: Yes Safety Concerns: Feels Safe At This Time Smoking Status: Never smoker Second Hand Exposure: No ; Hx Alcohol Use: No Hx Substance Use: No Review of Systems Review of Systems: All systems reviewed & are unremarkable except as noted in HPI & below Respiratory: + dyspnea (d/t abd bloating); no cough Gastrointestinal: + abdominal pain and + bloating Physical Exam Constitutional: well developed, well nourished, + acute distress (mild distress w/ abd discomfort) and + ill appearing Eyes: EOM intact bilaterally ENMT: Ears: no external ear abnormality Nose: no external nose abnormality Mouth: + dry oral mucous membranes Neck: no nuchal rigidity Respiratory: normal respiratory effort and able to speak in complete sentences; no respiratory distress, no labored breathing and no cough Auscultation: lungs clear to auscultation bilaterally and + diminished lung sounds Cardiovascular: Rate/Rhythm: regular rhythm and + tachycardic (in 90s) Extremities: no edema Gastrointestinal (Abdomen): Inspection/Auscultation: + abdomen distended and normal bowel sounds; no abdominal edema Percussion/Palpation: + abdomen tender and + guarding Musculoskeletal: Extremities: strength 5/5 throughout Skin: no rashes, warm and dry Neurologic: corral, fluent speech, no tremor Psychiatric: Orientation: alert and oriented x 3 Eye Contact: good eye contact Speech: normal rate/rhythm/volume of speech Affect: + anxious affect Genitourinary: valdez w/ ample dark yellow urine Results & Data Vital Signs (Past 12 Hours) Vital Signs Temp Pulse Pulse Resp BP Pulse Ox 12/14/19 07:38 36.4 C L 91 H 20 133/76 92 12/14/19 04:46 36.7 C 79 16 116/70 94 12/14/19 01:49 36.8 C 91 H 22 124/89 92 12/14/19 01:11 82 12/13/19 23:22 36.4 C L 60 20 81/52 L 93 Laboratory Results 12/14/19 05:27 12/14/19 08:58 iCa 0.8 ALT/AST trends noted alb 2.7 trop 0.227 UA> 1034 turbid orange urine 3+ protein, 1+ glucose, trace blood; 3+ bilirubin; 1+ LE, + nitrs; 10-30 WBC; >30 epis, 5-10 gran casts/lpf Diagnostic Findings CT abd/pelvis 12/110 w/ con 1. Findings consistent with acute pancreatitis of the pancreatic head and unc inate process. 2. Moderate peripancreatic infiltrative change with trace amount of scattered fluid. 3. No evidence for drainable abscess or collection. cxr 12/13 pm IMPRESSION: Bibasilar atelectasis with no acute cardiopulmonary abnormality. 12/13 Venous dopplers no BLE dvt VQ Low PE probability CT abd/pelvis today for abd pain noncon 1. Moderate peripancreatic fluid and infiltration extending into the retroperitoneum, increased since prior CT of December 12, 2019. This is consistent with acute pancreatitis. No peripancreatic fluid collection. 2. No biliary ductal dilatation status post cholecystectomy. 3. Marked fatty infiltration of the liver. 4. Bibasilar atelectasis within the lower lungs. Trace right pleural fluid. (1) Acute renal failure Acute renal failure type: with acute tubular necrosis Qualified Code(s): N17.0 - Acute kidney failure with tubular necrosis
[2019-12-14 10:46] LABS: Phosphorus 3.4 mg/dl (2.5-4.9)
--- NOTE | 2019-12-14 11:54 | Nuclear Medicine Report ---
NM pul perfusion CLINICAL HISTORY: Chest pain and shortness of breath. COMPARISON STUDY: Chest radiograph at December 13, 2019 11:58 AM. TECHNIQUE: 5.2 mCi of technetium 99m MAA was injected IV at 11:00 AM on December 14, 2019. Immediately fo llowing injection, imaging of the chest was carried out in multiple projections. Ventilation imaging could not be performed due to COVID restrictions. FINDINGS: Expected radiotracer distribution is noted. No perfusion defects are identified. No areas o f abnormal radiotracer uptake are noted. This study is considered low probability for pulmonary embol us. IMPRESSION: Low probability for pulmonary embolus. ACT 112: Negative or not required by law. Electronically signed by: Jose Esquivel M.D. 12/14/2019 11:53 AM
--- NOTE | 2019-12-14 12:47 | Critical Care Consultation ---
Date of Consultation December 14, 2019 Assessment & Plan (1) Post-ERCP acute pancreatitis: EKG 12/14/2019: Sinus tachycardia, normal axis, no ST-T wave changes, QTC 467 (it has gone down from 471 on 12/13/2019). Nonspecific ST elevation in lead III which has been present since July 2018 CT abdomen pelvis 12/14/2019: Shows bilateral lower lobe atelectasis, acute pancreatitis with moderate peripancreatic fluid and infiltration extending into the retroperitoneum. No peripancreatic fluid collection. --Acute pancreatitis Likely post ERCP Patient's initial BISAP score was 1, today it has increased to 3, which is for sirs>2 and BUN> 25 and trace right-sided pleural effusion Since admission patient has got 10 L of fluid which is approximately 8 ml/kg I will go down on the rate of IV fluids as we have passed the first 24 hours of acute phase of pancreatitis. Continue with pain medication Continue with n.p.o. Will start feeding the patient with clear liquids after 48-72 hours once the patient is able to tolerate the food. --SARAH Patient did have a hypotensive episode in the hospital Abdominal compartment syndrome can present the same way Although the belly seems to be distended it is still soft I will get intra-abdominal pressure measurement as the patient already has a Mixon in. CT abdomen pelvis did not show any free fluid in the peritoneum. Monitor BUN/creatinine Avoid nephrotoxic medications Strict ins and outs --Acute hypoxic respiratory failure Lower part of the lungs on CT abdomen shows atelectasis, VQ scan is low probability for PE Continue with O2 supplementation to keep O2 saturation around 90-92% Incentive spirometry [id number] BiPAP nightly and PRN shortness of breath --Hypocalcemia This is likely from saponification of calcium into the farrukh-pancreatic fat Patient had prolonged duration of his QTC is baseline QTC is 414 which went up to 471 Patient has been getting IV calcium and is not able to take anything p.o. being n.p.o. Keep magnesium greater than 2 and phosphorus greater than 3 --Elevated LFTs Likely post ERCP Trending down Monitor --Hypertension Blood pressure medication on hold --Elevated troponin Likely secondary to type II LA Monitor --Morbid obesity --Prophylaxis VTE: Heparin GI: Pepcid Diet: N.p.o. Plan: Transfer the patient to MICU for continuous monitoring of intra-abdominal pr essure. And BISAP score of 3 which increases mortality. Cutdown fluids to 100 mL an hour. Strict in and out Incentive spirometry and BiPAP nightly and PRN shortness of breath Patient WBC count is most likely elevated secondary to pancreatitis. Repeat CT abdomen pelvis does not show any signs of necrosis. There is no clinical indication for antibiotic. We will repeat ESR, CRP and procalcitonin and make decision to discontinue antibiotics based on that. I have personally spent 69 minutes of critical care time in the direct management of this patient. This is a life/limb threatening event. This includes time spent evaluating patient, direct bedside care, chart review, placing orders, interpretation of diagnostic studies, discussion with consultants, patient, and family members, as well as other required patient management activities. This time is exclusive of all separately billable procedures, and teaching time and separate from and in addition to any other critical care service time. Please note the above document was generated using voice recognition software. It may contain grammatical, syntax or spelling errors. (2) Acute renal failure: (3) Hypocalcemia: History of Present Illness Attending Physician: Philip Giron MD History of Present Illness 44-year-old male with past medical history of morbid obesity, dysli pidemia, hypertension, depression was admitted to the hospital on 12/13/2019 for abdominal pain. Patient had ERCP done day prior where they performed biliary sphincterectomy and removal of common bile duct stone. He was discharged home but he was brought back because of worsening abdominal pain. He was admitted to the floor with pancreatitis and started on IV fluids. Patient had an episode of hypotension last night for which she was given fluids and a repeat BMP showed creatinine of 2.4. He was admitted with creatinine of 0.9 MICU was called as patient corrected calcium and ionized calcium was low and he was complaining of muscle spasms as well as QTC prolongation was seen on the EKG. Patient has got IV calcium and is not taking anything p.o. At the time of examination patient complains of diffuse discomfort in the abdomen. 6 out of 10 in severity. It is associated mild nausea. Does not complain of any vomiting. Denies any chest pain. He says taking deep breaths is difficult because of the abdominal pain. Denies any headache, no dizziness, no blurry vision. Patient has positive flatulence yesterday. No bowel movements. Allergies Allergy/AdvReac Type Severity Reaction Status Date / Time No Known Allergies Allergy Verified 12/12/19 19:54 Home Medications Home Medications Medication Instructions Recorded Confirmed Type Excedrin Migraine 1 tab PO Q6H PRN 05/29/19 12/12/19 History carvedilol 12.5 mg PO BID 05/29/19 12/12/19 History fluticasone propionate [Flonase 2 spray INTRANASAL DAILY PRN 05/29/19 12/12/19 History Allergy Relief] losartan 25 mg PO QAM 05/29/19 12/12/19 History methocarbamol 500 mg PO Q8H PRN 05/29/19 12/12/19 History naproxen sodium [Aleve] 220 mg PO BID PRN 05/29/19 12/12/19 History trazodone 100 - 200 mg PO HS 05/29/19 12/12/19 History mirtazapine 45 mg PO HS 12/12/19 12/12/19 History Patient History Medical History Anxiety Aortic root enlargement F/U DR ROMERO Q6-12 MONTHS Bulging of cervical intervertebral disc ROM WNL Celiac disease Chronic back pain Degenerative disc disease NECK AND LUMBAR Depression Fatty liver Hx of thyroid nodule UNDER OBSERVATION Hyperlipidemia Hypertension Lumbar facet arthropathy Migraine HX Osteoarthritis Sleep apnea MILD-MODERATE APNEA-CAN'T TOLERATE CPAP Surgical History H/O arthroscopy of shoulder R X3 AND L X 3. Left shoulder 04/08/2018. Glidescope #4, grade 1 view (elective). Interscalene block. no issues. History of anesthesia reaction SLOW TO WAKE History of appendectomy History of arthroscopy RIGHT KNEE History of cholecystectomy History of colonoscopy History of esophagogastroduodenoscopy (EGD) History of laminectomy L2-L3 WITH REMOVAL BENIGN TUMOR History of open reduction and internal fixation (ORIF) procedure LEFT ANKLE History of tooth extraction WISDOM TEETH Personal history of prior ablation treatment LUMBAR - OCTOBER 2017 Family History Sister Family history of reaction to anesthesia SLOW TO WAKE UP Sister No problems noted. Social History Preferred Language: Danish Communication Ability: Effective Milieu Technician Required: No Beliefs That Will Affect Care: None Current Living Situation: Spouse Other Information That Helps Us Care for You: No Feels Safe at Home: Yes Safety Concerns: Feels Safe At This Time Smoking Status: Never smoker Second Hand Exposure: No ; Hx Alcohol Use: No Hx Substance Use: No Review of Systems Review of Systems: All systems reviewed & are unremarkable except as noted in HPI & below Physical Exam Physical Exam: Constitutional: Mild distress secondary to abdominal pain HEENT: EOMI, PERRLA Respiratory system: Good air entry bilaterally, no wheeze, no rhonchi, positive crackles bilateral lower lobes CVS: S1-S2 positive, no murmurs or gallops, tachycardia Abdomen: Soft, distended, diffuse tenderness, no rebound, decreased bowel sounds, obese Extremities: +2 pulses bilaterally radialis/ dorsalis pedis, no cyanosis, no edema Neuro: Awake alert oriented x3 Psych: Normal mood and affect G/U: Positive Mixon Skin: no rashes, warm and dry Lymphatic: no cervical or axillary lymphadenopathy Results & Data Results & Data ([facility]) Vital Signs (Past 12 Hours) Vital Signs Temp Pulse Pulse Resp BP Pulse Ox 12/14/19 12:06 36.4 C L 88 18 121/76 12/14/19 07:38 36.4 C L 91 H 20 133/76 92 12/14/19 04:46 36.7 C 79 16 116/70 94 12/14/19 01:49 36.8 C 91 H 22 124/89 92 12/14/19 01:11 82 12/14/19 05:27 12/14/19 08:58 Coding Level of Care Code Critical Care 1st 30-74 mins Diagnoses Post-ERCP acute pancreatitis K91.89; K85.90 Acute renal failure N17.0 Acute renal failure type: with acute tubular necrosis Hypocalcemia E83.51 Time Spent (min) 69 (1) Acute renal failure Acute renal failure type: with acute tubular necrosis Qualified Code(s): N17.0 - Acute kidney failure with tubular necrosis
--- NOTE | 2019-12-14 14:06 | Ultrasound Report ---
RENAL ULTRASOUND CLINICAL HISTORY: decreased urinary output, post ERCP panc COMPARISON STUDY: CT of the abdomen and pelvis December 14, 2019. TECHNIQUE: Sonography of the kidneys and the urinary bladder was performed. FINDINGS: Incidental note is made of increased hepatic echogenicity consistent with fatty infiltratio n. Right kidney measures 13 cm in maximal dimension and the left measures 13.4 cm. There is no hydron ephrosis. Renal echogenicity, size and cortical thickness are unremarkable. This exam is mildly compr omised by suboptimal penetration. A small amount of abdominal ascites is noted. Bladder is collapsed. Mixon catheter is in place. No renal calculi or masses are identified by sonography. IMPRESSION: Unremarkable sonographic appearance of the kidneys. No hydronephrosis. ACT 112: Negative or not required by law. Electronically signed by: Jose Esquivel M.D. 12/14/2019 2:05 PM
[2019-12-14 14:10] LABS: C Reactive Protein 21.8 mg/dl (0-0.29); Magnesium 1.7 mg/dl (1.8-2.4); Phosphorus 2.6 mg/dl (2.5-4.9)
[2019-12-14] MEDS: CALCIUM GLUCONATE 10% 11,000 MG in DEXTROSE 5% 890 ML IV SCH (14:39)
[2019-12-14] MEDS: FAMOTIDINE 20 MG in SYRINGE 3 ML IV SCH (14:40)
[2019-12-14] MEDS: PIPERACILLIN/TAZOBACTAM 4.5 GM in DEXTROSE 5% 100 ML IV SCH ×2 (15:33→21:19)
[2019-12-14] MEDS ORDERED: Nursing to Pharmacy Communication SCH ×3 (15:45→20:30)
[2019-12-14] MEDS: MAGNESIUM SULFATE / D5W 1 GM/100 ML BAG IV SCH ×2 (16:55→18:49)
--- NOTE | 2019-12-14 17:14 | Electrocardiogram Report ---
Test Reason : Blood Pressure : / mmHG Vent. Rate : 093 BPM Atrial Rate : 093 BPM P-R Int : 172 ms QRS Dur : 096 ms QT Int : 376 ms P-R-T Axes : 027 021 075 degrees QTc Int : 467 ms Normal sinus rhythm Nonspecific ST abnormality Abnormal ECG When compared with ECG of 14-DEC-2019 02:59, (unconfirmed) No significant change was found Confirmed by Cristian Lea ([id number]) on 12/14/2019 5:13:30 PM Referred By: REFERRED SELF Confirmed By:Lalito Lea
--- NOTE | 2019-12-14 17:18 | Electrocardiogram Report ---
Test Reason : Blood Pressure : / mmHG Vent. Rate : 086 BPM Atrial Rate : 086 BPM P-R Int : 164 ms QRS Dur : 100 ms QT Int : 394 ms P-R-T Axes : 018 046 081 degrees QTc Int : 471 ms Normal sinus rhythm Nonspecific ST and T wave abnormality Abnormal ECG When compared with ECG of 12-DEC-2019 19:39, No significant change was found Confirmed by Cristian Lea ([id number]) on 12/14/2019 5:18:08 PM Referred By: REFERRED SELF Confirmed By:Lalito Lea
[2019-12-14] MEDS ORDERED: CEFEPIME 2,000 MG/20 ML VIAL IV SCH (18:00)
[2019-12-14] MEDS ORDERED: CEFEPIME 2,000 MG in SYRINGE 7.5 ML IV SCH (18:00)
[2019-12-14] MEDS: ACETAMINOPHEN 1,000 MG/100 ML VIAL IV PRN (18:48)
[2019-12-14 18:55] LABS: Creatinine Urine Random 97.2 mg/dl; Potassium Random Urine 33.7 mmol/L; Uric Acid Urine Random 38.7 mg/dl
[2019-12-14] MEDS: HEPARIN SOD 5,000 UNIT/0.5 ML VIAL SQ SCH (21:16)
[2019-12-14 22:27] LABS: Calcium 6.8 mg/dl (8.5-10.1); Creatinine Clr Calc Pharmacy 74.8 ml/min; Est GFR (African American) 47.7; Est GFR (Non-African American) 41.2; Magnesium 1.9 mg/dl (1.8-2.4); Phosphorus 1.8 mg/dl (2.5-4.9); Potassium 3.1 mmol/L (3.5-5.1)
[2019-12-14] MEDS ORDERED: POTASSIUM CHLORIDE 20 MEQ TABCR PO STA (23:41)
[2019-12-15] MEDS: HYDROmorphone INJ 0.5 MG/0.5 ML SYR IV PRN ×2 (00:18→21:20)
[2019-12-15] MEDS: CALCIUM GLUCONATE 10% 11,000 MG in DEXTROSE 5% 890 ML IV SCH (00:29)
[2019-12-15] MEDS: ACETAMINOPHEN 1,000 MG/100 ML VIAL IV PRN ×2 (03:54→08:02)
[2019-12-15 04:13] LABS: Albumin Level 2.3 gm/dl (3.4-5.0); BUN Creatinine Ratio 15.1 (10-20); Calcium 7.7 mg/dl (8.5-10.1); Creatinine Clr Calc Pharmacy 81.5 ml/min; Est GFR (Non-African American) 45.7; Magnesium 1.9 mg/dl (1.8-2.4); Potassium 3.2 mmol/L (3.5-5.1)
[2019-12-15 04:24] LABS: Albumin Globulin Ratio 0.7 (0.9-2); Globulin 3.1 gm/dl (2.5-4.0); Phosphorus 2.1 mg/dl (2.5-4.9); Total Protein 5.4 gm/dl (6.4-8.2)
[2019-12-15] MEDS ORDERED: POTASSIUM PHOS 3 MMOL/1 ML INFUSION IV STA (04:53)
[2019-12-15] MEDS ORDERED: POTASSIUM CHLORIDE 20 MEQ TABCR PO STA ×2 (04:53→13:03)
[2019-12-15] MEDS ORDERED: MAGNESIUM SULFATE / D5W 1 GM/100 ML BAG IV ONE (04:54)
[2019-12-15] MEDS: LACTATED RINGER'S 1,000 ML IV SCH (04:57)
[2019-12-15] MEDS ORDERED: POTASSIUM PHOSPHATE 15 MMOL in SODIUM CHLORIDE 0.9% 250 ML IV ONE (05:30)
[2019-12-15] MEDS: PIPERACILLIN/TAZOBACTAM 4.5 GM in DEXTROSE 5% 100 ML IV SCH ×3 (06:18→23:07)
[2019-12-15] MEDS ORDERED: CALCIUM GLUCONATE 10% 11,000 MG in SODIUM CHLORIDE 0.9% 1000ML 890 ML IV SCH (06:45)
--- NOTE | 2019-12-15 08:37 | Critical Care Progress Note ---
Date of Service December 15, 2019 Assessment & Plan (1) Post-ERCP acute pancreatitis: EKG 12/14/2019: Sinus tachycardia, normal axis, no ST-T wave changes, QTC 467 (it has gone down from 471 on 12/13/2019). Nonspecific ST elevation in lead III which has been present since July 2018 CT abdomen pelvis 12/14/2019: Shows bilateral lower lobe atelectasis, acute pancreatitis with moderate peripancreatic fluid and infiltration extending into the retroperitoneum. No peripancreatic fluid collection. --SARAH Improving Patient did have a hypotensive episode in the hospital on 12/13/2019 Abdominal compartment syndrome can present the same way, intra-abdominal pressure 12 on 12/14/2019. Unlikely to be causing SARAH FeNa: 0.4% which goes with prerenal component. CT abdomen pelvis did not show any free fluid in the peritoneum. Monitor BUN/creatinine Avoid nephrotoxic medications Strict ins and outs --Acute hypoxic respiratory failure Etiology is multifactorial, partly because of lower lobe atelectasis because of distended belly as well as fluid overload Advancing there is pneumonia associated with it Lower part of the lungs on CT abdomen shows atelectasis, VQ scan is low probability for PE Continue with O2 supplementation to keep O2 saturation around 90-92% Incentive spirometry [id number] BiPAP nightly and PRN shortness of breath --Acute pancreatitis Likely post ERCP Patient's initial BISAP score was 1, on 12/14/2019 increased to 3, which is for sirs>2 and BUN> 25 and trace right-sided pleural effusion Continue with pain medication Continue with clear liquids and advance as tolerated --Hypocalcemia This is likely from saponification of calcium into the farrukh-pancreatic fat Patient had prolonged duration of his QTC is baseline QTC is 414 which went up to 471 Keep magnesium greater than 2 and phosphorus greater than 3 Ionized calcium 1.07 12/15/2019. --Elevated LFTs Likely post ERCP Have been trending down since then Monitor --Hypertension Blood pressure medication on hold --Elevated troponin Likely secondary to type II [place] Monitor --Morbid obesity --Prophylaxis VTE: Heparin GI: Pepcid Diet: Clear liquid --Hypokalemia, hypophosphatemia Being replaced Plan: In/out: +361, urine output 3 L Stop all IV fluids given that the patient is taking p.o. DC IV calcium. We will check intra-abdominal pressure one more time in the morning today. If it is within normal limits we will stop intra-abdominal pressure monitoring. Continue with antibiotics with the possibility of cholangitis not for necrotizing pancreatitis. Advance diet as tolerated. We will observe the patient there later in the afternoon if the patient is hemodynamically stable and her respiratory status is good we will downgrade the patient to medical floor. I have personally spent 37 minutes of critical care time in the direct management of this patient. This is a life/limb threatening event. This includes time spent evaluating patient, direct bedside care, chart review, placing orders, interpretation of diagnostic studies, discussion with consultants, patient, and family members, as well as other required patient management activities. This time is exclusive of all separately billable procedures, and teaching time and separate from and in addition to any other critical care service time. Please note the above document was generated using voice recognition software. It may contain grammatical, syntax or spelling errors. (2) Acute renal failure: (3) Hypocalcemia: Admission and Anticipated Discharge Date Admission Date: December 12, 2019 Subjective Patient seen and examined at bedside. No acute distress, no adverse events overnight. Patient still requiring 4 L of nasal cannula to keep saturation around 92- 94%. States that the shortness of breath has improved a little bit. But is still there. Abdominal pain persists but has decreased in intensity. Patient is able to tolerate p.o. diet. Denies any nausea or vomiting. Has multiple bowel movements which are loose. T-max 38.1 yesterday afternoon Denies any chest pain. Did not use BiPAP overnight. Patient does have a component of anxiety related to everything going on. All the current condition and plan how to deal with it explained to the patient and the best and easiest way possible. Review of Systems Review of Systems: All systems reviewed & are unremarkable except as noted in HPI & below Physical Exam Physical Exam: Constitutional: Not in any acute distress HEENT: EOMI, PERRLA Respiratory system: Decreased air entry bilaterally, no wheeze, no rhonchi, positive crackles bilateral lower lobes CVS: S1-S2 positive, no murmurs or gallops Abdomen: Soft, distended, diffuse tenderness mostly epigastric and left upper quadrant (decreased in intensity), no rebound, decreased bowel sounds, obese Extremities: +2 pulses bilaterally radialis/ dorsalis pedis, no cyanosis, no edema Neuro: Awake alert oriented x3 Psych: Normal mood and affect G/U: Positive Mixon Skin: no rashes, warm and dry Lymphatic: no cervical or axillary lymphadenopathy Results & Data Results & Data ([facility]) Vital Signs (Past 12 Hours) Vital Signs Temp Pulse Resp BP Pulse Ox 12/15/19 04:57 85 24 165/88 H 95 12/15/19 03:48 37.3 C 96 H 42 H 163/102 H 91 12/15/19 02:48 96 H 29 H 163/79 H 94 12/15/19 01:48 96 H 26 H 149/96 H 94 12/15/19 00:48 97 H 34 H 155/91 H 93 12/14/19 23:47 37.2 C 97 H 20 158/95 H 94 12/14/19 22:09 92 H 30 H 140/80 93 12/14/19 20:48 89 23 175/72 H 94 12/14/19 05:27 12/15/19 03:47 Coding Level of Care Code Critical Care 1st 30-74 mins Diagnoses Post-ERCP acute pancreatitis K91.89; K85.90 Acute renal failure N17.0 Acute renal failure type: with acute tubular necrosis Hypocalcemia E83.51 Time Spent (min) 37 (1) Acute renal failure Acute renal failure type: with acute tubular necrosis Qualified Code(s): N17.0 - Acute kidney failure with tubular necrosis
--- NOTE | 2019-12-15 09:06 | Gastroenterology Progress Note ---
Date of Service December 15, 2019 Assessment & Plan (1) Post-ERCP acute pancreatitis: 44 year old male admitted w/ post ERCP pancreatitis, CT w/ acute pancreatitis of the pancreatic head and uncinate process w/ moderate peripancreatic infiltrative change with trace amount of scattered fluid without evidence of abscess or fluid collection. He was transferred to the ICU 12/14/19 with dyspnea, SARAH w/ severe electrolyte imbalance. Today, LFTs improving, kidney function improving, breathing more comfortably this AM Clear liquids then advance to low fat as tolerated Can hold on IV fluids once tolerating PO antiemetics PRN analgesia PRN Continue to Trend LFTs DVT prophylaxis Encouraged OOB w/ ambulation Continue broad spectrum ABX for cholangitis coverage No current indication or plan for repeat ERCP Will follow. Thank you for allowing us to participate in the care of this patient. Please call with any acute changes, questions or concerns. Please see addendum below with additional recommendation from my supervising physician. Present on Admission?: Yes Admission and Anticipated Discharge Date Admission Date: December 12, 2019 Supervising Physician Co-Signing Physician Notes I performed a history and physical examination of the patient today, including specifically on physical exam - soft abdomen. I have discussed the patient's management with the advanced practitioner. Please refer to the nurse practitioner's note for the documented findings and plan of care. Seems to be clinically improving. SARAH improved LFTs improved. Still having SIRS however unclear if he has atelectasis Vs PNA. Continue ABx. Clear liquids. Will continue to follow up. Subjective Pt was seen and evaluated, chart reviewed. Less abdominal pain. Mild nausea. No vomiting. Breathing is improving. Did have a fever last evening. No CP. Kidney function improving LFTs improving Review of Systems Constitutional: + fever (last evening); no chills and no fatigue Respiratory: no cough and no dyspnea Cardiovascular: no chest pain and no dyspnea Gastrointestinal: + abdominal pain, + nausea and + constipation; no vomiting, no hematemesis, no dysphagia, no blood in stools and no melena Physical Exam Constitutional: well developed, well nourished and + ill appearing; no acute distress Neck: trachea midline Respiratory: normal respiratory effort; no respiratory distress Cardiovascular: Rate/Rhythm: regular rate and regular rhythm Gastrointestinal (Abdomen): Inspection/Auscultation: normal bowel sounds Percussion/Palpation: + abdomen tender and abdomen soft; no guarding and abdomen not rigid Skin: no rashes, warm and dry Results & Data ([facility]) Vital Signs (Past 12 Hours) Vital Signs Temp Pulse Resp BP Pulse Ox 12/15/19 04:57 85 24 165/88 H 95 12/15/19 03:48 37.3 C 96 H 42 H 163/102 H 91 12/15/19 02:48 96 H 29 H 163/79 H 94 12/15/19 01:48 96 H 26 H 149/96 H 94 12/15/19 00:48 97 H 34 H 155/91 H 93 12/14/19 23:47 37.2 C 97 H 20 158/95 H 94 12/14/19 22:09 92 H 30 H 140/80 93 Laboratory Results 12/15/19 12/15/19 12/15/19 Range/Units 06:15 03:47 03:47 ESR (0-14) mm/hr APTT (21.0-31.0) Seconds PTT Ratio Sodium 132 L (136-145) mmol/L Potassium 3.2 L (3.5-5.1) mmol/L Chloride 100 (98-107) mmol/L Carbon Dioxide 25 (21-32) mmol/L Anion Gap 7.0 (3-11) BUN 27 H (7-18) mg/dl Creatinine 1.77 H (0.6-1.4) mg/dl Est Cr Clr Drug Dosing 81.5 ml/min Est GFR ( Amer) 53.0 Est GFR (Non-Af Amer) 45.7 BUN/Creatinine Ratio 15.1 (10-20) Glucose 146 H (70-99) mg/dl Calcium 7.7 L (8.5-10.1) mg/dl Ionized Calcium 1.07 L 1.02 L (1.12-1.32) mmol/L Phosphorus 2.1 L (2.5-4.9) mg/dl Magnesium 1.9 (1.8-2.4) mg/dl Total Bilirubin 2.0 H (0.2-1) mg/dl AST 51 H (15-37) U/L ALT 150 H (12-78) U/L Alkaline Phosphatase 71 (45-117) U/L Troponin I (0-0.045) ng/ml C-Reactive Protein (0-0.29) mg/dl NT-Pro-B Natriuret Pep (0-450) pg/ml Total Protein 5.4 L (6.4-8.2) gm/dl Albumin 2.3 L (3.4-5.0) gm/dl Globulin 3.1 (2.5-4.0) gm/dl Albumin/Globulin Ratio 0.7 L (0.9-2) 25-OH Vitamin D Total (30-100) ng/ml Procalcitonin (0-0.5) ng/ml PTH Intact (18.4-80.1) pg/ml Urine Osmolality (500-800) mOsm/kg Ur Random Creatinine mg/dl Ur Random Sodium mmol/L Ur Random Potassium mmol/L Ur Random Chloride mmol/L Ur Random Uric Acid mg/dl Nasal Screen MRSA (PCR) (Negative) 12/15/19 12/14/19 12/14/19 Range/Units 00:28 21:48 21:48 ESR (0-14) mm/hr APTT (21.0-31.0) Seconds PTT Ratio Sodium 133 L (136-145) mmol/L Potassium 3.1 L D (3.5-5.1) mmol/L Chloride 100 (98-107) mmol/L Carbon Dioxide 24 (21-32) mmol/L Anion Gap 9.0 (3-11) BUN 27 H (7-18) mg/dl Creatinine 1.93 H D (0.6-1.4) mg/dl Est Cr Clr Drug Dosing 74.8 ml/min Est GFR ( Amer) 47.7 Est GFR (Non-Af Amer) 41.2 BUN/Creatinine Ratio 14.0 (10-20) Glucose 147 H (70-99) mg/dl Calcium 6.8 L (8.5-10.1) mg/dl Ionized Calcium 0.94 L 0.91 L (1.12-1.32) mmol/L Phosphorus 1.8 L (2.5-4.9) mg/dl Magnesium 1.9 (1.8-2.4) mg/dl Total Bilirubin (0.2-1) mg/dl AST (15-37) U/L ALT (12-78) U/L Alkaline Phosphatase (45-117) U/L Troponin I (0-0.045) ng/ml C-Reactive Protein (0-0.29) mg/dl NT-Pro-B Natriuret Pep (0-450) pg/ml Total Protein (6.4-8.2) gm/dl Albumin (3.4-5.0) gm/dl Globulin (2.5-4.0) gm/dl Albumin/Globulin Ratio (0.9-2) 25-OH Vitamin D Total (30-100) ng/ml Procalcitonin (0-0.5) ng/ml PTH Intact (18.4-80.1) pg/ml Urine Osmolality (500-800) mOsm/kg Ur Random Creatinine mg/dl Ur Random Sodium mmol/L Ur Random Potassium mmol/L Ur Random Chloride mmol/L Ur Random Uric Acid mg/dl Nasal Screen MRSA (PCR) (Negative) 12/14/19 12/14/19 12/14/19 Range/Units 19:54 17:10 17:10 ESR (0-14) mm/hr APTT (21.0-31.0) Seconds PTT Ratio Sodium (136-145) mmol/L Potassium (3.5-5.1) mmol/L Chloride (98-107) mmol/L Carbon Dioxide (21-32) mmol/L Anion Gap (3-11) BUN (7-18) mg/dl Creatinine (0.6-1.4) mg/dl Est Cr Clr Drug Dosing ml/min Est GFR ( Amer) Est GFR (Non-Af Amer) BUN/Creatinine Ratio (10-20) Glucose (70-99) mg/dl Calcium (8.5-10.1) mg/dl Ionized Calcium 0.85 L (1.12-1.32) mmol/L Phosphorus (2.5-4.9) mg/dl Magnesium (1.8-2.4) mg/dl Total Bilirubin (0.2-1) mg/dl AST (15-37) U/L ALT (12-78) U/L Alkaline Phosphatase (45-117) U/L Troponin I (0-0.045) ng/ml C-Reactive Protein (0-0.29) mg/dl NT-Pro-B Natriuret Pep (0-450) pg/ml Total Protein (6.4-8.2) gm/dl Albumin (3.4-5.0) gm/dl Globulin (2.5-4.0) gm/dl Albumin/Globulin Ratio (0.9-2) 25-OH Vitamin D Total (30-100) ng/ml Procalcitonin (0-0.5) ng/ml PTH Intact (18.4-80.1) pg/ml Urine Osmolality 460 L (500-800) mOsm/kg Ur Random Creatinine 97.2 mg/dl Ur Random Sodium mmol/L Ur Random Potassium 33.7 mmol/L Ur Random Chloride 63 mmol/L Ur Random Uric Acid 38.7 mg/dl Nasal Screen MRSA (PCR) (Negative) 12/14/19 12/14/19 12/14/19 Range/Units 16:55 13:04 12:57 ESR (0-14) mm/hr APTT (21.0-31.0) Seconds PTT Ratio Sodium (136-145) mmol/L Potassium (3.5-5.1) mmol/L Chloride (98-107) mmol/L Carbon Dioxide (21-32) mmol/L Anion Gap (3-11) BUN (7-18) mg/dl Creatinine (0.6-1.4) mg/dl Est Cr Clr Drug Dosing ml/min Est GFR ( Amer) Est GFR (Non-Af Amer) BUN/Creatinine Ratio (10-20) Glucose (70-99) mg/dl Calcium (8.5-10.1) mg/dl Ionized Calcium 0.82 L 0.85 L (1.12-1.32) mmol/L Phosphorus (2.5-4.9) mg/dl Magnesium (1.8-2.4) mg/dl Total Bilirubin (0.2-1) mg/dl AST (15-37) U/L ALT (12-78) U/L Alkaline Phosphatase (45-117) U/L Troponin I (0-0.045) ng/ml C-Reactive Protein (0-0.29) mg/dl NT-Pro-B Natriuret Pep (0-450) pg/ml Total Protein (6.4-8.2) gm/dl Albumin (3.4-5.0) gm/dl Globulin (2.5-4.0) gm/dl Albumin/Globulin Ratio (0.9-2) 25-OH Vitamin D Total (30-100) ng/ml Procalcitonin 6.15 H (0-0.5) ng/ml PTH Intact (18.4-80.1) pg/ml Urine Osmolality (500-800) mOsm/kg Ur Random Creatinine mg/dl Ur Random Sodium mmol/L Ur Random Potassium mmol/L Ur Random Chloride mmol/L Ur Random Uric Acid mg/dl Nasal Screen MRSA (PCR) (Negative) 12/14/19 12/14/19 12/14/19 Range/Units 12:57 12:57 12:57 ESR 13 (0-14) mm/hr APTT (21.0-31.0) Seconds PTT Ratio Sodium (136-145) mmol/L Potassium (3.5-5.1) mmol/L Chloride (98-107) mmol/L Carbon Dioxide (21-32) mmol/L Anion Gap (3-11) BUN (7-18) mg/dl Creatinine (0.6-1.4) mg/dl Est Cr Clr Drug Dosing ml/min Est GFR ( Amer) Est GFR (Non-Af Amer) BUN/Creatinine Ratio (10-20) Glucose (70-99) mg/dl Calcium (8.5-10.1) mg/dl Ionized Calcium (1.12-1.32) mmol/L Phosphorus 2.6 (2.5-4.9) mg/dl Magnesium 1.7 L (1.8-2.4) mg/dl Total Bilirubin (0.2-1) mg/dl AST (15-37) U/L ALT (12-78) U/L Alkaline Phosphatase (45-117) U/L Troponin I (0-0.045) ng/ml C-Reactive Protein 21.80 H (0-0.29) mg/dl NT-Pro-B Natriuret Pep 1263 H (0-450) pg/ml Total Protein (6.4-8.2) gm/dl Albumin (3.4-5.0) gm/dl Globulin (2.5-4.0) gm/dl Albumin/Globulin Ratio (0.9-2) 25-OH Vitamin D Total 11.4 L (30-100) ng/ml Procalcitonin (0-0.5) ng/ml PTH Intact (18.4-80.1) pg/ml Urine Osmolality (500-800) mOsm/kg Ur Random Creatinine mg/dl Ur Random Sodium mmol/L Ur Random Potassium mmol/L Ur Random Chloride mmol/L Ur Random Uric Acid mg/dl Nasal Screen MRSA (PCR) (Negative) 12/14/19 12/14/19 12/14/19 Range/Units 12:57 11:45 08:58 ESR (0-14) mm/hr APTT (21.0-31.0) Seconds PTT Ratio Sodium (136-145) mmol/L Potassium (3.5-5.1) mmol/L Chloride (98-107) mmol/L Carbon Dioxide (21-32) mmol/L Anion Gap (3-11) BUN (7-18) mg/dl Creatinine (0.6-1.4) mg/dl Est Cr Clr Drug Dosing ml/min Est GFR ( Amer) Est GFR (Non-Af Amer) BUN/Creatinine Ratio (10-20) Glucose (70-99) mg/dl Calcium (8.5-10.1) mg/dl Ionized Calcium 0.82 L (1.12-1.32) mmol/L Phosphorus (2.5-4.9) mg/dl Magnesium (1.8-2.4) mg/dl Total Bilirubin (0.2-1) mg/dl AST (15-37) U/L ALT (12-78) U/L Alkaline Phosphatase (45-117) U/L Troponin I (0-0.045) ng/ml C-Reactive Protein (0-0.29) mg/dl NT-Pro-B Natriuret Pep (0-450) pg/ml Total Protein (6.4-8.2) gm/dl Albumin (3.4-5.0) gm/dl Globulin (2.5-4.0) gm/dl Albumin/Globulin Ratio (0.9-2) 25-OH Vitamin D Total (30-100) ng/ml Procalcitonin (0-0.5) ng/ml PTH Intact 465.5 H (18.4-80.1) pg/ml Urine Osmolality (500-800) mOsm/kg Ur Random Creatinine mg/dl Ur Random Sodium 23 mmol/L Ur Random Potassium mmol/L Ur Random Chloride mmol/L Ur Random Uric Acid mg/dl Nasal Screen MRSA (PCR) (Negative) 12/14/19 12/14/19 12/14/19 Range/Units 08:58 08:58 08:55 ESR (0-14) mm/hr APTT 44.7 H (21.0-31.0) Seconds PTT Ratio 1.6 Sodium 137 (136-145) mmol/L Potassium 3.9 (3.5-5.1) mmol/L Chloride 104 (98-107) mmol/L Carbon Dioxide 25 (21-32) mmol/L Anion Gap 8.0 (3-11) BUN 29 H (7-18) mg/dl Creatinine 2.33 H D (0.6-1.4) mg/dl Est Cr Clr Drug Dosing 61.9 ml/min Est GFR ( Amer) 38.0 Est GFR (Non-Af Amer) 32.8 BUN/Creatinine Ratio 12.4 (10-20) Glucose 118 H (70-99) mg/dl Calcium 6.2 L (8.5-10.1) mg/dl Ionized Calcium (1.12-1.32) mmol/L Phosphorus 3.4 D (2.5-4.9) mg/dl Magnesium (1.8-2.4) mg/dl Total Bilirubin (0.2-1) mg/dl AST (15-37) U/L ALT (12-78) U/L Alkaline Phosphatase (45-117) U/L Troponin I 0.227 H* (0-0.045) ng/ml C-Reactive Protein (0-0.29) mg/dl NT-Pro-B Natriuret Pep (0-450) pg/ml Total Protein (6.4-8.2) gm/dl Albumin 2.7 L (3.4-5.0) gm/dl Globulin (2.5-4.0) gm/dl Albumin/Globulin Ratio (0.9-2) 25-OH Vitamin D Total (30-100) ng/ml Procalcitonin (0-0.5) ng/ml PTH Intact (18.4-80.1) pg/ml Urine Osmolality (500-800) mOsm/kg Ur Random Creatinine mg/dl Ur Random Sodium mmol/L Ur Random Potassium mmol/L Ur Random Chloride mmol/L Ur Random Uric Acid mg/dl Nasal Screen MRSA (PCR) Negative (Negative)
[2019-12-15] MEDS ORDERED: carvediloL 6.25 MG TAB PO SCH (10:00)
[2019-12-15] MEDS: FAMOTIDINE 20 MG in SYRINGE 3 ML IV SCH ×2 (10:09→20:11)
[2019-12-15] MEDS: HEPARIN SOD 5,000 UNIT/0.5 ML VIAL SQ SCH ×2 (10:13→18:33)
--- NOTE | 2019-12-15 10:22 | Nephrology Progress Note ---
Date of Service December 15, 2019 Assessment & Plan (1) Hypocalcemia: From acute pancreatitis. he required 15 g calcium gluconate 14 hours on December 13. Started on calcium gluconate drip late December 13: Ran initially for a few hours at equivalent of 1/2 g calcium gluconate hourly; by 2099 was up to 1.5 g Alcian gluconate hourly through morning 8 AM. As expected with this process, PTH elevated and vitamin D stores low. barely tolerating ice chips, so would not start oral calcium or vitamin D at this time Per critical care request, calcium drip turned off at 0900 Continue every 3 hour labs -pls continue to check mag daily (2) Acute renal failure: ATN from critical illness plus or minus IV contrast exposure with prerenal component. Not oliguric and improved from peak of 2.6 on December 13 to 1.8 today. Baseline creatinine 0.9 which is where he was on admission on 12/11 evening. on 12/12 evening, he had an unresponsive episode with sbp dropping to 60s and hypoxia. creatinine noted at that time to be 2.4. UA c/w ATN. large oxygen requirement noted but coming down from 6 > 3L and has negative dopplers/VQ. I's and O's have been inconsistent but he now has a Mixon catheter. volume depleted on eval and based on response to fluids; besides Ca, other chemistries acceptable. marked hypoxia however and will follow. renal u/s unremarkable -No indication for emergent dialysis. -No IV fluid at this time; calcium drip, now off as of this morning -Continue strict intake and output; do not remove Mixon yet Potassium 3.2 this morning: He had 15 mmol of potassium phosphate as well as 80 mEq overnight of oral potassium>> repeat potassium ordered for next lab draw calcium -daily bmp (3) Acute respiratory failure with hypoxia: low treshold for non con chest CT; VQ and CXR negative. Care coordinated w/ Dr Giron Admission and Anticipated Discharge Date Admission Date: December 12, 2019 Subjective still feels abd tightness/discomfort; some sob adn on 3LNC; not tolerating ice chips; no further F; Ca gtt ran at 1.5 gm Ca gluconate/hr overnight and this am has nl Ca Review of Systems Review of Systems: All systems reviewed & are unremarkable except as noted in HPI & below Physical Exam Constitutional: well developed, well nourished, + acute distress (mild distress w/ abd discomfort) and + ill appearing on 3L Eyes: EOM intact bilaterally ENMT: Ears: no external ear abnormality Nose: no external nose abnormality Mouth: + dry oral mucous membranes Neck: no nuchal rigidity Respiratory: + labored breathing (slight increase in wob), able to speak in complete sentences and + paradoxical thoraco-abdominal movement; no respiratory distress and no cough Auscultation: lungs clear to auscultation bilaterally and + diminished lung sounds Cardiovascular: Rate/Rhythm: regular rate and regular rhythm Extremities: no edema Gastrointestinal (Abdomen): Inspection/Auscultation: + abdomen distended and normal bowel sounds; no abdominal edema Percussion/Palpation: + abdomen tender and + guarding Musculoskeletal: Extremities: strength 5/5 throughout Skin: no rashes, warm and dry Neurologic: Moves all extremities, fluent speech, no tremor Psychiatric: Orientation: alert and oriented x 3 Eye Contact: good eye contact Speech: normal rate/rhythm/volume of speech Affect: + anxious affect Genitourinary: Mixon with ample clear urine Results & Data ([facility]) Vital Signs (Past 12 Hours) Vital Signs Temp Pulse Resp BP Pulse Ox 12/15/19 04:57 85 24 165/88 H 95 12/15/19 03:48 37.3 C 96 H 42 H 163/102 H 91 12/15/19 02:48 96 H 29 H 163/79 H 94 12/15/19 01:48 96 H 26 H 149/96 H 94 12/15/19 00:48 97 H 34 H 155/91 H 93 12/14/19 23:47 37.2 C 97 H 20 158/95 H 94 Laboratory Results 12/14/19 05:27 12/15/19 03:47 Ionized calcium 1.0 at 4 AM, 1.1 at 9 AM (1) Acute renal failure Acute renal failure type: with acute tubular necrosis Qualified Code(s): N17.0 - Acute kidney failure with tubular necrosis
[2019-12-15] MEDS: TRAMADOL HCL 50 MG TABLET PO PRN ×2 (11:32→20:09)
[2019-12-15 12:05] LABS: Appearance Urine Cloudy (Clear); Bacteria Urine Automated Negative (Negative); Bilirubin Urine Negative (Negative); Blood Urine 2+ (Negative); Color Urine Yellow; Epithelial Cell Urine Auto >30 /lpf (0-5); Glucose Urine UA Negative (Negative); Ketones Urine Trace (Negative); Leukocyte Esterase Urine Negative (Negative); Nitrite Urine Negative (Negative); Protein Urine 2+ (Negative); RBC Urine Automated 0-4 /hpf (0-4); Specific Gravity Urine 1.034 (1.000-1.030); Urobilinogen Urine Negative (Negative)
[2019-12-15 12:19] LABS: Granular Casts Urine 20-30 /lpf (0)
[2019-12-15] MEDS ORDERED: POTASSIUM CHLORIDE 20 MEQ TABCR PO ONE (13:30)
[2019-12-15] MEDS ORDERED: CALCIUM GLUCONATE 10% 3,000 MG in 0.9 % SODIUM CHLORIDE 100 ML IV STA (16:33)
[2019-12-15 16:50] LABS: BUN Creatinine Ratio 16.9 (10-20); Calcium 7.2 mg/dl (8.5-10.1); Creatinine Clr Calc Pharmacy 110.6 ml/min; Est GFR (African American) 72.2; Est GFR (Non-African American) 62.3; Magnesium 2.2 mg/dl (1.8-2.4); Potassium 3.6 mmol/L (3.5-5.1)
[2019-12-15 16:56] LABS: Phosphorus 1.9 mg/dl (2.5-4.9)
[2019-12-15] MEDS ORDERED: SODIUM PHOSPHATE 3 MMOL/1 ML INFUSION IV STA (17:01)
[2019-12-15] MEDS ORDERED: FUROSEMIDE 20 MG in SYRINGE 0 ML IV ONE ×3 (17:15→23:32)
[2019-12-15] MEDS ORDERED: carvediloL 6.25 MG TAB PO ONE (17:15)
[2019-12-15] MEDS ORDERED: SODIUM PHOSPHATE 21 MMOL in SODIUM CHLORIDE 0.9% 500 ML IV ONE (17:30)
--- NOTE | 2019-12-15 18:25 | Communication Note ---
Date of Service: December 15, 2019 Critical care addendum: Patient is a little bit tachycardic. In mild respiratory distress. Patient does complain of abdominal pain. I explained to him regarding using BiPAP when he is SOB or else next step would be intubation. Educated him to ask for pain medication and not to tolerate it. Patient clinically seems more restless. Bedside US: Lungs: b/l B lines anteriorly and posteriorly. No pleural effusion appeciated. Abdomen: + ascitic fluid appreciated in the RLQ. Not much in LLQ. Plan: Patient seems to be developing ARDS like picture from Pancreatitis. Recommend no more IV fluids except for replacement of electrolytes. Will give dose of Lasix 20mg and repeat it later based on urine output. Coding Level of Care Code Critical Care ea addt'l 30 min Time Spent (min) 15
--- NOTE | 2019-12-15 18:32 | Hospitalist Progress Note ---
Date of Service December 15, 2019 Assessment & Plan (1) Post-ERCP acute pancreatitis: 44-year-old male with history of hypertension and prediabetes, dyslipidemia, aortic root enlargement, depression, presenting with abdominal pain after an ERCP procedure. Post ERCP pancreatitis Patient recently underwent endoscopic ultrasound/EGD for abnormal liver serologies, subsequently underwent ERCP for cholelithiasis that were discovered, then developed abdominal pain afterwards CT abdomen pelvis: 1. Findings consistent with acute pancreatitis of the pancreatic head and uncinate process. 2. Moderate peripancreatic infiltrative change with trace amount of scattered fluid. 3. No evidence for drainable abscess or collection. Lipase 2422 Total bili 2.5 AST/ALT/alk phos 544/394/88 Transfer to ICU Still having abdominal discomfort, despite LFTs improving Diet advanced to clear liquids today Management of hypotension, hypoxia, acute renal failure, hypercalcemia per below Hypotension Resolved Likely multifactorial, from Dilaudid?, Dehydration Continue IV fluids Management of possible sepsis noted below Lethargy Possible toxic metabolic encephalopathy, resolved Likely secondary to hypercapnic respiratory failure, in the setting of Dilaudid use with acute renal failure Resolved Dilaudid dose reduced Patient apparently has been diagnosed with obstructive sleep apnea in the past, not able to tolerate BiPAP mask Declines trial of BiPAP mask again while admitted Monitor closely Acute renal failure Likely ATN as per nephrology service Creatinine improved from 2.6, now 1.7 Continue IV fluids, nephrology service on board Hypocalcemia in the setting of pancreatitis Received IV calcium gluconate Calcium improving Repeat ionized calcium ordered Discussed with Dr. Whitten Rule out UTI versus cholangitis Positive leukocytosis Urine culture ending Blood cultures pending Continue with IV Zosyn Hypoxia Patient noted to be hypoxic overnight in the setting of unresponsiveness and hypotension Chest x-ray: Positive atelectasis Likely secondary hypoventilation secondary to epigastric pain Bilateral lower extremity Doppler ultrasound negative for PE VQ scan low probability for PE Heparin drip discontinued Continue pain control, incentive spirometry, monitor in telemetry unit Hypertension losartan and Coreg on hold due to hypotension Monitor Prediabetes Monitor Morbid obesity Counseling Depression Stable, continue Zoloft, trazodone, Remeron DVT prophylaxis On heparin drip CODE STATUS Full code Disposition pending lives with family at home Admission and Anticipated Discharge Date Admission Date: December 12, 2019 Subjective Follow-up for acute pancreatitis, acute renal failure, hypocalcemia Seen resting in bed, comfortable, not in distress Oriented x3 States he feels improved slightly today compared to yesterday Abdominal discomfort about the same No nausea or vomiting Positive flatus No other symptoms Review of Systems Review of Systems: All systems reviewed & are unremarkable except as noted in HPI & below Physical Exam Physical Exam: General- oriented x 3, not in distress, speaks in sentences with no effort or accessory muscle use Eyes- anicteric Neck- no JVD Lungs- clear breath sounds bilaterally, no rales/wheezes Heart- normal rate, regular rhythm; no murmurs Abdomen- normal bowel sounds, mild distention, soft, nontender Extremities- no pretibial edema, no calf tenderness Neuro- alert, oriented x 3; no gross focal neurologic deficits Skin- warm & dry Results & Data Results & Data ([facility]) Vital Signs (Past 12 Hours) Vital Signs Temp Pulse Resp BP Pulse Ox 12/15/19 11:48 36.6 C 85 30 H 175/97 H 94 12/15/19 10:48 83 27 H 169/97 H 95 12/15/19 09:03 81 28 H 162/100 H 93 12/15/19 08:48 83 33 H 158/137 H 94 12/15/19 08:00 88 12/15/19 07:48 86 25 H 161/98 H 94 12/15/19 06:48 36.6 C 83 31 H 157/96 H 95 Laboratory Results Laboratory Results - last 24 hr 12/14/19 12/14/19 12/14/19 17:10 17:10 19:54 Sodium Potassium Chloride Carbon Dioxide Anion Gap BUN Creatinine Est Cr Clr Drug Dosing Est GFR ( Amer) Est GFR (Non-Af Amer) BUN/Creatinine Ratio Glucose Calcium Ionized Calcium 0.85 L Phosphorus Magnesium Total Bilirubin AST ALT Alkaline Phosphatase NT-Pro-B Natriuret Pep Total Protein Albumin Globulin Albumin/Globulin Ratio Urine Color Urine Appearance Urine pH Ur Specific [place] Urine Protein Urine Glucose (UA) Urine Ketones Urine Blood Urine Nitrite Urine Bilirubin Urine Urobilinogen Ur Leukocyte Esterase Urine WBC (Auto) Urine RBC (Auto) U Hyaline Cast (Auto) U Epithel Cells (Auto) Urine Bacteria (Auto) Ur Renal Epithelial Cell Granular Casts Urine Yeast Urine Osmolality 460 L Ur Random Creatinine 97.2 Ur Random Potassium 33.7 Ur Random Chloride 63 Ur Random Uric Acid 38.7 12/14/19 12/14/19 12/15/19 21:48 21:48 00:28 Sodium 133 L Potassium 3.1 L D Chloride 100 Carbon Dioxide 24 Anion Gap 9.0 BUN 27 H Creatinine 1.93 H D Est Cr Clr Drug Dosing 74.8 Est GFR ( Amer) 47.7 Est GFR (Non-Af Amer) 41.2 BUN/Creatinine Ratio 14.0 Glucose 147 H Calcium 6.8 L Ionized Calcium 0.91 L 0.94 L Phosphorus 1.8 L Magnesium 1.9 Total Bilirubin AST ALT Alkaline Phosphatase NT-Pro-B Natriuret Pep Total Protein Albumin Globulin Albumin/Globulin Ratio Urine Color Urine Appearance Urine pH Ur Specific [place] Urine Protein Urine Glucose (UA) Urine Ketones Urine Blood Urine Nitrite Urine Bilirubin Urine Urobilinogen Ur Leukocyte Esterase Urine WBC (Auto) Urine RBC (Auto) U Hyaline Cast (Auto) U Epithel Cells (Auto) Urine Bacteria (Auto) Ur Renal Epithelial Cell Granular Casts Urine Yeast Urine Osmolality Ur Random Creatinine Ur Random Potassium Ur Random Chloride Ur Random Uric Acid 12/15/19 12/15/19 12/15/19 03:47 03:47 06:15 Sodium 132 L Potassium 3.2 L Chloride 100 Carbon Dioxide 25 Anion Gap 7.0 BUN 27 H Creatinine 1.77 H Est Cr Clr Drug Dosing 81.5 Est GFR ( Amer) 53.0 Est GFR (Non-Af Amer) 45.7 BUN/Creatinine Ratio 15.1 Glucose 146 H Calcium 7.7 L Ionized Calcium 1.02 L 1.07 L Phosphorus 2.1 L Magnesium 1.9 Total Bilirubin 2.0 H AST 51 H ALT 150 H Alkaline Phosphatase 71 NT-Pro-B Natriuret Pep Total Protein 5.4 L Albumin 2.3 L Globulin 3.1 Albumin/Globulin Ratio 0.7 L Urine Color Urine Appearance Urine pH Ur Specific [place] Urine Protein Urine Glucose (UA) Urine Ketones Urine Blood Urine Nitrite Urine Bilirubin Urine Urobilinogen Ur Leukocyte Esterase Urine WBC (Auto) Urine RBC (Auto) U Hyaline Cast (Auto) U Epithel Cells (Auto) Urine Bacteria (Auto) Ur Renal Epithelial Cell Granular Casts Urine Yeast Urine Osmolality Ur Random Creatinine Ur Random Potassium Ur Random Chloride Ur Random Uric Acid 12/15/19 12/15/19 12/15/19 09:16 11:40 12:13 Sodium Potassium Chloride Carbon Dioxide Anion Gap BUN Creatinine Est Cr Clr Drug Dosing Est GFR ( Amer) Est GFR (Non-Af Amer) BUN/Creatinine Ratio Glucose Calcium Ionized Calcium 1.09 L 1.00 L Phosphorus Magnesium Total Bilirubin AST ALT Alkaline Phosphatase NT-Pro-B Natriuret Pep Total Protein Albumin Globulin Albumin/Globulin Ratio Urine Color Yellow Urine Appearance Cloudy A Urine pH 5.0 Ur Specific [place] 1.034 H Urine Protein 2+ H Urine Glucose (UA) Negative Urine Ketones Trace H Urine Blood 2+ H Urine Nitrite Negative Urine Bilirubin Negative Urine Urobilinogen Negative Ur Leukocyte Esterase Negative Urine WBC (Auto) 5-10 H Urine RBC (Auto) 0-4 U Hyaline Cast (Auto) 10-30 H U Epithel Cells (Auto) >30 H Urine Bacteria (Auto) Negative Ur Renal Epithelial Cell Not Reportable Granular Casts 20-30 H Urine Yeast Not Reportable Urine Osmolality Ur Random Creatinine Ur Random Potassium Ur Random Chloride Ur Random Uric Acid 12/15/19 12/15/19 12/15/19 12:13 15:21 15:21 Sodium 132 L Potassium 3.4 L 3.6 Chloride 101 Carbon Dioxide 25 Anion Gap 6.0 BUN 23 H Creatinine 1.37 D Est Cr Clr Drug Dosing 110.6 Est GFR ( Amer) 72.2 Est GFR (Non-Af Amer) 62.3 BUN/Creatinine Ratio 16.9 Glucose 144 H Calcium 7.2 L Ionized Calcium 0.95 L Phosphorus 1.9 L Magnesium 2.2 Total Bilirubin AST ALT Alkaline Phosphatase NT-Pro-B Natriuret Pep 124 Total Protein Albumin Globulin Albumin/Globulin Ratio Urine Color Urine Appearance Urine pH Ur Specific [place] Urine Protein Urine Glucose (UA) Urine Ketones Urine Blood Urine Nitrite Urine Bilirubin Urine Urobilinogen Ur Leukocyte Esterase Urine WBC (Auto) Urine RBC (Auto) U Hyaline Cast (Auto) U Epithel Cells (Auto) Urine Bacteria (Auto) Ur Renal Epithelial Cell Granular Casts Urine Yeast Urine Osmolality Ur Random Creatinine Ur Random Potassium Ur Random Chloride Ur Random Uric Acid
--- NOTE | 2019-12-15 19:04 | Procedure Note ---
Procedure Note Date of Service December 15, 2019 Bedside US: Lungs: b/l B lines anteriorly and posteriorly. No clear pleural effusion appre ciated. (Difficult study because of morbid obesity) Abdomen: + ascitic fluid appreciated in the RLQ. Not much in LLQ. Coding CPT Codes Pulmonary/Thoracic - Pulmonary and Thoracic: 13255 US, Chest, real time with imaging documentation ([id number]) [facility] (Charges) Pulmonary/Thoracic Procedure 1: Pulmonary and Thoracic: 20345 US, Chest, real time with imaging documentation
[2019-12-15] MEDS ORDERED: SUCCINYLCHOLINE CHLORIDE 20 MG/ML 10 ML VIAL IV ONE (19:37)
[2019-12-15] MEDS ORDERED: MIDAZOLAM HCL 5 MG/ML VIAL IV ONE (19:37)
[2019-12-15] MEDS ORDERED: LORazepam 1 MG/2 ML VIAL IV STA (20:45)
[2019-12-15] MEDS ORDERED: CALCIUM 600MG + VIT D 400 IU TAB PO SCH (21:00)
[2019-12-15] MEDS ORDERED: RAPID SEQUENCE INDUCTION BAG ONE (21:37)
[2019-12-15] MEDS ORDERED: PROPOFOL IV EMULSION 10 MG/ML 100 ML VIAL IV ONE (22:00)
[2019-12-15] MEDS: propofoL 1,000 MG/100 ML VIAL IV SCH (22:00)
[2019-12-15] MEDS ORDERED: PHENYLEPHRINE HCL 10 MG/ML VIAL ONE (22:04)
[2019-12-15] MEDS ORDERED: STAT IV Infusion **Titration per Protocol STA ×2 (22:14→22:52)
[2019-12-15] MEDS ORDERED: PROPOFOL BOLUS FROM BAG IV PRN (22:14)
--- NOTE | 2019-12-15 22:18 | Anesthesiology Consultation ---
Date of Service December 15, 2019 Assessment & Plan Consults Requested none ASA [id number] Proposed Anesthesia Anesthesia Type: General Risk / Benefits Reviewed With: PT / POA / Parent / Guardian, Accepts Plan and Informed Consent Obtained Additional Comments: emergency intubation History Height/Weight Height: 6 ft 3 in Weight: 157.3 kg Allergies Allergy/AdvReac Type Severity Reaction Status Date / Time gluten Allergy Verified 12/15/19 10:35 Medications Home Medications Medication Instructions Recorded Confirmed Last Taken Excedrin Migraine 1 tab PO Q6H PRN 05/29/19 12/12/19 Unknown carvedilol 12.5 mg PO BID 05/29/19 12/12/19 05/31/19 10:00 fluticasone propionate [Flonase 2 spray INTRANASAL DAILY PRN 05/29/19 12/12/19 Unknown Allergy Relief] losartan 25 mg PO QAM 05/29/19 12/12/19 05/31/19 10:00 methocarbamol 500 mg PO Q8H PRN 05/29/19 12/12/19 Unknown naproxen sodium [Aleve] 220 mg PO BID PRN 05/29/19 12/12/19 Unknown trazodone 100 - 200 mg PO HS 05/29/19 12/12/19 Unknown mirtazapine 45 mg PO HS 12/12/19 12/12/19 Unknown Active Medications Generic Name Dose Route Start Last Admin Trade Name Freq PRN Reason Stop Dose Admin Heparin Sodium (Porcine) 5,000 units 12/15/19 18:00 12/15/19 18:33 Heparin Sodium (Porcine) SQ 01/14/20 17:59 5,000 units Q8H CATARINA Administration Hydromorphone HCl 0.5 mg 12/14/19 08:59 12/15/19 21:20 Dilaudid IV 12/27/19 23:53 0.5 mg Q4H PRN Administration Pain Piperacillin Sod/Tazobactam 120 mls @ 30 mls/hr 12/14/19 14:00 12/15/19 18:00 Sod 4.5 gm/ Dextrose IV 12/24/19 13:59 Infused Q8H CATARINA Infusion Protocol Acetaminophen 1,000 mg in 100 mls @ 400 mls/hr 12/14/19 18:04 12/15/19 08:20 Ofirmev IV 12/17/19 18:03 Infused Q8H PRN Infusion Fever Famotidine 20 mg/ Syringe 5 mls @ 2.5 mls/min 12/15/19 21:00 12/15/19 20:11 IV 01/14/20 20:59 2.5 mls/min BID CATARINA Administration Sodium Phosphate 21 mmol/ 507 mls @ 88 mls/hr 12/15/19 17:30 12/15/19 17:47 Sodium Chloride IV 12/15/19 23:15 88 mls/hr ONE ONE Administration Multivitamins/Minerals 1 tab 12/15/19 21:00 12/15/19 20:10 Caltrate Plus PO 01/14/20 20:59 1 tab BID CATARINA Administration Tramadol HCl 50 mg 12/15/19 11:23 12/15/19 20:09 Ultram PO 01/14/20 11:22 50 mg Q8 PRN Administration Pain Past Medical History Medical History Anxiety Aortic root enlargement F/U DR ROMERO Q6-12 MONTHS Bulging of cervical intervertebral disc ROM WNL Celiac disease Chronic back pain Degenerative disc disease NECK AND LUMBAR Depression Fatty liver Hx of thyroid nodule UNDER OBSERVATION Hyperlipidemia Hypertension Lumbar facet arthropathy Migraine HX Osteoarthritis Sleep apnea MILD-MODERATE APNEA-CAN'T TOLERATE CPAP Exercise / Class Metabolic Activity II 4-5 Yardwork/Stairs/Walk up hill Past Family History Family History Sister Family history of reaction to anesthesia SLOW TO WAKE UP Sister No problems noted. Past Surgical History Surgical History H/O arthroscopy of shoulder R X3 AND L X 3. Left shoulder 04/08/2018. Glidescope #4, grade 1 view (elective). Interscalene block. no issues. History of anesthesia reaction SLOW TO WAKE History of appendectomy History of arthroscopy RIGHT KNEE History of cholecystectomy History of colonoscopy History of esophagogastroduodenoscopy (EGD) History of laminectomy L2-L3 WITH REMOVAL BENIGN TUMOR History of open reduction and internal fixation (ORIF) procedure LEFT ANKLE History of tooth extraction WISDOM TEETH Personal history of prior ablation treatment - OCTOBER 2017 Past Anesthesia History No Hx of Anesthesia Complications and No Family Hx of Anesthesia Complications History of PONV No Hx of PONV and No Hx of Motion Sickness Social History Smoking Status: Never smoker Hx Alcohol Use: No Hx Substance Use: No substance use type: does not use Review of Systems pt in respiratory failure. not done denies VETO Physical Exam Vital Signs Last Vital Signs Temp 36.6 C 12/15/19 17:41 Pulse 100 H 12/15/19 21:09 Resp 28 H 12/15/19 21:09 BP 152/90 H 12/15/19 17:41 Pulse Ox 98 12/15/19 21:09 ENMT Mouth: no TMJ abnormality and no dentition abnormality Thyromental Distance: > or= 3.5 Finger Breadths Mallampati Class: II Neck neck extension not limited Respiratory + respiratory distress Neurologic moves all extremities Psychiatric Orientation: alert and oriented x 3 Testing Laboratory Results 12/14/19 05:27 12/15/19 19:51 PT 12.0 Seconds (9.0-12.0) 12/13/19 23:54 INR 1.1 (0.9-1.1) 12/13/19 23:54 APTT 44.7 Seconds (21.0-31.0) H 12/14/19 08:58 Urine Color Yellow 12/15/19 11:40 Urine Appearance Cloudy (Clear) A 12/15/19 11:40 Urine pH 5.0 (4.5-7.5) 12/15/19 11:40 Ur Specific [place] 1.034 (1.000-1.030) H 12/15/19 11:40 Urine Protein 2+ (Negative) H 12/15/19 11:40 Urine Glucose (UA) Negative (Negative) 12/15/19 11:40 Urine Ketones Trace (Negative) H 12/15/19 11:40 Urine Nitrite Negative (Negative) 12/15/19 11:40 Ur Leukocyte Esterase Negative (Negative) 12/15/19 11:40 Urine WBC (Auto) 5-10 /hpf (0-5) H 12/15/19 11:40 Urine RBC (Auto) 0-4 /hpf (0-4) 12/15/19 11:40 U Hyaline Cast (Auto) 10-30 /lpf (0-5) H 12/15/19 11:40 U Epithel Cells (Auto) >30 /lpf (0-5) H 12/15/19 11:40 Urine Bacteria (Auto) Negative (Negative) 12/15/19 11:40 12/14/19 04:18 Urine Culture - Preliminary Urine,Straight Cath No growth - Less than 1,000 colonies/mL, Final report to follow. 12/14/19 05:54 Aerobic Blood Culture - Preliminary Blood No growth in Aerobic bottle after 24 hours. Anaerobic Blood Culture - Preliminary No growth in Anaerobic bottle after 24 hours. 12/14/19 05:50 Aerobic Blood Culture - Preliminary Blood No growth in Aerobic bottle after 24 hours. Anaerobic Blood Culture - Preliminary No growth in Anaerobic bottle after 24 hours.
--- NOTE | 2019-12-15 22:21 | Anesthesiology Progress Note ---
Date of Service December 15, 2019 Subjective Called to intubate by the ICU for respiratory failure 2/2 pancreatitis. Signout provided by CONSTRUCTION MANAGER. Pt in obvious respiratory distress on bipap. Pt preoxygenated using Bipap. Pt given 200 mg of Propofol and 100 mg Succynicholine. Using a Glidescpe #4 a tube was placed under video visualization. B/l B/s and +ETCO2. Tube secured by RT. care returned to primary team. Vitals were stable throughout the entire process. Physical Exam Vital Signs: Last Vital Signs Temp 36.6 C 12/15/19 17:41 Pulse 100 H 12/15/19 21:09 Resp 28 H 12/15/19 21:09 BP 152/90 H 12/15/19 17:41 Pulse Ox 98 12/15/19 21:09 Results & Data Medications Administered Heparin Sodium (Porcine) (Heparin Sodium (Porcine)) 5,000 units SQ Q8H CATARINA Stop: 01/14/20 17:59 Last Admin: 12/15/19 18:33 Dose: 5,000 units Documented by: [id number] Cosigned by: [id number] Hydromorphone HCl (Dilaudid) 0.5 mg IV Q4H PRN PRN Reason: Pain Stop: 12/27/19 23:53 Last Admin: 12/15/19 21:20 Dose: 0.5 mg Documented by: [id number] Admin: 12/15/19 00:18 Dose: 0.5 mg Documented by: [id number] Piperacillin Sod/Tazobactam (Sod 4.5 gm/ Dextrose) 120 mls @ 30 mls/hr IV Q8H CATARINA; Protocol Stop: 12/24/19 13:59 Last Infusion: 12/15/19 18:00 Dose: 0 mls/hr Documented by: [id number] Admin: 12/15/19 13:58 Dose: 30 mls/hr Documented by: [id number] Infusion: 12/15/19 10:20 Dose: 0 mls/hr Documented by: [id number] Admin: 12/15/19 06:18 Dose: 30 mls/hr Documented by: [id number] Infusion: 12/15/19 03:58 Dose: 0 mls/hr Documented by: [id number] Admin: 12/14/19 21:19 Dose: 30 mls/hr Documented by: [id number] Infusion: 12/14/19 19:19 Dose: 0 mls/hr Documented by: [id number] Admin: 12/14/19 15:33 Dose: 30 mls/hr Documented by: [id number] Acetaminophen (Ofirmev) 1,000 mg in 100 mls @ 400 mls/hr IV Q8H PRN PRN Reason: Fever Stop: 12/17/19 18:03 Last Infusion: 12/15/19 08:20 Dose: 0 mls/hr Documented by: [id number] Admin: 12/15/19 08:02 Dose: 400 mls/hr Documented by: [id number] Infusion: 12/15/19 04:19 Dose: 0 mls/hr Documented by: [id number] Admin: 12/15/19 03:54 Dose: 400 mls/hr Documented by: [id number] Infusion: 12/14/19 19:18 Dose: 0 mls/hr Documented by: [id number] Admin: 12/14/19 18:48 Dose: 400 mls/hr Documented by: [id number] Famotidine 20 mg/ Syringe 5 mls @ 2.5 mls/min IV BID CATARINA Stop: 01/14/20 20:59 Last Admin: 12/15/19 20:11 Dose: 2.5 mls/min Documented by: [id number] Sodium Phosphate 21 mmol/ (Sodium Chloride) 507 mls @ 88 mls/hr IV ONE ONE Stop: 12/15/19 23:15 Last Admin: 12/15/19 17:47 Dose: 88 mls/hr Documented by: [id number] Multivitamins/Minerals (Caltrate Plus) 1 tab PO BID CATARINA Stop: 01/14/20 20:59 Last Admin: 12/15/19 20:10 Dose: 1 tab Documented by: [id number] Tramadol HCl (Ultram) 50 mg PO Q8 PRN PRN Reason: Pain Stop: 01/14/20 11:22 Last Admin: 12/15/19 20:09 Dose: 50 mg Documented by: [id number] Admin: 12/15/19 11:32 Dose: 50 mg Documented by: [id number]
--- NOTE | 2019-12-15 22:22 | Anesthesiology Progress Note ---
Date of Service December 15, 2019 Anesthesia Post Procedure Vital Signs Vital Signs: Temp Pulse Resp BP Pulse Ox 12/15/19 21:09 100 H 28 H 98 12/15/19 17:41 36.6 C 101 H 38 H 152/90 H 94 12/15/19 16:00 85 12/15/19 15:48 91 H 33 H 179/95 H 94 12/15/19 15:14 91 H 33 H 166/90 H 93 12/15/19 11:48 36.6 C 85 30 H 175/97 H 94 12/15/19 10:48 83 27 H 169/97 H 95 12/15/19 09:03 81 28 H 162/100 H 93 12/15/19 08:48 83 33 H 158/137 H 94 12/15/19 08:00 88 12/15/19 07:48 86 25 H 161/98 H 94 12/15/19 06:48 36.6 C 83 31 H 157/96 H 95 12/15/19 04:57 85 24 165/88 H 95 12/15/19 03:48 37.3 C 96 H 42 H 163/102 H 91 12/15/19 02:48 96 H 29 H 163/79 H 94 12/15/19 01:48 96 H 26 H 149/96 H 94 12/15/19 00:48 97 H 34 H 155/91 H 93 12/14/19 23:47 37.2 C 97 H 20 158/95 H 94 Pain Intensity Right Upper Abdomen: Pain Intensity: 6 Notes Mental Status: alert / awake / arousable (pt on vent) Patient Amnestic to Procedure: Yes Nausea / Vomiting: adequately controlled Pain: adequately controlled Airway Patency, RR, SpO2: see Notes below (airway secured) BP & HR: see Notes below (tachycardic) Hydration State: stable & adequate Anesthetic Complications: no major complications apparent and Pt Satisfied with anesthetic care
--- NOTE | 2019-12-15 22:48 | XRay Report ---
SINGLE VIEW CHEST CLINICAL HISTORY: Respiratory failure. Intubation. FINDINGS: An AP, portable, upright chest radiograph is compared to study dated 12/13/2019. The examina tion is degraded by portable technique and patient rotation. An endotracheal tube has been placed. Th e tip projects 3 cm above the willie. An enteric tube has been placed. The tip projects below the rosalia phragm over the stomach. The heart is mildly enlarged. There is pulmonary vascular congestion. Patchy airspace opacities are present at the right lung base. Airspace consolidation is seen in the left mi d to lower lung. No large pleural effusion or pneumothorax is seen. The skeletal structures are osteo penic. The bony thorax is grossly intact. IMPRESSION: 1. Endotracheal and enteric tubes have been placed as above. 2. Cardiomegaly with mild pulmonary vascular congestion. 3. There are bilateral airspace opacities, most confluent at the left lung base. This could present a telectasis versus pulmonary edema and/or an infectious/inflammatory pneumonitis. Clinical correlation will be required and radiographic follow-up to resolution is recommended. ACT 112: Negative or not required by law. Electronically signed by: John Sanchez M.D. 12/15/2019 10:46 PM
--- NOTE | 2019-12-15 22:51 | Procedure Note ---
Procedure Note Date of Service December 15, 2019 Note ARTERIAL LINE PROCEDURE NOTE: Procedure: Arterial Line Placement Attending: Dr. Sparks Provider: ANTONINO Tamayo Indication: Continuous hemodynamic monitoring, frequent ABGs Anesthesia: None Consent was signed and placed on the chart prior to procedure. Indication, risks, and benefits were explained at length by Dr. Garrison A time-out was completed verifying correct patient, procedure, site, positioning, and implant(s) or special equipment if applicable. Allens test was performed to ensure adequate perfusion. Patients right wrist was prepped and draped in the usual sterile fashion. The patient's radial pulse was palpated a nd a 20g Arrow arterial line was introduced into the right radial artery. Catheter was threaded, and the needle was removed with appropriate blood return. Good waveform was observed. The patient tolerated the procedure well. Blood Loss: Minimal Complications: None Coding CPT Codes Tubes, Drains, and Vasc Access - Tubes, Drains, and Vasc Access: [id number] Place Catheter In Artery ([id number]) [facility] [place] Procedure Codes (Charges) Tubes, Drains, and Vasc Access Procedure 1: Tubes, Drains, and Vasc Access: [id number] Place Catheter In Artery
--- NOTE | 2019-12-15 22:51 | Communication Note ---
Date of Service: December 15, 2019 Patient initially was on nasal cannula throughout the day, did not want to wear the BiPAP mask. He continued to have worsening ARDS-like presentation, inc reasingly more tachypneic, with labored breathing. He was given Lasix and did respond with over 1 L and urine output, however tachypnea continued to worsen with respiratory rate in the 40s. Patient did agree to trial BiPAP, and was given mild sedation to help with anxiety and comfort. BiPAP was trialed for approximately 30 minutes, however the patient continued to decompensate and continue to display worsening tachypnea and labored breathing. Decision was made to proceed with intubation. Anesthesiologist was called to the bedside and consented patient for intubation and arterial line placement, and proceeded to intubate (see intubation note). OG tube was inserted to low wall suction, chest x-ray confirmed ETT placement. Arterial line inserted and ventilator settings adjusted with ABG. We will continue to trend ABGs, will give additional 20 IV Lasix. Will continue to wean vent as tolerated. CRITICAL CARE TIME - I have personally spent 40 minutes of critical care time in the direct management of this patient. This is a life/limb threatening event. This includes time spent evaluating patient, direct bedside care, chart review, placing orders, interpretation of diagnostic studies, discussion with consultants, patient, and family members, as well as other required patient management activities. This time is exclusive of all separately billable procedures, and teaching time and separate from and in addition to any other critical care service time. Coding Level of Care Code Critical Care marcela miltont'l 30 min
[2019-12-15] MEDS ORDERED: FENTANYL BOLUS FROM BAG IV PRN (22:52)
[2019-12-15] MEDS ORDERED: carvediloL 12.5 MG TAB PO SCH (23:00)
[2019-12-15] MEDS: fentaNYL DRIP 1,250 MCG/250 ML BAG IV SCH (23:04)
[2019-12-15 23:11] LABS: iSTAT Arterial Blood Gas HCO3 22 meg/L (19-24); iSTAT Arterial Blood Gas pCO2 40 mmHg (35-46); iSTAT Arterial Blood Gas pH 7.35 (7.35-7.45); iSTAT Arterial Blood Gas pO2 118 mmHg (80-95); iSTAT Carbon Dioxide 23 mmol/L (24-31); iSTAT FiO2 100 %; iSTAT Site Art Line
[2019-12-16] MEDS ORDERED: FUROSEMIDE 40 MG/4 ML VIAL IV ONE (00:15)
[2019-12-16] MEDS: propofoL 1,000 MG/100 ML VIAL IV SCH ×9 (00:49→21:43)
[2019-12-16] MEDS: POTASSIUM CHLORIDE / WTR 10 MEQ/100 ML PLCT IV SCH ×2 (00:49→02:35)
[2019-12-16] MEDS: HEPARIN SOD 5,000 UNIT/0.5 ML VIAL SQ SCH ×3 (02:36→17:53)
[2019-12-16 02:40] LABS: iSTAT Arterial Blood Gas HCO3 20 meg/L (19-24); iSTAT Arterial Blood Gas pCO2 34 mmHg (35-46); iSTAT Arterial Blood Gas pH 7.39 (7.35-7.45); iSTAT Arterial Blood Gas pO2 121 mmHg (80-95); iSTAT Carbon Dioxide 21 mmol/L (24-31); iSTAT FiO2 75 %; iSTAT Site Art Line
[2019-12-16 05:17] LABS: BUN Creatinine Ratio 18.6 (10-20); Calcium 6.2 mg/dl (8.5-10.1); Creatinine Clr Calc Pharmacy 118.4 ml/min; Est GFR (African American) 78.4; Est GFR (Non-African American) 67.6; Phosphorus 1.7 mg/dl (2.5-4.9); Potassium 3.3 mmol/L (3.5-5.1)
[2019-12-16] MEDS: PIPERACILLIN/TAZOBACTAM 4.5 GM in DEXTROSE 5% 100 ML IV SCH ×3 (05:17→21:42)
[2019-12-16 05:41] LABS: Basophils # (auto) 0.02 K/uL (0-0.2); Basophils % (auto) 0.2 %; Eosinophils # (auto) 0.07 K/uL (0-0.5); Eosinophils % (auto) 0.6 %; Hematocrit (blood only) 42.3 % (42-52); Hemoglobin 14.9 g/dL (14.0-18.0); Immature Granulocytes # (auto) 0.15 K/uL (0.00-0.02); Immature Granulocytes % (auto) 1.3 %; Lymphocytes # (auto) 1.37 K/uL (1.2-3.4); Lymphocytes % (auto) 11.9 %; Mean Corpuscular Hemoglobin 31.4 pg (25-34); Mean Corpuscular Hgb Conc 35.2 g/dL (32-36); Mean Corpuscular Volume 89.2 fL (80-100); Mean Platelet Volume 11.3 fL (7.4-10.4); Monocytes # (auto) 1.11 K/uL (0.11-0.59); Monocytes % (auto) 9.6 %; Neutrophils # (auto) 8.84 K/uL (1.4-6.5); Neutrophils % (auto) 76.4 %; Platelet Count 196 K/uL (130-400); RDW Coefficient of Variation 13.3 % (11.5-14.5); RDW Standard Deviation 43.4 fL (36.4-46.3); Red Blood Count 4.74 M/uL (4.7-6.1); White Blood Count 11.56 K/uL (4.8-10.8)
[2019-12-16] MEDS ORDERED: POTASSIUM PHOS 3 MMOL/1 ML INFUSION IV STA ×2 (05:58→15:07)
[2019-12-16] MEDS ORDERED: POTASSIUM CHLORIDE 20 MEQ/15 ML UDC PO STA ×2 (05:58→15:06)
[2019-12-16] MEDS ORDERED: POTASSIUM PHOSPHATE 21 MMOL in SODIUM CHLORIDE 0.9% 500 ML IV ONE (06:15)
--- NOTE | 2019-12-16 07:02 | XRay Report ---
XR chest 1V portable CLINICAL HISTORY: resp failure dyspnea COMPARISON STUDY: 12/15/2019 FINDINGS: The tracheal tube is 3 cm above the willie. Components of congestive heart failure persist. Some progressive left as well as right basilar parenchymal infiltrative change. Nasogastric tube within the distal stomach. IMPRESSION: 1. Unchanging findings of congestive failure. 2. Mildly progressive bibasilar parenchymal infiltrative/atelectatic change. 3. Endotracheal tube 3 cm above the willie. ACT 112: Negative or not required by law. The above report was generated using voice recognition software. It may contain grammatical, syntax or spelling errors. Electronically signed by: Isra Briseno M.D. 12/16/2019 7:01 AM
[2019-12-16 07:42] LABS: iSTAT Arterial Blood Gas HCO3 23 meg/L (19-24); iSTAT Arterial Blood Gas pCO2 33 mmHg (35-46); iSTAT Arterial Blood Gas pH 7.45 (7.35-7.45); iSTAT Arterial Blood Gas pO2 77 mmHg (80-95); iSTAT Carbon Dioxide 24 mmol/L (24-31); iSTAT FiO2 50 %; iSTAT Site Art Line
--- NOTE | 2019-12-16 07:55 | Critical Care Progress Note ---
Date of Service December 16, 2019 Assessment & Plan (1) Post-ERCP acute pancreatitis: EKG 12/14/2019: Sinus tachycardia, normal axis, no ST-T wave changes, QTC 467 (it has gone down from 471 on 12/13/2019). Nonspecific ST elevation in lead III which has been present since July 2018 CT abdomen pelvis 12/14/2019: Shows bilateral lower lobe atelectasis, acute pancreatitis with moderate peripancreatic fluid and infiltration extending into the retroperitoneum. No peripancreatic fluid collection. --VDRF secondary to acute hypoxic respiratory failure Moderate ARDS-like picture P/F ratio initial was less than 150, Secondary to likely pancreatitis on top of fluid overload Lower part of the lungs on CT abdomen 12/14/19 shows atelectasis, VQ scan is low probability for PE Continue with lung protective ventilation High PEEP, low tidal volume to keep Plateau < 30 with permissive hypercapnea if need be. Monitor ABGs --SARAH Improving Patient did have a hypotensive episode in the hospital on 12/13/2019 Abdominal compartment syndrome can present the same way, intra-abdominal pressure 14 on 12/15/2019. Unlikely to be the cause of SARAH FeNa: 0.4% which goes with prerenal component. CT abdomen pelvis did not show any free fluid in the peritoneum. Monitor BUN/creatinine Avoid nephrotoxic medications Strict ins and outs --Acute pancreatitis Likely post ERCP Patient's initial BISAP score was 1, on 12/14/2019 increased to 3, which is for sirs>2 and BUN> 25 and trace right-sided pleural effusion Antibiotics being given for possible cholangitis. GI on board --Hypocalcemia This is likely from saponification of calcium into the farrukh-pancreatic fat Keep magnesium greater than 2 and phosphorus greater than 3 Corrected calcium 7.8, ionized calcium 0.8 12/16/2019 --Elevated LFTs Likely post ERCP Have been trending down since then Monitor --Hypertension On Coreg with holding parameters. --Elevated troponin Likely secondary to type II DE Monitor --Morbid obesity --Prophylaxis VTE: Heparin GI: Pepcid Diet: NPO Lines: Left radial, peripheral, intubation 12/15/2019 --Hypokalemia, hypophosphatemia Being replaced Plan: In/out: +850, urine output 3.2 L AB.45/33/77 on 50% FiO2 and PEEP of 10, plateau of the patient is 24 with tidal volume 500, will go down respiratory rate to 20 and repeat ABG around 12 Patient got total of 40 Lasix overnight. Will give him another 40 today to try to get negative balance. Patient is third spacing because of his underlying pancreatitis. He has deve loped ascites as well. If the abdominal pressure is not elevated there is no indication to tap it. INR is calcium is 0.8 today, corrected calcium is 7.8. Magnesium is 2 we will give 1 more gram of magnesium IV. We will get an EKG to see what the QTC is at the QTC is not prolonged I will not corrected we will just repeat a BMP with calcium later on. Patient has an OGT I would rather replace calcium orally and IV if need be. I will get CT chest abdomen pelvis without contrast. Lipase from today's labs within normal limits. In a patient with acute pancreatitis, lipase level does not help with the severity. Continue with antibiotics for possible cholangitis as per recommendation from GI . I have personally spent 39 minutes of critical care time in the direct management of this patient. This is a life/limb threatening event. This includes time spent evaluating patient, direct bedside care, chart review, placing orders, interpretation of diagnostic studies, discussion with consultants, patient, and family members, as well as other required patient management activities. This time is exclusive of all separately billable procedures, and teaching time and separate from and in addition to any other critical care service time. Please note the above document was generated using voice recognition software. It may contain grammatical, syntax or spelling errors. (2) Acute renal failure: (3) Hypocalcemia: Admission and Anticipated Discharge Date Admission Date: December 12, 2019 Subjective Patient seen and examined at bedside. No acute distress. Overnight patient was in respiratory distress, trial of BiPAP was given which he failed and plan to intubate the patient was made. Initial ABG showed PaO2 of 118 100% FiO2. P/F ratio less than 150 goes with moderate ARDS Likely etiology is from pancreatitis on top of fluid playing a role. At the time of examination patient was on propofol 40, fentanyl 50. Patient spiked fever of 38 overnight from underlying pancreatitis Review of Systems Review of Systems: Unobtainable due to endotracheal tube Physical Exam Physical Exam: Constitutional: Intubated HEENT: PERRLA Respiratory system: Decreased air entry bilaterally, no wheeze, no rhonchi, positive crackles bilateral lower lobes CVS: S1-S2 positive, no murmurs or gallops Abdomen: Soft, distended, no rebound, decreased bowel sounds, obese Extremities: +2 pulses bilaterally radialis/ dorsalis pedis, no cyanosis, no edema Neuro: Positive gag, positive pupillary, positive corneal, RASS -2 Psych: Unable to assess G/U: Positive Mixon Skin: no rashes, warm and dry Lymphatic: no cervical or axillary lymphadenopathy Results & Data Results & Data ([facility]) Vital Signs (Past 12 Hours) Vital Signs Temp Pulse Resp BP Pulse Ox 12/16/19 07:41 96 H 27 H 94 12/16/19 06:16 36.9 C 93 H 140/84 98 12/16/19 05:17 36.9 C 96 H 93 12/16/19 05:16 36.9 C 96 H 130/79 93 12/16/19 04:50 93 H 29 H 97 12/16/19 04:16 36.9 C 93 H 123/83 99 12/16/19 03:16 96 H 125/80 96 12/16/19 03:04 37.2 C 95 H 124/85 96 12/16/19 02:18 95 H 130/85 99 12/16/19 02:00 38 C H 95 H 95 12/16/19 01:27 92 H 28 H 96 12/16/19 00:12 93 H 121/76 95 12/16/19 00:07 94 H 115/73 95 12/16/19 00:02 94 H 118/80 97 12/16/19 00:00 99 H 12/15/19 23:57 89 128/84 95 12/15/19 23:52 93 H 117/75 95 12/15/19 23:47 96 H 113/76 94 12/15/19 23:42 96 H 118/71 94 12/15/19 23:37 98 H 117/77 94 12/15/19 23:32 99 H 117/73 94 12/15/19 23:27 101 H 112/74 95 12/15/19 23:22 101 H 116/71 95 12/15/19 23:17 102 H 113/68 95 12/15/19 23:12 104 H 113/72 95 12/15/19 23:07 105 H 107/69 94 12/15/19 23:02 104 H 120/69 94 12/15/19 22:57 100 H 117/66 95 12/15/19 22:56 28 H 12/15/19 22:52 106 H 115/69 95 12/15/19 22:47 108 H 105/64 93 12/15/19 22:42 110 H 106/67 95 12/15/19 22:37 114 H 115/70 98 12/15/19 22:32 115 H 125/75 95 12/15/19 22:31 104 H 33 H 94 12/15/19 22:17 108 H 135/83 97 12/15/19 22:12 103 H 132/79 94 12/15/19 21:41 102 H 36 H 142/96 H 97 12/15/19 21:09 100 H 28 H 98 12/15/19 20:41 104 H 24 150/103 H 92 12/15/19 20:00 107 H 12/16/19 04:31 12/16/19 04:25 Coding Level of Care Code Critical Care 1st 30-74 mins Diagnoses Post-ERCP acute pancreatitis K91.89; K85.90 Acute renal failure N17.0 Acute renal failure type: with acute tubular necrosis Hypocalcemia E83.51 Time Spent (min) 39 (1) Acute renal failure Acute renal failure type: with acute tubular necrosis Qualified Code(s): N17.0 - Acute kidney failure with tubular necrosis
[2019-12-16] MEDS: FAMOTIDINE 20 MG in SYRINGE 3 ML IV SCH ×2 (08:22→21:40)
[2019-12-16] MEDS ORDERED: MAGNESIUM SULFATE / D5W 1 GM/100 ML BAG IV ONE (08:30)
[2019-12-16] MEDS ORDERED: FUROSEMIDE 40 MG in SYRINGE 0 ML IV ONE (08:30)
[2019-12-16] MEDS ORDERED: STAT IV Infusion **Titration per Protocol STA (08:43)
[2019-12-16] MEDS ORDERED: CALCIUM CARBONATE 1,250 MG/5 ML UDC PO SCH (09:00)
--- NOTE | 2019-12-16 09:33 | CT Scan Report ---
CT chest wo con CT DOSE: 3923.69 mGy.cm HISTORY: Dyspnea ARDS TECHNIQUE: Multiaxial CT images of the chest were performed without contrast. A dose lowering techni que was utilized adhering to the principles of ALARA. COMPARISON: None. FINDINGS: Bibasilar consolidative infiltrative change. Small bilateral pleural effusions. The mid and upper lungs are grossly clear. There is no endotracheal tube 3 cm above the willie. No significant mediastinal or hilar adenopathy. IMPRESSION: 1. Bibasilar consolidative infiltrative type change. 2. Small bilateral pleural effusions. 3. Endotracheal tube 3 cm above the willie. ACT 112: Negative or not required by law. The above report was generated using voice recognition software. It may contain grammatical, syntax or spelling errors. Electronically signed by: Isra Briseno M.D. 12/16/2019 9:31 AM
--- NOTE | 2019-12-16 09:41 | CT Scan Report ---
CT abd pelvis wo con CT DOSE: HISTORY: Pancreatitis f/u pancreatitis TECHNIQUE: Multiaxial CT images of the abdomen and pelvis were performed without contrast. A dose lo wering technique was utilized adhering to the principles of ALARA. COMPARISON STUDY: 12/14/2019 FINDINGS: Progressive lower lobe atelectatic/infiltrative change. Small bilateral pleural effusions a lso moderately progressive. Diffuse fatty replacement of the liver. Prior cholecystectomy. Edematous pancreas with moderate peripancreatic infiltrative change. This is slightly progressive com pared to the prior study. Mild stable splenomegaly. Kidneys are considered negative for hydronephrosis. Moderate infiltrative/free fluid type changes in the paracolic gutter and pelvic regions. Overall vol ume of fluid is somewhat increased. Interval development of a component of body wall anasarca. IMPRESSION: 1. Moderately progressive pancreatitis. 2. Progressive bibasilar parenchymal infiltrates/effusions 3. Mildly progressive abdominal and pelvic ascites 4. Moderately progressive Pancreatic infiltrative change. No evidence for drainable abscess or collec tion at this time. 5. developing body wall anasarca. ACT 112: Negative or not required by law. The above report was generated using voice recognition software. It may contain grammatical, syntax or spelling errors. Electronically signed by: Isra Briseno M.D. 12/16/2019 9:39 AM
[2019-12-16] MEDS: DEXMEDETOMIDINE HCL 200 MCG in SODIUM CHLORIDE 0.9% 48 ML IV SCH ×4 (10:15→22:53)
--- NOTE | 2019-12-16 10:31 | Hospitalist Progress Note ---
Date of Service December 16, 2019 Assessment & Plan (1) Post-ERCP acute pancreatitis: 44-year-old male with history of hypertension and prediabetes, dyslipidemia, aortic root enlargement, depression, presenting with abdominal pain after an ERCP procedure. Post ERCP pancreatitis Patient recently underwent endoscopic ultrasound/EGD for abnormal liver serologies, subsequently underwent ERCP for cholelithiasis that were discovered, then developed abdominal pain afterwards CT abdomen pelvis: 1. Findings consistent with acute pancreatitis of the pancreatic head and uncinate process. 2. Moderate peripancreatic infiltrative change with trace amount of scattered fluid. 3. No evidence for drainable abscess or collection. Lipase 2422 Total bili 2.5 AST/ALT/alk phos 544/394/88 Management of acute respiratory failure, hypotension, hypoxia, acute renal failure, hypocalcemia per below Acute respiratory failure, likely secondary to volume overload versus ARDS? Currently intubated Lasix given this morning, monitor urine output Other management including mechanical ventilator per centrifugal separator Hypotension Resolved Likely multifactorial, from Dilaudid?, Dehydration Continue IV fluids Management of possible sepsis noted below Lethargy Possible toxic metabolic encephalopathy, resolved Likely secondary to hypercapnic respiratory failure, in the setting of Dilaudid use with acute renal failure Resolved Dilaudid dose reduced Patient apparently has been diagnosed with obstructive sleep apnea in the past, not able to tolerate BiPAP mask Declines trial of BiPAP mask again while admitted Monitor closely Acute renal failure Likely ATN as per nephrology service Creatinine improved from 2.6, now 1.23 Hypocalcemia in the setting of pancreatitis Received IV calcium gluconate Oral calcium ordered Rule out UTI versus cholangitis Positive leukocytosis Urine culture negative Blood cultures negative Continue with IV Zosyn Hypoxia Patient noted to be hypoxic overnight in the setting of unresponsiveness and hypotension Chest x-ray: Positive atelectasis Likely secondary hypoventilation secondary to epigastric pain Bilateral lower extremity Doppler ultrasound negative for PE VQ scan low probability for PE Heparin drip discontinued Management per #2 Hypertension losartan and Coreg on hold due to hypotension Monitor Prediabetes Monitor Morbid obesity Counseling Depression Stable, continue Zoloft, trazodone, Remeron DVT prophylaxis Heparin subcutaneous every 8 CODE STATUS Full code Disposition pending lives with family at home Admission and Anticipated Discharge Date Admission Date: December 12, 2019 Subjective Follow-up for acute pancreatitis, etc. Status post intubation overnight secondary to respiratory distress No acute issues afterwards Sedated, on mechanical ventilator No respiratory distress No other issues started Review of Systems Review of Systems: All systems reviewed & are unremarkable except as noted in HPI & below Physical Exam Physical Exam: General- sedated, breathing with no effort or accessory muscle use Eyes- anicteric Neck- no JVD Lungs-mild rales at the bases, no wheezing Heart- normal rate, regular rhythm; no murmurs Abdomen- normal bowel sounds, currently distended, soft Extremities- no pretibial edema, no calf tenderness Neuro-patient is sedated Skin- warm & dry Results & Data Results & Data ([facility]) Vital Signs (Past 12 Hours) Vital Signs Temp Pulse Resp BP Pulse Ox 12/16/19 07:41 96 H 27 H 94 12/16/19 06:16 36.9 C 93 H 140/84 98 12/16/19 05:17 36.9 C 96 H 93 12/16/19 05:16 36.9 C 96 H 130/79 93 12/16/19 04:50 93 H 29 H 97 12/16/19 04:16 36.9 C 93 H 123/83 99 12/16/19 03:16 96 H 125/80 96 12/16/19 03:04 37.2 C 95 H 124/85 96 12/16/19 02:18 95 H 130/85 99 12/16/19 02:00 38 C H 95 H 95 12/16/19 01:27 92 H 28 H 96 12/16/19 00:12 93 H 121/76 95 12/16/19 00:07 94 H 115/73 95 12/16/19 00:02 94 H 118/80 97 12/16/19 00:00 99 H 12/15/19 23:57 89 128/84 95 12/15/19 23:52 93 H 117/75 95 12/15/19 23:47 96 H 113/76 94 12/15/19 23:42 96 H 118/71 94 12/15/19 23:37 98 H 117/77 94 12/15/19 23:32 99 H 117/73 94 12/15/19 23:27 101 H 112/74 95 12/15/19 23:22 101 H 116/71 95 12/15/19 23:17 102 H 113/68 95 12/15/19 23:12 104 H 113/72 95 06/19/20 23:07 105 H 107/69 94 12/15/19 23:02 104 H 120/69 94 12/15/19 22:57 100 H 117/66 95 12/15/19 22:56 28 H 12/15/19 22:52 106 H 115/69 95 12/15/19 22:47 108 H 105/64 93 12/15/19 22:42 110 H 106/67 95 12/15/19 22:37 114 H 115/70 98 12/15/19 22:32 115 H 125/75 95 Laboratory Results Laboratory Results - last 24 hr 12/15/19 12/15/19 12/15/19 19:51 19:51 22:56 WBC RBC Hgb Hct MCV MCH MCHC RDW Std Deviation RDW Coeff of Balwinder Plt Count MPV Immature Gran % (Auto) Neut % (Auto) Lymph % (Auto) Morgan % (Auto) Eos % (Auto) Baso % (Auto) Immature Gran # (Auto) Neut # (Auto) Lymph # (Auto) Morgan # (Auto) Eos # (Auto) Baso # (Auto) Sample Site Art Line POC pH 7.35 POC pCO2 40 POC pO2 118 H POC HCO3 22 POC Total CO2 23 L POC Base Excess -4.0 POC ABG O2 Sat 98.0 H Osiel Test NA O2 Delivery Device Ventilator POC O2 Rate 24 Minute Ventilation 12.6 POC FiO2 100 Tidal Volume 450 PEEP 10 Sodium Potassium 3.5 Chloride Carbon Dioxide Anion Gap BUN Creatinine Est Cr Clr Drug Dosing Est GFR ( Amer) Est GFR (Non-Af Amer) BUN/Creatinine Ratio Glucose POC Glucose Lactate Calcium Ionized Calcium 0.96 L Phosphorus Magnesium Total Bilirubin AST ALT Alkaline Phosphatase Total Protein Albumin Globulin Albumin/Globulin Ratio Triglycerides Lipase Procalcitonin 12/16/19 12/16/19 12/16/19 00:02 02:26 04:25 WBC RBC Hgb Hct MCV MCH MCHC RDW Std Deviation RDW Coeff of Balwinder Plt Count MPV Immature Gran % (Auto) Neut % (Auto) Lymph % (Auto) Morgan % (Auto) Eos % (Auto) Baso % (Auto) Immature Gran # (Auto) Neut # (Auto) Lymph # (Auto) Morgan # (Auto) Eos # (Auto) Baso # (Auto) Sample Site Art Line POC pH 7.39 POC pCO2 34 L POC pO2 121 H POC HCO3 20 POC Total CO2 21 L POC Base Excess -5.0 POC ABG O2 Sat 99.0 H Osiel Test NA O2 Delivery Device Ventilator POC O2 Rate 28 Minute Ventilation 14.0 POC FiO2 75 Tidal Volume 500 PEEP 10 Sodium 133 L Potassium 3.3 L Chloride 100 Carbon Dioxide 21 Anion Gap 12.0 H BUN 24 H Creatinine 1.28 Est Cr Clr Drug Dosing 118.4 Est GFR ( Amer) 78.4 Est GFR (Non-Af Amer) 67.6 BUN/Creatinine Ratio 18.6 Glucose 159 H POC Glucose 153 H Lactate Calcium 6.2 L Ionized Calcium Phosphorus 1.7 L Magnesium 2.0 Total Bilirubin AST ALT Alkaline Phosphatase Total Protein Albumin Globulin Albumin/Globulin Ratio Triglycerides Lipase Procalcitonin 12/16/19 12/16/19 12/16/19 04:25 04:25 04:31 WBC 11.56 H RBC 4.74 Hgb 14.9 Hct 42.3 MCV 89.2 D MCH 31.4 MCHC 35.2 RDW Std Deviation 43.4 RDW Coeff of Balwinder 13.3 Plt Count 196 MPV 11.3 H Immature Gran % (Auto) 1.3 Neut % (Auto) 76.4 Lymph % (Auto) 11.9 Morgan % (Auto) 9.6 Eos % (Auto) 0.6 Baso % (Auto) 0.2 Immature Gran # (Auto) 0.15 H Neut # (Auto) 8.84 H Lymph # (Auto) 1.37 Morgan # (Auto) 1.11 H Eos # (Auto) 0.07 Baso # (Auto) 0.02 Sample Site POC pH POC pCO2 POC pO2 POC HCO3 POC Total CO2 POC Base Excess POC ABG O2 Sat Osiel Test O2 Delivery Device POC O2 Rate Minute Ventilation POC FiO2 Tidal Volume PEEP Sodium Potassium Chloride Carbon Dioxide Anion Gap BUN Creatinine Est Cr Clr Drug Dosing Est GFR ( Amer) Est GFR (Non-Af Amer) BUN/Creatinine Ratio Glucose POC Glucose Lactate Calcium Ionized Calcium 0.82 L Phosphorus Magnesium Total Bilirubin AST ALT Alkaline Phosphatase Total Protein Albumin Globulin Albumin/Globulin Ratio Triglycerides Lipase Procalcitonin 6.11 H 12/16/19 12/16/19 12/16/19 05:58 05:58 06:00 WBC RBC Hgb Hct MCV MCH MCHC RDW Std Deviation RDW Coeff of Balwinder Plt Count MPV Immature Gran % (Auto) Neut % (Auto) Lymph % (Auto) Morgan % (Auto) Eos % (Auto) Baso % (Auto) Immature Gran # (Auto) Neut # (Auto) Lymph # (Auto) Morgan # (Auto) Eos # (Auto) Baso # (Auto) Sample Site POC pH POC pCO2 POC pO2 POC HCO3 POC Total CO2 POC Base Excess POC ABG O2 Sat Osiel Test O2 Delivery Device POC O2 Rate Minute Ventilation POC FiO2 Tidal Volume PEEP Sodium Potassium Chloride Carbon Dioxide Anion Gap BUN Creatinine Est Cr Clr Drug Dosing Est GFR ( Amer) Est GFR (Non-Af Amer) BUN/Creatinine Ratio Glucose POC Glucose 155 H Lactate 1.6 Calcium Ionized Calcium Phosphorus Magnesium Total Bilirubin AST ALT Alkaline Phosphatase Total Protein Albumin Globulin Albumin/Globulin Ratio Triglycerides Lipase 388 Procalcitonin 12/16/19 12/16/19 12/16/19 07:27 11:16 12:19 WBC RBC Hgb Hct MCV MCH MCHC RDW Std Deviation RDW Coeff of Balwinder Plt Count MPV Immature Gran % (Auto) Neut % (Auto) Lymph % (Auto) Morgan % (Auto) Eos % (Auto) Baso % (Auto) Immature Gran # (Auto) Neut # (Auto) Lymph # (Auto) Morgan # (Auto) Eos # (Auto) Baso # (Auto) Sample Site Art Line Art Line POC pH 7.45 7.42 POC pCO2 33 L 35 POC pO2 77 L 78 L POC HCO3 23 22 POC Total CO2 24 23 L POC Base Excess -1.0 -2.0 POC ABG O2 Sat 96.0 H 96.0 H Osiel Test NA NA O2 Delivery Device Ventilator Ventilator POC O2 Rate 28 20 Minute Ventilation 14 14.9 POC FiO2 50 50 Tidal Volume 500 500 PEEP 10 10 Sodium Potassium Chloride Carbon Dioxide Anion Gap BUN Creatinine Est Cr Clr Drug Dosing Est GFR ( Amer) Est GFR (Non-Af Amer) BUN/Creatinine Ratio Glucose POC Glucose 150 H Lactate Calcium Ionized Calcium Phosphorus Magnesium Total Bilirubin AST ALT Alkaline Phosphatase Total Protein Albumin Globulin Albumin/Globulin Ratio Triglycerides Lipase Procalcitonin 12/16/19 12/16/19 13:10 18:04 WBC RBC Hgb Hct MCV MCH MCHC RDW Std Deviation RDW Coeff of Balwinder Plt Count MPV Immature Gran % (Auto) Neut % (Auto) Lymph % (Auto) Morgan % (Auto) Eos % (Auto) Baso % (Auto) Immature Gran # (Auto) Neut # (Auto) Lymph # (Auto) Morgan # (Auto) Eos # (Auto) Baso # (Auto) Sample Site POC pH POC pCO2 POC pO2 POC HCO3 POC Total CO2 POC Base Excess POC ABG O2 Sat Osiel Test O2 Delivery Device POC O2 Rate Minute Ventilation POC FiO2 Tidal Volume PEEP Sodium 134 L Potassium 3.1 L Chloride 101 Carbon Dioxide 25 Anion Gap 8.0 BUN 21 H Creatinine 1.23 Est Cr Clr Drug Dosing 121.2 Est GFR ( Amer) 82.2 Est GFR (Non-Af Amer) 71.0 BUN/Creatinine Ratio 17.3 Glucose 166 H POC Glucose 154 H Lactate Calcium 6.3 L Ionized Calcium Phosphorus 1.7 L Magnesium 2.3 Total Bilirubin 0.9 D AST 28 ALT 62 Alkaline Phosphatase 58 Total Protein 5.4 L Albumin 1.9 L Globulin 3.5 Albumin/Globulin Ratio 0.5 L Triglycerides 261 H Lipase Procalcitonin
--- NOTE | 2019-12-16 10:38 | Gastroenterology Progress Note ---
Date of Service December 16, 2019 Assessment & Plan Admission and Anticipated Discharge Date Admission Date: December 12, 2019 Subjective I have seen and examined the patient today, he developed respiratory distress yesterday evening and refused using BiPAP hence got intubated, currently on mechanical ventilation for suspected ARDS. Getting diuresis to achieve negative balance. On exam abdomen is soft and nontender. Labs reviewed and BUN/Cr improved. Recommend: Management of ARDS per Senior Mechanical Designer. His pancreatitis seems clinically improved hence can start PO diet. Check LFTs. Continue ABx. Correct electrolytes and monitor QTc, if calcium is needed then should be given regardless of pancreatitis. I will continue to follow closely. Results & Data ([facility]) Vital Signs (Past 12 Hours) Vital Signs Temp Pulse Resp BP Pulse Ox 12/16/19 07:41 96 H 27 H 94 12/16/19 06:16 36.9 C 93 H 140/84 98 12/16/19 05:17 36.9 C 96 H 93 12/16/19 05:16 36.9 C 96 H 130/79 93 12/16/19 04:50 93 H 29 H 97 12/16/19 04:16 36.9 C 93 H 123/83 99 12/16/19 03:16 96 H 125/80 96 12/16/19 03:04 37.2 C 95 H 124/85 96 12/16/19 02:18 95 H 130/85 99 12/16/19 02:00 38 C H 95 H 95 12/16/19 01:27 92 H 28 H 96 12/16/19 00:12 93 H 121/76 95 12/16/19 00:07 94 H 115/73 95 12/16/19 00:02 94 H 118/80 97 12/16/19 00:00 99 H 12/15/19 23:57 89 128/84 95 12/15/19 23:52 93 H 117/75 95 12/15/19 23:47 96 H 113/76 94 12/15/19 23:42 96 H 118/71 94 12/15/19 23:37 98 H 117/77 94 12/15/19 23:32 99 H 117/73 94 12/15/19 23:27 101 H 112/74 95 12/15/19 23:22 101 H 116/71 95 12/15/19 23:17 102 H 113/68 95 12/15/19 23:12 104 H 113/72 95 12/15/19 23:07 105 H 107/69 94 12/15/19 23:02 104 H 120/69 94 12/15/19 22:57 100 H 117/66 95 12/15/19 22:56 28 H 12/15/19 22:52 106 H 115/69 95 12/15/19 22:47 108 H 105/64 93 12/15/19 22:42 110 H 106/67 95 12/15/19 22:37 114 H 115/70 98
[2019-12-16 11:30] LABS: iSTAT Arterial Blood Gas HCO3 22 meg/L (19-24); iSTAT Arterial Blood Gas pCO2 35 mmHg (35-46); iSTAT Arterial Blood Gas pH 7.42 (7.35-7.45); iSTAT Arterial Blood Gas pO2 78 mmHg (80-95); iSTAT Carbon Dioxide 23 mmol/L (24-31); iSTAT FiO2 50 %; iSTAT Site Art Line
--- NOTE | 2019-12-16 11:32 | Electrocardiogram Report ---
Test Reason : Blood Pressure : / mmHG Vent. Rate : 097 BPM Atrial Rate : 097 BPM P-R Int : 166 ms QRS Dur : 104 ms QT Int : 404 ms P-R-T Axes : 032 028 080 degrees QTc Int : 513 ms Normal sinus rhythm Prolonged QT Abnormal ECG When compared with ECG of 14-DEC-2019 12:18, No significant change was found Confirmed by Edmar Schultz [id number] on 12/16/2019 11:31:58 AM Referred By: REFERRED SELF Confirmed By:Edmar Schultz
--- NOTE | 2019-12-16 11:41 | Nephrology Progress Note ---
Date of Service December 16, 2019 Assessment & Plan (1) Hypocalcemia: From acute pancreatitis; saponification does not explain prolonged QTc >> today 513; most recent QTc on 12/13 was 467. he had normal calcium on arrival to ER on 12/11 and QTc that day as 431. now w/ volume overload and VDRF so looking to minimize volume infusions. >gave 2 gm calcium gluconate in condensed mix for 60 mL total -increased ca carbonate to tid -repeat ECG, bmp (also to recheck K, phos) ordered for 1500 >> strongly urge redose Ca to keep QTc <470 (2) Acute respiratory failure with hypoxia: intubated 12/14 for resp distress; moderate ARDS (3) History of acute renal failure: baseline creatinine 0.9; at baseline on presentation; increased to 2.4 day after admission. SARAH from [facility] related to IV contrast, to critical illness; creatinine today at 1.3. when I /O have been measured consistently, no oliguria -daily bmp -prn lasix Present on Admission?: No (4) Volume overload: 13 L positive since admission 12/11>> however on 12/13 clearly missing several outputs; concern for volume overload but still w/ active pancreatitis -defer to ICU but goal would be 2L negative today, use lasix prn to achieve this >> currently 2L negative so far today Present on Admission?: No Admission and Anticipated Discharge Date Admission Date: December 12, 2019 Subjective febrile again yesterday afternoon and temp uptrending today; had worsening respiratory distress yesterday, had short trial of bipap and dose of lasix but was ultimately intubated; moderate ARDS. QTc prolonging Review of Systems Review of Systems: All systems reviewed & are unremarkable except as noted in HPI & below Physical Exam Constitutional: well developed, well nourished and + mechanically ventilated; no acute distress Eyes: EOM intact bilaterally ENMT: Ears: no external ear abnormality Nose: no external nose abnormality Mouth: + dry oral mucous membranes Neck: no nuchal rigidity Respiratory: no respiratory distress and no labored breathing Auscultation: lungs clear to auscultation bilaterally and + diminished lung sounds Cardiovascular: Rate/Rhythm: regular rate and regular rhythm Extremities: no edema Gastrointestinal (Abdomen): Inspection/Auscultation: + abdomen distended and normal bowel sounds (diminished); no abdominal edema Percussion/Palpation: abdomen soft; abdomen nontender Musculoskeletal: Extremities: no cyanosis, no clubbing and no petechiae Skin: no rashes, warm and dry Neurologic: sedated Genitourinary: valdez w/ ample clear yellow urine Results & Data ([facility]) Vital Signs (Past 12 Hours) Vital Signs Temp Pulse Resp BP Pulse Ox 12/16/19 10:00 95 H 93 12/16/19 09:58 96 H 120/76 95 12/16/19 09:00 103 H 94 12/16/19 08:58 91 H 132/79 94 12/16/19 08:54 98 H 140/82 93 12/16/19 08:00 97 H 93 12/16/19 07:58 38.0 C H 96 H 128/77 95 12/16/19 07:41 96 H 27 H 94 12/16/19 07:16 96 H 133/82 94 12/16/19 07:00 97 H 95 12/16/19 06:45 99 H 96 12/16/19 06:16 36.9 C 93 H 140/84 98 12/16/19 05:17 36.9 C 96 H 93 12/16/19 05:16 36.9 C 96 H 130/79 93 12/16/19 04:50 93 H 29 H 97 12/16/19 04:16 36.9 C 93 H 123/83 99 12/16/19 03:16 96 H 125/80 96 12/16/19 03:04 37.2 C 95 H 124/85 96 12/16/19 02:18 95 H 130/85 99 12/16/19 02:00 38 C H 95 H 95 12/16/19 01:27 92 H 28 H 96 12/16/19 00:12 93 H 121/76 95 12/16/19 00:07 94 H 115/73 95 12/16/19 00:02 94 H 118/80 97 12/16/19 00:00 99 H 12/15/19 23:57 89 128/84 95 12/15/19 23:52 93 H 117/75 95 12/15/19 23:47 96 H 113/76 94 12/15/19 23:42 96 H 118/71 94 12/15/19 23:37 98 H 117/77 94 12/15/19 23:32 99 H 117/73 94 12/15/19 23:27 101 H 112/74 95 Laboratory Results 12/16/19 04:31 12/16/19 04:25 phos 1.7; iCa 0.82 UACM yesterday reviewed Diagnostic Findings no con CT chest 1. Bibasilar consolidative infiltrative type change. 2. Small bilateral pleural effusions. 3. Endotracheal tube 3 cm above the willie. CT abd/pelvis no con 1. Moderately progressive pancreatitis. 2. Progressive bibasilar parenchymal infiltrates/effusions 3. Mildly progressive abdominal and pelvic ascites 4. Moderately progressive Pancreatic infiltrative change. No evidence for drainable abscess or collection at this time. 5. developing body wall anasarca.
[2019-12-16] MEDS ORDERED: CALCIUM GLUCONATE IV ONE ×2 (12:00→17:15)
[2019-12-16] MEDS ORDERED: SODIUM CHLORIDE 0.9% IV ONE ×2 (12:00→17:15)
[2019-12-16] MEDS: MoRPHine SULFATE 2 MG/ML CARP IV PRN ×4 (13:14→22:24)
[2019-12-16 13:48] LABS: Albumin Level 1.9 gm/dl (3.4-5.0); BUN Creatinine Ratio 17.3 (10-20); Calcium 6.3 mg/dl (8.5-10.1); Creatinine Clr Calc Pharmacy 121.2 ml/min; Est GFR (African American) 82.2; Magnesium 2.3 mg/dl (1.8-2.4); Potassium 3.1 mmol/L (3.5-5.1)
[2019-12-16 13:55] LABS: Albumin Globulin Ratio 0.5 (0.9-2); Bilirubin,Total 0.9 mg/dl (0.2-1); Globulin 3.5 gm/dl (2.5-4.0); Phosphorus 1.7 mg/dl (2.5-4.9); Total Protein 5.4 gm/dl (6.4-8.2)
[2019-12-16] MEDS: CALCIUM CARBONATE 1,250 MG/5 ML UDC PO SCH ×2 (13:55→21:40)
[2019-12-16] MEDS ORDERED: ACETAMINOPHEN SUSP 325 MG/10.15 ML UDC PO PRN (15:00)
[2019-12-16] MEDS ORDERED: Nursing to Pharmacy Communication SCH (15:00)
[2019-12-16] MEDS ORDERED: ACETAMINOPHEN SOLN 650 MG/20.3 ML UDC ONE (15:12)
[2019-12-16] MEDS ORDERED: POTASSIUM PHOSPHATE 30 MMOL in SODIUM CHLORIDE 0.9% 500 ML IV ONE (15:15)
[2019-12-16 22:47] LABS: BUN Creatinine Ratio 19.7 (10-20); Calcium 6.4 mg/dl (8.5-10.1); Creatinine Clr Calc Pharmacy 127.4 ml/min; Est GFR (African American) 87.4; Est GFR (Non-African American) 75.4; Magnesium 2.1 mg/dl (1.8-2.4); Potassium 3.4 mmol/L (3.5-5.1)
[2019-12-16 22:51] LABS: Phosphorus 2.4 mg/dl (2.5-4.9)
[2019-12-16] MEDS: fentaNYL DRIP 1,250 MCG/250 ML BAG IV SCH (23:21)
[2019-12-17] MEDS ORDERED: POTASSIUM CHLORIDE 20 MEQ/15 ML UDC PO STA ×4 (00:19→22:59)
[2019-12-17] MEDS: propofoL 1,000 MG/100 ML VIAL IV SCH ×11 (00:39→22:24)
[2019-12-17] MEDS: POTASSIUM CHLORIDE / WTR 10 MEQ/100 ML PLCT IV SCH ×2 (01:04→02:04)
[2019-12-17] MEDS: MoRPHine SULFATE 2 MG/ML CARP IV PRN ×4 (01:25→12:27)
[2019-12-17] MEDS: HEPARIN SOD 5,000 UNIT/0.5 ML VIAL SQ SCH ×3 (02:04→21:03)
[2019-12-17 05:00] LABS: Hemoglobin 13.1 g/dL (14.0-18.0); Mean Corpuscular Hemoglobin 30.8 pg (25-34); Mean Corpuscular Hgb Conc 34.5 g/dL (32-36); Mean Corpuscular Volume 89.2 fL (80-100); Mean Platelet Volume 11.6 fL (7.4-10.4); Platelet Count 173 K/uL (130-400); RDW Coefficient of Variation 13.4 % (11.5-14.5); Red Blood Count 4.26 M/uL (4.7-6.1); White Blood Count 9.65 K/uL (4.8-10.8)
[2019-12-17 05:18] LABS: Albumin Level 1.8 gm/dl (3.4-5.0); BUN Creatinine Ratio 21.3 (10-20); Bilirubin Direct 0.4 mg/dl (0-0.2); Calcium 6.2 mg/dl (8.5-10.1); Creatinine Clr Calc Pharmacy 123.2 ml/min; Est GFR (African American) 83.9; Est GFR (Non-African American) 72.4; Magnesium 2.5 mg/dl (1.8-2.4); Potassium 3.3 mmol/L (3.5-5.1)
[2019-12-17 05:21] LABS: Bilirubin,Total 0.7 mg/dl (0.2-1); Phosphorus 1.9 mg/dl (2.5-4.9); Total Protein 5.4 gm/dl (6.4-8.2)
[2019-12-17] MEDS: DEXMEDETOMIDINE HCL 200 MCG in SODIUM CHLORIDE 0.9% 48 ML IV SCH ×6 (05:25→22:38)
[2019-12-17 06:16] LABS: iSTAT Arterial Blood Gas HCO3 22 meg/L (19-24); iSTAT Arterial Blood Gas pCO2 34 mmHg (35-46); iSTAT Arterial Blood Gas pH 7.42 (7.35-7.45); iSTAT Arterial Blood Gas pO2 62 mmHg (80-95); iSTAT Carbon Dioxide 23 mmol/L (24-31); iSTAT FiO2 45 %; iSTAT Site Art Line
[2019-12-17] MEDS ORDERED: POTASSIUM PHOS 3 MMOL/1 ML INFUSION IV STA ×2 (06:27→14:20)
[2019-12-17] MEDS ORDERED: POTASSIUM PHOSPHATE 21 MMOL in SODIUM CHLORIDE 0.9% 500 ML IV ONE (07:00)
[2019-12-17] MEDS: PIPERACILLIN/TAZOBACTAM 4.5 GM in DEXTROSE 5% 100 ML IV SCH ×3 (07:15→21:42)
--- NOTE | 2019-12-17 07:41 | XRay Report ---
XR chest 1V portable CLINICAL HISTORY: resp failure dyspnea COMPARISON STUDY: 12/16/2019 FINDINGS: Endotracheal tube 3 cm above the willie. Mild stable cardiomegaly. Persistent prominence of pulmonary vasculature. Unchanging bibasilar parenchymal infiltrative change. IMPRESSION: 1. Endotracheal tube 3 cm above the willie. 2. Bibasilar parenchymal infiltrates unchanged. 3. Nasogastric tube within the stomach. ACT 112: Negative or not required by law. The above report was generated using voice recognition software. It may contain grammatical, syntax or spelling errors. Electronically signed by: Isra Briseno M.D. 12/17/2019 7:39 AM
[2019-12-17] MEDS: ACETAMINOPHEN SOLN 650 MG/20.3 ML UDC OG PRN ×3 (08:24→23:21)
[2019-12-17] MEDS: FAMOTIDINE 20 MG in SYRINGE 3 ML IV SCH ×2 (08:24→21:45)
[2019-12-17] MEDS: CALCIUM CARBONATE 1,250 MG/5 ML UDC PO SCH ×3 (08:24→21:41)
--- NOTE | 2019-12-17 09:00 | Electrocardiogram Report ---
Test Reason : Blood Pressure : / mmHG Vent. Rate : 083 BPM Atrial Rate : 083 BPM P-R Int : 174 ms QRS Dur : 100 ms QT Int : 412 ms P-R-T Axes : 027 024 065 degrees QTc Int : 484 ms Normal sinus rhythm Prolonged QT Abnormal ECG When compared with ECG of 16-DEC-2019 07:50, No significant change was found Confirmed by Edmar Schultz ([id number]) on 12/17/2019 8:59:45 AM Referred By: REFERRED SELF Confirmed By:Edmar Schultz
--- NOTE | 2019-12-17 10:20 | Critical Care Progress Note ---
Date of Service December 17, 2019 Assessment & Plan (1) Post-ERCP acute pancreatitis: CT abdomen pelvis 12/14/2019: Shows bilateral lower lobe atelectasis, acute pancreatitis with moderate peripancreatic fluid and infiltration extending into the retroperitoneum. No peripancreatic fluid collection. 44-year-old male with past medical history of hypertension, morbid obesity was admitted to the hospital because of pancreatitis post ERCP. Patient was upgraded to the ICU because of worsening respiratory status as well as SARAH. --VDRF secondary to acute hypoxic respiratory failure Moderate ARDS-like picture P/F ratio initial was less than 150, now > 150 Secondary to likely pancreatitis on top of fluid overload Lower part of the lungs on CT abdomen 12/14/19 shows atelectasis, VQ scan is low probability for PE Continue with lung protective ventilation High PEEP, low tidal volume to keep Plateau < 30 with permissive hypercapnea if need be. Monitor ABGs --SARAH Improving Patient did have a hypotensive episode in the hospital on 12/13/2019 Abdominal compartment syndrome can present the same way, intra-abdominal p ressure 14 on 12/15/2019. Unlikely to be the cause of SARAH FeNa: 0.4% which goes with prerenal component. CT abdomen pelvis did not show any free fluid in the peritoneum. Monitor BUN/creatinine Avoid nephrotoxic medications Strict ins and outs --Acute pancreatitis Likely post ERCP Patient's initial BISAP score was 1, on 12/14/2019 increased to 3, which is for sirs>2 and BUN> 25 and trace right-sided pleural effusion Antibiotics being given for possible cholangitis. GI on board --Hypocalcemia This is likely from saponification of calcium into the farrukh-pancreatic fat Keep magnesium greater than 2 and phosphorus greater than 3 Continue with p.o. supplementation of calcium. --Elevated LFTs Likely post ERCP Trending down Monitor --Hypertension On Coreg with holding parameters. --Elevated troponin Likely secondary to type II [place] Monitor --Morbid obesity --Prophylaxis VTE: Heparin GI: Pepcid Diet: NPO Lines: Left radial, peripheral, intubation 12/15/2019 --Hypokalemia, hypophosphatemia Being replaced Plan: In/out: -1470, urine output 4.3 L Chest x-ray from today still shows bilateral lower lobe infiltrative changes AB.42/32 /62 on 45% FiO2 and PEEP of 10, plateau of the patient is 21 with tidal volume 500. I went up on the respiratory rate to 26 given that the patient has been breathing a 26 the whole day. Increase PEEP to 14 plateau was still 24. Decrease tidal volume to 480. Patient is oxygenating not fighting the vent. I do not think there is a need to paralyze or prone the patient right now. There is a possibility it might be needed in future. We will give 40 mg of Lasix today. Patient said abdominal pressure has been around 14. EKG from today shows QTC of 463. QTC has been trending down. Continue with antibiotics for possible cholangitis. WBC are trending down Start the patient on feeding through the OGT. I have personally spent 35 minutes of critical care time in the direct management of this patient. This is a life/limb threatening event. This includes time spent evaluating patient, direct bedside care, chart review, placing orders, interpretation of diagnostic studies, discussion with consultants, patient, and family members, as well as other required patient management activities. This time is exclusive of all separately billable procedures, and teaching time and separate from and in addition to any other critical care service time. Please note the above document was generated using voice recognition software. It may contain grammatical, syntax or spelling errors. (2) Acute renal failure: (3) Hypocalcemia: Admission and Anticipated Discharge Date Admission Date: December 12, 2019 Subjective Patient seen and examined at bedside. No acute distress, no adverse events overnight. Patient was on Precedex 0.3, propofol 40 at the time of examination. Patient has been breathing at the rate of 26. Has been spiking fever 38.1 Celsius. Review of Systems Review of Systems: Unobtainable due to endotracheal tube Physical Exam Physical Exam: Constitutional: Intubated HEENT: PERRLA Respiratory system: Decreased air entry bilaterally, no wheeze, no rhonchi, positive crackles bilateral lower lobes CVS: S1-S2 positive, no murmurs or gallops Abdomen: Soft, distended, no rebound, decreased bowel sounds, obese Extremities: +2 pulses bilaterally radialis/ dorsalis pedis, no cyanosis, no bakari ma Neuro: Positive gag, positive pupillary, positive corneal, RASS -2 Psych: Unable to assess G/U: Positive Mixon Skin: no rashes, warm and dry Lymphatic: no cervical or axillary lymphadenopathy Results & Data Results & Data ([facility]) Vital Signs (Past 12 Hours) Vital Signs Temp Pulse Resp BP Pulse Ox 12/17/19 08:58 87 117/67 93 12/17/19 08:00 83 12/17/19 07:58 38 C H 82 106/63 92 12/17/19 07:20 81 26 H 93 12/17/19 06:58 83 102/61 92 12/17/19 05:58 37.3 C 88 122/80 95 12/17/19 05:55 84 26 H 93 12/17/19 04:58 37.4 C 77 102/61 99 12/17/19 03:58 37.4 C 77 98/54 L 94 12/17/19 02:58 37.3 C 77 97/60 L 92 12/17/19 01:58 37.3 C 81 88/57 L 93 12/17/19 01:50 80 24 92 12/17/19 00:58 37.3 C 79 100/59 L 92 12/17/19 00:00 80 12/16/19 23:58 37.4 C 81 110/65 97 12/16/19 23:45 79 23 94 12/16/19 22:58 37.4 C 83 108/61 96 12/17/19 04:19 12/17/19 12:52 Coding Level of Care Code Critical Care 1st 30-74 mins Diagnoses Post-ERCP acute pancreatitis K91.89; K85.90 Acute renal failure N17.0 Acute renal failure type: with acute tubular necrosis Hypocalcemia E83.51 Time Spent (min) 35 (1) Acute renal failure Acute renal failure type: with acute tubular necrosis Qualified Code(s): N17.0 - Acute kidney failure with tubular necrosis
[2019-12-17 11:17] LABS: iSTAT Arterial Blood Gas HCO3 23 meg/L (19-24); iSTAT Arterial Blood Gas pCO2 35 mmHg (35-46); iSTAT Arterial Blood Gas pH 7.43 (7.35-7.45); iSTAT Arterial Blood Gas pO2 66 mmHg (80-95); iSTAT Carbon Dioxide 24 mmol/L (24-31); iSTAT FiO2 45 %; iSTAT Site Art Line
--- NOTE | 2019-12-17 11:26 | Nephrology Progress Note ---
Date of Service December 17, 2019 Assessment & Plan (1) Hypocalcemia: From acute pancreatitis; saponification does not explain prolonged QTc >> peaked on 12/15 at 513ms; today at 463ms. he had normal calcium on arrival to ER on 12/11 and QTc that day as 431. now w/ volume overload and VDRF so looking to minimize volume infusions. Phosphorus improving but needs frequent supplementation. Mag has been wnl. >no indication for IV calcium today > redose Ca to keep QTc <470 in concentrated infusions (pharmacy can mix 1 gm Ca gluc in 30 mL) >recommend daily ECG to monitor QTc at least while critically ill -cont increased / tid ca carbonate OG -keep mag wnl -cont to monitor/replete phos, mag -K already repleted today (2) Acute respiratory failure with hypoxia: intubated 12/14 for resp distress; moderate ARDS (3) History of acute renal failure: baseline creatinine 0.9; at baseline on presentation; increased to 2.4 day after admission. SARAH from [facility] related to IV contrast, to critical illness; creatinine today at 1.2. when I /O have been measured consistently, no oliguria -daily bmp -prn lasix Admission and Anticipated Discharge Date Admission Date: December 12, 2019 Subjective remains intubated; T mx again 38; about 700 positive today mL so far; QTc in 460s Review of Systems Review of Systems: Unobtainable due to endotracheal tube Physical Exam Constitutional: well developed, well nourished and + mechanically ventilated; no acute distress ENMT: Ears: no external ear abnormality Nose: no external nose abnormality Mouth: + dry oral mucous membranes Neck: no nuchal rigidity Respiratory: no respiratory distress and no labored breathing Auscultation: lungs clear to auscultation bilaterally and + diminished lung sounds Cardiovascular: Rate/Rhythm: regular rate and regular rhythm Extremities: no edema Gastrointestinal (Abdomen): Inspection/Auscultation: + abdomen distended and normal bowel sounds (diminished); no abdominal edema Percussion/Palpation: abdomen soft; abdomen nontender Musculoskeletal: Extremities: no cyanosis, no clubbing and no petechiae Skin: no rashes, warm and dry Neurologic: sedated Psychiatric: Orientation: alert and oriented x 3 Eye Contact: good eye contact Speech: normal rate/rhythm/volume of speech Affect: + anxious affect Genitourinary: foiley w/ ample yellow urine Results & Data ([facility]) Vital Signs (Past 12 Hours) Vital Signs Temp Pulse Resp BP Pulse Ox 12/17/19 09:58 83 111/64 93 12/17/19 08:58 87 117/67 93 12/17/19 08:00 83 12/17/19 07:58 38 C H 82 106/63 92 12/17/19 07:20 81 26 H 93 12/17/19 06:58 83 102/61 92 12/17/19 05:58 37.3 C 88 122/80 95 12/17/19 05:55 84 26 H 93 12/17/19 04:58 37.4 C 77 102/61 99 12/17/19 03:58 37.4 C 77 98/54 L 94 12/17/19 02:58 37.3 C 77 97/60 L 92 12/17/19 01:58 37.3 C 81 88/57 L 93 12/17/19 01:50 80 24 92 12/17/19 00:58 37.3 C 79 100/59 L 92 12/17/19 00:00 80 12/16/19 23:58 37.4 C 81 110/65 97 12/16/19 23:45 79 23 94 Laboratory Results 12/17/19 04:19 12/17/19 04:19
[2019-12-17 13:31] LABS: BUN Creatinine Ratio 21.8 (10-20); Calcium 6.7 mg/dl (8.5-10.1); Creatinine Clr Calc Pharmacy 135.5 ml/min; Est GFR (African American) 94.1; Est GFR (Non-African American) 81.2; Potassium 3.6 mmol/L (3.5-5.1)
--- NOTE | 2019-12-17 13:55 | Hospitalist Progress Note ---
Date of Service December 17, 2019 Assessment & Plan (1) Post-ERCP acute pancreatitis: 44-year-old male with history of hypertension and prediabetes, dyslipidemia, aortic root enlargement, depression, presenting with abdominal pain after an ERCP procedure. Post ERCP pancreatitis Patient recently underwent endoscopic ultrasound/EGD for abnormal liver serologies, subsequently underwent ERCP for cholelithiasis that were discovered, then developed abdominal pain afterwards CT abdomen pelvis: 1. Findings consistent with acute pancreatitis of the pancreatic head and uncinate process. 2. Moderate peripancreatic infiltrative change with trace amount of scattered fluid. 3. No evidence for drainable abscess or collection. Lipase 2422 Total bili 2.5 AST/ALT/alk phos 544/394/88 Management of acute respiratory failure, hypotension, hypoxia, acute renal failure, hypocalcemia per below repeat CT abd/pelvis 12/15: 1. Moderately progressive pancreatitis. 2. Progressive bibasilar parenchymal infiltrates/effusions 3. Mildly progressive abdominal and pelvic ascites 4. Moderately progressive Pancreatic infiltrative change. No evidence for drainable abscess or collection at this time. 5. developing body wall anasarca. Acute respiratory failure, likely secondary to volume overload versus ARDS? [facility] Vent Day 3 received Lasix IV yesterday, -1.2 L so far may need more Lasix IV today Other management including mechanical ventilator per funeral director/embalmer Acute renal failure Likely ATN as per nephrology service Creatinine improved from 2.6, now 1.1 good urine output Hypocalcemia in the setting of pancreatitis Received IV calcium gluconate Oral calcium ordered monitor ca Hypomagnesemia monitor and replace Possible cholangitis Positive leukocytosis--> resolved Urine culture negative Blood cultures negative (+) tmax 38 Continue with IV Zosyn Hypoxia on hospital day 2Patient noted to be hypoxic in the setting of unresponsiveness and hypotension Chest x-ray: Positive atelectasis Likely secondary hypoventilation secondary to epigastric pain Bilateral lower extremity Doppler ultrasound negative for PE VQ scan low probability for PE Heparin drip discontinued Management per #2 Hypotension Resolved Hospital day 2 Likely multifactorial, from Dilaudid?, Dehydration Continue IV fluids Management of possible sepsis noted below Lethargy Possible toxic metabolic encephalopathy, resolved Hospital day 2 Likely secondary to hypercapnic respiratory failure, in the setting of Dilaudid use with acute renal failure Resolved Dilaudid dose reduced Patient apparently has been diagnosed with obstructive sleep apnea in the past, not able to tolerate BiPAP mask Declines trial of BiPAP mask again while admitted Monitor closely Hypertension losartan and Coreg on hold due to hypotension Monitor Prediabetes Monitor Morbid obesity Counseling Depression usually on Zoloft, trazodone, Remeron DVT prophylaxis Heparin subcutaneous every 8 CODE STATUS Full code Disposition pending lives with family at home Admission and Anticipated Discharge Date Admission Date: December 12, 2019 Subjective ff up for acute pancreatitis, acute respiratory failure, etc. as noted below remains intubated, sedated tmax 38 good urine output not in distress no other acute issues per RN Quirino Review of Systems Review of Systems: All systems reviewed & are unremarkable except as noted in HPI & below Physical Exam Physical Exam: General- sedated, breathing with no effort or accessory muscle use Eyes- anicteric Neck- no JVD Lungs- mild rhonchi BL anteriorly, no wheezing Heart- normal rate, regular rhythm; no murmurs Abdomen- normal bowel sounds, mildly distended, soft, nontender Extremities- mild lower leg edema, no calf tenderness Neuro- sedated Skin- warm & dry Results & Data Results & Data ([facility]) Vital Signs (Past 12 Hours) Vital Signs Temp Pulse Resp BP Pulse Ox 12/17/19 11:13 83 28 H 93 12/17/19 09:58 83 111/64 93 12/17/19 08:58 87 117/67 93 12/17/19 08:00 83 12/17/19 07:58 38 C H 82 106/63 92 12/17/19 07:20 81 26 H 93 12/17/19 06:58 83 102/61 92 12/17/19 05:58 37.3 C 88 122/80 95 12/17/19 05:55 84 26 H 93 12/17/19 04:58 37.4 C 77 102/61 99 12/17/19 03:58 37.4 C 77 98/54 L 94 12/17/19 02:58 37.3 C 77 97/60 L 92 12/17/19 01:58 37.3 C 81 88/57 L 93
--- NOTE | 2019-12-17 14:26 | Electrocardiogram Report ---
Test Reason : Blood Pressure : / mmHG Vent. Rate : 084 BPM Atrial Rate : 084 BPM P-R Int : 174 ms QRS Dur : 098 ms QT Int : 402 ms P-R-T Axes : 026 020 057 degrees QTc Int : 475 ms Poor data quality, interpretation may be adversely affected Normal sinus rhythm Normal ECG When compared with ECG of 16-DEC-2019 15:00, No significant change was found Confirmed by Edmar Schultz ([id number]) on 12/17/2019 2:25:49 PM Referred By: REFERRED SELF Confirmed By:Edmar Schultz
--- NOTE | 2019-12-17 14:34 | Electrocardiogram Report ---
Test Reason : Blood Pressure : / mmHG Vent. Rate : 084 BPM Atrial Rate : 084 BPM P-R Int : 184 ms QRS Dur : 098 ms QT Int : 392 ms P-R-T Axes : 020 024 065 degrees QTc Int : 463 ms Normal sinus rhythm Normal ECG When compared with ECG of 16-DEC-2019 18:45, (unconfirmed) No significant change was found Confirmed by Edmar Schultz ([id number]) on 12/17/2019 2:34:24 PM Referred By: REFERRED SELF Confirmed By:Edmar Schultz
[2019-12-17] MEDS ORDERED: POTASSIUM PHOSPHATE 30 MMOL in SODIUM CHLORIDE 0.9% 500 ML IV ONE (15:00)
[2019-12-17 15:01] LABS: Magnesium 2.4 mg/dl (1.8-2.4)
[2019-12-17] MEDS ORDERED: FUROSEMIDE 40 MG in SYRINGE 0 ML IV ONE (15:15)
--- NOTE | 2019-12-17 15:31 | Gastroenterology Progress Note ---
Date of Service December 17, 2019 Assessment & Plan Admission and Anticipated Discharge Date Admission Date: December 12, 2019 Subjective I have seen and examined the patient, remains intubated but remains clinically stable. On exam abdomen is soft. Labs reviewed, LFTs normal, no leukocytosis. CXR with bibasilar infiltrates. Recommend: Continue management of respiratory failure per ICU team. Trial of pressure suppo rt once ready. Continue NG feeds. Results & Data ([facility]) Vital Signs (Past 12 Hours) Vital Signs Temp Pulse Resp BP Pulse Ox 12/17/19 13:53 86 28 H 92 12/17/19 11:13 83 28 H 93 12/17/19 09:58 83 111/64 93 12/17/19 08:58 87 117/67 93 12/17/19 08:00 83 12/17/19 07:58 38 C H 82 106/63 92 12/17/19 07:20 81 26 H 93 12/17/19 06:58 83 102/61 92 12/17/19 05:58 37.3 C 88 122/80 95 12/17/19 05:55 84 26 H 93 12/17/19 04:58 37.4 C 77 102/61 99 12/17/19 03:58 37.4 C 77 98/54 L 94
[2019-12-17 21:23] LABS: BUN Creatinine Ratio 17.1 (10-20); Creatinine Clr Calc Pharmacy 126.4 ml/min; Est GFR (African American) 86.5; Est GFR (Non-African American) 74.6; Magnesium 2.1 mg/dl (1.8-2.4); Potassium 3.5 mmol/L (3.5-5.1)
[2019-12-17 21:24] LABS: Phosphorus 2.5 mg/dl (2.5-4.9)
[2019-12-17] MEDS: TUBE FEEDING WATER FLUSH OG SCH (21:33)
[2019-12-17] MEDS: PEPTAMEN INTENSE VHP 1.0 CAL 1,000 ML BAG OG SCH (21:33)
[2019-12-18] MEDS: propofoL 1,000 MG/100 ML VIAL IV SCH ×12 (00:06→19:06)
[2019-12-18] MEDS: TUBE FEEDING WATER FLUSH OG SCH ×6 (00:10→21:25)
[2019-12-18] MEDS: DEXMEDETOMIDINE HCL 200 MCG in SODIUM CHLORIDE 0.9% 48 ML IV SCH ×9 (01:11→22:13)
[2019-12-18] MEDS: HEPARIN SOD 5,000 UNIT/0.5 ML VIAL SQ SCH ×2 (03:37→21:40)
[2019-12-18] MEDS: ACETAMINOPHEN SOLN 650 MG/20.3 ML UDC OG PRN (03:49)
[2019-12-18 04:47] LABS: Hematocrit (blood only) 39.8 % (42-52); Hemoglobin 13.4 g/dL (14.0-18.0); Mean Corpuscular Hemoglobin 30.6 pg (25-34); Mean Corpuscular Hgb Conc 33.7 g/dL (32-36); Mean Corpuscular Volume 90.9 fL (80-100); Mean Platelet Volume 11.3 fL (7.4-10.4); Platelet Count 191 K/uL (130-400); RDW Coefficient of Variation 13.5 % (11.5-14.5); RDW Standard Deviation 45.2 fL (36.4-46.3); Red Blood Count 4.38 M/uL (4.7-6.1); White Blood Count 13.07 K/uL (4.8-10.8)
[2019-12-18 05:04] LABS: Albumin Level 1.8 gm/dl (3.4-5.0); BUN Creatinine Ratio 20.9 (10-20); Bilirubin Direct 0.4 mg/dl (0-0.2); Calcium 7.1 mg/dl (8.5-10.1); Creatinine Clr Calc Pharmacy 125.8 ml/min; Est GFR (African American) 85.6; Est GFR (Non-African American) 73.8; Potassium 3.6 mmol/L (3.5-5.1)
[2019-12-18 05:07] LABS: Bilirubin,Total 0.7 mg/dl (0.2-1); Total Protein 5.7 gm/dl (6.4-8.2)
[2019-12-18 05:30] LABS: Basophils % (auto) 0.8 %; Dohle Bodies 1+; Eosinophils # (auto) 0.14 K/uL (0-0.5); Eosinophils % (auto) 1.1 %; Immature Granulocytes # (auto) 1.24 K/uL (0.00-0.02); Immature Granulocytes % (auto) 9.5 %; Lymphocytes # (auto) 1.47 K/uL (1.2-3.4); Lymphocytes % (auto) 11.2 %; Monocytes # (auto) 2.06 K/uL (0.11-0.59); Monocytes % (auto) 15.8 %; Neutrophils # (auto) 8.06 K/uL (1.4-6.5); Neutrophils % (auto) 61.6 %; Polychromasia 1+; Toxic Granulation 1+
[2019-12-18] MEDS: PIPERACILLIN/TAZOBACTAM 4.5 GM in DEXTROSE 5% 100 ML IV SCH (05:39)
[2019-12-18] MEDS ORDERED: POTASSIUM CHLORIDE 20 MEQ/15 ML UDC PO STA (05:39)
[2019-12-18 05:42] LABS: iSTAT Arterial Blood Gas HCO3 23 meg/L (19-24); iSTAT Arterial Blood Gas pCO2 34 mmHg (35-46); iSTAT Arterial Blood Gas pH 7.44 (7.35-7.45); iSTAT Arterial Blood Gas pO2 71 mmHg (80-95); iSTAT Carbon Dioxide 24 mmol/L (24-31); iSTAT FiO2 45 %; iSTAT Site Art Line
--- NOTE | 2019-12-18 07:59 | XRay Report ---
XR chest 1V portable CLINICAL HISTORY: Respiratory failure COMPARISON STUDY: 12/17/2019 FINDINGS: There is an endotracheal tube 3.5 cm above the willie. There is a nasogastric tube which pa sses into the stomach. The heart is enlarged. There is radiographic evidence of mild congestive failu re/fluid overload. There are persistent bilateral pleural effusions with associated basilar airspace opacities.[ IMPRESSION: No significant change from the prior study. Mild pulmonary vascular congestion. Bilateral pleural effusions with associated bibasilar airspace opacities. ACT 112: Negative or not required by law. Electronically signed by: Pedro Casas M.D. 12/18/2019 7:57 AM
[2019-12-18] MEDS ORDERED: VANCOMYCIN HCL 2,750 MG in SODIUM CHLORIDE 0.9% 500 ML IV STA (08:21)
[2019-12-18] MEDS ORDERED: IMIPENEM/CILASTATIN SODIUM 500 MG in DEXTROSE 5% 100 ML IV STA (08:22)
[2019-12-18] MEDS ORDERED: CONSULT PHARMACY PRN (08:23)
[2019-12-18] MEDS: CALCIUM CARBONATE 1,250 MG/5 ML UDC PO SCH ×3 (08:37→21:25)
[2019-12-18] MEDS: FAMOTIDINE 20 MG in SYRINGE 3 ML IV SCH (08:37)
[2019-12-18] MEDS ORDERED: POTASSIUM PHOS 3 MMOL/1 ML INFUSION IV STA (09:38)
[2019-12-18] MEDS ORDERED: POTASSIUM PHOSPHATE 18 MMOL in SODIUM CHLORIDE 0.9% 500 ML IV ONE (10:00)
[2019-12-18] MEDS: CHOLECALCIFEROL 1,000 UNITS 25 MCG TAB PO SCH (10:27)
[2019-12-18] MEDS ORDERED: IMIPENEM/CILASTATIN CONSULT ACTIVE PRN (10:58)
[2019-12-18] MEDS ORDERED: FUROSEMIDE 40 MG/4 ML VIAL IV ONE (11:00)
[2019-12-18] MEDS ORDERED: PEPTAMEN INTENSE VHP 1.0 CAL 1,000 ML BAG OG PRN ×2 (11:56→11:58)
--- NOTE | 2019-12-18 12:53 | Gastroenterology Progress Note ---
Date of Service December 18, 2019 Assessment & Plan (1) Post-ERCP acute pancreatitis: 44 year old male admitted w/ post ERCP pancreatitis, currently remains intubated in ICU. He continues to be febrile. LFTs and lipase, BUN/Cr normalized now. - Vent management per ICU - Continue IVF hydration, IV antibx coverage - Continue tube feeds - Consider COVID 19 testing Admission and Anticipated Discharge Date Admission Date: December 12, 2019 Supervising Physician Co-Signing Physician Notes Attending attestation I have seen, examined this patient, and agree with the findings and above by our mid-level provider ANTONINO Castillo, with the following additions: Working towards extubation, abd soft Agree with Covid testing given fevers Subjective Pt remains intubated. Febrile still. LFTs and lipase normalized now Review of Systems Review of Systems: Unobtainable due to endotracheal tube Physical Exam Constitutional: comfortable and + mechanically ventilated ENMT: external ear and nose normal, oropharynx normal Respiratory: no respiratory distress and does not use accessory muscles intubated Cardiovascular: RRR, no murmur, no edema Gastrointestinal (Abdomen): Inspection/Auscultation: normal bowel sounds Percussion/Palpation: abdomen soft; abdomen nontender Skin: no rashes, warm and dry no jaundice Psychiatric: A+Ox3, euthymic affect Lymphatic: no lymphedema Results & Data ([facility]) Vital Signs (Past 12 Hours) Vital Signs Temp Pulse Resp BP Pulse Ox 12/18/19 11:12 92 H 31 H 92 12/18/19 08:33 26 H 12/18/19 08:00 79 12/18/19 06:58 79 27 H 93 12/18/19 05:59 84 112/66 95 12/18/19 05:15 88 29 H 94 12/18/19 05:00 80 97/47 L 93 12/18/19 03:59 38.7 C H 85 110/76 96 12/18/19 02:59 83 108/69 93 12/18/19 02:05 85 31 H 93 12/18/19 02:00 78 92/60 L 95 12/18/19 01:00 82 108/61 94
--- NOTE | 2019-12-18 13:04 | Ultrasound Report ---
BILATERAL UPPER EXTREMITY VENOUS DOPPLER HISTORY: Bilateral arm swelling. COMPARISON STUDY: None. FINDINGS: The bilateral internal jugular veins are patent. There is normal flow within the bilateral subclavian veins. There is normal flow and compressibility within the lateral axillary, basilic, brac hial, and left ulnar veins. Of note, the right ulnar vein was not visualized on this study. Partially thrombosed mid to distal right cephalic vein. Thrombosed cephalic vein seen within the antecubital f hector and forearm. IMPRESSION: No DVT within the right or left upper extremity. Thrombosed bilateral cephalic veins. ACT 112: Negative or not required by law. Electronically signed by: Cash Menendez M.D. 12/18/2019 1:02 PM
--- NOTE | 2019-12-18 13:06 | Ultrasound Report ---
US venous doppler LE BI HISTORY: Pain. Edema. leg edema, r/o dvt COMPARISON STUDY: None. FINDINGS: There is normal compressibility, flow, and augmentation within the bilateral lower extremit y deep venous systems. IMPRESSION: No DVT within the right or left lower extremity. ACT 112: Negative or not required by law. The above report was generated using voice recognition software. It may contain grammatical, syntax or spelling errors. Electronically signed by: Isra Briseno M.D. 12/18/2019 1:05 PM
[2019-12-18] MEDS: MoRPHine SULFATE 2 MG/ML CARP IV PRN ×2 (14:15→21:01)
[2019-12-18] MEDS: IMIPENEM/CILASTATIN SODIUM 500 MG in DEXTROSE 5% 100 ML IV SCH ×2 (14:15→22:02)
[2019-12-18] MEDS ORDERED: HYDROmorphone INJ 0.5 MG/0.5 ML SYR IV PRN (15:27)
[2019-12-18] MEDS ORDERED: HYDROmorphone INJ 0.5 MG/0.5 ML SYR ONE (15:28)
[2019-12-18] MEDS: OXYCODONE HCL IR 5 MG TAB (IMMEDIATE RELEASE) PO PRN ×2 (17:13→21:25)
[2019-12-18] MEDS: ENOXAPARIN INJ 40 MG/0.4 ML SYR SQ SCH (17:13)
--- NOTE | 2019-12-18 17:33 | Critical Care Consultation ---
Date of Consultation December 18, 2019 History of Present Illness Attending Physician: Philip Giron MD Allergies Allergy/AdvReac Type Severity Reaction Status Date / Time gluten Allergy Verified 12/15/19 10:35 Home Medications Home Medications Medication Instructions Recorded Confirmed Type Excedrin Migraine 1 tab PO Q6H PRN 05/29/19 12/12/19 History carvedilol 12.5 mg PO BID 05/29/19 12/12/19 History fluticasone propionate [Flonase 2 spray INTRANASAL DAILY PRN 05/29/19 12/12/19 History Allergy Relief] losartan 25 mg PO QAM 05/29/19 12/12/19 History methocarbamol 500 mg PO Q8H PRN 05/29/19 12/12/19 History naproxen sodium [Aleve] 220 mg PO BID PRN 05/29/19 12/12/19 History trazodone 100 - 200 mg PO HS 05/29/19 12/12/19 History mirtazapine 45 mg PO HS 12/12/19 12/12/19 History Patient History Medical History Anxiety Aortic root enlargement F/U DR ROMERO Q6-12 MONTHS Bulging of cervical intervertebral disc ROM WNL Celiac disease Chronic back pain Degenerative disc disease NECK AND LUMBAR Depression Fatty liver Hx of thyroid nodule UNDER OBSERVATION Hyperlipidemia Hypertension Lumbar facet arthropathy Migraine HX Osteoarthritis Sleep apnea MILD-MODERATE APNEA-CAN'T TOLERATE CPAP Surgical History H/O arthroscopy of shoulder R X3 AND L X 3. Left shoulder 04/08/2018. Glidescope #4, grade 1 view (elective). Interscalene block. no issues. History of anesthesia reaction SLOW TO WAKE History of appendectomy History of arthroscopy RIGHT KNEE History of cholecystectomy History of colonoscopy History of esophagogastroduodenoscopy (EGD) History of laminectomy L2-L3 WITH REMOVAL BENIGN TUMOR History of open reduction and internal fixation (ORIF) procedure LEFT ANKLE History of tooth extraction WISDOM TEETH Personal history of prior ablation treatment LUMBAR - OCTOBER 2017 Family History Sister Family history of reaction to anesthesia SLOW TO WAKE UP Sister No problems noted. Social History Preferred Language: Tam[place] Communication Ability: Effective Alterations Tailor Required: No Beliefs That Will Affect Care: None Current Living Situation: Spouse Other Information That Helps Us Care for You: No Feels Safe at Home: Yes Safety Concerns: Feels Safe At This Time Smoking Status: Never smoker Second Hand Exposure: No ; Hx Alcohol Use: No Hx Substance Use: No Results & Data Results & Data ([facility]) Vital Signs (Past 12 Hours) Vital Signs Temp Pulse Resp BP Pulse Ox 12/18/19 16:00 108 H 12/18/19 15:00 102 H 12/18/19 14:00 96 H 140/82 92 12/18/19 13:05 95 H 93 12/18/19 12:00 91 H 131/82 94 12/18/19 11:12 92 H 31 H 92 12/18/19 11:00 97 H 93 12/18/19 10:01 76 94 12/18/19 10:00 75 85/48 L 94 12/18/19 09:00 36.7 C 77 90/57 L 95 12/18/19 08:33 26 H 12/18/19 08:00 79 12/18/19 06:58 79 27 H 93 12/18/19 05:59 84 112/66 95 Coding
--- NOTE | 2019-12-18 17:43 | Critical Care Progress Note ---
Date of Service December 18, 2019 Assessment & Plan (1) Post-ERCP acute pancreatitis: CT abdomen pelvis 12/14/2019: Shows bilateral lower lobe atelectasis, acute pancreatitis with moderate peripancreatic fluid and infiltration extending into the retroperitoneum. No peripancreatic fluid collection. 44-year-old male with past medical history of hypertension, morbid obesity was admitted to the hospital because of pancreatitis post ERCP. Patient was upgraded to the ICU because of worsening respiratory status as well as SARAH. --VDRF secondary to acute hypoxic respiratory failure Liberated from ventilator today -Suspect secondary to volume overload --SARAH resolved Lasix today, goal 1 to 2 L negative --Acute pancreatitis Likely post ERCP Patient's initial BISAP score was 1, on 12/14/2019 increased to 3, which is for sirs>2 and BUN> 25 and trace right-sided pleural effusion Antibiotics being given for possible cholangitis. -Expanded antibiotics for secondary to fevers Reviewed GI recommendations --Hypocalcemia Continue with p.o. supplementation of calcium. -Supplement vitamin D --Elevated LFTs Likely post ERCP Trending down Monitor --Hypertension On Coreg with holding parameters. --Elevated troponin Likely secondary to type II [place] Monitor --Morbid obesity --Fever -Extremity ultrasound x4 -Superficial thrombophlebitis -Given hypoxia we will start the patient on therapeutic anticoagulation as I believe possible thrombotic risk outweighs bleeding risk at this time and as the patient gets further from initial pancreatitis events I feel he will fits recommendations for superficial thrombophlebitis treatment --Prophylaxis VTE: Heparin GI: Pepcid Diet: NPO Lines: Discontinue arterial line (2) Acute renal failure: (3) Hypocalcemia: Admission and Anticipated Discharge Date Admission Date: December 12, 2019 Subjective No overnight events, patient has been actively diuresed. Review of Systems Review of Systems: Unobtainable due to endotracheal tube Physical Exam Physical Exam: General: Alert. nontoxic. Skin: Warm, dry, 2+ pitting edema of left upper extremity Head: Atraumatic Ears, nose, mouth and throat: airway obscured by endotracheal tube Cardiovascular: Normal peripheral perfusion Respiratory: no respiratory distress Gastrointestinal: Non distended Musculoskeletal: No deformity Results & Data Results & Data ([facility]) Vital Signs (Past 12 Hours) Vital Signs Temp Pulse Resp BP Pulse Ox 12/18/19 16:00 108 H 12/18/19 15:00 102 H 12/18/19 14:00 96 H 140/82 92 12/18/19 13:05 95 H 93 12/18/19 12:00 91 H 131/82 94 12/18/19 11:12 92 H 31 H 92 12/18/19 11:00 97 H 93 12/18/19 10:01 76 94 12/18/19 10:00 75 85/48 L 94 12/18/19 09:00 36.7 C 77 90/57 L 95 12/18/19 08:33 26 H 12/18/19 08:00 79 12/18/19 06:58 79 27 H 93 12/18/19 05:59 84 112/66 95 Coding Level of Care Code Critical Care ea addt'l 30 min Diagnoses Post-ERCP acute pancreatitis K91.89; K85.90 Acute renal failure N17.0 Acute renal failure type: with acute tubular necrosis Hypocalcemia E83.51 Time Spent (min) 85 Comment I have personally spent 85 minutes of critical care time in the direct management of this patient. This is a life/limb threatening event. This includes time spent evaluating patient, direct bedside care, chart review, placing orders, interpretation of diagnostic studies, discussion with consultants, patient, and/or family members regarding treatment decisions, as well as other required patient management activities. This time is exclusive of all separately billable procedures, and teaching time and separate from and in addition to any other critical care service time. (1) Acute renal failure Acute renal failure type: with acute tubular necrosis Qualified Code(s): N17.0 - Acute kidney failure with tubular necrosis
[2019-12-18] MEDS: HYDROmorphone INJ 0.5 MG/0.5 ML SYR IV PRN ×2 (19:10→23:12)
[2019-12-18] MEDS: FAMOTIDINE 20 MG TAB OG SCH (21:26)
[2019-12-18] MEDS: PEPTAMEN INTENSE VHP 1.0 CAL 1,000 ML BAG OG SCH (21:40)
[2019-12-19] MEDS ORDERED: KETOROLAC TROMETHAMINE 15 MG/ML VIAL IM PRN
[2019-12-19] MEDS: MoRPHine SULFATE 2 MG/ML CARP IV PRN ×2 (00:10→05:08)
[2019-12-19] MEDS: OXYCODONE HCL IR 5 MG TAB (IMMEDIATE RELEASE) PO PRN ×5 (02:25→22:50)
[2019-12-19] MEDS: IMIPENEM/CILASTATIN SODIUM 500 MG in DEXTROSE 5% 100 ML IV SCH ×4 (02:27→19:27)
[2019-12-19] MEDS: HYDROmorphone INJ 0.5 MG/0.5 ML SYR IV PRN ×5 (03:31→19:59)
[2019-12-19] MEDS ORDERED: HYDROmorphone INJ 0.5 MG/0.5 ML SYR IV STA (04:05)
[2019-12-19 04:28] LABS: Hematocrit (blood only) 39.9 % (42-52); Hemoglobin 13.7 g/dL (14.0-18.0); Mean Corpuscular Hemoglobin 31.6 pg (25-34); Mean Corpuscular Hgb Conc 34.3 g/dL (32-36); Mean Corpuscular Volume 91.9 fL (80-100); Mean Platelet Volume 11.8 fL (7.4-10.4); Platelet Count 249 K/uL (130-400); RDW Coefficient of Variation 13.2 % (11.5-14.5); RDW Standard Deviation 44.2 fL (36.4-46.3); Red Blood Count 4.34 M/uL (4.7-6.1); White Blood Count 19.46 K/uL (4.8-10.8)
[2019-12-19 04:46] LABS: Albumin Level 1.8 gm/dl (3.4-5.0); BUN Creatinine Ratio 23.4 (10-20); Bilirubin Direct 0.4 mg/dl (0-0.2); Calcium 7.5 mg/dl (8.5-10.1); Creatinine Clr Calc Pharmacy 146.8 ml/min; Est GFR (African American) 103.1; Potassium 3.3 mmol/L (3.5-5.1)
[2019-12-19 04:49] LABS: Total Protein 5.7 gm/dl (6.4-8.2)
[2019-12-19 04:56] LABS: Basophils # (auto) 0.11 K/uL (0-0.2); Basophils % (auto) 0.6 %; Eosinophils # (auto) 0.11 K/uL (0-0.5); Eosinophils % (auto) 0.6 %; Immature Granulocytes # (auto) 1.52 K/uL (0.00-0.02); Immature Granulocytes % (auto) 7.8 %; Lymphocytes # (auto) 1.58 K/uL (1.2-3.4); Lymphocytes % (auto) 8.1 %; Monocytes % (auto) 10.3 %; Neutrophils # (auto) 14.14 K/uL (1.4-6.5); Neutrophils % (auto) 72.6 %; Toxic Granulation 3+
[2019-12-19 05:49] LABS: Phosphorus 2.4 mg/dl (2.5-4.9)
[2019-12-19] MEDS ORDERED: POTASSIUM CHLORIDE 20 MEQ TABCR PO STA (06:24)
[2019-12-19] MEDS: ENOXAPARIN INJ 40 MG/0.4 ML SYR SQ SCH ×2 (06:26→16:53)
--- NOTE | 2019-12-19 07:31 | Hospitalist Progress Note ---
Date of Service December 19, 2019 Assessment & Plan (1) Post-ERCP acute pancreatitis: 44-year-old male with history of hypertension and prediabetes, dyslipidemia, aortic root enlargement, depression, presenting with abdominal pain after an ERCP procedure. Post ERCP pancreatitis Patient recently underwent endoscopic ultrasound/EGD for abnormal liver serologies, subsequently underwent ERCP for cholelithiasis that were discovered, then developed abdominal pain afterwards CT abdomen pelvis: 1. Findings consistent with acute pancreatitis of the pancreatic head and uncinate process. 2. Moderate peripancreatic infiltrative change with trace amount of scattered fluid. 3. No evidence for drainable abscess or collection. Lipase 2422 Total bili 2.5 AST/ALT/alk phos 544/394/88 Management of acute respiratory failure, hypotension, hypoxia, acute renal failure, hypocalcemia per below repeat CT abd/pelvis 12/15: 1. Moderately progressive pancreatitis. 2. Progressive bibasilar parenchymal infiltrates/effusions 3. Mildly progressive abdominal and pelvic ascites 4. Moderately progressive Pancreatic infiltrative change. No evidence for drainable abscess or collection at this time. 5. developing body wall anasarca. Acute respiratory failure, likely secondary to volume overload Status post extubation 12/18/2019 Was on the mechanical ventilator for 3 days Given additional Lasix in the morning Acute renal failure Likely ATN as per nephrology service Creatinine improved from 2.6, now 1.1 good urine output Hypocalcemia in the setting of pancreatitis Received IV calcium gluconate Oral calcium ordered monitor ca Hypomagnesemia monitor and replace Fever, unclear etiology T-max 39 Urine culture pending Blood cultures pending Chest x-ray No significant change from the prior study. Mild pulmonary vascular congestion. Bilateral pleural effusions with associated bibasilar airspace opacities. Will transition from Zosyn to imipenem for now Monitor Superficial venous thrombosis Upper extremity Doppler study: No DVT within the right or left upper extremity. Thrombosed bilateral cephalic veins. Lower extremity Doppler study: No DVT within the right or left lower extremity. Lovenox started Back pain Patient has a history of chronic back pain Dilaudid 0.5 mg every 4 hours ordered, in addition to oxycodone Monitor closely Avoid increasing Dilaudid as much as possible to prevent hypoxia, altered mental status Hypoxia Occurred on Hospital day #2, patient noted to be hypoxic in the setting of unresponsiveness and hypotension Chest x-ray: Positive atelectasis Likely secondary hypoventilation secondary to epigastric pain Bilateral lower extremity Doppler ultrasound negative for PE VQ scan low probability for PE Heparin drip discontinued Management per #2 Hypotension Resolved Occurred on Hospital day 2 Likely multifactorial, from Dilaudid?, Dehydration Lethargy Possible toxic metabolic encephalopathy, resolved Occurred on Hospital day 2 Likely secondary to hypercapnic respiratory failure, in the setting of Dilaudid use with acute renal failure Resolved Dilaudid dose reduced Patient apparently has been diagnosed with obstructive sleep apnea in the past, not able to tolerate BiPAP mask Declines trial of BiPAP mask again while admitted Monitor closely Hypertension losartan and Coreg on hold due to hypotension Monitor Prediabetes Monitor Morbid obesity Counseling Depression usually on Zoloft, trazodone, Remeron DVT prophylaxis Heparin subcutaneous every 8h CODE STATUS Full code Disposition pending lives with family at home Admission and Anticipated Discharge Date Admission Date: December 12, 2019 Subjective delayed entry, date of service as noted above Patient status post extubation Seen resting bedside chair, on 3 L of nasal cannula Oriented x3, not in distress Denies shortness of breath, cough Reports significant low back pain, no leg weakness or numbness or paresthesias Reports fullness around the abdomen, no nausea Denies other symptoms Review of Systems Review of Systems: All systems reviewed & are unremarkable except as noted in HPI & below Physical Exam Physical Exam: General- oriented x 3, not in distress, speaks in sentences with no effort or accessory muscle use Eyes- anicteric Neck- no JVD Lungs-mild rales at the bases, no wheezing Heart- normal rate, regular rhythm; no murmurs Abdomen- normal bowel sounds, nondistended, soft, nontender Extremities-grade 1 bilateral lower leg edema with no erythema or tenderness, no calf tenderness Mild edema right arm Neuro- alert, oriented x 3; no gross focal neurologic deficits Skin- warm & dry Results & Data Results & Data ([facility]) Vital Signs (Past 12 Hours) Vital Signs Temp Pulse Resp BP Pulse Ox 12/19/19 03:00 100 H 16 150/92 H 100 12/19/19 02:33 99 H 18 158/85 H 99 12/19/19 02:00 101 H 153/112 H 96 12/19/19 01:00 105 H 166/106 H 96 12/19/19 00:13 110 H 147/107 H 95 12/19/19 00:00 37.3 C 111 H 170/109 H 97 12/18/19 23:00 111 H 163/74 H 96 12/18/19 22:00 113 H 160/91 H 97 12/18/19 21:01 121 H 136/97 91 12/18/19 20:00 37.4 C 129 H 146/101 H 90 Laboratory Results All noted and reviewed
[2019-12-19] MEDS: CHOLECALCIFEROL 1,000 UNITS 25 MCG TAB PO SCH (07:53)
[2019-12-19] MEDS: CALCIUM CARBONATE 1,250 MG/5 ML UDC PO SCH ×3 (07:53→19:57)
[2019-12-19] MEDS: FAMOTIDINE 20 MG TAB OG SCH ×2 (07:53→19:56)
--- NOTE | 2019-12-19 09:05 | XRay Report ---
XR KUB/Abdomen 1 view CLINICAL HISTORY: r/o ileus COMPARISON STUDY: No previous studies for comparison. FINDINGS: Moderate nonobstructive ileus. No significant colonic distention. Several air-filled loops of small bowel. No secondary signs of free air. IMPRESSION: Moderate nonobstructive ileus. ACT 112: Negative or not required by law. The above report was generated using voice recognition software. It may contain grammatical, syntax or spelling errors. Electronically signed by: Isra Briseno M.D. 12/19/2019 9:03 AM
--- NOTE | 2019-12-19 09:28 | Critical Care Progress Note ---
Date of Service December 19, 2019 Assessment & Plan (1) Post-ERCP acute pancreatitis: CT abdomen pelvis 12/14/2019: Shows bilateral lower lobe atelectasis, acute pancreatitis with moderate peripancreatic fluid and infiltration extending into the retroperitoneum. No peripancreatic fluid collection. 44-year-old male with past medical history of hypertension, morbid obesity was admitted to the hospital because of pancreatitis post ERCP. Patient was upgraded to the ICU because of worsening respiratory status as well as SARAH. --VDRF secondary to acute hypoxic respiratory failure: Resolved --SARAH resolved --Acute pancreatitis improving --Hypocalcemia: Improving Continue with p.o. supplementation of calcium. -Supplement vitamin D --Elevated LFTs: Improving --Hypertension Reinitiating Coreg --Elevated troponin: Improving --Morbid obesity --Fever -Extremity ultrasound x4 -Superficial thrombophlebitis -Given hypoxia we will start the patient on therapeutic anticoagulation as I believe possible thrombotic risk outweighs bleeding risk at this time and as the patient gets further from initial pancreatitis events I feel he will fits recommendations for superficial thrombophlebitis treatment Ileus: -In concerned about narcotic use, depending on patient request for pain control I will entertain the option of ketamine versus ketamine infusion -I reviewed the patient's [employer], he is recently been started on oxycodone for what sounds to be a chronic pain diagnosis, he would be considered opiate paul --Prophylaxis VTE: Heparin GI: Pepcid Diet: Clears progress as tolerated -He is not had much of a volitional appetite Lines: Discontinue arterial line Disposition: Continue ICU status today as patient may need ketamine if remains stable potentially downgrade out of ICU (2) Acute renal failure: (3) Hypocalcemia: Admission and Anticipated Discharge Date Admission Date: December 12, 2019 Subjective Continued complaints of back pain and abdominal pain, or requesting narcotic medication overnight Not moving bowels today Review of Systems Review of Systems: No flatulence Physical Exam Physical Exam: General: Alert. nontoxic. Skin: Warm, dry, 2+ pitting edema of left upper extremity Head: Atraumatic Ears, nose, mouth and throat: airway patent Cardiovascular: Normal peripheral perfusion Respiratory: no respiratory distress Gastrointestinal: Non distended Musculoskeletal: No deformity Results & Data Results & Data ([facility]) Vital Signs (Past 12 Hours) Vital Signs Temp Pulse Resp BP Pulse Ox 12/19/19 08:12 36.7 C 110 H 14 166/91 H 96 12/19/19 07:00 109 H 14 149/88 H 97 12/19/19 03:00 100 H 16 150/92 H 100 12/19/19 02:33 99 H 18 158/85 H 99 12/19/19 02:00 101 H 153/112 H 96 12/19/19 01:00 105 H 166/106 H 96 12/19/19 00:13 110 H 147/107 H 95 12/19/19 00:00 37.3 C 111 H 170/109 H 97 12/18/19 23:00 111 H 163/74 H 96 12/18/19 22:00 113 H 160/91 H 97 Laboratory Results 12/19/19 12/19/19 12/18/19 Range/Units 03:57 03:57 10:50 WBC 19.46 H (4.8-10.8) K/uL RBC 4.34 L (4.7-6.1) M/uL Hgb 13.7 L (14.0-18.0) g/dL Hct 39.9 L (42-52) % MCV 91.9 (80-100) fL MCH 31.6 (25-34) pg MCHC 34.3 (32-36) g/dL RDW Std Deviation 44.2 (36.4-46.3) fL RDW Coeff of Balwinder 13.2 (11.5-14.5) % Plt Count 249 (130-400) K/uL MPV 11.8 H (7.4-10.4) fL Immature Gran % (Auto) 7.8 % Neut % (Auto) 72.6 % Lymph % (Auto) 8.1 % [place] % (Auto) 10.3 % Eos % (Auto) 0.6 % Baso % (Auto) 0.6 % Neut # (Auto) 14.14 H (1.4-6.5) K/uL Lymph # (Auto) 1.58 (1.2-3.4) K/uL [place] # (Auto) 2.00 H (0.11-0.59) K/uL Eos # (Auto) 0.11 (0-0.5) K/uL Baso # (Auto) 0.11 (0-0.2) K/uL Immature Gran # (Auto) 1.52 H (0.00-0.02) K/uL Toxic Granulation 3+ Sodium 133 L (136-145) mmol/L Potassium 3.3 L (3.5-5.1) mmol/L Chloride 96 L (98-107) mmol/L Carbon Dioxide 28 (21-32) mmol/L Anion Gap 9.0 (3-11) BUN 24 H (7-18) mg/dl Creatinine 1.02 (0.6-1.4) mg/dl Est Cr Clr Drug Dosing 146.8 ml/min Est GFR ( Amer) 103.1 Est GFR (Non-Af Amer) 89.0 BUN/Creatinine Ratio 23.4 H (10-20) Glucose 135 H (70-99) mg/dl Calcium 7.5 L (8.5-10.1) mg/dl Ionized Calcium 0.99 L (1.12-1.32) mmol/L Phosphorus 2.4 L (2.5-4.9) mg/dl Magnesium 2.0 (1.8-2.4) mg/dl Total Bilirubin 1.0 (0.2-1) mg/dl Direct Bilirubin 0.4 H (0-0.2) mg/dl AST 40 H (15-37) U/L ALT 28 (12-78) U/L Alkaline Phosphatase 69 (45-117) U/L Total Protein 5.7 L (6.4-8.2) gm/dl Albumin 1.8 L (3.4-5.0) gm/dl Triglycerides 272 H (0-150) mg/dl Coding Level of Care Code Critical Care 1st 30-74 mins Diagnoses Post-ERCP acute pancreatitis K91.89; K85.90 Acute renal failure N17.0 Acute renal failure type: with acute tubular necrosis Hypocalcemia E83.51 Time Spent (min) 45 Comment I have personally spent 45 minutes of critical care time in the direct management of this patient. This is a life/limb threatening event. This includes time spent evaluating patient, direct bedside care, chart review, placing orders, interpretation of diagnostic studies, discussion with consultants, patient, and/or family members regarding treatment decisions, as well as other required patient management activities. This time is exclusive of all separately billable procedures, and teaching time and separate from and in addition to any other critical care service time. (1) Acute renal failure Acute renal failure type: with acute tubular necrosis Qualified Code(s): N17.0 - Acute kidney failure with tubular necrosis
--- NOTE | 2019-12-19 10:32 | Gastroenterology Progress Note ---
Date of Service December 19, 2019 Assessment & Plan (1) Post-ERCP acute pancreatitis: 44 year old male admitted w/ post ERCP pancreatitis, s/p extubation yesterday. Doing fairly well though appears he may have ileus - KUB today; if no sign of obstruction will order Miralax 17g daily - CL diet for now - Continue IV antibx coverage. Admission and Anticipated Discharge Date Admission Date: December 12, 2019 Supervising Physician Co-Signing Physician Notes Attending attestation I have seen, examined this patient, and agree with the findings and above by our mid-level provider ANTONINO Castillo, with the following additions -Likely development of an ileus -Overall slowly improving -Given ileus will hold on advancement of diet Subjective Pt extubated yesterday. He is c/o lower back pain, abd feels distended, but no pain, denies n/v. Passing little flatus Review of Systems Review of Systems: All systems reviewed & are unremarkable except as noted in HPI & below Physical Exam Constitutional: WD/WN, vitals as above + obese ENMT: external ear and nose normal, oropharynx normal Respiratory: no respiratory distress and does not use accessory muscles Cardiovascular: RRR, no murmur, no edema Gastrointestinal (Abdomen): Inspection/Auscultation: + abdomen distended and + hypoactive bowel sounds Percussion/Palpation: abdomen nontender Skin: no rashes, warm and dry no jaundice Psychiatric: A+Ox3, euthymic affect Lymphatic: no lymphedema Results & Data ([facility]) Vital Signs (Past 12 Hours) Vital Signs Temp Pulse Resp BP Pulse Ox 12/19/19 08:12 36.7 C 110 H 14 166/91 H 96 12/19/19 07:00 109 H 14 149/88 H 97 12/19/19 03:00 100 H 16 150/92 H 100 12/19/19 02:33 99 H 18 158/85 H 99 12/19/19 02:00 101 H 153/112 H 96 12/19/19 01:00 105 H 166/106 H 96 12/19/19 00:13 110 H 147/107 H 95 12/19/19 00:00 37.3 C 111 H 170/109 H 97 12/18/19 23:00 111 H 163/74 H 96
[2019-12-19] MEDS ORDERED: carvediloL 6.25 MG TAB PO ONE (10:45)
[2019-12-19] MEDS ORDERED: POTASSIUM PHOSPHATE 18 MMOL in SODIUM CHLORIDE 0.9% 500 ML IV ONE (10:45)
[2019-12-19] MEDS ORDERED: MIRTAZAPINE SOLTAB 15 MG PO ONE (10:45)
[2019-12-19] MEDS: ACETAMINOPHEN SOLN 650 MG/20.3 ML UDC OG PRN (11:57)
[2019-12-19] MEDS: POLYETHYLENE (MIRALAX) 17 GM PACK PO SCH (11:57)
[2019-12-19] MEDS ORDERED: POTASSIUM CHLORIDE 20 MEQ TABCR PO SCH (16:00)
[2019-12-19] MEDS ORDERED: ACETAMINOPHEN 325 MG TAB PO PRN (17:44)
[2019-12-19] MEDS ORDERED: Nursing to Pharmacy Communication SCH (17:45)
--- NOTE | 2019-12-19 18:00 | Hospitalist Progress Note ---
Date of Service December 19, 2019 Assessment & Plan (1) Post-ERCP acute pancreatitis: 44-year-old male with history of hypertension and prediabetes, dyslipidemia, aortic root enlargement, depression, presenting with abdominal pain after an ERCP procedure. Post ERCP pancreatitis Patient admitted on December 12, 2019 secondary to post ERCP pancreatitis. He was given vigorous IV lactated Ringer's and placed on PRN IV Dilaudid for pain. On hospital day #2, the patient was found to be unresponsive, hypotensive. He responded to Narcan and IV fluids and was subsequently transferred to PCU. On hospital day #3, the patient was found to have acute renal failure and severe hypocalcemia with muscle cramping; patient was subsequently transferred to intensive care unit, required IV calcium. He eventually developed respiratory distress, and was intubated. He was given IV Lasix, IV calcium transition to oral calcium and was given IV Zosyn. Renal failure resolved, hypocalcemia also improved. He was extubated on December 18, 2019. However developed fever T-max 39.0. Cultures obtained, antibiotics broadened from Zosyn to imipenem. Found to have superficial thrombosis of the basilic veins bilaterally, started on Lovenox 40 mg every 12. Post extubation, the patient also reporting significant lower back pain. Advance diet to clear liquids, advance as tolerated GI on board Acute respiratory failure, likely secondary to volume overload Status post extubation 12/18/2019 Was on the mechanical ventilator for 3 days Given additional Lasix the morning, patient's fluid balance 13 L, continue to monitor, diurese accordingly Acute renal failure Likely ATN as per nephrology service Creatinine improved from 2.6, now back to baseline 1.1 good urine output Hypocalcemia in the setting of pancreatitis Received IV calcium gluconate Now on oral calcium Monitor Hypomagnesemia monitor and replace Fever, unclear etiology Developed December 17, 2019, T-max 39 Unclear etiology at this time Urine culture pending Sputum culture pending Blood cultures pending Chest x-ray No significant change from the prior study. Mild pulmonary vascular congestion. Bilateral pleural effusions with associated bibasilar airspace opacities. Transitioned from Zosyn to imipenem for now --Fever resolving Leukocytosis increased from 13-19 K --Continue imipenem for now Superficial venous thrombosis Upper extremity Doppler study: No DVT within the right or left upper extremity. Thrombosed bilateral cephalic veins. Lower extremity Doppler study: No DVT within the right or left lower extremity. Lovenox 40 mg subcutaneous every 12 started Back pain Patient has a history of chronic back pain Dilaudid 0.5 mg every 4 hours ordered, in addition to usual oxycodone Monitor closely Avoid increasing Dilaudid as much as possible to prevent hypoxia, altered mental status Hypoxia Occurred on Hospital day #2, patient noted to be hypoxic in the setting of unresponsiveness and hypotension Chest x-ray: Positive atelectasis Likely secondary hypoventilation secondary to epigastric pain Bilateral lower extremity Doppler ultrasound negative for PE VQ scan low probability for PE Heparin drip discontinued Management per #2 Hypotension Resolved Occurred on Hospital day 2 Likely multifactorial, from Dilaudid?, Dehydration Lethargy Possible toxic metabolic encephalopathy, resolved Occurred on Hospital day 2 Likely secondary to hypercapnic respiratory failure, in the setting of Dilaudid use with acute renal failure Resolved Dilaudid dose reduced Patient apparently has been diagnosed with obstructive sleep apnea in the past, not able to tolerate BiPAP mask Declines trial of BiPAP mask again while admitted Monitor closely Hypertension losartan and Coreg on hold due to hypotension Monitor Prediabetes Monitor Morbid obesity Counseling Depression usually on Zoloft, trazodone, Remeron DVT prophylaxis Lovenox 40 mg subcu every 12 CODE STATUS Full code Disposition pending lives with family at home Will need PT and OT evaluation Admission and Anticipated Discharge Date Admission Date: December 12, 2019 Subjective Follow-up for acute pancreatitis, acute hypoxic respiratory failure Seen resting in bedside chair, not in distress, awake and alert, oriented x3 No shortness of breath, cough, sputum production Still reports some fullness on his abdomen, but no nausea Appetite poor No upper or lower extremity pain Still reporting low back pain, no leg weakness or numbness, paresthesias Denies other symptoms Review of Systems Review of Systems: All systems reviewed & are unremarkable except as noted in HPI & below Physical Exam Physical Exam: General- oriented x 3, not in distress, speaks in sentences with no effort or accessory muscle use Eyes- anicteric Neck- no JVD Lungs-rales bilateral bases, no wheezing, good air entry bilaterally Heart-mild tachycardia, regular rhythm; no murmurs Abdomen- normal bowel sounds, nondistended, soft, nontender Extremities-mild lower leg edema, no calf tenderness Neuro- alert, oriented x 3; no gross focal neurologic deficits Skin- warm & dry Results & Data Results & Data ([facility]) Vital Signs (Past 12 Hours) Vital Signs Temp Pulse Resp BP Pulse Ox 12/19/19 16:00 37.3 C 114 H 24 126/95 94 12/19/19 15:00 112 H 24 132/87 96 12/19/19 14:00 113 H 23 162/87 H 91 12/19/19 13:00 115 H 24 126/82 91 12/19/19 12:00 37.6 C H 119 H 22 173/99 H 95 12/19/19 11:00 117 H 16 159/93 H 94 12/19/19 10:00 114 H 14 165/96 H 12/19/19 09:00 114 H 16 161/83 H 12/19/19 08:12 36.7 C 110 H 14 166/91 H 96 12/19/19 07:00 109 H 14 149/88 H 97 Laboratory Results Laboratory Results - last 24 hr 12/19/19 12/19/19 03:57 03:57 WBC 19.46 H RBC 4.34 L Hgb 13.7 L Hct 39.9 L MCV 91.9 MCH 31.6 MCHC 34.3 RDW Std Deviation 44.2 RDW Coeff of Balwinder 13.2 Plt Count 249 MPV 11.8 H Immature Gran % (Auto) 7.8 Neut % (Auto) 72.6 Lymph % (Auto) 8.1 Harvey % (Auto) 10.3 Eos % (Auto) 0.6 Baso % (Auto) 0.6 Neut # (Auto) 14.14 H Lymph # (Auto) 1.58 Harvey # (Auto) 2.00 H Eos # (Auto) 0.11 Baso # (Auto) 0.11 Immature Gran # (Auto) 1.52 H Toxic Granulation 3+ Sodium 133 L Potassium 3.3 L Chloride 96 L Carbon Dioxide 28 Anion Gap 9.0 BUN 24 H Creatinine 1.02 Est Cr Clr Drug Dosing 146.8 Est GFR ( Amer) 103.1 Est GFR (Non-Af Amer) 89.0 BUN/Creatinine Ratio 23.4 H Glucose 135 H Calcium 7.5 L Phosphorus 2.4 L Magnesium 2.0 Total Bilirubin 1.0 Direct Bilirubin 0.4 H AST 40 H ALT 28 Alkaline Phosphatase 69 Total Protein 5.7 L Albumin 1.8 L Triglycerides 272 H
[2019-12-19] MEDS: MIRTAZAPINE SOLTAB 15 MG PO SCH (19:55)
[2019-12-19] MEDS: carvediloL 6.25 MG TAB PO SCH (19:56)
[2019-12-19] MEDS: TRAZODONE HCL 100 MG TAB PO SCH (19:56)
[2019-12-20] MEDS: IMIPENEM/CILASTATIN SODIUM 500 MG in DEXTROSE 5% 100 ML IV SCH ×2 (01:43→08:11)
[2019-12-20] MEDS: HYDROmorphone INJ 0.5 MG/0.5 ML SYR IV PRN (02:08)
[2019-12-20] MEDS: METOCLOPRAMIDE HCL INJ 5 MG/ML 2 ML VIAL IV PRN (02:08)
[2019-12-20 04:57] LABS: Hematocrit (blood only) 40.2 % (42-52); Hemoglobin 13.7 g/dL (14.0-18.0); Mean Corpuscular Hemoglobin 30.6 pg (25-34); Mean Corpuscular Hgb Conc 34.1 g/dL (32-36); Mean Corpuscular Volume 89.9 fL (80-100); Mean Platelet Volume 11.4 fL (7.4-10.4); Platelet Count 291 K/uL (130-400); RDW Coefficient of Variation 12.9 % (11.5-14.5); RDW Standard Deviation 42.2 fL (36.4-46.3); Red Blood Count 4.47 M/uL (4.7-6.1); White Blood Count 20.73 K/uL (4.8-10.8)
[2019-12-20 05:18] LABS: Albumin Level 1.9 gm/dl (3.4-5.0); BUN Creatinine Ratio 30.1 (10-20); Bilirubin Direct 0.3 mg/dl (0-0.2); Bilirubin,Total 0.8 mg/dl (0.2-1); Calcium 7.6 mg/dl (8.5-10.1); Est GFR (African American) 122.2; Est GFR (Non-African American) 105.5; Magnesium 2.3 mg/dl (1.8-2.4); Phosphorus 2.1 mg/dl (2.5-4.9); Potassium 4.2 mmol/L (3.5-5.1)
[2019-12-20] MEDS: ENOXAPARIN INJ 40 MG/0.4 ML SYR SQ SCH ×2 (05:20→16:52)
[2019-12-20] MEDS ORDERED: ICU ELECTROLYTE REPLACEMENT PROTOCOL PRN (05:34)
[2019-12-20 05:56] LABS: Basophils # (auto) 0.09 K/uL (0-0.2); Basophils % (auto) 0.4 %; Dohle Bodies 1+; Eosinophils % (auto) 0.5 %; Immature Granulocytes # (auto) 0.79 K/uL (0.00-0.02); Immature Granulocytes % (auto) 3.8 %; Lymphocytes # (auto) 1.37 K/uL (1.2-3.4); Lymphocytes % (auto) 6.6 %; Monocytes # (auto) 1.73 K/uL (0.11-0.59); Monocytes % (auto) 8.3 %; Neutrophils # (auto) 16.65 K/uL (1.4-6.5); Neutrophils % (auto) 80.4 %; Polychromasia 1+; Toxic Granulation 3+
[2019-12-20] MEDS: POT PHOSPHATE MONOBASIC W/ SOD TAB PO SCH ×3 (06:44→14:14)
--- NOTE | 2019-12-20 07:38 | Hospitalist Progress Note ---
Date of Service December 20, 2019 Assessment & Plan (1) Post-ERCP acute pancreatitis: 44-year-old male with history of hypertension and prediabetes, dyslipidemia, aortic root enlargement, depression, presenting with abdominal pain after an ERCP procedure. Post ERCP pancreatitis Patient admitted on December 12, 2019 secondary to post ERCP pancreatitis. He was given vigorous IV lactated Ringer's and placed on PRN IV Dilaudid for pain. On hospital day #2, the patient was found to be unresponsive, hypotensive. He responded to Narcan and IV fluids and was subsequently transferred to PCU. On hospital day #3, the patient was found to have acute renal failure and severe hypocalcemia with muscle cramping; patient was subsequently transferred to intensive care unit, required IV calcium. He eventually developed respiratory distress, and was intubated. He was given IV Lasix, IV calcium transition to oral calcium and was given IV Zosyn. Renal failure resolved, hypocalcemia also improved. He was extubated on December 18, 2019. However developed fever T-max 39.0. Cultures obtained, antibiotics broadened from Zosyn to imipenem. Found to have superficial thrombosis of the basilic veins bilaterally, started on Lovenox 40 mg every 12. Post extubation, the patient also reporting significant lower back pain. Advance diet as tolerated GI on board Acute respiratory failure, likely secondary to volume overload Status post extubation 12/18/2019 Was on the mechanical ventilator for 3 days Diurese accordingly, Increase Diet Acute renal failure Likely ATN as per nephrology service Creatinine improved from 2.6, now back to baseline 1.1 good urine output Hypocalcemia in the setting of pancreatitis Received IV calcium gluconate Now on oral calcium Monitor Hypomagnesemia monitor and replace Fever, unclear etiology Developed December 17, 2019, T-max 39 Unclear etiology at this time Urine culture pending Sputum culture pending Blood cultures pending Chest x-ray No significant change from the prior study. Mild pulmonary vascular congestion. Bilateral pleural effusions with associated bibasilar airspace opacities. On Imipenem --Fever resolving Leukocytosis increased from 13-19-21 K Superficial venous thrombosis Upper extremity Doppler study: No DVT within the right or left upper extremity. Thrombosed bilateral cephalic veins. Lower extremity Doppler study: No DVT within the right or left lower extremity. Lovenox 40 mg subcutaneous every 12 started Back pain Patient has a history of chronic back pain Dilaudid 0.5 mg every 4 hours ordered, in addition to usual oxycodone Monitor closely Avoid increasing Dilaudid as much as possible to prevent hypoxia, altered mental status Consider ATC Tylenol 500 mg PO Q4 WA, Possible Toradol if Cr OK Hypoxia Occurred on Hospital day #2, patient noted to be hypoxic in the setting of unresponsiveness and hypotension Chest x-ray: Positive atelectasis Likely secondary hypoventilation secondary to epigastric pain Bilateral lower extremity Doppler ultrasound negative for PE VQ scan low probability for PE Heparin drip discontinued Management per #2 Hypotension Resolved Occurred on Hospital day 2 Likely multifactorial, from Dilaudid?, Dehydration BP High, Add Back Losartan if OK c CCU and Nephrology-Monitor Cr Lethargy Possible toxic metabolic encephalopathy, resolved Occurred on Hospital day 2 Likely secondary to hypercapnic respiratory failure, in the setting of Dilaudid use with acute renal failure Resolved Dilaudid dose reduced Patient apparently has been diagnosed with obstructive sleep apnea in the past, not able to tolerate BiPAP mask Declines trial of BiPAP mask again while admitted Monitor closely Hypertension losartan and Coreg on hold due to hypotension Monitor Prediabetes Monitor Morbid obesity Counseling Depression usually on Zoloft, trazodone, Remeron DVT prophylaxis Lovenox 40 mg subcu every 12 CODE STATUS Full code Disposition pending lives with family at home Will need PT and OT evaluation ROS-No Headache, No Visual Changes, No Nausea, No Vomiting, No Fever, No Chills, No Neck Pain or Stiffness, No Chest Pain, No Palpitations, No SOB, No MARCIAL, No Cough, No Sputum, No Wheezing, No Abdominal Pain, No Diarrhea, No Hematemesis, No Hemoptysis, No Unexpected Weight Loss, No Flank pain, No Melena, No Hematochezia, No Frequency, No Urgency, No Burning, No Hematuria, No Rashes, No Diaphoresis. Appetite is Normal, Weak, feeling better Physical Exam Gen-AAO x 3, NAD, Afebrile, Obese Head-NCAT, EOMI, PERRLA, Anicteric Sclera, No Posterior Pharyngeal Erythema Neck-Supple, No JVD, No Thyromegaly, No Masses, No LAD, No Bruits Lungs-Clear to Auscultation Bilaterally, No Rales, No Rhonchi, No Wheezing, No Crepitus Chest-No S4, +S1, +S2, No S3, No Murmurs, No Rubs, No Gallops, No Ectopy Abdomen-Soft, Bowel Sounds Present, Non Tender, Non Distended, No Hepatomegaly, No Splenomegaly, No Palpable Masses, No Rebound, No Rigidity, No Guarding Musculoskeletal-Full Range of Motion Bilaterally, No CVAT Extremities-No Cyanosis, No Clubbing, +BLE Edema Nuero-Cranial Nerves II-XII grossly intact, Motor WNL, DTRs WNL, Strength WNL, Non Focal Psych-Normal Mood Admission and Anticipated Discharge Date Admission Date: December 12, 2019 Anticipated date of discharge: 12/25/19 Results & Data Results & Data ([facility]) Vital Signs (Past 12 Hours) Vital Signs Temp Pulse Resp BP Pulse Ox 12/20/19 06:01 109 H 30 H 151/100 H 92 12/20/19 05:01 103 H 30 H 171/102 H 95 12/20/19 04:01 37.1 C 104 H 30 H 123/65 92 12/20/19 03:01 105 H 30 H 162/91 H 94 12/20/19 02:00 101 H 29 H 179/106 H 93 12/20/19 01:00 102 H 28 H 154/98 H 94 12/20/19 00:00 37 C 104 H 30 H 144/97 H 94 12/19/19 23:00 105 H 30 H 157/92 H 95 12/19/19 22:00 106 H 26 H 138/91 96 12/19/19 21:00 107 H 24 159/97 H 94 12/19/19 20:00 36.8 C 108 H 26 H 152/101 H 97
[2019-12-20] MEDS: OXYCODONE HCL IR 5 MG TAB (IMMEDIATE RELEASE) PO PRN (08:10)
[2019-12-20] MEDS: CALCIUM CARBONATE 1,250 MG/5 ML UDC PO SCH ×3 (08:10→20:16)
[2019-12-20] MEDS: FAMOTIDINE 20 MG TAB OG SCH ×2 (08:11→20:16)
[2019-12-20] MEDS: CHOLECALCIFEROL 1,000 UNITS 25 MCG TAB PO SCH (08:11)
[2019-12-20] MEDS: carvediloL 6.25 MG TAB PO SCH (08:11)
[2019-12-20] MEDS: POLYETHYLENE (MIRALAX) 17 GM PACK PO SCH (08:11)
--- NOTE | 2019-12-20 08:40 | Critical Care Progress Note ---
Date of Service December 20, 2019 Assessment & Plan (1) Post-ERCP acute pancreatitis: CT abdomen pelvis 12/14/2019: Shows bilateral lower lobe atelectasis, acute pancreatitis with moderate peripancreatic fluid and infiltration extending into the retroperitoneum. No peripancreatic fluid collection. 44-year-old male with past medical history of hypertension, morbid obesity was admitted to the hospital because of pancreatitis post ERCP. Patient was upgraded to the ICU because of worsening respiratory status as well as SARAH. --VDRF secondary to acute hypoxic respiratory failure: Resolved --SARAH resolved --Acute pancreatitis improving --Hypocalcemia: Improving Continue with p.o. supplementation of calcium. -Supplement vitamin D --Elevated LFTs: Improving --Hypertension Reinitiating R but an increase Coreg to 12.5 twice daily --Elevated troponin: Improving --Morbid obesity --Fever -Extremity ultrasound x4 -Superficial thrombophlebitis -Given hypoxia we will start the patient on therapeutic anticoagulation as I believe possible thrombotic risk outweighs bleeding risk at this time and as the patient gets further from initial pancreatitis events I feel he will fits recommendations for superficial thrombophlebitis treatment Ileus: Improved Moved his bowels last evening --Prophylaxis VTE: Heparin GI: Pepcid Diet: Clears progress as tolerated -He is not had much of a volitional appetite Disposition: Stable for downgrade (2) Acute renal failure: (3) Hypocalcemia: Admission and Anticipated Discharge Date Admission Date: December 12, 2019 Subjective Feels somewhat improved compared to yesterday still having chronic Review of Systems Review of Systems: Back pain abdominal pain exertional dyspnea Physical Exam Physical Exam: General: Alert. nontoxic. Skin: Warm, dry, generalized edema/anasarca mild Head: Atraumatic Ears, nose, mouth and throat: airway patent Cardiovascular: Normal peripheral perfusion Respiratory: no respiratory distress Gastrointestinal: Non distended Musculoskeletal: No deformity Results & Data Results & Data ([facility]) Vital Signs (Past 12 Hours) Vital Signs Temp Pulse Resp BP Pulse Ox 12/20/19 06:01 109 H 30 H 151/100 H 92 12/20/19 05:01 103 H 30 H 171/102 H 95 12/20/19 04:01 37.1 C 104 H 30 H 123/65 92 12/20/19 03:01 105 H 30 H 162/91 H 94 06/24/20 02:00 101 H 29 H 179/106 H 93 12/20/19 01:00 102 H 28 H 154/98 H 94 12/20/19 00:00 37 C 104 H 30 H 144/97 H 94 12/19/19 23:00 105 H 30 H 157/92 H 95 12/19/19 22:00 106 H 26 H 138/91 96 12/19/19 21:00 107 H 24 159/97 H 94 Laboratory Results 12/20/19 12/20/19 Range/Units 04:27 04:27 WBC 20.73 H (4.8-10.8) K/uL RBC 4.47 L (4.7-6.1) M/uL Hgb 13.7 L (14.0-18.0) g/dL Hct 40.2 L (42-52) % MCV 89.9 (80-100) fL MCH 30.6 (25-34) pg MCHC 34.1 (32-36) g/dL RDW Std Deviation 42.2 (36.4-46.3) fL RDW Coeff of Balwinder 12.9 (11.5-14.5) % Plt Count 291 (130-400) K/uL MPV 11.4 H (7.4-10.4) fL Immature Gran % (Auto) 3.8 % Neut % (Auto) 80.4 % Lymph % (Auto) 6.6 % [place] % (Auto) 8.3 % Eos % (Auto) 0.5 % Baso % (Auto) 0.4 % Neut # (Auto) 16.65 H (1.4-6.5) K/uL Lymph # (Auto) 1.37 (1.2-3.4) K/uL [place] # (Auto) 1.73 H (0.11-0.59) K/uL Eos # (Auto) 0.10 (0-0.5) K/uL Baso # (Auto) 0.09 (0-0.2) K/uL Immature Gran # (Auto) 0.79 H (0.00-0.02) K/uL Toxic Granulation 3+ Dohle Bodies 1+ Polychromasia 1+ Sodium 133 L (136-145) mmol/L Potassium 4.2 D (3.5-5.1) mmol/L Chloride 97 L (98-107) mmol/L Carbon Dioxide 29 (21-32) mmol/L Anion Gap 7.0 (3-11) BUN 26 H (7-18) mg/dl Creatinine 0.86 (0.6-1.4) mg/dl Est Cr Clr Drug Dosing 175.0 ml/min Est GFR ( Amer) 122.2 Est GFR (Non-Af Amer) 105.5 BUN/Creatinine Ratio 30.1 H (10-20) Glucose 159 H (70-99) mg/dl Calcium 7.6 L (8.5-10.1) mg/dl Phosphorus 2.1 L (2.5-4.9) mg/dl Magnesium 2.3 (1.8-2.4) mg/dl Total Bilirubin 0.8 (0.2-1) mg/dl Direct Bilirubin 0.3 H (0-0.2) mg/dl AST 38 H (15-37) U/L ALT 24 (12-78) U/L Alkaline Phosphatase 78 (45-117) U/L Total Protein 6.0 L (6.4-8.2) gm/dl Albumin 1.9 L (3.4-5.0) gm/dl Coding Level of Care Code 21128 Subseq Hosp Care Lv 3 Diagnoses Post-ERCP acute pancreatitis K91.89; K85.90 Acute renal failure N17.0 Acute renal failure type: with acute tubular necrosis Hypocalcemia E83.51 (1) Acute renal failure Acute renal failure type: with acute tubular necrosis Qualified Code(s): N17.0 - Acute kidney failure with tubular necrosis
[2019-12-20] MEDS ORDERED: HYDROmorphone INJ 0.5 MG/0.5 ML SYR IV PRN (09:33)
[2019-12-20] MEDS ORDERED: LOSARTAN POTASSIUM 25 MG TAB PO ONE (10:15)
--- NOTE | 2019-12-20 11:54 | Gastroenterology Progress Note ---
Date of Service December 20, 2019 Assessment & Plan (1) Post-ERCP acute pancreatitis: 44 year old male admitted w/ post ERCP pancreatitis, s/p extubation 12/17. Currently having ileus but seem to be improving as is passing flatus and having BM. - Continue Miralax 17g daily - Try to wean off narcotic - May try to advance diet slowly as tolerated if doing well by end of day - Goal out of ICU today - GI will watch peripherally, pls recall prn Admission and Anticipated Discharge Date Admission Date: December 12, 2019 Anticipated date of discharge: 12/25/19 Supervising Physician Co-Signing Physician Notes I saw and evaluated the patient. He is still having some complications as a result of his recent ERCP to include an ileus and peripheral edema. Physical Bilateral lower extremity edema noted up to the thighs Try Lasix 20 mg today Continue with daily MiraLAX Subjective Pt sitting up in chair. Finished CL breakfast. Some abd pain but no n/v. He had large BM today. Did see some BRBPR only when wiping. Review of Systems Review of Systems: All systems reviewed & are unremarkable except as noted in HPI & below Physical Exam Constitutional: WD/WN, vitals as above + obese ENMT: external ear and nose normal, oropharynx normal Respiratory: no respiratory distress and does not use accessory muscles Cardiovascular: RRR, no murmur, no edema Gastrointestinal (Abdomen): Inspection/Auscultation: + abdomen distended and + hypoactive bowel sounds Percussion/Palpation: abdomen nontender Skin: no rashes, warm and dry no jaundice Psychiatric: A+Ox3, euthymic affect Lymphatic: no lymphedema Results & Data ([facility]) Vital Signs (Past 12 Hours) Vital Signs Temp Pulse Pulse Resp BP BP Pulse Ox 12/20/19 10:01 143/97 H 12/20/19 10:00 104 H 34 H 94 12/20/19 09:01 103 H 30 H 125/81 96 12/20/19 09:00 101 H 30 H 12/20/19 08:01 104 H 32 H 166/90 H 94 12/20/19 08:00 36.6 C 104 H 101 H 34 H 148/100 H 93 12/20/19 07:00 103 H 28 H 148/100 H 97 12/20/19 06:02 111 H 32 H 88 L 12/20/19 06:01 109 H 30 H 151/100 H 92 12/20/19 05:01 103 H 30 H 171/102 H 95 12/20/19 04:01 37.1 C 104 H 30 H 123/65 92 12/20/19 03:01 105 H 30 H 162/91 H 94 12/20/19 02:00 101 H 29 H 179/106 H 93 12/20/19 01:00 102 H 28 H 154/98 H 94 12/20/19 00:00 37 C 104 H 30 H 144/97 H 94
[2019-12-20] MEDS ORDERED: FUROSEMIDE 20 MG in SYRINGE 0 ML IV ONE (16:30)
[2019-12-20] MEDS: MIRTAZAPINE SOLTAB 15 MG PO SCH (20:16)
[2019-12-20] MEDS: TRAZODONE HCL 100 MG TAB PO SCH (20:17)
[2019-12-20] MEDS: carvediloL 12.5 MG TAB PO SCH (20:17)
[2019-12-21] MEDS ORDERED: FUROSEMIDE 20 MG in SYRINGE 0 ML IV ONE (00:15)
[2019-12-21] MEDS: OXYCODONE HCL IR 5 MG TAB (IMMEDIATE RELEASE) PO PRN ×2 (00:53→14:10)
[2019-12-21] MEDS: ENOXAPARIN INJ 40 MG/0.4 ML SYR SQ SCH ×2 (05:53→18:15)
[2019-12-21 07:52] LABS: Hematocrit (blood only) 37.9 % (42-52); Hemoglobin 12.8 g/dL (14.0-18.0); Mean Corpuscular Hemoglobin 30.5 pg (25-34); Mean Corpuscular Hgb Conc 33.8 g/dL (32-36); Mean Corpuscular Volume 90.5 fL (80-100); Platelet Count 365 K/uL (130-400); RDW Coefficient of Variation 12.8 % (11.5-14.5); RDW Standard Deviation 42.2 fL (36.4-46.3); Red Blood Count 4.19 M/uL (4.7-6.1); White Blood Count 20.14 K/uL (4.8-10.8)
--- NOTE | 2019-12-21 08:07 | Gastroenterology Progress Note ---
Date of Service December 21, 2019 Assessment & Plan (1) Post-ERCP acute pancreatitis: 44 year old male admitted w/ post ERCP pancreatitis, s/p extubation 12/17. Currently having ileus but seem to be improving as is passing flatus and having BM. He appears to be more SOB today. Still volume positive despite mild diuresis yesterday - Continue Miralax 17g daily - Try to wean off narcotic - Advance diet as tolerated - CXR; may need additional diuresis today - Encourage OOB Admission and Anticipated Discharge Date Admission Date: December 12, 2019 Anticipated date of discharge: 12/25/19 Supervising Physician Co-Signing Physician Notes Attending attestation I have seen, examined this patient, and agree with the findings and above by our mid-level provider ANTONINO Castillo, with the following additions: -Patient is doing well, will need stable diuresis today, abdomen is improved. Slowly improving Subjective Pt appear more SOB. Denies CP. Reports abd feels tight, though passing flatus and small BMs. Denies abd pain, n/v. He doesn't want more than CL diet Review of Systems Review of Systems: All systems reviewed & are unremarkable except as noted in HPI & below Physical Exam Constitutional: WD/WN, vitals as above + obese ENMT: external ear and nose normal, oropharynx normal Respiratory: + uses accessory muscles and + tachypneic Auscultation: + diminished lung sounds Cardiovascular: RRR, no murmur, no edema Gastrointestinal (Abdomen): Inspection/Auscultation: + abdomen distended and + hypoactive bowel sounds Percussion/Palpation: abdomen nontender Skin: no rashes, warm and dry no jaundice Psychiatric: A+Ox3, euthymic affect Lymphatic: + lymphedema (generalized edema on extremities ) Results & Data ([facility]) Vital Signs (Past 12 Hours) Vital Signs Temp Pulse Pulse Resp BP Pulse Ox 12/21/19 06:35 36.9 C 96 H 20 146/77 H 96 12/21/19 03:24 37.1 C 95 H 40 H 150/79 H 96 12/21/19 01:14 101 H 12/20/19 22:40 37.0 C 108 H 20 164/84 H 95
[2019-12-21 08:19] LABS: Basophils # (auto) 0.04 K/uL (0-0.2); Basophils % (auto) 0.2 %; Eosinophils # (auto) 0.18 K/uL (0-0.5); Eosinophils % (auto) 0.9 %; Immature Granulocytes # (auto) 0.42 K/uL (0.00-0.02); Immature Granulocytes % (auto) 2.1 %; Lymphocytes # (auto) 1.16 K/uL (1.2-3.4); Lymphocytes % (auto) 5.8 %; Monocytes # (auto) 1.83 K/uL (0.11-0.59); Monocytes % (auto) 9.1 %; Neutrophils # (auto) 16.51 K/uL (1.4-6.5); Neutrophils % (auto) 81.9 %; Toxic Granulation 3+; Toxic Vacuolation 1+
[2019-12-21 08:21] LABS: Albumin Level 2.1 gm/dl (3.4-5.0); BUN Creatinine Ratio 33.1 (10-20); Bilirubin Direct 0.3 mg/dl (0-0.2); Creatinine Clr Calc Pharmacy 203.2 ml/min; Est GFR (African American) 130.7; Est GFR (Non-African American) 112.8; Magnesium 2.2 mg/dl (1.8-2.4); Potassium 3.9 mmol/L (3.5-5.1)
[2019-12-21 08:24] LABS: Bilirubin,Total 0.8 mg/dl (0.2-1); Phosphorus 2.5 mg/dl (2.5-4.9); Total Protein 6.1 gm/dl (6.4-8.2)
[2019-12-21] MEDS: FAMOTIDINE 20 MG TAB OG SCH ×2 (08:46→20:01)
[2019-12-21] MEDS: CHOLECALCIFEROL 1,000 UNITS 25 MCG TAB PO SCH (08:46)
[2019-12-21] MEDS: carvediloL 12.5 MG TAB PO SCH ×2 (08:46→20:00)
[2019-12-21] MEDS: LOSARTAN POTASSIUM 25 MG TAB PO SCH (08:47)
[2019-12-21] MEDS: CALCIUM CARBONATE 1,250 MG/5 ML UDC PO SCH ×3 (08:47→20:00)
[2019-12-21] MEDS: POLYETHYLENE (MIRALAX) 17 GM PACK PO SCH (08:47)
--- NOTE | 2019-12-21 08:55 | XRay Report ---
XR chest 2V PA/lateral CLINICAL HISTORY: SOB COMPARISON STUDY: 12/18/2019 FINDINGS: The endotracheal tube and nasogastric tubes have been removed. The heart is the upper limit s of normal in size. There is been interval decrease in the size of the bilateral pleural effusions. There has been resolution of the basilar airspace opacities. There is no lobar consolidation. There i s no overt failure. There are trace residual pleural effusions.[ IMPRESSION: 1. Interval removal of the endotracheal tube and nasogastric tubes 2. Trace residual bilateral pleural effusions ACT 112: Negative or not required by law. Electronically signed by: Pedro Casas M.D. 12/21/2019 8:53 AM
--- NOTE | 2019-12-21 10:27 | Progress Notes ---
DATE: 12/21/2019 NEPHROLOGY PROGRESS NOTE SUBJECTIVE: Overnight, the patient now moved out of ICU into regular floor. He is complaining of significant lower extremity edema as well as some shortness of breath. He does have abdominal discomfort with distention. He is making urine, although it is not being measured accurately at this time. PHYSICAL EXAMINATION: VITAL SIGNS: Blood pressure is 146/77, pulse rate 97, 96% on 3 liters nasal cannula, temperature 36.9. HEENT: Mucous membranes moist. NECK: Supple. No jugular venous distention. CHEST: Bilaterally decreased breath sounds and occasional crackles at the bases. CARDIOVASCULAR: S1, S2 regular. ABDOMEN: Distended and mildly tender diffusely. EXTREMITIES: Show 1-2+ edema. As per patient, he had absolutely no edema before. LABORATORY TEST: From this morning reviewed and shows white count of 20,000, hemoglobin 12.8. Sodium is dropping and is now 131, potassium 3.9, BUN 24, creatinine 0.73, calcium is 8.0 and is rising trend. ASSESSMENT AND PLAN: A 44-year-old male admitted with acute pancreatitis. 1. Hypocalcemia: That seems to be better. However, I will check ionized calcium as well as phosphorus daily to better monitor as well as check magnesium tomorrow. 2. Fluid overload: With all the IV fluid that he has received during this hospitalization as well as issues related with acute pancreatitis, he is definitely quite fluid overloaded. We will start to get some diuresis. We will use Lasix 30 mg IV twice daily. Continue daily laboratories.
[2019-12-21] MEDS ORDERED: KETOROLAC 30 MG/ML VIAL IV PRN (11:04)
--- NOTE | 2019-12-21 11:04 | Hospitalist Progress Note ---
Date of Service December 21, 2019 Assessment & Plan (1) Post-ERCP acute pancreatitis: 44-year-old male with history of hypertension and prediabetes, dyslipidemia, aortic root enlargement, depression, presenting with abdominal pain after an ERCP procedure. Post ERCP pancreatitis Patient admitted on December 12, 2019 secondary to post ERCP pancreatitis. He was given vigorous IV lactated Ringer's and placed on PRN IV Dilaudid for pain. On hospital day #2, the patient was found to be unresponsive, hypotensive. He responded to Narcan and IV fluids and was subsequently transferred to PCU. On hospital day #3, the patient was found to have acute renal failure and severe hypocalcemia with muscle cramping; patient was subsequently transferred to intensive care unit, required IV calcium. He eventually developed respiratory distress, and was intubated. He was given IV Lasix, IV calcium transition to oral calcium and was given IV Zosyn. Renal failure resolved, hypocalcemia also improved. He was extubated on December 18, 2019. However developed fever T-max 39.0. Cultures obtained, antibiotics broadened from Zosyn to imipenem. Found to have superficial thrombosis of the basilic veins bilaterally, started on Lovenox 40 mg every 12. Post extubation, the patient also reporting significant lower back pain. Advance diet as tolerated GI on board Acute respiratory failure, likely secondary to volume overload Status post extubation 12/18/2019 Was on the mechanical ventilator for 3 days Diurese accordingly, Increase Diet Acute renal failure Likely ATN as per nephrology service Creatinine improved from 2.6, now back to baseline 1.1 good urine output Hypocalcemia in the setting of pancreatitis Received IV calcium gluconate Now on oral calcium Monitor Hypomagnesemia monitor and replace Fever, unclear etiology Developed December 17, 2019, T-max 39 Unclear etiology at this time Urine culture pending Sputum culture pending Blood cultures pending Chest x-ray No significant change from the prior study. Mild pulmonary vascular congestion. Bilateral pleural effusions with associated bibasilar airspace opacities. On Imipenem --Fever resolving Leukocytosis increased from 13-19-21 K Superficial venous thrombosis Upper extremity Doppler study: No DVT within the right or left upper extremity. Thrombosed bilateral cephalic veins. Lower extremity Doppler study: No DVT within the right or left lower extremity. Lovenox 40 mg subcutaneous every 12 started Back pain Patient has a history of chronic back pain Dilaudid 0.5 mg every 4 hours ordered, in addition to usual oxycodone Monitor closely Avoid increasing Dilaudid as much as possible to prevent hypoxia, altered mental status Consider ATC Tylenol 500 mg PO Q4 WA, Possible Toradol if Cr OK Hypoxia Occurred on Hospital day #2, patient noted to be hypoxic in the setting of unresponsiveness and hypotension Chest x-ray: Positive atelectasis Likely secondary hypoventilation secondary to epigastric pain Bilateral lower extremity Doppler ultrasound negative for PE VQ scan low probability for PE Heparin drip discontinued Management per #2 Hypotension Resolved Occurred on Hospital day 2 Likely multifactorial, from Dilaudid?, Dehydration BP better, Back on Losartan Lethargy Possible toxic metabolic encephalopathy, resolved Occurred on Hospital day 2 Likely secondary to hypercapnic respiratory failure, in the setting of Dilaudid use with acute renal failure Resolved Dilaudid dose reduced Patient apparently has been diagnosed with obstructive sleep apnea in the past, not able to tolerate BiPAP mask Declines trial of BiPAP mask again while admitted Monitor closely Hypertension losartan and Coreg on hold due to hypotension Monitor Prediabetes Monitor Morbid obesity Counseling Depression usually on Zoloft, trazodone, Remeron DVT prophylaxis Lovenox 40 mg subcu every 12 CODE STATUS Full code Disposition pending lives with family at home PT and OT ROS-No Headache, No Visual Changes, No Nausea, No Vomiting, No Fever, No Chills, No Neck Pain or Stiffness, No Chest Pain, No Palpitations, + SOB, No MARCIAL, No Cough, No Sputum, No Wheezing, No Abdominal Pain, No Diarrhea, No Hematemesis, No Hemoptysis, No Unexpected Weight Loss, No Flank pain, No Melena, No Hematochezia, No Frequency, No Urgency, No Burning, No Hematuria, No Rashes, No Diaphoresis. Appetite is Normal, Weak, feeling better Physical Exam Gen-AAO x 3, NAD, Afebrile, Obese Head-NCAT, EOMI, PERRLA, Anicteric Sclera, No Posterior Pharyngeal Erythema Neck-Supple, No JVD, No Thyromegaly, No Masses, No LAD, No Bruits Lungs- BS Bilaterally, No Rales, No Rhonchi, No Wheezing, No Crepitus, Tachpneic Chest-No S4, +S1, +S2, No S3, No Murmurs, No Rubs, No Gallops, No Ectopy Abdomen-Soft, Bowel Sounds Present, Non Tender, Non Distended, No Hepatomegaly, No Splenomegaly, No Palpable Masses, No Rebound, No Rigidity, No Guarding Musculoskeletal-Full Range of Motion Bilaterally, No CVAT Extremities-No Cyanosis, No Clubbing, +BLE Edema Nuero-Cranial Nerves II-XII grossly intact, Motor WNL, DTRs WNL, Strength WNL, Non Focal Psych-Normal Mood Admission and Anticipated Discharge Date Admission Date: December 12, 2019 Anticipated date of discharge: 12/25/19 Results & Data Results & Data ([facility]) Vital Signs (Past 12 Hours) Vital Signs Temp Pulse Pulse Resp BP Pulse Ox 12/21/19 08:00 97 H 12/21/19 06:35 36.9 C 96 H 20 146/77 H 96 12/21/19 03:24 37.1 C 95 H 40 H 150/79 H 96 12/21/19 01:14 101 H
[2019-12-21] MEDS: FUROSEMIDE 30 MG in SYRINGE 0 ML IV SCH ×2 (11:16→18:15)
[2019-12-21 11:56] LABS: Allen Test Pos (Pos); Base Excess ABG 7.6 mEq/L (-9-1.8); HCO3 ABG 32 mmol/L (19-24); Oxygen Saturation ABG 94.7 % (90-95); PCO2 ABG 44 mmHg (35-46); PO2 ABG 68 mmHg (80-95); pH ABG 7.48 (7.35-7.45)
[2019-12-21] MEDS ORDERED: FUROSEMIDE 60 MG in SYRINGE 0 ML IV ONE (13:30)
--- NOTE | 2019-12-21 13:47 | Pulmonology Progress Note ---
Date of Service December 21, 2019 Assessment & Plan (1) Volume overload: 44-year-old male with a past medical history of hypertension, morbid obesity, likely obstructive sleep apnea, likely OHS and recently diagnosed post ERCP pancreatitis who had a lengthy hospital stay and required i ntubation and mechanical ventilation due to volume overload. Patient continues to be severely volume overloaded and is approximately 14 L positive. His intake and output have been very inaccurate as it is been difficult to obtain his output. He does not have a Mixon in place. I did speak with the nurse who indicated that he has not had any significant urine output today on her watch. I have asked her to place a Mixon catheter. He has been receiving small doses of Lasix in the form of 20 to 30 mg over the last 24 to 48 hours. I am going to give him a one-time dose of 60 mg of IV Lasix now. He needs to be on a 1.5 L fluid intake restriction. Chest x-ray actually looks improved from previous. I suspect he has some degree of atelectasis which is causing shunt physiology. He needs to get out of his bed and sit in a chair. Physical therapy is extremely important in this patient's case given his underlying weakness. I also suspect he has intra-abdominal hypertension related to his volume overload state. He likely has VETO/OHS. CPAP/BiPAP at night is warranted. Maintain sats 92% on above. Pulmonary will continue to follow. (2) Acute respiratory failure with hypoxia: (3) Post-ERCP acute pancreatitis: (4) Abdominal pain, epigastric: Admission and Anticipated Discharge Date Admission Date: December 12, 2019 Anticipated date of discharge: 12/25/19 Subjective Patient is lying in bed with a CPAP in place. He is very lethargic. He denies any chest pain. He does have some abdominal pain particularly on palpation. He notes shortness of breath. He is mildly tachypneic. Urine output today has been minimal. He does not have a Mixon in place. Otherwise history is a bit limited given his lethargy and the placement of the CPAP mask. I did speak with nursing at bedside who indicated that when sleeping the patient looks to be in significant respiratory distress and thus the CPAP was placed on him. Physical Exam Constitutional: Morbidly obese appearing male in moderate distress with his CPAP in place. Eyes: PERRL, conjunctivae normal, anicteric sclerae ENMT: external ear and nose normal, oropharynx normal Neck: normal visual inspection Respiratory: Clear bilaterally. Bases are a bit diminished. Cardiovascular: Rate/Rhythm: regular rate and regular rhythm Heart Sounds: normal S1 and normal S2 2-3+ pitting edema in the lower extremities. Tense abdomen with edema noted. Gastrointestinal (Abdomen): Mildly tender to palpation. Tense. Edema noted. Musculoskeletal: Patient is diffusely weak and lethargic. Skin: no rashes, warm and dry Neurologic: PERRL, EOMI, accommodation nl, no face palsy, no dysarthria Psychiatric: A+Ox3, euthymic affect Results & Data Results & Data ([facility]) Vital Signs (Past 12 Hours) Vital Signs Temp Pulse Pulse Resp BP Pulse Ox 12/21/19 11:30 84 26 H 92 12/21/19 11:19 97.9 F 87 44 H 149/94 H 95 12/21/19 08:00 97 H 12/21/19 06:35 98.4 F 96 H 20 146/77 H 96 12/21/19 03:24 98.8 F 95 H 40 H 150/79 H 96 I personally reviewed the laboratory data, chest imaging and recent notes. PG Care Time/CCT Total # of Minutes Spent Total Time Spent with Patient: Total time spent is greater than 50% in coordination of care (as documented) at patient's floor/unit and/or counseling patient: Coding Level of Care Code 28744 Subseq Hosp Care Lvl 3 Diagnoses Volume overload E87.70 Acute respiratory failure with hypoxia J96.01 Post-ERCP acute pancreatitis K91.89; K85.90 Abdominal pain, epigastric R10.13
[2019-12-21] MEDS ORDERED: ALBUMIN 25% 50 ML with FUROSEMIDE 40 MG IV ONE (19:30)
[2019-12-21] MEDS: TRAZODONE HCL 100 MG TAB PO SCH (20:01)
[2019-12-21] MEDS: MIRTAZAPINE SOLTAB 15 MG PO SCH (20:02)
[2019-12-22] MEDS ORDERED: FUROSEMIDE 20 MG in SYRINGE 0 ML IV ONE (02:44)
[2019-12-22] MEDS: ENOXAPARIN INJ 40 MG/0.4 ML SYR SQ SCH ×2 (05:37→17:25)
[2019-12-22] MEDS: FAMOTIDINE 20 MG TAB OG SCH ×2 (07:45→20:57)
[2019-12-22] MEDS: carvediloL 12.5 MG TAB PO SCH ×2 (07:45→20:57)
[2019-12-22] MEDS: POLYETHYLENE (MIRALAX) 17 GM PACK PO SCH (07:45)
[2019-12-22] MEDS: CHOLECALCIFEROL 1,000 UNITS 25 MCG TAB PO SCH (07:46)
[2019-12-22] MEDS: CALCIUM CARBONATE 1,250 MG/5 ML UDC PO SCH ×3 (07:46→20:57)
[2019-12-22] MEDS: LOSARTAN POTASSIUM 25 MG TAB PO SCH (07:46)
[2019-12-22 10:41] LABS: Basophils # (auto) 0.02 K/uL (0-0.2); Basophils % (auto) 0.1 %; Eosinophils # (auto) 0.15 K/uL (0-0.5); Hematocrit (blood only) 35.4 % (42-52); Hemoglobin 11.8 g/dL (14.0-18.0); Immature Granulocytes # (auto) 0.41 K/uL (0.00-0.02); Immature Granulocytes % (auto) 2.6 %; Lymphocytes # (auto) 1.19 K/uL (1.2-3.4); Lymphocytes % (auto) 7.7 %; Mean Corpuscular Hemoglobin 30.4 pg (25-34); Mean Corpuscular Hgb Conc 33.3 g/dL (32-36); Mean Corpuscular Volume 91.2 fL (80-100); Mean Platelet Volume 10.8 fL (7.4-10.4); Monocytes # (auto) 1.22 K/uL (0.11-0.59); Monocytes % (auto) 7.9 %; Neutrophils # (auto) 12.49 K/uL (1.4-6.5); Neutrophils % (auto) 80.7 %; Platelet Count 406 K/uL (130-400); RDW Coefficient of Variation 12.7 % (11.5-14.5); RDW Standard Deviation 42.4 fL (36.4-46.3); Red Blood Count 3.88 M/uL (4.7-6.1); White Blood Count 15.48 K/uL (4.8-10.8)
[2019-12-22 11:20] LABS: BUN Creatinine Ratio 28.9 (10-20); Calcium 7.9 mg/dl (8.5-10.1); Creatinine Clr Calc Pharmacy 143.2 ml/min; Est GFR (African American) 101.9; Est GFR (Non-African American) 87.9; Magnesium 2.2 mg/dl (1.8-2.4); Potassium 3.6 mmol/L (3.5-5.1)
[2019-12-22 11:22] LABS: Albumin Globulin Ratio 0.5 (0.9-2); Bilirubin,Total 0.8 mg/dl (0.2-1); Globulin 3.7 gm/dl (2.5-4.0); Phosphorus 2.6 mg/dl (2.5-4.9); Total Protein 5.7 gm/dl (6.4-8.2)
--- NOTE | 2019-12-22 11:32 | Hospitalist Progress Note ---
Date of Service December 22, 2019 Assessment & Plan (1) Post-ERCP acute pancreatitis: 44-year-old male with history of hypertension and prediabetes, dyslipidemia, aortic root enlargement, depression, presenting with abdominal pain after an ERCP procedure. Post ERCP pancreatitis Patient admitted on December 12, 2019 secondary to post ERCP pancreatitis. He was given vigorous IV lactated Ringer's and placed on PRN IV Dilaudid for pain. On hospital day #2, the patient was found to be unresponsive, hypotensive. He responded to Narcan and IV fluids and was subsequently transferred to PCU. On hospital day #3, the patient was found to have acute renal failure and severe hypocalcemia with muscle cramping; patient was subsequently transferred to intensive care unit, required IV calcium. He eventually developed respiratory distress, and was intubated. He was given IV Lasix, IV calcium transition to oral calcium and was given IV Zosyn. Renal failure resolved, hypocalcemia also improved. He was extubated on December 18, 2019. However developed fever T-max 39.0. Cultures obtained, antibiotics broadened from Zosyn to imipenem. Found to have superficial thrombosis of the basilic veins bilaterally, started on Lovenox 40 mg every 12. Post extubation, the patient also reporting significant lower back pain. Advance diet as tolerated GI on board Acute respiratory failure, likely secondary to volume overload Status post extubation 12/18/2019 Was on the mechanical ventilator for 3 days Diurese accordingly, Increase Diet Acute renal failure Likely ATN as per nephrology service Creatinine improved from 2.6, now back to baseline 1.1 good urine output Hypocalcemia in the setting of pancreatitis Received IV calcium gluconate Now on oral calcium Monitor Hypomagnesemia monitor and replace Fever, unclear etiology Developed December 17, 2019, T-max 39 Unclear etiology at this time Urine culture pending Sputum culture pending Blood cultures pending Chest x-ray No significant change from the prior study. Mild pulmonary vascular congestion. Bilateral pleural effusions with associated bibasilar airspace opacities. On Imipenem --Fever resolving Superficial venous thrombosis Upper extremity Doppler study: No DVT within the right or left upper extremity. Thrombosed bilateral cephalic veins. Lower extremity Doppler study: No DVT within the right or left lower extremity. Lovenox 40 mg subcutaneous every 12 started Back pain Patient has a history of chronic back pain Dilaudid 0.5 mg every 4 hours ordered, in addition to usual oxycodone Monitor closely Avoid increasing Dilaudid as much as possible to prevent hypoxia, altered mental status ATC Tylenol 500 mg PO Q4 WA, Toradol if Cr OK Hypoxia Occurred on Hospital day #2, patient noted to be hypoxic in the setting of unresponsiveness and hypotension Chest x-ray: Positive atelectasis Likely secondary hypoventilation secondary to epigastric pain Bilateral lower extremity Doppler ultrasound negative for PE VQ scan low probability for PE Heparin drip discontinued Management per #2 Hypotension Resolved Occurred on Hospital day 2 Likely multifactorial, from Dilaudid?, Dehydration BP better, Back on Losartan Lethargy Possible toxic metabolic encephalopathy, resolved Occurred on Hospital day 2 Likely secondary to hypercapnic respiratory failure, in the setting of Dilaudid use with acute renal failure Resolved Dilaudid dose reduced Patient apparently has been diagnosed with obstructive sleep apnea in the past, not able to tolerate BiPAP mask Declines trial of BiPAP mask again while admitted Monitor closely Hypertension losartan and Coreg on hold due to hypotension Monitor Prediabetes Monitor Morbid obesity Counseling Depression usually on Zoloft, trazodone, Remeron DVT prophylaxis Lovenox 40 mg subcu every 12 CODE STATUS Full code Disposition pending lives with family at home PT and OT Lasix 80 mg IV Q8H, Mixon, Reg Diet ROS-No Headache, No Visual Changes, No Nausea, No Vomiting, No Fever, No Chills, No Neck Pain or Stiffness, No Chest Pain, No Palpitations, + SOB, No MARCIAL, No Cough, No Sputum, No Wheezing, No Abdominal Pain, No Diarrhea, No Hematemesis, No Hemoptysis, No Unexpected Weight Loss, No Flank pain, No Melena, No Hematochezia, No Frequency, No Urgency, No Burning, No Hematuria, No Rashes, No Diaphoresis. Appetite is Normal, Weak, feeling better Physical Exam Gen-AAO x 3, NAD, Afebrile, Obese Head-NCAT, EOMI, PERRLA, Anicteric Sclera, No Posterior Pharyngeal Erythema Neck-Supple, No JVD, No Thyromegaly, No Masses, No LAD, No Bruits Lungs- BS Bilaterally, No Rales, No Rhonchi, No Wheezing, No Crepitus, Tachpneic Chest-No S4, +S1, +S2, No S3, No Murmurs, No Rubs, No Gallops, No Ectopy Abdomen-Soft, Bowel Sounds Present, Non Tender, Non Distended, No Hepatomegaly, No Splenomegaly, No Palpable Masses, No Rebound, No Rigidity, No Guarding Musculoskeletal-Full Range of Motion Bilaterally, No CVAT Extremities-No Cyanosis, No Clubbing, +BLE Edema Nuero-Cranial Nerves II-XII grossly intact, Motor WNL, DTRs WNL, Strength WNL, Non Focal Psych-Normal Mood Admission and Anticipated Discharge Date Admission Date: December 12, 2019 Anticipated date of discharge: 12/25/19 Results & Data Results & Data ([facility]) Vital Signs (Past 12 Hours) Vital Signs Temp Pulse Pulse Resp BP Pulse Ox 12/22/19 07:40 101 H 12/22/19 06:29 36.8 C 96 H 36 H 149/74 H 96 12/22/19 02:50 37.0 C 103 H 34 H 143/83 H 97 12/22/19 01:13 90
--- NOTE | 2019-12-22 11:57 | Gastroenterology Progress Note ---
Date of Service December 22, 2019 Assessment & Plan (1) Post-ERCP acute pancreatitis: 44 year old male admitted w/ post ERCP pancreatitis, s/p extubation 12/17. Currently having ileus but seem to be improving as is passing flatus and having BM. Current issues related to volume overload, on diuretics - Continue Miralax 17g daily - Try to wean off narcotic - Diuretic management per primary team - Encourage OOB - Gi will watch peripherally, pls recall as needed Admission and Anticipated Discharge Date Admission Date: December 12, 2019 Anticipated date of discharge: 12/25/19 Supervising Physician Co-Signing Physician Notes I saw and evaluated the patient. He does continue to have problems as result of volume overload. Would recommend continuing with Lasix as you are doing. Is call with any questions or concerns over the weekend, routine coverage to resume on Wednesday Subjective Pt still feels distended, reports some SOB though appears to be breathing more comfortable, O2 sat 94% on RA Review of Systems Review of Systems: All systems reviewed & are unremarkable except as noted in HPI & below Physical Exam Constitutional: WD/WN, vitals as above + obese ENMT: external ear and nose normal, oropharynx normal Respiratory: normal respiratory effort, lungs clear to auscultation Cardiovascular: RRR, no murmur, no edema Gastrointestinal (Abdomen): Inspection/Auscultation: + abdomen distended and normal bowel sounds Percussion/Palpation: abdomen nontender Skin: no rashes, warm and dry no jaundice Psychiatric: A+Ox3, euthymic affect Lymphatic: + lymphedema (generalized edema on extremities ) Results & Data ([facility]) Vital Signs (Past 12 Hours) Vital Signs Temp Pulse Pulse Resp BP Pulse Ox 12/22/19 07:40 101 H 12/22/19 06:29 36.8 C 96 H 36 H 149/74 H 96 12/22/19 02:50 37.0 C 103 H 34 H 143/83 H 97 12/22/19 01:13 90
[2019-12-22] MEDS: FUROSEMIDE 80 MG in SYRINGE 0 ML IV SCH ×2 (12:52→19:48)
--- NOTE | 2019-12-22 12:53 | CT Scan Report ---
CT SCAN OF THE ABDOMEN AND PELVIS WITHOUT CONTRAST CLINICAL HISTORY: Abd Distension COMPARISON STUDY: 12/16/2019 TECHNIQUE: CT scan of the abdomen and pelvis was performed from the lung bases to the proximal femurs . Images are reviewed in the axial, sagittal, and coronal planes. IV contrast was not administered fo r this examination. A dose lowering technique was utilized adhering to the principles of ALARA. CT DOSE: 1896.78 mGy.cm FINDINGS: Lower chest: There are trace bilateral pleural effusions. There are improving basilar atelectatic hilda nges. Liver: There is hepatic steatosis. The liver is enlarged measuring 23 cm. Gallbladder: Surgically absent Spleen: The spleen is mildly enlarged measuring 14 cm Pancreas: There is persistent extensive infiltration of the peripancreatic fat indicative of acute pa ncreatitis. Assessment for pancreatic necrosis cannot be made as this study is performed in a noncont rast fashion. Adrenal glands: Unremarkable. Kidneys: No renal, ureteral, or bladder calculi are visualized. Bowel: There are no transition zones to indicate bowel obstruction. There is no evidence of acute div erticulitis. There are no findings to indicate acute appendicitis. Peritoneum: There is increasing abdominal fluid, and increased infiltration of the posterior peritone al and retroperitoneal fat. The findings are consistent with the clinical history of pancreatitis. Vasculature: The abdominal aorta is normal in course and caliber. Adenopathy: None. Pelvic viscera: The bladder, and pelvic viscera are unremarkable. Skeletal structures: No destructive osseous lesions are seen. IMPRESSION: 1. Decreasing bilateral pleural effusions and improving aeration of the lung bases 2. No evidence of bowel obstruction. No evidence of free air 3. No renal, ureteral, or bladder calculi identified 4. Progressive changes of acute pancreatitis with increasing peripancreatic infiltration, as well as and decreasing infiltration of the posterior peritoneal and retroperitoneal fat. There is a slight in crease in the peritoneal fluid present. ACT 112: Negative or not required by law. Electronically signed by: Pedro Casas M.D. 12/22/2019 12:52 PM
--- NOTE | 2019-12-22 13:42 | Progress Notes ---
DATE: 12/22/2019 SUBJECTIVE: The patient did have more urine yesterday with the Lasix. It was charted as 2450 mL; however, since this morning, he is complaining of not able to urinate. He still has lot of edema, still complaining of abdominal discomfort with distention. OBJECTIVE: VITAL SIGNS: Blood pressure is 149/74, pulse rate 101 per minute, temperature 36.8, respiratory rate 36 per minute, 96% on 3 liters nasal cannula. CHEST: Bilateral clear to auscultation. CARDIOVASCULAR: S1, S2, regular. ABDOMEN: Soft, but distended with diffuse tenderness. EXTREMITIES: Shows 2+ edema. NEUROLOGIC: Awake, alert, oriented x3, moving all 4 extremities. No focal deficit. LABORATORY TESTS: From this morning shows white cell count 15,000, hemoglobin 11.8, platelet count 406. Sodium 133, potassium 3.6, bicarb 34, BUN 30, creatinine 1.03, calcium 7.9, ionized calcium 1.05, phosphorus 2.6, magnesium 2.2. ASSESSMENT AND PLAN: A 44-year-old male admitted with acute pancreatitis. 1. Hypocalcemia that seems to be better, although still somewhat low. We will continue to replace calcium. 2. Fluid overload with all the IV fluids that he has received during this hospitalization as well as issues related with acute pancreatitis. He is definitely fluid overloaded and really wants to get rid of all the extra edema he has. The plan is to do a bladder scan and may even require Mixon catheter. We have increased the Lasix to 80 mg IV q. 8 hour. Continue daily labs including magnesium, phosphorus. MTDD
--- NOTE | 2019-12-22 15:59 | Pulmonology Progress Note ---
Date of Service December 22, 2019 Assessment & Plan (1) Volume overload: 44-year-old male with a past medical history of hypertension, morbid obesity, likely obstructive sleep apnea, likely OHS and recently diagnosed post ERCP pancreatitis who had a lengthy hospital stay and required i ntubation and mechanical ventilation due to volume overload. I did review his CT abdomen and looked at the lung bases. The pleural effusions have largely improved and are very minimal at this point. Patient continues to be very volume overloaded. Nephrology following. Currently on 80 mg IV Lasix 3 times daily. I agree with increasing his Lasix dose. He may need a Mixon catheter to monitor his urine output. I requested a Mixon catheter be placed yesterday, but the patient refused. He needs to ambulate more and participate with physical therapy to prevent atelectasis and critical illness myopathy. Continue BiPAP when sleeping. He likely has VETO/OHS. Weight loss is advised. Pulmonary will sign off at this time. Thank you for the consult. Please call with questions. (2) Acute respiratory failure with hypoxia: (3) Post-ERCP acute pancreatitis: (4) Abdominal pain, epigastric: Admission and Anticipated Discharge Date Admission Date: December 12, 2019 Anticipated date of discharge: 12/25/19 Subjective Patient doing better today and is currently on room air. Only wore his BiPAP for 3 hours last night. I did speak with the bedside respiratory therapist who indicated he has refused BiPAP previously. Denies any chest pain. He is still very concerned about his swollen lower extremities. No nausea or vomiting. Intermittent abdominal pain. Underwent a CT of his abdomen and pelvis today. Physical Exam Constitutional: Morbidly obese appearing male in moderate distress with his CPAP in place. Eyes: PERRL, conjunctivae normal, anicteric sclerae ENMT: external ear and nose normal, oropharynx normal Neck: normal visual inspection Respiratory: Clear bilaterally. Bases are a bit diminished. Cardiovascular: Rate/Rhythm: regular rate and regular rhythm Heart Sounds: normal S1 and normal S2 2-3+ pitting edema in the lower extremities. Tense abdomen with edema noted but improved from yesterday. Gastrointestinal (Abdomen): Mildly tender to palpation. Musculoskeletal: Patient is diffusely weak and lethargic. Skin: no rashes, warm and dry Neurologic: PERRL, EOMI, accommodation nl, no face palsy, no dysarthria Psychiatric: A+Ox3, euthymic affect Results & Data Results & Data ([facility]) Vital Signs (Past 12 Hours) Vital Signs Temp Pulse Pulse Resp BP Pulse Ox 12/22/19 15:11 99.1 F 101 H 36 H 120/88 94 12/22/19 07:40 101 H 12/22/19 06:29 98.2 F 96 H 36 H 149/74 H 96 PG Care Time/CCT Total # of Minutes Spent Total Time Spent with Patient: Total time spent is greater than 50% in coordination of care (as documented) at patient's floor/unit and/or counseling patient: Coding Level of Care Code 79859 Subseq Hosp Care Lvl 2 Diagnoses Volume overload E87.70 Acute respiratory failure with hypoxia J96.01 Post-ERCP acute pancreatitis K91.89; K85.90 Abdominal pain, epigastric R10.13
[2019-12-22] MEDS ORDERED: POTASSIUM CHLORIDE 20 MEQ TABCR PO ONE (16:00)
[2019-12-22] MEDS: METOCLOPRAMIDE HCL INJ 5 MG/ML 2 ML VIAL IV PRN (17:28)
[2019-12-22] MEDS ORDERED: PROMETHAZINE HCL 12.5 MG in SODIUM CHLORIDE 0.9% 50 ML IV STA (20:09)
[2019-12-22] MEDS: TRAZODONE HCL 100 MG TAB PO SCH (20:57)
[2019-12-22] MEDS: MIRTAZAPINE SOLTAB 15 MG PO SCH (20:57)
[2019-12-22] MEDS: LOPERAMIDE HCL 2 MG CAP PO PRN (21:31)
[2019-12-23] MEDS: FUROSEMIDE 80 MG in SYRINGE 0 ML IV SCH ×3 (04:00→20:22)
[2019-12-23] MEDS: ENOXAPARIN INJ 40 MG/0.4 ML SYR SQ SCH ×2 (05:27→18:21)
--- NOTE | 2019-12-23 08:13 | Hospitalist Progress Note ---
Date of Service December 23, 2019 Assessment & Plan (1) Post-ERCP acute pancreatitis: 44-year-old male with history of hypertension and prediabetes, dyslipidemia, aortic root enlargement, depression, presenting with abdominal pain after an ERCP procedure. Post ERCP pancreatitis Patient admitted on December 12, 2019 secondary to post ERCP pancreatitis. He was given vigorous IV lactated Ringer's and placed on PRN IV Dilaudid for pain. On hospital day #2, the patient was found to be unresponsive, hypotensive. He responded to Narcan and IV fluids and was subsequently transferred to PCU. On hospital day #3, the patient was found to have acute renal failure and severe hypocalcemia with muscle cramping; patient was subsequently transferred to intensive care unit, required IV calcium. He eventually developed respiratory distress, and was intubated. He was given IV Lasix, IV calcium transition to oral calcium and was given IV Zosyn. Renal failure resolved, hypocalcemia also improved. He was extubated on December 18, 2019. However developed fever T-max 39.0. Cultures obtained, antibiotics broadened from Zosyn to imipenem. Found to have superficial thrombosis of the basilic veins bilaterally, started on Lovenox 40 mg every 12. Post extubation, the patient also reporting significant lower back pain. Advance diet as tolerated GI following Acute respiratory failure, secondary to volume overload Status post extubation 12/18/2019 Was on the mechanical ventilator for 3 days Diurese accordingly, Increased Diet Acute renal failure Likely ATN as per nephrology service Creatinine improved from 2.6, now back to baseline 1.1 good urine output Hypocalcemia in the setting of pancreatitis Received IV calcium gluconate Now on oral calcium Monitor Hypomagnesemia monitor and replace Fever, unclear etiology Developed December 17, 2019, T-max 39 Unclear etiology at this time Urine culture pending Sputum culture pending Blood cultures pending Chest x-ray No significant change from the prior study. Mild pulmonary vascular congestion. Bilateral pleural effusions with associated bibasilar airspace opacities. On Imipenem --Fever resolving Superficial venous thrombosis Upper extremity Doppler study: No DVT within the right or left upper extremity. Thrombosed bilateral cephalic veins. Lower extremity Doppler study: No DVT within the right or left lower extremity. Lovenox 40 mg subcutaneous every 12 started Back pain Patient has a history of chronic back pain Dilaudid 0.5 mg every 4 hours ordered, in addition to usual oxycodone Monitor closely Avoid increasing Dilaudid as much as possible to prevent hypoxia, altered mental status ATC Tylenol 500 mg PO Q4 WA Hypoxia Occurred on Hospital day #2, patient noted to be hypoxic in the setting of unresponsiveness and hypotension Chest x-ray: Positive atelectasis Likely secondary hypoventilation secondary to epigastric pain Bilateral lower extremity Doppler ultrasound negative for PE VQ scan low probability for PE Heparin drip discontinued Management per #2 Hypotension Resolved Occurred on Hospital day 2 Likely multifactorial, from Dilaudid?, Dehydration BP better, Back on Losartan Lethargy Toxic metabolic encephalopathy, resolved, Secondary to hypercapnic respiratory failure, in the setting of Dilaudid use with acute renal failure Occurred on Hospital day 2 Dilaudid dose reduced Patient apparently has been diagnosed with obstructive sleep apnea in the past, On BiPAP Hypertension Losartan and Coreg Prediabetes Monitor Morbid obesity Counseling Depression usually on Zoloft, trazodone, Remeron DVT prophylaxis Lovenox 40 mg subcu every 12 CODE STATUS Full code Disposition pending lives with family at home PT and OT Lasix 80 mg IV Q8H, Mixon, Reg Diet ROS-No Headache, No Visual Changes, No Nausea, No Vomiting, No Fever, No Chills, No Neck Pain or Stiffness, No Chest Pain, No Palpitations, + SOB, No MARCIAL, No Cough, No Sputum, No Wheezing, No Abdominal Pain, No Diarrhea, No Hematemesis, No Hemoptysis, No Unexpected Weight Loss, No Flank pain, No Melena, No Hematochezia, No Frequency, No Urgency, No Burning, No Hematuria, No Rashes, No Diaphoresis. Appetite is Normal, Weak, feeling better Physical Exam Gen-AAO x 3, NAD, Afebrile, Obese Head-NCAT, EOMI, PERRLA, Anicteric Sclera, No Posterior Pharyngeal Erythema Neck-Supple, No JVD, No Thyromegaly, No Masses, No LAD, No Bruits Lungs- BS Bilaterally, No Rales, No Rhonchi, No Wheezing, No Crepitus, Tachpneic Chest-No S4, +S1, +S2, No S3, No Murmurs, No Rubs, No Gallops, No Ectopy Abdomen-Soft, Bowel Sounds Present, Non Tender, Non Distended, No Hepatomegaly, No Splenomegaly, No Palpable Masses, No Rebound, No Rigidity, No Guarding Musculoskeletal-Full Range of Motion Bilaterally, No CVAT Extremities-No Cyanosis, No Clubbing, +BLE Edema, improving Nuero-Cranial Nerves II-XII grossly intact, Motor WNL, DTRs WNL, Strength WNL, Non Focal Psych-Normal Mood Admission and Anticipated Discharge Date Admission Date: December 12, 2019 Anticipated date of discharge: 12/25/19 Results & Data Results & Data ([facility]) Vital Signs (Past 12 Hours) Vital Signs Temp Pulse Pulse Resp BP Pulse Ox 12/23/19 04:58 36.4 C L 91 H 20 143/78 H 94 12/23/19 00:00 104 H 12/22/19 22:29 37.2 C 103 H 18 127/73 90
[2019-12-23] MEDS: LOPERAMIDE HCL 2 MG CAP PO PRN ×2 (08:16→11:55)
[2019-12-23] MEDS: METOCLOPRAMIDE HCL INJ 5 MG/ML 2 ML VIAL IV PRN (08:16)
[2019-12-23] MEDS: POLYETHYLENE (MIRALAX) 17 GM PACK PO SCH (08:17)
[2019-12-23] MEDS: FAMOTIDINE 20 MG TAB OG SCH ×2 (08:17→20:24)
[2019-12-23] MEDS: LOSARTAN POTASSIUM 25 MG TAB PO SCH (08:18)
[2019-12-23] MEDS: CHOLECALCIFEROL 1,000 UNITS 25 MCG TAB PO SCH (08:20)
[2019-12-23] MEDS: carvediloL 12.5 MG TAB PO SCH ×2 (08:21→20:24)
[2019-12-23] MEDS: CALCIUM CARBONATE 1,250 MG/5 ML UDC PO SCH ×4 (08:21→20:24)
[2019-12-23 08:34] LABS: BUN Creatinine Ratio 29.5 (10-20); Calcium 7.3 mg/dl (8.5-10.1); Creatinine Clr Calc Pharmacy 158.9 ml/min; Est GFR (African American) 115.3; Est GFR (Non-African American) 99.5; Magnesium 1.9 mg/dl (1.8-2.4); Potassium 3.1 mmol/L (3.5-5.1)
[2019-12-23 08:37] LABS: Albumin Globulin Ratio 0.5 (0.9-2); Bilirubin,Total 0.7 mg/dl (0.2-1); Globulin 3.7 gm/dl (2.5-4.0); Phosphorus 2.4 mg/dl (2.5-4.9); Total Protein 5.7 gm/dl (6.4-8.2)
--- NOTE | 2019-12-23 17:23 | Progress Notes ---
DATE: 12/23/2019 SUBJECTIVE: The patient did have more urine yesterday, but I am not sure the input-output record is accurate. The patient has less edema today and his weight is down. He is eager to go home. Complaining of some diarrhea. OBJECTIVE: VITAL SIGNS: Blood pressure 141/81, 96 per minute pulse, temperature 37.4, 93% on room air. HEENT: Mucous membrane is moist. NECK: Supple. No jugular venous distention. CHEST: Bilaterally clear to auscultation. CARDIOVASCULAR: S1, S2, regular. ABDOMEN: Soft, diffusely tender, distended. EXTREMITIES: Shows 2+ edema. LABORATORY TESTS: From this morning was reviewed in detail. Calcium is still low. ASSESSMENT AND PLAN: A 44-year-old male with acute pancreatitis. 1. Hypocalcemia. This seems to be getting better, although still somewhat low. We will increase the calcium replacement. 2. Fluid overload with all the IV fluids that he has received during this hospitalization as well as issues related with acute pancreatitis. For now, continue Lasix 80 mg IV q. 8 hour. It seems he is making more urine than documented. He did refuse Mixon catheter yesterday, but at this time, he is not complaining of any difficulty with voiding.
[2019-12-23] MEDS: MIRTAZAPINE SOLTAB 15 MG PO SCH (20:23)
[2019-12-23] MEDS: TRAZODONE HCL 100 MG TAB PO SCH (20:24)
[2019-12-23] MEDS ORDERED: POTASSIUM CHLORIDE 20 MEQ/15 ML UDC PO STA (22:34)
[2019-12-24] MEDS: FUROSEMIDE 80 MG in SYRINGE 0 ML IV SCH (05:04)
[2019-12-24] MEDS: ENOXAPARIN INJ 40 MG/0.4 ML SYR SQ SCH (06:13)
[2019-12-24 07:58] LABS: Hematocrit (blood only) 36.4 % (42-52); Hemoglobin 12.3 g/dL (14.0-18.0); Mean Corpuscular Hemoglobin 30.4 pg (25-34); Mean Corpuscular Hgb Conc 33.8 g/dL (32-36); Mean Corpuscular Volume 90.1 fL (80-100); Mean Platelet Volume 10.5 fL (7.4-10.4); Platelet Count 481 K/uL (130-400); RDW Coefficient of Variation 12.6 % (11.5-14.5); RDW Standard Deviation 41.1 fL (36.4-46.3); Red Blood Count 4.04 M/uL (4.7-6.1); White Blood Count 12.72 K/uL (4.8-10.8)
--- NOTE | 2019-12-24 08:29 | Discharge Summary ---
Date of Service December 24, 2019 Admission HPI Per Admitting Provider 44-year-old male with past medical history significant for hyperlipidemia, prediabetes, right thyroid nodule, aortic root enlargement, essential hypertension, fatty liver, celiac disease, chronic pain syndrome, myxopapillary ependymoma, major depression, presents with abdominal pain. The patient had an endoscopic ultrasound yesterday for his fatty liver and biopsies were taken at that time, common CBD stones were found, so he was brought in today for ERCP, status post ERCP and extraction of stones and complete removal was accomplished by biliary sphincterotomy and balloon extraction. The patient says after the procedure, he had abdominal pain, 5/10 in severity and but he was discharged on going home, the pain got progressively worse. He tried to lie down on his back and he rolled over and felt nauseous and vomited. He just had some ice chips and Gatorade after going home, which he vomited, felt cold, and sweaty and as the patient is not getting better, came to the ER and found to have his lipase elevated. His AST, ALT and bilirubin elevated. Currently resting comfortably. Hemodynamically stable. With IV pain medication, pain is improved to 3/10 in severity.Currently no nausea, no chest pain, no shortness of breath, no cough, no headache, no blurred vision, no earache, no runny nose, no sore throat, no dysphagia. No rash. He has alternating bowel movements with constipation and diarrhea. No blood in the stools. No burning micturition. Ambulates. Admission Exam Per Admitting Provider GENERAL: The patient is obese, not in acute distress. VITAL SIGNS: Temperature 36.5, pulse 64, respirations 16, blood pressure 162/101, oxygen 96% room air. HEENT: No pallor, no icterus. Pupils equal, round, reactive to light. NECK: No JVD, no neck masses. CARDIOVASCULAR: S1, S2 heard, regular rate and rhythm, no murmur, no gallop. RESPIRATORY SYSTEM: Normal AP diameter. No accessory muscle use. No wheezing, no crackles. ABDOMEN: Soft, bowel sounds sluggish, diffuse tenderness, more in the epigastric and right lower quadrant region, mild guarding. No distention. CENTRAL NERVOUS SYSTEM: Cranial nerves II-XII grossly intact. Nonfocal. EXTREMITIES: No edema, no erythema Principal Diagnosis Post ERCP pancreatitis Acute renal failure Hypocalcemia in the setting of pancreatitis Hypomagnesemia Fever, unclear etiology Superficial venous thrombosis Back pain Hypoxia Hypotension Lethargy Hypertension Prediabetes Morbid obesity Depression Discharge Exam See Below Discharge Data Allergies Allergy/AdvReac Type Severity Reaction Status Date / Time gluten Allergy Verified 12/15/19 10:35 Consultations 12/12/19 21:54 ED Decision to Admit Stat 12/13/19 08:00 Consult Gastroenterology Routine 12/14/19 06:20 Consult Nephrology Routine 12/14/19 08:08 Consult Nephrology Routine 12/14/19 17:51 Consult Staffing Specialist Routine 12/17/19 18:34 Consult Nutrition Routine Ordered Studies 12/12/19 19:19 CT abd pelvis IV con only Urgent 12/14/19 02:04 US venous doppler LE BI Urgent 12/14/19 04:50 CT abd pelvis wo con Urgent 12/14/19 13:00 US renal/blad retro comp Routine 12/15/19 18:09 US point of care ultrasound Urgent 12/16/19 08:01 CT abd pelvis wo con Urgent CT chest wo con Urgent 12/18/19 13:00 US venous doppler LE BI Stat 12/18/19 14:00 US venous doppler UE BI Routine 12/22/19 11:33 CT abd pelvis wo con Routine 12/24/19 12/24/19 12/24/19 Range/Units 07:47 07:47 07:47 WBC 12.72 H (4.8-10.8) K/uL RBC 4.04 L (4.7-6.1) M/uL Hgb 12.3 L (14.0-18.0) g/dL Hct 36.4 L (42-52) % MCV 90.1 (80-100) fL MCH 30.4 (25-34) pg MCHC 33.8 (32-36) g/dL RDW Std Deviation 41.1 (36.4-46.3) fL RDW Coeff of Balwinder 12.6 (11.5-14.5) % Plt Count 481 H (130-400) K/uL MPV 10.5 H (7.4-10.4) fL Sodium Pending (136-145) mmol/L Potassium Pending (3.5-5.1) mmol/L Chloride Pending (98-107) mmol/L Carbon Dioxide Pending (21-32) mmol/L Anion Gap Pending (3-11) BUN Pending (7-18) mg/dl Creatinine Pending (0.6-1.4) mg/dl Est Cr Clr Drug Dosing Pending ml/min Est GFR ( Amer) Pending Est GFR (Non-Af Amer) Pending BUN/Creatinine Ratio Pending (10-20) Glucose Pending (70-99) mg/dl Calcium Pending (8.5-10.1) mg/dl Ionized Calcium 0.95 L (1.12-1.32) mmol/L Phosphorus Pending (2.5-4.9) mg/dl Magnesium Pending (1.8-2.4) mg/dl Total Bilirubin Pending (0.2-1) mg/dl AST Pending (15-37) U/L ALT Pending (12-78) U/L Alkaline Phosphatase Pending (45-117) U/L Total Protein Pending (6.4-8.2) gm/dl Albumin Pending (3.4-5.0) gm/dl Globulin Pending (2.5-4.0) gm/dl Albumin/Globulin Ratio Pending (0.9-2) Lipase Pending (73-393) U/L 12/23/19 Range/Units 07:45 WBC (4.8-10.8) K/uL RBC (4.7-6.1) M/uL Hgb (14.0-18.0) g/dL Hct (42-52) % MCV (80-100) fL MCH (25-34) pg MCHC (32-36) g/dL RDW Std Deviation (36.4-46.3) fL RDW Coeff of Balwinder (11.5-14.5) % Plt Count (130-400) K/uL MPV (7.4-10.4) fL Sodium 133 L (136-145) mmol/L Potassium 3.1 L (3.5-5.1) mmol/L Chloride 93 L (98-107) mmol/L Carbon Dioxide 32 (21-32) mmol/L Anion Gap 8.0 (3-11) BUN 28 H (7-18) mg/dl Creatinine 0.93 (0.6-1.4) mg/dl Est Cr Clr Drug Dosing 158.9 ml/min Est GFR ( Amer) 115.3 Est GFR (Non-Af Amer) 99.5 BUN/Creatinine Ratio 29.5 H (10-20) Glucose 132 H (70-99) mg/dl Calcium 7.3 L (8.5-10.1) mg/dl Ionized Calcium (1.12-1.32) mmol/L Phosphorus 2.4 L (2.5-4.9) mg/dl Magnesium 1.9 (1.8-2.4) mg/dl Total Bilirubin 0.7 (0.2-1) mg/dl AST 34 (15-37) U/L ALT 18 (12-78) U/L Alkaline Phosphatase 64 (45-117) U/L Total Protein 5.7 L (6.4-8.2) gm/dl Albumin 2.0 L (3.4-5.0) gm/dl Globulin 3.7 (2.5-4.0) gm/dl Albumin/Globulin Ratio 0.5 L (0.9-2) Lipase 381 (73-393) U/L Hospital Course (1) Post-ERCP acute pancreatitis: 44-year-old male with history of hypertension and prediabetes, dyslipidemia, aortic root enlargement, depression, presenting with abdominal pain after an ERCP procedure. Post ERCP pancreatitis Patient admitted on December 12, 2019 secondary to post ERCP pancreatitis. He was given vigorous IV lactated Ringer's and placed on PRN IV Dilaudid for pain. On hospital day #2, the patient was found to be unresponsive, hypotensive. He responded to Narcan and IV fluids and was subsequently transferred to PCU. On hospital day #3, the patient was found to have acute renal failure and severe hypocalcemia with muscle cramping; patient was subsequently transferred to intensive care unit, required IV calcium. He eventually developed respiratory distress, and was intubated. He was given IV Lasix, IV calcium transition to oral calcium and was given IV Zosyn. Renal failure resolved, hypocalcemia also improved. He was extubated on December 18, 2019. However developed fever T-max 39.0. Cultures obtained, antibiotics broadened from Zosyn to imipenem. Found to have superficial thrombosis of the basilic veins bilaterally, started on Lovenox 40 mg every 12. Post extubation, the patient also reporting significant lower back pain. Advance diet as tolerated GI following Acute respiratory failure, secondary to volume overload Status post extubation 12/18/2019 Was on the mechanical ventilator for 3 days Diurese accordingly, Increased Diet Acute renal failure Likely ATN as per nephrology service Creatinine improved from 2.6, now back to baseline 1.1 good urine output Hypocalcemia in the setting of pancreatitis Received IV calcium gluconate Now on oral calcium Monitor Hypomagnesemia monitor and replace Fever, unclear etiology Developed December 17, 2019, T-max 39 Unclear etiology at this time Urine culture pending Sputum culture pending Blood cultures pending Chest x-ray No significant change from the prior study. Mild pulmonary vascular congestion. Bilateral pleural effusions with associated bibasilar airspace opacities. Superficial venous thrombosis Upper extremity Doppler study: No DVT within the right or left upper extremity. Thrombosed bilateral cephalic veins. Lower extremity Doppler study: No DVT within the right or left lower extremity. Lovenox 40 mg subcutaneous every 12 started Back pain Patient has a history of chronic back pain Dilaudid 0.5 mg every 4 hours ordered, in addition to usual oxycodone Monitor closely Avoid increasing Dilaudid as much as possible to prevent hypoxia, altered mental status ATC Tylenol 500 mg PO Q4 WA Hypoxia Occurred on Hospital day #2, patient noted to be hypoxic in the setting of unresponsiveness and hypotension Chest x-ray: Positive atelectasis Likely secondary hypoventilation secondary to epigastric pain Bilateral lower extremity Doppler ultrasound negative for PE VQ scan low probability for PE Heparin drip discontinued Management per #2 Hypotension Resolved Occurred on Hospital day 2 Likely multifactorial, from Dilaudid?, Dehydration BP better, Back on Losartan Lethargy Toxic metabolic encephalopathy, resolved, Secondary to hypercapnic respiratory failure, in the setting of Dilaudid use with acute renal failure Occurred on Hospital day 2 Dilaudid dose reduced Patient apparently has been diagnosed with obstructive sleep apnea in the past, On BiPAP Hypertension Losartan and Coreg Prediabetes Monitor Morbid obesity Counseling Depression usually on Zoloft, trazodone, Remeron DVT prophylaxis Lovenox 40 mg subcu every 12 CODE STATUS Full code Disposition pending lives with family at home PT and OT Lasix 80 mg Q12, f/u c Renal, GI, Pulm, and PCP, DM Diet ROS-No Headache, No Visual Changes, No Nausea, No Vomiting, No Fever, No Chills, No Neck Pain or Stiffness, No Chest Pain, No Palpitations, No SOB, No MARCIAL, No Cough, No Sputum, No Wheezing, No Abdominal Pain, No Diarrhea, No Hematemesis, No Hemoptysis, No Unexpected Weight Loss, No Flank pain, No Melena, No Hematochezia, No Frequency, No Urgency, No Burning, No Hematuria, No Rashes, No Diaphoresis. Appetite is Normal, Weak, feeling better Physical Exam Gen-AAO x 3, NAD, Afebrile, Obese Head-NCAT, EOMI, PERRLA, Anicteric Sclera, No Posterior Pharyngeal Erythema Neck-Supple, No JVD, No Thyromegaly, No Masses, No LAD, No Bruits Lungs- BS Bilaterally, No Rales, No Rhonchi, No Wheezing, No Crepitus, Tachpneic Chest-No S4, +S1, +S2, No S3, No Murmurs, No Rubs, No Gallops, No Ectopy Abdomen-Soft, Bowel Sounds Present, Non Tender, Non Distended, No Hepatomegaly, No Splenomegaly, No Palpable Masses, No Rebound, No Rigidity, No Guarding Musculoskeletal-Full Range of Motion Bilaterally, No CVAT Extremities-No Cyanosis, No Clubbing, +BLE Edema, improving Nuero-Cranial Nerves II-XII grossly intact, Motor WNL, DTRs WNL, Strength WNL, Non Focal Psych-Normal Mood Total Time Total Time Spent Total Time Spent (In Minutes): 45 mins Total Time Includes: Examination of the Patient, Discharge Planning, Medication Reconciliation and Communication With Other Providers Discharge Plan Discharge Items Patient Disposition: Home - Self-Care Reason For Visit: ABD PAIN Discharge Diagnosis: Post ERCP pancreatitis Acute renal failure Hypocalcemia in the setting of pancreatitis Hypomagnesemia Fever, unclear etiology Superficial venous thrombosis Back pain Hypoxia Hypotension Lethargy Hypertension Prediabetes Morbid obesity Depression Condition on Discharge: Fair Activity: As commented below Activity Comment: as tolerated Lifting: Gradually increase as tolerated Bathing: No limitations Sexual Activity: When tolerated Exercise/Sports: Gradually increase as tolerated Driving/Machine Use: Resume 3 days after discharge Weightbearing: Full weightbearing Non-emergency contact: Primary Care Provider, Site Operations Manager and [employer] Call non-emergency contact if: you have any medication questions and your symptoms worsen Follow-up/Referrals: Gigi Sparks MD [Physician] - (5-7 days) Chelsy Oquendo MD, PhD [Physician] - (5-7 days) Maxim Cordoba [Physician] - (5-7 days) Estuardo Kamara MD [Primary Care Provider] - Diet: Carb Consistent or DM2 and Heart Healthy Addtl Attending Provider Instructions: Eat small meals, take your lasix first thing in the morning and then 6 hours later, that way you're not up all night urinating Pending Studies at Discharge: No Stand-Alone Forms: My [facility] [employer], Opioid Pain Management, Work/School Release (Inpt), Smoking Cessation Medications and DC Order Prescriptions: New loperamide 2 mg Capsule 2 mg PO TID PRN (Reason: loose stool) Qty: 60 RF: 0 famotidine 20 mg Tablet 20 mg OG BID Qty: 60 RF: 0 oxycodone 5 mg Tablet 5 mg PO Q4H PRN (Reason: pain) Qty: 30 RF: 0 cholecalciferol (vitamin D3) 25 mcg (1,000 unit) Capsule 1,000 unit PO QAM Qty: 30 RF: 0 prochlorperazine maleate [Compazine] 10 mg tablet 10 mg PO Q8H PRN (Reason: nausea and vomiting) Qty: 30 RF: 0 Continued methocarbamol 500 mg Tablet 500 mg PO Q8H PRN (Reason: Muscle Spasm) RF: 0 trazodone 100 mg Tablet 100 - 200 mg PO HS RF: 0 Excedrin Migraine 250-250-65 mg Tablet 1 tab PO Q6H PRN (Reason: Headache) RF: 0 naproxen sodium [Aleve] 220 mg Capsule 220 mg PO BID PRN (Reason: Pain) RF: 0 carvedilol 12.5 mg Tablet 12.5 mg PO BID RF: 0 losartan 25 mg Tablet 25 mg PO QAM RF: 0 fluticasone propionate [Flonase Allergy Relief] 50 mcg/actuation [place],Suspension 2 spray INTRANASAL DAILY PRN (Reason: Allergy Symptoms) RF: 0 mirtazapine 45 mg tablet,disintegrating 45 mg PO HS RF: 0 Discharge Orders: Discharge Order (Routine); Ordered 12/24/19 Ordered By: Morgan Carpenter Admission Data Admit Date/Time: 12/12/19 23:20 Attending Provider: Morgan Carpenter Provider: Beck Saunders Primary Care Provider: Estuardo Kamara Other Providers: Regina Nichols ; Chelsy Oquendo ; Gigi Sparks ; Beck Saunders ; En Butts ; Arabella Zimmerman ; Stacy Jimenez ; Jazmin Wood ; Reinier Campbell ; Dixon Layton ; Maxim Cordoba ; Sally Crawford ; Edmar Esteves ; Uriel Marin ; Leila Knight ; Shelly Dutton ; Raeann Garcia ; Brandy Clark ; Reshma Black ; [facility]
[2019-12-24 08:48] LABS: Albumin Level 1.9 gm/dl (3.4-5.0); BUN Creatinine Ratio 24.4 (10-20); Calcium 7.6 mg/dl (8.5-10.1); Creatinine Clr Calc Pharmacy 155.1 ml/min; Est GFR (African American) 112.4; Magnesium 1.9 mg/dl (1.8-2.4); Potassium 3.3 mmol/L (3.5-5.1)
[2019-12-24] MEDS: CALCIUM CARBONATE 1,250 MG/5 ML UDC PO SCH (08:49)
[2019-12-24] MEDS: LOSARTAN POTASSIUM 25 MG TAB PO SCH (08:49)
[2019-12-24] MEDS: CHOLECALCIFEROL 1,000 UNITS 25 MCG TAB PO SCH (08:49)
[2019-12-24] MEDS: carvediloL 12.5 MG TAB PO SCH (08:50)
[2019-12-24] MEDS: POLYETHYLENE (MIRALAX) 17 GM PACK PO SCH (08:50)
[2019-12-24] MEDS: FAMOTIDINE 20 MG TAB OG SCH (08:50)
[2019-12-24 08:51] LABS: Albumin Globulin Ratio 0.5 (0.9-2); Bilirubin,Total 0.7 mg/dl (0.2-1); Globulin 3.9 gm/dl (2.5-4.0); Phosphorus 2.2 mg/dl (2.5-4.9); Total Protein 5.8 gm/dl (6.4-8.2)
== END 2019-12-24 11:24 | disposition home or self-care (01) | DRG 393 ==
LOC: ED 18:46 → 3N 23:20 → SUATTDRO 23:20 → 3N 12-13 00:45 → 2N 12-13 11:43 → 2S 12-14 01:33 → 1E 12-14 12:42 → 2W 12-20 14:46